=== PATIENT | female | born 1965 | race Hispanic/Latino ===

== ENCOUNTER 2019-06-10 14:32 | Emergency (ER) | payer BC ==
[~2019-06-10] VITALS: Ht 157.5 cm; Wt 72.6 kg
[2019-06-10] MEDS ORDERED: ONDANSETRON HCL INJ 2MG/ML 2ML 2 MG/ML VIAL IV STA (14:33)
[2019-06-10] MEDS ORDERED: MORPHINE SULFATE INJ 4 MG/ML INJ 1ML IV STA (14:33)
[2019-06-10] MEDS ORDERED: SODIUM CHLORIDE 0.9% 1000ML 1,000 ML IV STA (14:33)
--- OUTSIDE RECORDS SUMMARY | 2019-06-10 14:35 | XMS REPORT ---
[facility] Address Unknown Phone Unavailable Care Team Providers Care Human Resources Training Manager Name Role Phone Unavailable Unavailable Problems This patient has no known problems. Allergies, Adverse Reactions, Alerts This patient has no known allergies or adverse reactions. Medications This patient has no known medications. Encounters Start Date/Time End Date/Time Encounter Type Admission Type Attending [facility] Care Department Encounter ID 2018-03-20 00:00:00 2018-03-20 00:00:00 Outpatient [facility] [id number] 2018-01-20 00:00:00 2018-01-20 00:00:00 Outpatient [facility] [id number] 2018-01-13 00:00:00 2018-01-13 00:00:00 Outpatient [facility] [id number] 2017-12-30 00:00:00 2017-12-30 00:00:00 Outpatient [facility] [id number] 2017-12-30 00:00:00 2017-12-30 00:00:00 Outpatient [facility] [id number] 2017-12-20 00:00:00 2017-12-20 00:00:00 Outpatient [facility] [id number] 2017-12-19 00:00:00 2017-12-19 00:00:00 Outpatient [facility] [id number] 2017-12-17 12:02:40 2017-12-17 12:02:40 Outpatient [facility] [id number] 2017-12-16 08:26:13 2017-12-16 08:26:13 Outpatient [facility] [id number] 2017-12-16 07:35:59 2017-12-16 07:35:59 Outpatient [facility] [id number] 2017-12-05 13:05:12 2017-12-05 13:05:12 Outpatient [facility] [id number] 2017-12-04 00:00:00 2017-12-04 00:00:00 Outpatient [facility] [id number] 2017-11-11 12:40:13 2017-11-11 12:40:13 Outpatient [facility] [id number] 2017-11-04 08:17:49 2017-11-04 08:17:49 Outpatient [facility] [id number] 2017-10-17 00:00:00 2017-10-17 00:00:00 Outpatient [facility] [id number] 2017-10-07 14:51:20 2017-10-07 14:51:20 Outpatient [facility] [id number] 2017-10-07 00:00:00 2017-10-07 00:00:00 Outpatient [facility] [id number] 2017-10-01 06:57:12 2017-10-01 06:57:12 Outpatient [facility] [id number] 2017-09-20 22:14:42 2017-09-20 22:14:42 Emergency [facility] [id number] 2017-09-20 21:08:01 2017-09-20 21:08:01 Emergency [facility] [id number] 2017-09-20 19:43:20 2017-09-20 19:43:20 Emergency [facility] [id number] 2017-09-05 00:00:00 2017-09-05 00:00:00 Outpatient [facility] [id number] 2017-09-03 14:00:50 2017-09-03 14:00:50 Outpatient [facility] [id number] 2017-09-03 13:35:03 2017-09-03 13:35:03 Outpatient [facility] [id number] 2017-09-02 00:00:00 2017-09-02 00:00:00 Outpatient [facility] [id number] 2017-08-16 00:00:00 2017-08-16 00:00:00 Outpatient [facility] [id number] 2017-08-05 00:00:00 2017-08-05 00:00:00 Outpatient [facility] [id number] 2017-07-31 07:50:08 2017-07-31 07:50:08 Outpatient [facility] [id number] 2017-07-29 08:22:27 2017-07-29 08:22:27 Outpatient [facility] [id number] 2017-07-23 14:07:06 2017-07-23 14:07:06 Outpatient [facility] [id number] 2017-07-15 12:16:00 2017-07-15 12:16:00 Outpatient [facility] [id number] 2017-07-15 10:38:41 2017-07-15 10:38:41 Outpatient [facility] [id number] 2017-07-10 07:38:57 2017-07-10 07:38:57 Outpatient [facility] [id number] 2017-07-10 00:00:00 2017-07-10 00:00:00 Outpatient [facility] [id number] 2017-07-08 08:10:03 2017-07-08 08:10:03 Outpatient [facility] [id number] 2017-07-08 00:00:00 2017-07-08 00:00:00 Outpatient [facility] [id number] 2017-07-05 09:27:19 2017-07-05 09:27:19 Outpatient [facility] [id number] 2017-07-05 00:00:00 2017-07-05 00:00:00 Outpatient [facility] [id number] 2017-06-24 11:03:03 2017-06-24 11:03:03 Outpatient [facility] [id number] 2017-06-24 08:28:00 2017-06-24 08:28:00 Outpatient [facility] [id number] 2017-06-10 09:30:25 2017-06-10 09:30:25 Outpatient [facility] [id number] 2017-06-10 08:04:06 2017-06-10 08:04:06 Outpatient [facility] [id number] 2017-06-10 00:00:00 2017-06-10 00:00:00 Outpatient [facility] [id number] 2017-06-04 10:34:42 2017-06-04 10:34:42 Outpatient [facility] [id number] 2017-06-04 00:00:00 2017-06-04 00:00:00 Outpatient [facility] [id number] 2017-06-03 09:23:36 2017-06-03 09:23:36 Outpatient [facility] [id number] 2017-06-03 09:23:02 2017-06-03 09:23:02 Outpatient [facility] [id number] 2017-05-14 00:00:00 2017-05-14 00:00:00 Outpatient [facility] [id number] 2017-05-10 00:00:00 2017-05-10 00:00:00 Outpatient [facility] [id number] 2017-05-10 00:00:00 2017-05-10 00:00:00 Outpatient [facility] [id number] 2017-05-10 00:00:00 2017-05-10 00:00:00 Outpatient [facility] [id number] 2017-05-08 00:00:00 2017-05-08 00:00:00 Outpatient [facility] [id number] 2017-04-22 13:07:54 2017-04-22 13:07:54 Outpatient [facility] [id number] 2017-04-17 16:03:17 2017-04-17 16:03:17 Outpatient [facility] [id number] 2017-04-17 14:27:18 2017-04-17 14:27:18 Outpatient [facility] [id number] 2017-03-28 15:54:41 2017-03-28 15:54:41 Emergency [facility] [id number] 2017-03-26 09:51:26 2017-03-26 09:51:26 Outpatient [facility] [id number] 2017-03-26 08:03:46 2017-03-26 08:03:46 Outpatient [facility] [id number] 2017-03-26 07:12:28 2017-03-26 07:12:28 Outpatient [facility] [id number] 2017-03-26 00:00:00 2017-03-26 00:00:00 Outpatient [facility] [id number] 2017-03-25 00:00:00 2017-03-25 00:00:00 Outpatient [facility] [id number] 2017-03-22 00:00:00 2017-03-22 00:00:00 Outpatient [facility] [id number] 2017-03-18 00:00:00 2017-03-18 00:00:00 Outpatient [facility] [id number] 2017-03-04 00:00:00 2017-03-04 00:00:00 Outpatient [facility] [id number] 2017-02-28 00:00:00 2017-02-28 00:00:00 Outpatient [facility] [id number] 2017-02-22 16:54:14 2017-02-22 16:54:14 Emergency [facility] [id number] 2017-02-22 08:57:48 2017-02-22 08:57:48 Outpatient [facility] [id number] 2017-02-22 08:10:36 2017-02-22 08:10:36 Outpatient [facility] [id number] 2017-02-21 09:40:2017-02-21 09:40:17 Outpatient [facility] [id number] 2017-01-14 00:00:00 2017-01-14 00:00:00 Outpatient [facility] [id number] 2017-01-07 10:13:35 2017-01-07 10:13:35 Outpatient [facility] [id number] 2017-01-07 07:36:54 2017-01-07 07:36:54 Outpatient [facility] [id number] 2017-01-04 00:00:00 2017-01-04 00:00:00 Outpatient [facility] [id number] 2017-01-04 00:00:00 2017-01-04 00:00:00 Outpatient [facility] [id number] 2016-12-28 09:40:19 2016-12-28 09:40:19 Outpatient [facility] [id number] 2016-12-24 11:43:23 2016-12-24 11:43:23 Outpatient [facility] [id number] 2016-12-24 11:37:25 2016-12-24 11:37:25 Outpatient [facility] [id number] 2016-12-24 10:02:15 2016-12-24 10:02:15 Outpatient [facility] [id number] 2016-12-17 00:00:00 2016-12-17 00:00:00 Outpatient [facility] [id number] 2016-12-07 00:00:00 2016-12-07 00:00:00 Outpatient [facility] [id number] 2016-11-28 08:41:27 2016-11-28 08:41:27 Outpatient [facility] [id number] 2016-11-12 00:00:00 2016-11-12 00:00:00 Outpatient [facility] [id number] 2016-11-05 00:00:00 2016-11-05 00:00:00 Outpatient [facility] [id number] 2016-11-01 00:00:00 2016-11-01 00:00:00 Outpatient [facility] [id number] 2016-10-05 00:00:00 2016-10-05 00:00:00 Outpatient [facility] [id number] 2016-09-26 00:00:00 2016-09-26 00:00:00 Outpatient [facility] [id number] 2016-09-24 00:00:00 2016-09-24 00:00:00 Outpatient [facility] [id number] 2016-09-11 13:09:10 2016-09-11 13:09:10 Outpatient [facility] [id number] 2016-08-24 00:00:00 2016-08-24 00:00:00 Outpatient [facility] [id number] 2016-08-22 10:53:10 2016-08-22 10:53:10 Outpatient [facility] [id number] 2016-08-22 08:53:44 2016-08-22 08:53:44 Outpatient [facility] [id number] 2016-08-22 07:25:23 2016-08-22 07:25:23 Outpatient [facility] [id number] 2016-08-11 21:39:28 2016-08-11 21:39:28 Emergency [facility] [id number] 2016-08-08 09:50:10 2016-08-08 09:50:10 Outpatient [facility] [id number] 2016-08-06 10:59:51 2016-08-06 10:59:51 Outpatient [facility] [id number]
--- OUTSIDE RECORDS SUMMARY | 2019-06-10 14:36 | XMS REPORT ---
Author Author Admin, Bly Organization [facility] Address [address] [place] [address] Phone ;[phone] Allergies, Adverse Reactions, Alerts Allergy Name Reaction Description Start Date Severity Status Provider LATEX Swelling, burning, rash high fever Critical Active Marlene Balderas MD PCN rash, swelling, burning, SOB, chest pain Critical Active Marlene Balderas MD Conditions or Problems Problem Name Problem Code Onset Date Status Entry Date Provider Comment Standard Description Annotate Unspecified ovarian cyst, left side 620.2 Active Kobi Long MICROBIOLOGY LAB TECHNICIAN-C Other and unspecified ovarian cyst DEPRESSIVE DISORDER, D/T ANOT MED COND, W/ DEPRESSIVE FEATURES Active Mariajose Carmichael DOCK OPERATOR Mood disorder in conditions classified elsewhere Diverticulitis 562.11 Active Kobi Long MICROBIOLOGY LAB TECHNICIAN-C Diverticulitis of colon without mention of hemorrhage Overweight Active Juan José Polanco MD Overweight Epigastric discomfort 789.06 Active Juan José Polanco MD Abdominal pain, epigastric 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 250.00 Active Arsenio Larsen OD Diabetes mellitus without mention of complication, type II or unspecified type, not stated as uncontrolled Myopia - OU 367.1 Active Arsenio Larsen OD Myopia Presbyopia - OU 367.4 Active Arsenio Larsen OD Presbyopia Abdominal distention 787.3 Active Marlene Balderas MD Flatulence, eructation, and gas pain Anemia due to dietary iron deficiency 280.9 Active Marlene Balderas MD Iron deficiency anemia, unspecified Anxiety 300.00 Active Marlene Balderas MD Anxiety state, unspecified Asthma 493.90 Active Marlene Balderas MD Asthma, unspecified Depression 311 Active Marlene Balderas MD Depressive disorder, not elsewhere classified Diabetic neuropathy 250.60 Active Marlene Balderas MD Diabetes mellitus with neurological manifestations, type II or unspecified type, not stated as uncontrolled Diverticular disease 562.10 Active Marlene Balderas MD Diverticulosis of colon (without mention of hemorrhage) Diverticulitis, colon 562.11 Active Marlene Balderas MD Diverticulitis of colon without mention of hemorrhage Dry eye 375.15 Active Marlene Balderas MD Tear film insufficiency, unspecified Gastroparesis 536.3 Active Marlene Balderas MD Gastroparesis GERD 530.81 Active Marlene Balderas MD Esophageal reflux History of hypertension V12.50 Active Marlene Balderas MD Personal history of unspecified circulatory disease Hx of hypokalemia V12.2 Active Marlene Balderas MD Personal history of endocrine, metabolic, and immunity disorders Hyperlipidemia 272.4 Active Marlene Balderas MD Other and unspecified hyperlipidemia Hypotension 458.9 Active Marlene Balderas MD Hypotension, unspecified Screening for colon cancer V76.51 Active Marlene Balderas MD Screening for malignant neoplasms of colon Vertigo 780.4 Active Marlene Balderas MD Dizziness and giddiness Medication List Medication Instructions Start Date Stop Date Generic Name NDC Status Provider Patient Instruction DICYCLOMINE HCL 20 MG ORAL TABLET Take 1 tablet 30 minutes before meals DICYCLOMINE HCL 42987858525 Active Kobi JAY-C Active SIMETHICONE 180 MG ORAL CAPSULE Take 1 capsule 3 times a day as needed for gas pain SIMETHICONE 07296030668 Active Kobi Long MICROBIOLOGY LAB TECHNICIAN-C Active METFORMIN HCL 1000 MG ORAL TABLET 1 by mouth twice a day METFORMIN HCL 52486271450 Active Joey Ross MD R3 Active ADVANCED LUBRICANT 0.05-1 % OPHTHALMIC SOLUTION Administer 1 drop to both eyes 3 (three) times a day. TETRAHYDROZOLINE-PEG 27130958561 Active Joey Ross MD R3 Active ASPIRIN 81 MG ORAL TABLET DELAYED RELEASE 1 by mouth every day ASPIRIN 12323891282 Active Joey Ross MD R3 Active COLACE 100 MG ORAL CAPSULE 1 by mouth twice a day DOCUSATE SODIUM 25244589442 Active Joey Ross MD R3 Active FERROUS SULFATE 325 (65 FE) MG ORAL TABLET DELAYED RELEASE 1 by mouth 2 times a daily FERROUS SULFATE 84448812811 Active Joey Ross MD R3 Active GABAPENTIN 300 MG ORAL CAPSULE 1 by mouth three times a day GABAPENTIN 16251267201 Active Annette Lopez MedAdherence USER SUPPORT ANALYST Active LIPITOR 20 MG ORAL TABLET 1 by mouth every pm ATORVASTATIN CALCIUM 85389074314 Active Annette Lopez MedAdherence USER SUPPORT ANALYST Active MECLIZINE HCL 25 MG ORAL TABLET 1 by mouth 3 times a day as needed MECLIZINE HCL 83083416046 Active Annette Lopez MedAdherence USER SUPPORT ANALYST Active PEPCID 20 MG ORAL TABLET 1 by mouth twice a day FAMOTIDINE 84673715492 Active Annette Lpoez MedAdherence USER SUPPORT ANALYST Active PROAIR HFA 108 (90 BASE) MCG/ACT INHALATION AEROSOL SOLUTION 2 puffs every 4 - 6 hours as needed ALBUTEROL SULFATE 25984368527 Active Joey Ross MD R3 Active REGLAN 10 MG ORAL TABLET 1 by mouth ac and nightly at bedtime METOCLOPRAMIDE HCL 39051014390 Active Annette Lopez MedAdherence USER SUPPORT ANALYST Active ZOLOFT 50 MG ORAL TABLET 1 by mouth nightly at bedtime SERTRALINE HCL 83343843658 Active Annette Lopez MedAdherence USER SUPPORT ANALYST Active CARAFATE 1 GM ORAL TABLET 1 by mouth 3 times a day 30 minutes before meals CARAFATE 1 GM ORAL TABLET 185149 SUCRALFATE Inactive CIPRO 500 MG ORAL TABLET 1 by mouth twice a day CIPRO 500 MG ORAL TABLET 668805 CIPROFLOXACIN HCL Inactive FLAGYL 500 MG ORAL TABLET 1 tab by mouth three a day FLAGYL 500 MG ORAL TABLET 526555 METRONIDAZOLE Inactive CARAFATE 1 GM ORAL TABLET 1 by mouth 3 times a day 30 minutes before meals SUCRALFATE 99372539058 No Longer Active Joey Ross MD R3 Active CIPRO 500 MG ORAL TABLET 1 by mouth twice a day CIPROFLOXACIN HCL 72652459654 No Longer Active Marlene Balderas MD Active FLAGYL 500 MG ORAL TABLET 1 tab by mouth three a day METRONIDAZOLE 10348408017 No Longer Active Marlene Balderas MD Active Vital Signs Date Name Value Unit Range Description blood pressure, diastolic 77 mm[Hg] BP baxter blood pressure, systolic 112 mm[Hg] BP sys height E&M 60 [in_us] Bdy height pulse rate E&M 87 /min Heart rate respiratory rate E&M 20 /min Resp rate temperature E&M 98.1 [degF] Body temperature weight E&M 155 [lb_av] Weight Measured blood pressure, diastolic 76 mm[Hg] BP baxter blood pressure, systolic 117 mm[Hg] BP sys height E&M 60 [in_us] Bdy height pulse rate E&M 74 /min Heart rate respiratory rate E&M 17 /min Resp rate temperature E&M 98.4 [degF] Body temperature weight E&M 154.40 [lb_av] Weight Measured blood pressure, diastolic 80 mm[Hg] BP baxter blood pressure, systolic 129 mm[Hg] BP sys height E&M 60 [in_us] Bdy height pulse rate E&M 81 /min Heart rate respiratory rate E&M 14 /min Resp rate temperature E&M 98.8 [degF] Body temperature weight E&M 151 [lb_av] Weight Measured blood pressure, diastolic 82 mm[Hg] BP baxter blood pressure, systolic 125 mm[Hg] BP sys pulse rate E&M 70 /min Heart rate blood pressure, diastolic 76 mm[Hg] BP baxter blood pressure, systolic 114 mm[Hg] BP sys height E&M 60 [in_us] Bdy height pulse rate E&M 87 /min Heart rate respiratory rate E&M 16 /min Resp rate temperature E&M 98.1 [degF] Body temperature weight E&M 152.80 [lb_av] Weight Measured Diagnostic Results Date Name Value Unit Range Description Lab Report: CBC With Differential/Platelet, Comp. Metabolic Panel (14), ... - Chemistry thyroid stimulating hormone, serum 1.080 u[iU]/mL 0.450-4.500 very low density lipoproteins 34 mg/dL 5-40 chloride, serum 101 mmol/L 96-106 urea nitrogen, blood 16 mg/dL 6-24 Lab Report: CBC With Differential/Platelet, Comp. Metabolic Panel (14), ... - Hematology mean corpuscular hemoglobin concentration, RBC 33.6 G/DL % 31.5-35.7 erythrocyte (RBC) count 4.65 X10E6/UL 10*6/mm3 3.77-5.28 Lab Report: CBC With Differential/Platelet, Comp. Metabolic Panel (14), ... - Chemistry Absolute Neutrophils 4.9 X10E3/UL 10*3/uL 1.4-7.0 LDL cholesterol, serum 63 mg/dL 0-99 urea nitrogen/creatinine ratio, serum 14 9-23 Lab Report: CBC With Differential/Platelet, Comp. Metabolic Panel (14), ... - Hematology mean corpuscular volume, RBC 79 fL 79-97 Lab Report: CBC With Differential/Platelet, Comp. Metabolic Panel (14), ... - Chemistry HDL cholesterol, serum 49 mg/dL >39 Lab Report: CBC With Differential/Platelet, Comp. Metabolic Panel (14), ... - Hematology monocytes as percent of blood leukocytes 7 % Not Estab. Lab Report: CBC With Differential/Platelet, Comp. Metabolic Panel (14), ... - Chemistry creatinine, serum 1.16 mg/dL 0.57-1.00 albumin/globulin ratio, serum 1.9 1.2-2.2 cholesterol, serum 146 mg/dL 323-119 8562/07/22 creatinine, random, urine 52.8 mg/dL Not Estab. bilirubin, serum, total 0.2 mg/dL 0.0-1.2 Lab Report: CBC With Differential/Platelet, Comp. Metabolic Panel (14), ... - Hematology Eosinophil Absolute Count 0.2 X10E3/UL 10*3/uL 0.0-0.4 Lab Report: H. pylori Stool Ag, EIA - Microbiology Helicobacter pylori antigen, stool Negative Negative Lab Report: CBC With Differential/Platelet, Comp. Metabolic Panel (14), ... - Chemistry aspartate aminotransferase (SGOT), serum 22 U/L 0-40 Lab Report: CBC With Differential/Platelet, Comp. Metabolic Panel (14), ... - Hematology red blood cell distribution width 17.4 % 12.3-15.4 leukocyte count, blood 7.5 X10E3/UL 10*3/mm3 3.4-10.8 Lab Report: CBC With Differential/Platelet, Comp. Metabolic Panel (14), ... - Chemistry potassium, serum 4.2 mmol/L 3.5-5.2 immature granulocytes, percentage of total cells, blood 1 % Not Estab. albumin, serum 4.9 g/dL 3.5-5.5 Lab Report: CBC With Differential/Platelet, Comp. Metabolic Panel (14), ... - Hematology lymphocyte count, blood, automated 1.8 X10E3/UL 10*3/mm3 0.7-3.1 hematocrit, blood 36.6 % 34.0-46.6 Lab Report: CBC With Differential/Platelet, Comp. Metabolic Panel (14), ... - Chemistry sodium, serum 139 mmol/L 134-144 Lab Report: CBC With Differential/Platelet, Comp. Metabolic Panel (14), ... - Hematology neutrophils as percent of blood leukocytes 66 % Not Estab. basophils as percent of blood leukocytes 0 % Not Estab. Lab Report: CBC With Differential/Platelet, Comp. Metabolic Panel (14), ... - Chemistry carbon dioxide, venous blood 20 mmol/L 20-29 triglyceride, serum, fasting 171 mg/dL 0-149 calcium, serum 9.8 mg/dL 8.7-10.2 microalbumin/creatinine ratio, urine 17.6 MG/G CREAT ug/mg 0.0-30.0 alanine aminotransferase (SGPT), serum 31 U/L 0-32 Lab Report: CBC With Differential/Platelet, Comp. Metabolic Panel (14), ... - Hematology mean corpuscular hemoglobin, RBC 26.5 pg 26.6-33.0 Lab Report: CBC With Differential/Platelet, Comp. Metabolic Panel (14), ... - Chemistry protein, total, serum 7.5 g/dL 6.0-8.5 alkaline phosphatase, serum 62 U/L 39-117 Lab Report: CBC With Differential/Platelet, Comp. Metabolic Panel (14), ... - Hematology hemoglobin, blood 12.3 g/dL 11.1-15.9 lymphocytes as percent of blood leukocytes 24 % Not Estab. Lab Report: CBC With Differential/Platelet, Comp. Metabolic Panel (14), ... - Chemistry hemoglobin A1C, blood, as % of total hemoglobin 6.2 % 4.8-5.6 Lab Report: CBC With Differential/Platelet, Comp. Metabolic Panel (14), ... - Genetics/fertility eGFR if 61 mL/min/1.73m2 >59 Lab Report: CBC With Differential/Platelet, Comp. Metabolic Panel (14), ... - Hematology basophil count, absolute 0.0 x10E3/uL 0.0-0.2 Lab Report: CBC With Differential/Platelet, Comp. Metabolic Panel (14), ... - Chemistry globulin, serum 2.6 1.5-4.5 Estimated Glomerular Filtration Rate (calc) 53 mL/min/1.73m2 >59 Lab Report: CBC With Differential/Platelet, Comp. Metabolic Panel (14), ... - Urinalysis microalbumin/total urine volume 9.3 mg/L Not Estab. Lab Report: CBC With Differential/Platelet, Comp. Metabolic Panel (14), ... - Hematology eosinophils as percent of blood leukocytes 2 % Not Estab. Lab Report: CBC With Differential/Platelet, Comp. Metabolic Panel (14), ... - Chemistry blood glucose, random 100 mg/dL 65-99 Lab Report: CBC With Differential/Platelet, Comp. Metabolic Panel (14), ... - Hematology monocyte count, blood, automated 0.5 X10E3/UL 10*3/uL 0.1-0.9 platelet count 394 X10E3/UL 10*3/mm3 150-450 Encounters Date Encounter Provider Code Facility 15:53:43 CDT Ofc Vst, Est Level III Kobi Long MICROBIOLOGY LAB TECHNICIAN-C CPT-39611 [facility] 15:07:48 CDT Ofc Vst, Est Level III Kobi Long MICROBIOLOGY LAB TECHNICIAN-C CPT-95645 [facility] 15:17:12 CDT Est Patient Exp Problem - 33265 Juan José Polanco MD CPT-13658 [facility] 11:35:27 CDT New Patient Detailed - 61765 Marlene Balderas MD CPT-54242 [facility] Procedures Code Procedure Name Date Entry Date Standard Description CPT-24281 Dispensing Visit (Non-Billable) 13:35:11 CDT CPT-79042 Diagnostic evaluation (no medical) - 41123 14:26:55 CDT CPT-75724 New Patient Intermediate Opt - 96259 15:38:07 CDT
--- OUTSIDE RECORDS SUMMARY | 2019-06-10 14:36 | XMS REPORT ---
Author Author Admin, [place] Organization Unknown Address Unknown Phone Unavailable PROBLEMS Condition Status Date Provider Notes Unspecified ovarian cyst, left side active Kobi Long DEPRESSIVE DISORDER, D/T ANOT MED COND, W/ DEPRESSIVE FEATURES active Mariajose Carmichael Diverticulitis active Kobi Long Overweight active Juan José Polanco Epigastric discomfort active Joey Mahfouz 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 active Arseniojunaid Larsen Presbyopia - OU active Arseniojunaid Larsen Myopia - OU active Arseniojunaid Larsen Asthma active Joey Mahfouz Dry eye active Joey Mahfouz Diabetic neuropathy active Joey Mahfouz Gastroparesis active Joey Mahfouz Vertigo active Joey Mahfouz Anxiety active Joey Mahfouz Screening for colon cancer active Joey Mahfouz Abdominal distention active Joey Mahfouz Depression active Joey Mahfouz GERD active Joey Mahfouz Hyperlipidemia active Joey Mahfouz Hx of hypokalemia active Joey Mahfouz Anemia due to dietary iron deficiency active Joey Mahfouz History of hypertension active Joey Mahfouz Hypotension active Joey Mahfouz Diverticular disease active Joey Mahfouz Diverticulitis, colon active Joey Mahfouz ENCOUNTERS Date Type Provider Location Encounter Diagnosis - Ambulatory Encounter Sally [facility] UNK - Ambulatory Encounter Margie Past[facility] UNK - Ambulatory Encounter Margie [facility] UNK - Ambulatory Encounter Margiejodi [facility] UNK - Ambulatory Encounter Kobi Long [facility] UNK - Ambulatory Encounter Kobi Long [facility] UNK - Ambulatory Encounter Kobi Long [facility] UNK - Ambulatory Encounter Kobi Cueva May [facility] Unspecified ovarian cyst, left side - Ambulatory Encounter Margie [facility] UNK - Ambulatory Encounter Benjamin Sergei [facility] UNK - Ambulatory Encounter Janeth Rossi [facility] UNK - Ambulatory Encounter Yuniel Lee [facility] UNK - Ambulatory Encounter Kobi Long [facility] UNK - Ambulatory Encounter Kobi Long [facility] UNK - Ambulatory Encounter Kobi May [facility] Diverticulitis - Ambulatory Encounter Mariajose Carmichael [facility] DEPRESSIVE DISORDER, D/T ANOT MED COND, W/ DEPRESSIVE FEATURES - Ambulatory Encounter Joey Mahfogrey Joey Mahfouz [facility] UNK - Ambulatory Encounter Janeth Rossi [facility] UNK - [facility] UNK - Ambulatory Encounter Jayleen Medel [facility] UNK - Ambulatory Encounter Ashley Sevilla [facility] UNK - [facility] - [facility] UNK - Ambulatory En[facility] UNK [facility] UN[facility] - Ambulatory Encounter Juan José Joe [facility] Yuniel [facility] Epigastric discomfortOverweight - Ambulatory Encounter [facility] UN[facility] Ambulatory Encounter [facility] UNK - Ambulatory Encounter [facility] Ingrid Leung [facility] UNK - Ambulatory Encounter Devaughn Rothman [facility] - Ambulatory Encounter aJneth Rossi [facility] [place] UNK [facility] Ambulatory Encounter [facility] UNK - Ambulatory Encounter Arsenio Larsen [facility] UNK - Ambulatory Encounter Arseniojunaid Larsen [facility] UNK - Ambulatory Encounter Arseniojunaid Larsen [facility] UNK - Ambulatory Encounter Arseniojunaid Larsen Vijaya Cartagena [facility] Vision Myopia - OUPresbyopia - OU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 - Ambulatory Encounter Isidra Fonseca [facility] UNK - Ambulatory Encounter Joey Lesliekikagrey Joey Ross [facility] UNK - Ambulatory Encounter Joey Nelsondayton Cheek [facility] UNK - Ambulatory Encounter Leatha Durant [facility] UNK - Ambulatory Encounter Annette Sanders [facility] UNK - [facility]ulatory Encounter [facility] UNK - Ambulatory Encounter Joey Ross Joey [facility] UNK - Ambulatory Encounter Joeyteddy Nelsonkikagrey [facility] UNK - Ambulatory Encounter Joeyteddy Nelsonkikagrey [facility] UNK - Ambulatory Encounter Marlene Soto [facility] Diverticulitis, colonDiverticular diseaseHypotensionHistory of hypertensionAnemia due to dietary iron deficiencyHx of hypokalemiaHyperlipidemiaGERDDepressionAbdominal distentionScreening for colon cancerAnxietyVertigoGastroparesisDiabetic neuropathyDry eyeAsthma - Ambulatory Encounter Joey [facility]agrey [facility] VITAL SIGNS No Information Available ALLERGIES Allergy Name Onset Date Reaction Criticality Status LATEX Swelling, burning, rash high fever High Criticality active PCN rash, swelling, burning, SOB, chest pain High Criticality active REASON FOR REFERRAL Start Date - End Date Service - [place] - Internal - Gastroenterology - External RESULTS Date Observation Value Provider Reference Range Interpretation Location Helicobacter pylori antigen, stool Negative [facility] Negative thyroid stimulating hormone, serum 1.080 u[iU]/mL [facility] 0.450-4.500 " hemoglobin A1C, blood, as % of total hemoglobin 6.2 % [facility] 4.8-5.6 High " microalbumin/creatinine ratio, urine 17.6 MG/G CREAT [facility] 0.0-30.0 " microalbumin/total urine volume 9.3 mg/L [facility] Not Estab. " creatinine, random, urine 52.8 mg/dL [facility] Not Estab. " LDL cholesterol, serum 63 mg/dL [facility] 0-99 " very low density lipoproteins 34 mg/dL [facility] 5-40 " HDL cholesterol, serum 49 mg/dL [facility] >39 " triglyceride, serum, fasting 171 mg/dL [facility] 0-149 High " cholesterol, serum 146 mg/dL [facility] 100-199 " alanine aminotransferase (SGPT), serum 31 1/L [facility] 0-32 " aspartate aminotransferase (SGOT), serum 22 1/L [facility] 0-40 " alkaline phosphatase, serum 62 1/L [facility] 39-117 " bilirubin, serum, total 0.2 mg/dL [facility] 0.0-1.2 " albumin/globulin ratio, serum 1.9 [facility] 1.2-2.2 " globulin, serum 2.6 [facility] 1.5-4.5 " albumin, serum 4.9 g/dL [facility] 3.5-5.5 " protein, total, serum 7.5 g/dL [facility] 6.0-8.5 " calcium, serum 9.8 mg/dL [facility] 8.7-10.2 " carbon dioxide, venous blood 20 mmol/L [facility] 20-29 " chloride, serum 101 mmol/L [facility] 96-106 " potassium, serum 4.2 mmol/L [facility] 3.5-5.2 " sodium, serum 139 mmol/L [facility] 134-144 " urea nitrogen/creatinine ratio, serum 14 [facility] 9-23 " eGFR if 61 mL/min/((173/100).m2) [facility] >59 " Estimated Glomerular Filtration Rate (calc) 53 mL/min/((173/100).m2) [facility] >59 Low " creatinine, serum 1.16 mg/dL [facility] 0.57-1.00 High " urea nitrogen, blood 16 mg/dL [facility] 6-24 " blood glucose, random 100 mg/dL [facility] 65-99 High " immature granulocytes, percentage of total cells, blood 1 % [facility] Not Estab. " basophil count, absolute 0.0 x10E3/uL [facility] 0.0-0.2 " Eosinophil Absolute Count 0.2 X10E3/UL [facility] 0.0-0.4 " monocyte count, blood, automated 0.5 X10E3/UL [facility] 0.1-0.9 " lymphocyte count, blood, automated 1.8 X10E3/UL [facility] 0.7-3.1 " Absolute Neutrophils 4.9 X10E3/UL [facility] 1.4-7.0 " basophils as percent of blood leukocytes 0 % [facility] Not Estab. " eosinophils as percent of blood leukocytes 2 % [facility] Not Estab. " monocytes as percent of blood leukocytes 7 % [facility] Not Estab. " lymphocytes as percent of blood leukocytes 24 % [facility] Not Estab. " neutrophils as percent of blood leukocytes 66 % [facility] Not Estab. " platelet count 394 X10E3/UL [facility] 150-450 " red blood cell distribution width 17.4 % [facility] 12.3-15.4 High " mean corpuscular hemoglobin concentration, RBC 33.6 G/DL [facility] 31.5-35.7 " mean corpuscular hemoglobin, RBC 26.5 pg [facility] 26.6-33.0 Low " mean corpuscular volume, RBC 79 fL [facility] 79-97 " hematocrit, blood 36.6 % [facility] 34.0-46.6 " hemoglobin, blood 12.3 g/dL [facility] 11.1-15.9 " erythrocyte (RBC) count 4.65 X10E6/UL [facility] 3.77-5.28 " leukocyte count, blood 7.5 X10E3/UL [facility] 3.4-10.8 HISTORY OF IMMUNIZATIONS No Information Available HISTORY OF MEDICATION USE Medication Instructions Dates Provider Comments SIMETHICONE 180 MG ORAL CAPSULE Take 1 capsule 3 times a day as needed for gas pain Kobi Long DICYCLOMINE HCL 20 MG ORAL TABLET Take 1 tablet 30 minutes before meals Kobi Long CARAFATE 1 GM ORAL TABLET 1 by mouth 3 times a day 30 minutes before meals - Joey Ross METFORMIN HCL 1000 MG ORAL TABLET 1 by mouth twice a day Joey Ross ADVANCED LUBRICANT 0.05-1 % OPHTHALMIC SOLUTION Administer 1 drop to both eyes 3 (three) times a day. Joey Ross GABAPENTIN 300 MG ORAL CAPSULE 1 by mouth three times a day Joey Ross ZOLOFT 50 MG ORAL TABLET 1 by mouth nightly at bedtime Joey Ross REGLAN 10 MG ORAL TABLET 1 by mouth ac and nightly at bedtime Joey Ross MECLIZINE HCL 25 MG ORAL TABLET 1 by mouth 3 times a day as needed Joey Ross FERROUS SULFATE 325 (65 FE) MG ORAL TABLET DELAYED RELEASE 1 by mouth 2 times a daily Joey Ross PEPCID 20 MG ORAL TABLET 1 by mouth twice a day Joey Ross COLACE 100 MG ORAL CAPSULE 1 by mouth twice a day Joey Ross LIPITOR 20 MG ORAL TABLET 1 by mouth every pm Joey Ross ASPIRIN 81 MG ORAL TABLET DELAYED RELEASE 1 by mouth every day Joey Ross PROAIR HFA 108 (90 BASE) MCG/ACT INHALATION AEROSOL SOLUTION 2 puffs every 4 - 6 hours as needed Joey Ross FLAGYL 500 MG ORAL TABLET 1 tab by mouth three a day - Joey Ross CIPRO 500 MG ORAL TABLET 1 by mouth twice a day - Joey Ross SOCIAL HISTORY Date Observation Value Provider drug use, illicit Never Anay May " alcohol use Never Naay May " social history E&M . from , 1 son working and 1 daughter who is very supportive Not homeless. Born in [place]. State: [facility] . 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 Sex at : Female. Sexual orientation: Heterosexual. Gender identity: Female. Gender of partner(s): Male. Age of first sexual intercourse: 18. Sexually Active: Yes. Anay May " social history reviewed E&M reviewed today Anay May " sexual orientation Heterosexual Anay May " assessment of health literacy ([facility] 2014 Standards, 3C10) Adequate Anay May " passive cigarette smoke exposure No Anay May " smoking status never smoker Anay May social history reviewed E&M reviewed today Mariajose Carmichael " social history E&M . from , 1 son working and 1 daughter who is very supportive Not homeless. Born in [place]. State: [facility] . 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 Sex at : Female. Sexual orientation: Heterosexual. Gender identity: Female. Gender of partner(s): Male. Age of first sexual intercourse: 18. Sexually Active: Yes. Mariajose Carmichael drug use, illicit Never Anay May " alcohol use Never Anay May " social history reviewed E&M reviewed today Anay May " sexual orientation Heterosexual Anay May " assessment of health literacy ([facility] 2014 Standards, 3C10) Adequate Anay May " passive cigarette smoke exposure No Anay May " smoking status never smoker Anay May home/family situation, assessment Lives with daughter with her family Mariajose Carmichael " patient considered to be homeless No Mariajose Carmichael " family support from , 1 son working and 1 daughter who is very supportive Mariajose Carmichael time of call 10/02/2018 11:05 AM Jayleen Medel social history reviewed E&M reviewed today Yuniel Lee " sexual orientation Heterosexual Yunielesteban Caputoa " assessment of health literacy ([facility] 2014 Standards, 3C10) Adequate Yuniel Lee " is there any chance that you could be ? No Yuniel Lee " passive cigarette smoke exposure No Yuniel Lee " smoking status never smoker Yuniel Lee " Exercise Program Referral T Yuniel Lee " Weight Management Counseling Provided T Yuniel Lee " Nutrition intervention T Yuniel Lee time of call 09/19/2018 4:41 PM Ingrid Leung time of call 09/17/2018 12:43 PM Rylee Cheek time of call 09/17/2018 12:14 PM Leatha Durant Exercise Program Referral T Ashley iD " Weight Management Counseling Provided T Ashley Sevilla " Nutrition intervention T Ashley Sevilla " social history reviewed E&M reviewed today Ashley Sevilla " drug use, illicit Never Ashley Sevilla " alcohol use Never Ashley Sevilla " sexual orientation Heterosexual Ashley Sevilla " sex at Female Ashley Sevilla " 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 Ashley Sevilla " assessment of health literacy ([facility] 2014 Standards, 3C10) Adequate Ashley Sevilla " passive cigarette smoke exposure No Ashley Sevilla " smoking status never smoker Ashley Sevilla FUNCTIONAL STATUS No Information Available MENTAL STATUS Date Observation Value Provider assessment of judgment and insight E&M intact Kobi Long " mental status examination: orientation E&M oriented to time, place, and person Kobi Long " assessment of mood and affect E&M no depression, anxiety, or agitation Kobi Long " Generalized Anxiety Disorder Questionnaire - Question 2 0 Anay May " Generalized Anxiety Disorder Questionnaire - Question 1 0 Anay May delusion No Mariajose Carmichael assessment of judgment and insight E&M intact Kobi Long " mental status examination: orientation E&M oriented to time, place, and person Kobi Long " assessment of mood and affect E&M no depression, anxiety, or agitation Kobi Long " Generalized Anxiety Disorder Questionnaire - Question 2 0 Anay May " Generalized Anxiety Disorder Questionnaire - Question 1 0 Anay May mental status assessment, judgment fair Mariajose Carmichael " insight (mental status exam) fair Mariajose Carmichael " Mental Status Exam: intelligence adequate fund of information, intact memory processes, oriented to person, oriented to place, oriented to time, oriented to situation, oriented to reality Mariajose Carmichael " hallucinations none Mariajose Carmichael " thought content (mental status exam) (E&M) lucid Mariajose Carmichael " mental status assessment, process able to abstract, goal-directed, logical Mariajose Carmichael " mental status assessment, sensorium alert, attentive, clear Mariajose Carmichael " affect (mental status exam) congruent, euthymic, normal intensity, normal range Mariajose Carmichael " mood (mental status exam) pleasant, sad Mariajose Carmichael " mental status assessment, speech activity normal flow, normal pace, normal pressure, normal rate, normal tone, normal volume, spontaneous Mariajose Carmichael " mental status assessment, motor activity normal gait, normal posture Mariajose Carmichael " behavior (mental status exam) appropriate, candid, cooperative, good eye contact, polite, responsive Mariajose Carmichael" mental appearance (mental status exam) adequate hygiene, appropriate dress, looks like stated age, neat, makeup appropriate Mariajose Carmichael assessment of judgment and insight E&M intact Joey Ross " mental status examination: orientation E&M oriented to time, place, and person Joey Ross " assessment of mood and affect E&M no depression, anxiety, or agitation Joey Ross " Generalized Anxiety Disorder Questionnaire - Question 2 0 Yuniel Lee " Generalized Anxiety Disorder Questionnaire - Question 1 0 Yuniel Lee assessment of judgment and insight E&M intact Joeyteddy Lloyduz " mental status examination: orientation E&M oriented to time, place, and person Joey Lesliefouz " assessment of mood and affect E&M no depression, anxiety, or agitation Joey Ross " Generalized Anxiety Disorder Questionnaire - Question 2 0 Ashley Sevilla " Generalized Anxiety Disorder Questionnaire - Question 1 1 Ashley Sevilla MEDICAL EQUIPMENT No Information Available FAMILY HISTORY No Information Available INSURANCE PROVIDERS Payer name Policy type / Coverage type Covered alliance party ID Sliding Fee - Cat 1 [employer] [id number] ADVANCE DIRECTIVES No Information Available TREATMENT PLAN Date Name H. pylori Stool Ag, EIA FIT- Fecal immunoassay test TSH Rfx on Abnormal to Free T4 Microalb/Creat Ratio, Randm Ur Hemoglobin A1c Lipid Panel Comp. 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 Diagnostic evaluation (no medical) - 01637 Ofc Vst, Est Level III Est Patient Exp Problem - 57939 Integrated Behavioral Health Assessment (IBH) Behavioral Health - Psychiatry Frames, purchases Sphere, bif, plano to +/- 4.00d, per lens New Patient Intermediate Opth - 51970 New Patient Detailed - 58328 Prescription Assistance (Non-HIV) [employer] [facility] - Internal Behavioral Health - Psychiatry HISTORY OF PROCEDURES Procedure Date Procedure Name Provider Procedure Notes Status Dispensing Visit (Non-Billable) Janeth Rossi completed [facility] 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
--- OUTSIDE RECORDS SUMMARY | 2019-06-10 14:36 | XMS REPORT ---
Author Author Admin, [place] Organization Unknown Address Unknown Phone Unavailable PROBLEMS Condition Status Date Provider Notes Dementia active Joey Mahfouz Abnormal abdominal imaging active Joey Mahfouz Melasma active Joey Mahfouz Hypotension active Joeyteddy Nelsonfouz Intermittent Muscle spasm, back active Joeyteddy Nelsonfouz Dysuria active Joeyteddy Nelsonfouz Unspecified ovarian cyst, left side active Kobi Long DEPRESSIVE DISORDER, D/T ANOT MED COND, W/ DEPRESSIVE FEATURES active Mariajose Carmichael Diverticulitis active Kobi Long Overweight active Juan José Polanco Epigastric discomfort active Joey Nelsonfouz 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 active Arseniojunaid Larsen Presbyopia - OU active Arsenio Larsen Myopia - OU active Arseniojunaid Larsen Asthma active Joey Mahfouz Dry eye active Joey Mahfouz Diabetic neuropathy active Joey Mahfouz Gastroparesis active Joey Mahfouz Vertigo active Joey Mahfouz Anxiety active Joey Mahfouz Screening for colon cancer active Joey Mahfouz Abdominal distention active Joey Mahfouz Depression active Joey Mahfouz GERD active Joey Mahfouz Hyperlipidemia active Joeyteddy Nelsonfouz Hx of hypokalemia active Joeyteddy Nelsonfouz Anemia due to dietary iron deficiency active Joeyteddy Nelsonfouz History of hypertension active Joey Mahfouz Hypotension active Joey Nelsonfouz Diverticular disease active Joey Nelsonfogrey Diverticulitis, colon active Joey Ross ENCOUNTERS Date Type Provider Location Encounter Diagnosis - Ambulatory Encounter LSJ Lab Support Desktop [facility] UNK - [facility] UN[facility] - Ambulatory Encounter Fax Status [facility] UNK - Ambulatory Encounter Fax Status [facility] UNK - Ambulatory Encounter Fax Status [facility] UNK - Ambulatory Encounter Fax Status [facility] UNK - Ambulatory Encounter Fax Status [facility] UNK - Ambulatory Encounter Fax Status [facility] UNK - Ambulatory Encounter [facility] UNK - [facility] UNK - Ambulatory Encounter Patrica Langston Joey [facility] Elsa Rebolledo [facility] DysuriaMuscle spasm, backHypotensionMelasmaAbnormal abdominal imagingDementia - Ambulatory Encounter Sally Tejeda [facility] UNK - Ambulatory Encounter Margie [facility] UNK - Ambulatory Encounter Margie [facility] UNK - Ambulatory En[facility] - Ambulatory Encounter Kobi Long [facility] UNK - Ambulatory Encounter Kobi Long [facility] UNK - Ambulatory Encounter Kobi Long [facility] UNK - Ambulatory Encounter Kobi Obrien Anay May FaQuazia [facility] Unspecified ovarian cyst, left side - Ambulatory Encounter aMrgie Pastrana [facility] UNK - Ambulatory Encounter Benjamin Sergei [facility] UNK - Ambulatory Encounter Janethreji Rossi [facility] UNK - Ambulatory Encounter Yuniel Jesus [facility] UNK - Ambulatory Encounter Kobi Long [facility] UNK - Ambulatory Encounter Kobi Long [facility] UNK - Ambulatory Encounter Kobi May [facility] Diverticulitis - Ambulatory Encounter Mariajose Carmichael [facility] DEPRESSIVE DISORDER, D/T ANOT MED COND, W/ DEPRESSIVE FEATURES - Ambulatory Encounter Joey Mahfouz Joey Mahfouz [facility] UNK - Ambulatory Encounter Janethreji Rossi [facility] UNK - Ambulatory Encounter Joey Mahfouz Joey Mahfouz [facility] UNK - Ambulatory Encounter Jayleen Medel [facility] UNK - Ambulatory Encounter Ashley Sevilla [facility] UNK - Ambulatory Encounter [facility] UNK - [facility]ulatory Encounter [facility] - Ambulatory Encounter Joeyteddy Cook [facility] UNK - Ambulatory Encounter Juan José Joe Joey [facility] Epigastric discomfortOverweight - Ambulatory Encounter [facility] - [facility] - Amb[facility] Encounter [facility] Ingrid Leung [facility] UNK - Ambulatory Encounter Devaughn Rothman [facility] UNK - Ambulatory Encounter [facility] [place] [place] [facility] UNK - Ambulatory Encounter [facility] UNK - Ambulatory Encounter Arseniojunaid Larsen [facility] UNK - Ambulatory Encounter Arseniojunaid Larsen [facility] UNK - Ambulatory Encounter Arseniojunaid Larsen [facility] UNK - Ambulatory Encounter Arsenio [facility] Myopia - OUPresbyopia - OU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 - Ambulatory Encounter Isidra Fonseca [facility] UNK - Ambulatory Encounter Joey Cook [facility] UNK - Ambulatory Encounter Joey Nelsonkikagrey Bella Cheek [facility] UNK - Ambulatory Encounter Leatha Durant [facility] UNK - Ambulatory [facility] UNK - Ambulatory Encounter Joey Ross Omar [facility] UNK - Ambulatory Encounter Joey Cook [facility] UNK - Ambulatory Encounter [facility] UNK - Ambulatory Encounter Joeyteddy Ross Joey [facility] UNK - Ambulatory Encounter Marlene Cook Lesliekikagrey Joey [facility] Leatha Soto [facility] Diverticulitis, colonDiverticular diseaseHypotensionHistory of hypertensionAnemia due to dietary iron deficiencyHx of hypokalemiaHyperlipidemiaGERDDepressionAbdominal distentionScreening for colon cancerAnxietyVertigoGastroparesisDiabetic neuropathyDry eyeAsthma - Ambulatory Encounter Joeyteddy Ross Omar [facility] UNK VITAL SIGNS No Information Available ALLERGIES Allergy Name Onset Date Reaction Criticality Status LATEX Swelling, burning, rash high fever High Criticality active PCN rash, swelling, burning, SOB, chest pain High Criticality active REASON FOR REFERRAL Start Date - End Date Service - Neurology - External - PERFORMANCE ANALYST - Internal - Gastroenterology - External RESULTS Date Observation Value Provider Reference Range Interpretation Location corticotropin, plasma 13.7 pg/mL [facility] 7.2-63.3 " alanine aminotransferase (SGPT), serum 149 1/L [facility] 0-32 High " aspartate aminotransferase (SGOT), serum 200 1/L [facility] 0-40 High " alkaline phosphatase, serum 74 1/L [facility] 39-117 " bilirubin, serum, total 0.3 mg/dL [facility] 0.0-1.2 " albumin/globulin ratio, serum 1.9 [facility] 1.2-2.2 " globulin, serum 2.5 [facility] 1.5-4.5 " albumin, serum 4.8 g/dL [facility] 3.5-5.5 " protein, total, serum 7.3 g/dL [facility] 6.0-8.5 " calcium, serum 9.8 mg/dL [facility] 8.7-10.2 " carbon dioxide, venous blood 23 mmol/L [facility] 20-29 " chloride, serum 99 mmol/L [facility] 96-106 " potassium, serum 4.6 mmol/L [facility] 3.5-5.2 " sodium, serum 141 mmol/L [facility] 134-144 " urea nitrogen/creatinine ratio, serum 21 [facility] 9-23 " eGFR if 109 mL/min/((173/100).m2) [facility] >59 " Estimated Glomerular Filtration Rate (calc) 95 mL/min/((173/100).m2) [facility] >59 " creatinine, serum 0.72 mg/dL [facility] 0.57-1.00 " urea nitrogen, blood 15 mg/dL [facility] 6-24 " blood glucose, random 100 mg/dL [facility] 65-99 High glucose, urine, semiquantitative negative Steph Amaury " bilirubin, urine negative Steph Rebolledo " blood in urine (hemoglobin) by dipstick negative Steph Rebolledo " specific gravity, urine 1.020 Steph Rebolledo " protein, urine, semiquantitative (dipstick) negative Steph Rebolledo " urobilinogen, urine, semiquantitative (dipstick) negative Steph Rebolledo " appearance, urine clear Steph Rebolledo " ketones, urine, by test strip negative Steph Rebolledo " pH, urine, semiquantitative 5.5 Steph Rebolledo " nitrite, urine, semiquantitative negative Steph Rebolledo " urine color light yellow Steph Rebolledo " leukocyte esterase, urine, by dipstick 2+ Steph Rebolledo Helicobacter pylori antigen, stool Negative [facility] Negative [...] MEDICATION USE Medication Instructions Dates Provider Comments BACLOFEN 10 MG ORAL TABLET one tablet by mouth take at bedtime as needed for muscle spasm Joey Ross MACROBID 100 MG ORAL CAPSULE 1 by mouth twice a day Joey Ross SIMETHICONE 180 MG ORAL CAPSULE Take 1 [...] 4 - 6 hours as needed Joey oRss FLAGYL 500 MG ORAL TABLET 1 tab by mouth three a day - Joey Ross CIPRO 500 MG ORAL TABLET 1 by mouth twice a day - Joey Ross SOCIAL HISTORY Date Observation Value Provider drug use, illicit Never Steph Rebolledo " alcohol use Never Steph Rebolledo " social history E&M . from , 1 son working and 1 daughter who is very supportive Not homeless. Born in [place]. State: [facility] . 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 Sex at : Female. Sexual orientation: Heterosexual. Gender identity: Female. Gender of partner(s): Male. Age of first sexual intercourse: 18. Sexually Active: Yes. Steph Amaury " social history reviewed E&M reviewed today Steph Rebolledo " sexual orientation Heterosexual Steph Rebolledo " assessment of health literacy ([facility] 2014 Standards, 3C10) Adequate Steph Rebolledo " is there any chance that you could be ? No Steph Rebolledo " passive cigarette smoke exposure No Steph Rebolledo " smoking status never smoker Steph Rebolledo " Exercise Program Referral T Steph Rebolledo " Weight Management Counseling Provided T Steph Rebolledo " Nutrition intervention T Steph Rebolledo drug use, illicit Never Anay May " alcohol use Never Anay May " social history E&M . from , 1 son working and 1 daughter who is very supportive Not homeless. Born in [place]. State: [facility] . 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 Sex at : Female. Sexual orientation: Heterosexual. Gender identity: Female. Gender of partner(s): Male. Age of first sexual intercourse: 18. Sexually Active: Yes. Anay May " social history reviewed E&M reviewed today Anay May " sexual orientation Heterosexual Anay May " assessment of health literacy ([facility] 2014 Standards, 3C10) Adequate Anay May " passive cigarette smoke exposure No Anay May " smoking status never smoker Anay May social history reviewed E&M reviewed today Mariajose Carmichael " social history E&M . from , 1 son working and 1 daughter who is very supportive Not homeless. Born in [place]. State: [facility] . 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 Sex at : Female. Sexual orientation: Heterosexual. Gender identity: Female. Gender of partner(s): Male. Age of first sexual intercourse: 18. Sexually Active: Yes. Mariajose Amol drug use, illicit Never Anay May " alcohol use Never Anay May " social history reviewed E&M reviewed today Anay May " sexual orientation Heterosexual Anay May " assessment of health literacy ([facility] 2014 Standards, 3C10) Adequate Anay May " passive cigarette smoke exposure No Anay May " smoking status never smoker Anay May home/family situation, assessment Lives with daughter with her family Mariajose Carmichael " patient considered to be homeless No Mariajose Carmichael " family support from , 1 son working and 1 daughter who is very supportive Mariajose Amol time of call 10/02/2018 11:05 AM Jayleen Medel social history reviewed E&M reviewed today Yuniel Lee " sexual orientation Heterosexual Yuniel Lee " assessment of health literacy ([facility] 2014 Standards, 3C10) Adequate Yuniel Lee " is there any chance that you could be ? No Yuniel Lee " passive cigarette smoke exposure No Yuniel Lee " smoking status never smoker Yuniel Lee " Exercise Program Referral Slava Lee " Weight Management Counseling Provided Slava Lee " Nutrition intervention Slava Lee time of call 09/19/2018 4:41 PM Ingrid Leung time of call 09/17/2018 12:43 PM Rylee Cheek time of call 09/17/2018 12:14 PM Leatha Durant Exercise Program Referral Slava Sevilla " Weight Management Counseling Provided T Ashley Sevilla " Nutrition intervention T Ashley Sevilla " social history reviewed E&M reviewed today Ashley Sevilla " drug use, illicit Never Ashley Sevilla " alcohol use Never Ashley Sevilla " sexual orientation Heterosexual Ashley Sevilla " sex at Female Ashley Sevilla " 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 Ashley Sevilla " assessment of health literacy ([facility] 2014 Standards, 3C10) Adequate Ashley Sevilla " passive cigarette smoke exposure No Ashley Sevilla " smoking status never smoker Ashley Sevilla FUNCTIONAL STATUS No Information Available MENTAL STATUS Date Observation Value Provider assessment of judgment and insight E&M poor Joey Ross " assessment of mood and affect E&M no depression, anxiety, or agitation Joey Ross " mental status examination: orientation E&M oriented to time, place, and person Joey Ross " Generalized Anxiety Disorder Questionnaire - Question 2 0 Steph Rebolledo " Generalized Anxiety Disorder Questionnaire - Question 1 0 Steph Rebolledo assessment of judgment and insight E&M intact Kobi Long " mental status examination: orientation E&M oriented to time, place, and person Kobi oLng " assessment of mood and affect E&M no depression, anxiety, or agitation oKbi Long " Generalized Anxiety Disorder Questionnaire - [...] cooperative, good eye contact, polite, responsive Mariajose Carmichael " mental appearance (mental status exam) adequate hygiene, appropriate dress, looks like stated age, neat, makeup appropriate Mariajose Carmichael assessment of judgment and insight E&M intact Joey Ross " mental status examination: orientation E&M oriented to time, place, and person Joey Ross " assessment of mood and affect E&M no depression, anxiety, or agitation Joey Lesliekikagrey " Generalized Anxiety Disorder Questionnaire - Question 2 0 Yuniel Lee " Generalized Anxiety Disorder Questionnaire - Question 1 0 Yuniel Lee assessment of judgment and insight E&M intact Joey Ross " mental status examination: orientation E&M oriented to time, place, and person Joey Ross " assessment of mood and affect E&M no depression, anxiety, or agitation Joeyteddy Ross " Generalized Anxiety Disorder Questionnaire - Question 2 0 Ashley Sevilla " Generalized Anxiety Disorder Questionnaire - Question 1 1 Ashley Sevilla MEDICAL EQUIPMENT No Information Available FAMILY HISTORY No Information Available INSURANCE PROVIDERS Payer name Policy type / Coverage type Covered constitution party ID Sliding Fee - Cat 1 [employer] insurance [place] [id number] ADVANCE DIRECTIVES No Information Available TREATMENT PLAN Date Name Comp. Metabolic Panel (14) Cortisol Adrenocorticotropic Hormone (ACTH), Plasma H. pylori Stool Ag, EIA FIT- Fecal immunoassay test TSH Rfx on Abnormal to Free T4 Microalb/Creat Ratio, Randm Ur Hemoglobin A1c Lipid Panel Comp. Metabolic Panel (14) CBC With Differential/Platelet - - - Est Patient Exp Problem - 74025 Behavioral Health - Therapy Behavioral Health - Psychiatry Crate Opener Ofc Vst, Est Level III Dispensing Visit (Non-Billable) [facility] Assessment - Director Medical Diagnostic evaluation (no medical) - 88981 Ofc Vst, Est Level III Est Patient Exp Problem - 80575 Integrated Behavioral Health Assessment (IBH) Behavioral Health - Psychiatry Frames, purchases Sphere, bif, plano to +/- 4.00d, per lens New Patient Intermediate Opt - 56190 New Patient Detailed - 96471 Prescription Assistance (Non-HIV) Crate [facility]er [facility] - Internal Behavioral Health - Psychiatry HISTORY OF PROCEDURES Procedure Date Procedure Name Provider Procedure Notes Status Dispensing Visit (Non-Billable) Janeth Rossi completed [facility] Assessment - Director Medical Mariajose Carmichael completed Diagnostic evaluation (no medical) - 26184 Mariajose Carmichael completed Frames, purchases Janeth Rossi completed Sphere, bif, plano to +/- 4.00d, per lens Janeth Rossi 65.00 completed New Patient Intermediate Opt - 97852 Arsenio Larsen completed GOALS No Information Available HEALTH CONCERNS No Information Available
--- OUTSIDE RECORDS SUMMARY | 2019-06-10 14:37 | XMS REPORT ---
Author Author Admin, [place] Organization Unknown Address Unknown Phone Unavailable PROBLEMS Condition Status Date Provider Notes Dementia active Joey Mahfouz Abnormal abdominal imaging active Joey Mahfouz Melasma active Joey Mahfouz Hypotension active Joeyteddy Nelsonfouz Intermittent Muscle spasm, back active Joeyteddy Nelsonfouz Dysuria active Joeyteddy Neslonfouz Unspecified ovarian cyst, left side active Kobi [...] hypertension active Joey Mahfouz Hypotension active Joey Lesliefouz Diverticular disease active Joeyteddy Nelsonfogrey Diverticulitis, colon active Joeyteddy Nelsonfogrey ENCOUNTERS Date Type Provider Location Encounter Diagnosis - Ambulatory Encounter Joeyteddy Ross [facility] UNK - [facility] - [facility] - Amb[facility] - Ambulatory Encounter [facility] UNK - Ambulatory Encounter Isidra Fonseca [facility] UNK - Ambulatory En[facility] - [facility]bolled[facility] UNK - Ambulatory En[facility]K - Ambulatory Encounter [facility] UNK - Ambulatory Encounter Fax Status [facility] UNK - Ambulatory Encounter Fax Status [facility] UNK - Ambulatory Encounter Fax Status [facility] UNK - Ambulatory Encounter Fax Status [facility] UNK - Ambulatory Encounter Fax Status [facility] UNK - Ambulatory Encounter Fax Status [facility] UNK - Ambulatory Encounter [facility] UNK - Ambulatory Encounter [facility] UNK - Ambulatory Encounter Patrica Fonseca [facility] Elsa Rebolledo [facility] DysuriaMuscle spasm, backHypotensionMelasmaAbnormal abdominal imagingDementia - Ambulatory Encounter Sally Tejeda [facility] UNK - Ambulatory Encounter Margie [facility] UNK - Ambulatory Encounter Margie [facility] UNK - Ambulatory Encounter Margie [facility] UNK - Ambulatory Encounter Kobi [facility] UNK - Ambulatory Encounter Kobi [facility] UNK - Ambulatory Encounter Kobi [facility] UNK - Ambulatory Encounter Kobi Obrien Anay May FaQuazia Cam [facility] Unspecified ovarian cyst, left side - Ambulatory Encounter Margie [facility] UNK - Ambulatory Encounter Benjamin Sergei [facility] UNK - Ambulatory Encounter Janeth Rossi [facility] UNK - Ambulatory Encounter Yuniel [facility] UNK - Ambulatory Encounter Kobi [facility] UNK - Ambulatory Encounter Kobi [facility] UNK - Ambulatory Encounter Kobi Cueva May [facility] Diverticulitis - Ambulatory Encounter Mariajose Carmichael [facility] DEPRESSIVE DISORDER, D/T ANOT MED COND, W/ DEPRESSIVE FEATURES - Ambulatory Encounter Joey [facility] UNK - Ambulatory Encounter Janeth Annews [facility] UNK - [facility] UNK - Ambulatory Encounter Jayleen Medel [facility] UNK - Ambulatory Encounter Ashley Sevilla [facility] UNK - Ambulatory Encounter Joey [facility] UNK [facility] Ambulatory Encounter Joey [facility] UNK - Ambulatory Encounter Joey [facility] UNK - Ambulatory Encounter Joey [facility] UNK - Ambulatory Encounter Juan José Joe [facility] Yuniel [facility] Epigastric discomfortOverweight - Ambulatory Encounter Patrica Torres [facility] UNK - Ambulatory Encounter [facility] - Ambulatory Encounter [facility] UNK - Ambulatory Encounter Joey Ross Ingrid Leung [facility] Contact Center UNK - Ambulatory Encounter Devaughn Rothman [facility] - Ambulatory Encounter [facility] UN[facility] - Ambulatory Encounter [facility] UNK - Ambulatory Encounter Arseniojunaid Larsen [facility] UNK - Ambulatory Encounter Arseniojunaid Larsen [facility] UNK - Ambulatory Encounter Arseniojunaid Larsen [facility] UNK - Ambulatory Encounter Arsenio Chava Cartagena [facility] Vision Myopia - OUPresbyopia - OU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 - Ambulatory Encounter Isidra Fonseca [facility] UNK - Ambulatory Encounter Joey [facility] UN[facility] - Ambulatory Encounter Joey Cook Vandana Cheek [facility] Services Contact Center UNK - Ambulatory Encounter Leatha Durant [facility] Public Health Services UNK - [facility] - [facility]ulatory Encounter [facility]eddy [facility] UNK - Ambulatory [facility] UNK - Ambulatory Encounter Joey Cook [facility] UNK - Ambulatory Encounter Joey Cook [facility] UNK - Ambulatory Encounter Marlene Chilel [facility] Leatha Soto [facility] Diverticulitis, colonDiverticular diseaseHypotensionHistory of hypertensionAnemia due to dietary iron deficiencyHx of hypokalemiaHyperlipidemiaGERDDepressionAbdominal distentionScreening for colon cancerAnxietyVertigoGastroparesisDiabetic neuropathyDry eyeAsthma - Ambulatory Encounter [facility] VITAL SIGNS No Information Available ALLERGIES Allergy Name Onset Date Reaction Criticality Status LATEX Swelling, burning, rash high fever High Criticality active PCN rash, swelling, burning, SOB, chest pain High Criticality active REASON FOR REFERRAL Start Date - End Date Service - Neurology - External - CHEMIST STEROIDS - Internal - Gastroenterology - External RESULTS [...] 65-99 High glucose, urine, semiquantitative negative Steph Rebolledo " bilirubin, urine negative Steph Rebolledo " [...] bedtime as needed for muscle spasm Joey Mahfouz MACROBID 100 MG ORAL CAPSULE 1 by mouth twice a day Joey Lesliefogrey SIMETHICONE 180 MG ORAL CAPSULE Take 1 [...] every 4 - 6 hours as needed Joeyteddy Ross FLAGYL 500 MG ORAL TABLET 1 tab by mouth three a day - Joeyteddy Ross CIPRO 500 MG ORAL TABLET 1 by mouth twice a day - Joey Lesliekikagrey SOCIAL HISTORY Date Observation Value Provider drug use, illicit Never Steph Amaury " alcohol use Never Steph Amaury " social history E&M . from , 1 son working and 1 daughter who is very supportive Not homeless. Born in [place]. State: [facility] . 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 Sex at : Female. Sexual orientation: Heterosexual. Gender identity: Female. Gender of partner(s): Male. Age of first sexual intercourse: 18. Sexually Active: Yes. Steph Rebolledo " social history reviewed E&M reviewed today Steph Rebolledo " sexual orientation Heterosexual Steph Rebolledo " assessment of health literacy ([facility] 2014 Standards, 3C10) Adequate Steph Rebolledo " is there any chance that you could be ? No Steph Rebolledo " passive cigarette smoke exposure No Steph Rebolledo " smoking status never smoker Steph Rebolledo " Exercise Program Referral T [facility] Rebolledo " Weight Management Counseling Provided T Steph Rebolledo " Nutrition intervention T Steph Rebolledo drug use, illicit Never Anay May " alcohol use Never Anay May " social history E&M . from , 1 son working and 1 daughter who is very supportive Not homeless. Born in [place]. State: [facility] . 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 Sex at : Female. Sexual orientation: Heterosexual. Gender identity: Female. Gender of partner(s): Male. Age of first sexual intercourse: 18. Sexually Active: Yes. Anay May " social history reviewed E&M reviewed today Anay May " sexual orientation Heterosexual Anay May " assessment of health literacy ([facility] 2014 Standards, 3C10) Adequate Anay May " passive cigarette smoke exposure No Anay May " smoking status never smoker Anay May social history reviewed E&M reviewed today Mariajose Carmichael " social history E&M . from , 1 son working and 1 daughter who is very supportive Not homeless. Born in [place]. State: [facility] . 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 Sex at : Female. Sexual orientation: Heterosexual. Gender identity: Female. Gender of partner(s): Male. Age of first sexual intercourse: 18. Sexually Active: Yes. Mariajose Carmichael drug use, illicit Never Anay Mya " alcohol use Never Anay May " social history reviewed E&M reviewed today Anay May " sexual orientation Heterosexual Anay May " assessment of health literacy ([facility] 2014 Standards, 3C10) Adequate Anay May " [...] " assessment of health literacy ([facility] 2014 Standards, 3C10) Adequate Yuniel Lee " [...] Leatha Durant Exercise Program Referral T Ashley Sevilla " Weight Management Counseling Provided T Ashley Sevilla " Nutrition intervention T Ashley Sevilla " social history reviewed E&M reviewed today Ashley Sevilla " drug use, illicit Never Ashley Swainz " alcohol use Never Ashley Sevilla " sexual orientation Heterosexual Ashley Sevilla " sex at Female Ashley Sevilla " 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 Ashley Sevilla " assessment of health literacy ([facility] 2014 Standards, 3C10) Adequate Ashley Sevilla " passive cigarette smoke exposure No Ashley Wrightvez " smoking status never smoker Ashley Sevilla [...] Disorder Questionnaire - Question 2 0 Anay Lalo " Generalized Anxiety Disorder Questionnaire - Question 1 0 Anay May delusion No Mariajosevíctor Carmichael assessment of judgment and insight E&M [...] Disorder Questionnaire - Question 1 0 Yuniel Caputoa assessment of judgment and insight E&M intact [...] name Policy type / Coverage type Covered libertarian ID Sliding Fee - Cat 1 [employer] insurance [email or web address] [id number] ADVANCE DIRECTIVES No Information Available TREATMENT PLAN Date Name Comp. Metabolic Panel (14) Cortisol Adrenocorticotropic Hormone (ACTH), Plasma H. pylori Stool Ag, EIA FIT- Fecal immunoassay test TSH Rfx on Abnormal to Free T4 Microalb/Creat Ratio, Randm Ur Hemoglobin A1c Lipid Panel Comp. Metabolic Panel (14) CBC With Differential/Platelet - - - Est Patient Exp Problem - 34287 Behavioral Health - Therapy Behavioral Health - Psychiatry Document Control Coordinator Ofc Vst, Est Level III Dispensing Visit (Non-Billable) [facility] Assessment - Vacuum Caster Diagnostic evaluation (no medical) - 80093 Ofc Vst, Est Level III Est Patient Exp Problem - 85220 Integrated Behavioral Health Assessment (IBH) Behavioral Health - Psychiatry Frames, purchases Sphere, bif, plano to +/- 4.00d, per lens New Patient Intermediate Opth - 22693 New Patient Detailed - 48852 Prescription Assistance (Non-HIV) Document Control Coordinator [facility] - Internal Behavioral Health - Psychiatry HISTORY OF PROCEDURES Procedure Date Procedure Name Provider Procedure Notes Status Dispensing Visit (Non-Billable) Janeth Rossi completed [facility] Assessment - Vacuum Caster Mariajose Carmichael completed Diagnostic evaluation (no medical) - 04964 Mariajose Carmichael completed Frames, purchases Janeth Rossi completed Sphere, bif, plano to +/- 4.00d, per lens Janeth Rossi 65.00 completed New Patient Intermediate Opt - 10195 Arseniojunaid Larsen completed GOALS No Information Available HEALTH CONCERNS No Information Available
--- OUTSIDE RECORDS SUMMARY | 2019-06-10 14:37 | XMS REPORT ---
Author Author Admin, [place] Organization Unknown Address Unknown Phone Unavailable PROBLEMS [...] active Joey Mahfouz Diverticulitis, colon active Joey Mahfogrey ENCOUNTERS Date Type Provider Location Encounter Diagnosis - [facility] - Ambulatory Encounter [facility] UNK - Ambulatory Encounter [facility] UNK - Ambulatory Encounter [facility] UNK [facility] Ambulatory Encounter [facility] UNK [facility] Ambulatory Encounter [facility] UNK [facility] Ambulatory Encounter [facility] UNK - Ambulatory Encounter [facility] UNK - Ambulatory Encounter Isidra Fonseca [place] [facility] [employer] UNK - Ambulatory Encounter [facility]agrey [facility] UNK - Ambulatory Encounter [facility] Steph Rebolledo [facility] UNK - Ambulatory Encounter [facility] UNK - Ambulatory Encounter [facility] UNK - [facility]ulatory [facility] - [facility] En[facility] - [facility] - [facility] Encounter [facility] - [facility] - Ambulatory Encounter Joey [facility] UNK - Ambulatory Encounter Joey [facility] UNK - Ambulatory Encounter Patrica Fonseca [facility] Elsa Rebolledo [facility] DysuriaMuscle spasm, backHypotensionMelasmaAbnormal abdominal imagingDementia - Ambulatory Encounter Sally Tejeda Counts Include 234 [facility] At [facility] UNK - Ambulatory Encounter Margie [facility] UNK - [facility] - [facility] - Ambulatory Encounter [facility] UNK - Ambulatory Encounter [facility] UNK - Ambulatory Encounter Kobi [facility] UNK - Ambulatory Encounter Kobi Levy [facility] Unspecified ovarian cyst, left side - Ambulatory Encounter Margie Pastrana Counts Include 234 [facility] UNK - Ambulatory Encounter Benjamin Sergei [facility] UNK - Ambulatory Encounter Janeth Rossi [facility] UNK - Ambulatory Encounter Yuniel Lee [facility] UNK - Ambulatory Encounter Kobi Long [facility] UNK - Ambulatory Encounter Kobi Long [facility] UNK - Ambulatory Encounter Kobi May [facility] Diverticulitis - Ambulatory Encounter Mariajose Carmichael [facility] DEPRESSIVE DISORDER, D/T ANOT MED COND, W/ DEPRESSIVE FEATURES - Ambulatory Encounter Joey [facility] - Ambulatory Encounter Janeth Rossi [facility] UNK - Ambulatory Encounter Joeyteddy Nelsonkikagrey Joey [facility] UNK - Ambulatory Encounter Jayleen Medel [facility] UNK - Ambulatory Encounter Ashley Sevilla [facility] UNK - Ambulatory Encounter [facility] - [facility]ulatory Encounter Joey Lesliekikagrey [facility] - Ambulatory Encounter Joey Lesliekikagrey [facility] - [facility]ulatory En[facility]eddy [facility] - [facility]ulatory Encounter Juan José Joe [facility] Nelsongrey Yuniel [facility] Epigastric discomfortOverweight - Ambulatory Encounter Patrica Torres [facility] UNK - Ambulatory Encounter Joeyteddy Cook [facility] UNK - Ambulatory Encounter Joey Cook [facility] UNK - Ambulatory Encounter Joey Nelsondayton Leung Counts Include 234 [facility] UNK - Ambulatory Encounter Devaughn Carbajal [facility] UNK - Ambulatory En[facility] - Ambulatory Encounter [facility] UNK - Ambulatory Encounter Arseniojunaid Larsen [facility] UNK - Ambulatory Encounter Arseniojunaid Larsen [facility] UNK - Ambulatory Encounter Arseniojunaid Larsen [facility] UNK - Ambulatory Encounter Arseniojunaid Cartagena [facility] Myopia - OUPresbyopia - OU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 - Ambulatory Encounter Isidra Fonseca [place] [employer] UNK - Ambulatory Encounter Joeyteddy [facility] Adult Medicine UNK - Ambulatory Encounter Joeyteddy Ross [facility] Contact Center UNK - Ambulatory Encounter Leatha Durant [facility] Public Health Services UNK - Ambulatory Encounter Annette BirdCheynene [facility] UNK - Ambulatory Encounter Joey Cook [facility] UNK - Ambulatory Encounter Joey Cook [facility] UNK - Ambulatory Encounter Joey Cook [facility] UNK - Ambulatory Encounter Joey Cook [facility] UNK - Ambulatory Encounter Marlene Chilel Omar [facility] Stoo [facility] Diverticulitis, colonDiverticular diseaseHypotensionHistory of hypertensionAnemia due to dietary iron deficiencyHx of hypokalemiaHyperlipidemiaGERDDepressionAbdominal distentionScreening for colon cancerAnxietyVertigoGastroparesisDiabetic neuropathyDry eyeAsthma - Ambulatory Encounter Joey Cook [facility] UNK VITAL SIGNS No Information Available ALLERGIES Allergy Name Onset Date Reaction Criticality Status LATEX Swelling, burning, rash high fever High Criticality active PCN rash, swelling, burning, SOB, chest pain High Criticality active REASON FOR REFERRAL Start Date - End Date Service - Neurology - External - PROFESSOR OF ECONOMICS - Internal - Gastroenterology - External RESULTS [...] Steph Amaury " bilirubin, urine negative Steph Amaury " blood in urine (hemoglobin) by dipstick negative Steph Amaury " specific gravity, urine 1.020 Steph Amaury " protein, urine, semiquantitative (dipstick) negative Steph Amaury " urobilinogen, urine, semiquantitative (dipstick) negative Steph Amaury " appearance, urine clear Steph Amaury " ketones, urine, by test strip negative Steph Amaury " pH, urine, semiquantitative 5.5 Steph Amaury " nitrite, urine, semiquantitative negative Steph Rebolledo [...] bedtime as needed for muscle spasm Joey Lesliekikagrey MACROBID 100 MG ORAL CAPSULE 1 by mouth twice a day Joey Nelsonkikagrey SIMETHICONE 180 MG ORAL CAPSULE Take 1 [...] is very supportive Not homeless. Born in [place]. State: [facility] . 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 Sex at : Female. Sexual orientation: Heterosexual. Gender identity: Female. Gender of partner(s): Male. Age of first sexual intercourse: 18. Sexually Active: Yes. Steph Amaury " social history reviewed E&M reviewed today Stephghulam Rebolledo " sexual orientation Heterosexual Steph Jack " assessment of health literacy ([facility] 2014 Standards, 3C10) Adequate Steph Amaury " is there any chance that you could be ? No Steph Amaury " passive cigarette smoke exposure No Steph Amaury " smoking status never smoker Steph Rebolledo " Exercise Program Referral T Steph Amaury " Weight Management Counseling Provided T Steph Jack " Nutrition intervention T Steph Rebolledo drug use, illicit Never Anay May " alcohol use Never Anay May " social history E&M . from , 1 son working and 1 daughter who is very supportive Not homeless. Born in [place]. State: [facility] . 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 Sex at : Female. Sexual orientation: Heterosexual. Gender identity: Female. Gender of partner(s): Male. Age of first sexual intercourse: 18. Sexually Active: Yes. Anay May " social history reviewed E&M reviewed today Anay May " sexual orientation Heterosexual Anay May " assessment of health literacy ([facility] 2014 Standards, 3C10) Adequate Anay May " passive cigarette smoke exposure No Anay May " smoking status never smoker Anay May social history reviewed E&M reviewed today Mariajose Carmichael " social history E&M . from , 1 son working and 1 daughter who is very supportive Not homeless. Born in [place]. State: [facility] . Lives with daughter with her [...] Anay May " assessment of health literacy ([facility] 2014 Standards, 3C10) Adequate Anay May " [...] Yuniel Lee " assessment of health literacy ([facility] 2014 Standards, 3C10) Adequate Yuniel Lee " is there any chance that you could be ? No Yuniel Lee " passive cigarette smoke exposure No Yuniel Lee " smoking status never smoker Yunielesteban Lee " Exercise Program Referral T Yuniel Cauptoa " Weight Management Counseling Provided T Yuniel [...] Ashley Sevilla " assessment of health literacy ([facility] 2014 Standards, 3C10) Adequate Ashley Sevilla " [...] Disorder Questionnaire - Question 2 0 Steph Amaury " Generalized Anxiety Disorder Questionnaire - Question [...] E&M oriented to time, place, and person Joeyteddy Ross " assessment of mood and affect E&M no depression, anxiety, or agitation Joeyteddy Ross " Generalized Anxiety Disorder Questionnaire - Question 2 0 Yuniel Lee " Generalized Anxiety Disorder Questionnaire - Question 1 0 Yuniel Lee assessment of judgment and insight E&M intact Joey Ross " mental status examination: orientation E&M oriented to time, place, and person Joeyteddy Ross " assessment of mood and affect E&M no depression, anxiety, or agitation Joeyteddy Ross " Generalized Anxiety Disorder Questionnaire - Question 2 0 Ashley Di " Generalized Anxiety Disorder Questionnaire - Question 1 1 Ashley Sevilla MEDICAL EQUIPMENT No Information Available FAMILY HISTORY No Information Available INSURANCE PROVIDERS Payer name Policy type / Coverage type Covered alliance party ID Sliding Fee - Cat 1 [employer] [id number] ADVANCE DIRECTIVES No Information Available TREATMENT PLAN Date Name Comp. Metabolic Panel (14) Cortisol Adrenocorticotropic Hormone (ACTH), Plasma H. pylori Stool Ag, EIA FIT- Fecal immunoassay test TSH Rfx on Abnormal to Free T4 Microalb/Creat Ratio, Randm Ur Hemoglobin A1c Lipid Panel Comp. Metabolic Panel (14) CBC With Differential/Platelet - - - Est Patient Exp Problem - 69279 Behavioral Health - Therapy Behavioral Health - Psychiatry Marketing Budget Analyst Ofc Vst, Est Level III Dispensing Visit (Non-Billable) [facility] Assessment - Vocational Evaluator Diagnostic evaluation (no medical) - 76927 Ofc Vst, Est Level III Est Patient Exp Problem - 53365 Integrated Behavioral Health Assessment (IBH) Behavioral Health - Psychiatry Frames, purchases Sphere, bif, plano to +/- 4.00d, per lens New Patient Intermediate Opt - 25377 New Patient Detailed - 70681 Prescription Assistance (Non-HIV) Marketing Budget Analyst [facility] - Internal Behavioral Health - Psychiatry HISTORY OF PROCEDURES Procedure Date Procedure Name Provider Procedure Notes Status Dispensing Visit (Non-Billable) Janeth Rossi completed [facility] Assessment - Vocational Evaluator Mariajose Carmichael completed Diagnostic evaluation (no medical) - 98624 Mariajose Carmichael completed Frames, purchases Janeth Rossi completed Sphere, bif, plano to +/- 4.00d, per lens Janeth Rossi 65.00 completed New Patient Intermediate Opt - 36827 Arsenio Larsen completed GOALS No Information Available HEALTH CONCERNS No Information Available
--- OUTSIDE RECORDS SUMMARY | 2019-06-10 14:37 | XMS REPORT ---
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 Dementia active Joeyteddy Ross Abnormal abdominal imaging active Joey Mahfouz Melasma active Joey Mahfouz Hypotension active Joeyteddy Ross Intermittent Muscle spasm, back active Joey Nelsonfouz Dysuria active Joeyteddy Nelsonfogrey Unspecified ovarian cyst, left side active Kobi [...] active Joeyteddy Nelsonfouz Hx of hypokalemia active Joey Mahfouz Anemia due to dietary iron deficiency active Joey Mahfouz History of hypertension active Joey Mahfouz Hypotension active Joey Mahfouz Diverticular disease active Joey Mahfouz Diverticulitis, colon active Joey Mahfouz ENCOUNTERS Date Type Provider Location Encounter Diagnosis - Ambulatory Encounter Matthew Richmondinto DIRECTOR DECISION SUPPORT UNK - Ambulatory Encounter Matthew Fields Jay DIRECTOR DECISION SUPPORT Driver/Sales Workers annual examHistory of ovarian cystMammogram not high risk screeningScreening for vaginal cancer - Ambulatory Encounter Joeyteddy Nelsonkikagrey [facility] - Ambulatory Encounter Joey Vandana [facility] - Ambulatory Encounter Joey Vandana Joey [facility] UN[facility] - Ambulatory Encounter Joey [facility]ana [facility] UN[facility] - Ambulatory Encounter Joey Lesliegrey [facility] - Ambulatory Encounter Joey Vandana [facility] UNK - Ambulatory Encounter Joey Lesliegrey Joey [facility] UN[facility] - Ambulatory Encounter Joey Vandana Cook [facility] UNK - Ambulatory Encounter Isidra Fonseca [facility] Services UNK - Ambulatory Encounter [facility] UNK - Ambulatory Encounter Joey [facility] Rebolledo [facility] Practice UNK - Ambulatory Encounter [facility] - Ambulatory Encounter [facility] UNK - Ambulatory Encounter Fax Status [facility] UNK - Ambulatory Encounter Fax Status [facility] UNK - Ambulatory Encounter Fax Status [facility] UNK - Ambulatory Encounter Fax Status Link[facility] UNK - Ambulatory Encounter Fax Status [facility] UNK - Ambulatory Encounter Fax Status [facility] UNK - Ambulatory Encounter Joey Cook [facility] Family [facility] UNK - Ambulatory Encounter Joey [facility] UNK - Ambulatory Encounter Patrica Fonseca [facility] Elsa Soto Steph Rebolledo [facility] DysuriaMuscle spasm, backHypotensionMelasmaAbnormal abdominal imagingDementia - Ambulatory Encounter Sally Tejeda [facility] Contact Center UNK - Ambulatory Encounter Margie Pastrana [facility] UNK - Ambulatory Encounter [facility] Services UNK - Ambulatory Encounter [facility] UNK - Ambulatory Encounter Kobi Long [facility] UNK - Ambulatory Encounter Kobi Long [facility] UNK - Ambulatory Encounter Kobi Long [facility] UNK - Ambulatory Encounter Kobi Obrien Anay May FaQuazia [facility] Unspecified ovarian cyst, left side - Ambulatory Encounter [facility] UNK - Ambulatory Encounter Benjamin Sergei [facility] UNK - Ambulatory Encounter Janeth Rossi [facility] UNK - Ambulatory Encounter Yuniel Lee [facility] UNK - Ambulatory Encounter Kobi [facility] UNK - Ambulatory Encounter Kobi [facility] UNK - Ambulatory Encounter Kobi Cueva May [facility] Diverticulitis - Ambulatory Encounter Mariajose Carmichael [facility] DEPRESSIVE DISORDER, D/T ANOT MED COND, W/ DEPRESSIVE FEATURES - Ambulatory Encounter [facility] UNK - Ambulatory Encounter Janeth Rossi [facility] UNK - Ambulatory Encounter Joey [facility] UNK - Ambulatory Encounter Jayleen Medel [facility] UNK - Ambulatory Encounter Ashley Sevilla [facility] UNK - Ambulatory Encounter [facility] - Ambulatory Encounter [facility] - Ambulatory Encounter [facility] Ambulatory Encounter [facility] - Ambulatory Encounter Juan José Joe [facility] Epigastric discomfortOverweight - Ambulatory Encounter Patrica [facility] - Ambulatory Encounter [facility] - Ambulatory Encounter [facility] - Ambulatory Encounter [facility] Ingrid Leung [facility] Contact Center UNK - Ambulatory Encounter Devaughn Rothman [facility] UNK - Ambulatory Encounter Janeth Rossi [facility] UNK - Ambulatory Encounter Joey Lesliegrey Cook [facility] UNK - Ambulatory Encounter Arseniojunaid Larsen [facility] UNK - Ambulatory Encounter Arsenio Chava Larsen [facility] UNK - Ambulatory Encounter Arsenio Larsen [facility] UNK - Ambulatory Encounter Arseniojunaid Cartagena [facility] Myopia - OUPresbyopia - OU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 - Ambulatory Encounter Isidra Fonseca [facility] Services UNK - Ambulatory Encounter Joey Cook Vandana [facility] Adult Medicine UNK - Ambulatory Encounter Joeyteddy Ross Joey Cheek [facility] UNK - Ambulatory Encounter Leatha Durant [facility] Public Health Services UNK - Ambulatory Encounter Annette Sanders [facility] UNK - Ambulatory Encounter Joey [facility] Cook [facility] UNK - Ambulatory Encounter [facility] Practice UNK - Ambulatory Encounter Joeyteddy [facility] UNK - Ambulatory Encounter [facility] Practice UNK - Ambulatory Encounter Marlene Soto [facility] Diverticulitis, colonDiverticular diseaseHypotensionHistory of hypertensionAnemia due to dietary iron deficiencyHx of hypokalemiaHyperlipidemiaGERDDepressionAbdominal distentionScreening for colon cancerAnxietyVertigoGastroparesisDiabetic neuropathyDry eyeAsthma - Ambulatory Encounter Joey Nels[facility]rey [facility] UNK VITAL SIGNS No Information Available ALLERGIES Allergy Name Onset Date Reaction Criticality Status LATEX Swelling, burning, rash high fever High Criticality active PCN rash, swelling, burning, SOB, chest pain High Criticality active REASON FOR REFERRAL Start Date - End Date Service - Ultrasound - Pelvic/Transvaginal - Mammogram - Screening - Neurology - External - DIRECTOR DECISION SUPPORT - Internal - Gastroenterology - External RESULTS [...] LinkLogic 65-99 High glucose, urine, semiquantitative negative Stephghulam Rebolledo " bilirubin, urine negative Stephghulam Rebolledo " blood in urine (hemoglobin) by dipstick negative Stephghulam Rebolledo " specific gravity, urine 1.020 Steph Amaury " protein, urine, semiquantitative (dipstick) negative Stephghulam Rebolledo " urobilinogen, urine, semiquantitative (dipstick) negative Stephghulam Rebolledo " appearance, urine clear Stephghulam Rebolledo " ketones, urine, by test strip negative Steph Rebolledo " pH, urine, semiquantitative 5.5 Stephghulam Rebolledo " nitrite, urine, semiquantitative negative Steph [...] Observation Value Provider drug use, illicit Never Ashley Fields " alcohol use Never Ashley Fields " social history E&M . from , 1 son working and 1 daughter who is very supportive Not homeless. Born in [place]. State: [facility] . 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 Sex at : Female. Sexual orientation: Heterosexual. Gender identity: Female. Gender of partner(s): Male. Age of first sexual intercourse: 18. Sexually Active: no. Ashley Fields " social history reviewed E&M reviewed today Ashley Fields " assessment of health literacy ([facility] 2014 Standards, 3C10) Adequate Ashley Fields " passive cigarette smoke exposure No Ashley Fields " smoking status never smoker Ashley Fields " Exercise Program Referral T Ashley Fields " Weight Management Counseling Provided T Ashley Fields " Nutrition intervention T Ashley Fields drug use, illicit Never Steph Amaury " alcohol use Never Steph Amaury " social history E&M . from , 1 son working and 1 daughter who is very supportive Not homeless. Born in [place]. State: [facility] . 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 Sex at : Female. Sexual orientation: Heterosexual. Gender identity: Female. Gender of partner(s): Male. Age of first sexual intercourse: 18. Sexually Active: Yes. Steph Rebolledo " social history reviewed E&M reviewed today Steph Rebolledo " sexual orientation Heterosexual Steph Rebolledo " assessment of health literacy ([facility] 2014 Standards, 3C10) Adequate Steph Rebolledo " [...] is very supportive Not homeless. Born in [place]. State: [facility] . 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 Sex at : Female. Sexual orientation: Heterosexual. Gender identity: Female. Gender of partner(s): Male. Age of first sexual intercourse: 18. Sexually Active: Yes. Anay May " social history reviewed E&M reviewed today Anay May " sexual orientation Heterosexual Anay May " assessment of health literacy ([facility] 2014 Standards, 3C10) Adequate Anay May " passive cigarette smoke exposure No Anay May " smoking status never smoker Anay May social history reviewed E&M reviewed today Mariajose Carmichael " social history E&M . from , 1 son working and 1 daughter who is very supportive Not homeless. Born in [place]. State: [facility] . Lives with daughter with her [...] Anay May " assessment of health literacy ([facility] 2014 Standards, 3C10) Adequate Anay May " [...] Yuniel Lee " assessment of health literacy ([facility] 2014 Standards, 3C10) Adequate Yunielesteban Lee " is there any chance that [...] Ashley Sevilla " assessment of health literacy ([facility] 2014 Standards, 3C10) Adequate Ashley Wrightvez " passive cigarette smoke exposure No Ashley Sevilla " smoking status never smoker Ashley Sevilla FUNCTIONAL STATUS No Information Available MENTAL STATUS Date Observation Value Provider Generalized Anxiety Disorder Questionnaire - Question 2 0 Ashley Fields " Generalized Anxiety Disorder Questionnaire - Question 1 0 Ashley Fields assessment of judgment and insight E&M poor [...] Disorder Questionnaire - Question 1 0 Anay Lalo mental status assessment, judgment fair Mariajose Carmichael [...] name Policy type / Coverage type Covered republican ID Sliding Fee - Cat 1 [employer] insurance [employer] [id number] ADVANCE DIRECTIVES No Information Available TREATMENT PLAN Date Name Pap w/HPV w rflx (30+) Comp. Metabolic Panel (14) Cortisol Adrenocorticotropic Hormone (ACTH), Plasma H. pylori Stool Ag, EIA FIT- Fecal immunoassay test TSH Rfx on Abnormal to Free T4 Microalb/Creat Ratio, Randm Ur Hemoglobin A1c Lipid Panel Comp. Metabolic Panel (14) CBC With Differential/Platelet - - - - - New Patient Well Exam (40 - 64 Yrs) - 78378 Est Patient Exp Problem - 56921 Behavioral Health - Therapy Behavioral Health - Psychiatry General Office Assistant Ofc Vst, Est Level III Dispensing Visit (Non-Billable) [facility] Assessment - Flocculator Operator Diagnostic evaluation (no medical) - 94010 Ofc Vst, Est Level III Est Patient Exp Problem - 59524 Integrated Behavioral Health Assessment (IBH) Behavioral Health - Psychiatry Frames, purchases Sphere, bif, plano to +/- 4.00d, per lens New Patient Intermediate Opth - 82989 New Patient Detailed - 88309 Prescription Assistance (Non-HIV) General Office Assistant [facility] - Internal Behavioral Health - Psychiatry HISTORY OF PROCEDURES Procedure Date Procedure Name Provider Procedure Notes Status Dispensing Visit (Non-Billable) Janeth Rossi completed [facility] Assessment - Flocculator Operator Mariajose Carmichael completed Diagnostic evaluation (no medical) - 46275 Mariajose Carmichael completed Frames, purchases Janeth Rossi completed Sphere, bif, plano to +/- 4.00d, per lens Janeth Rossi 65.00 completed New Patient Intermediate Opt - 23989 Arsenio Larsen completed GOALS No Information Available HEALTH CONCERNS No Information Available
--- OUTSIDE RECORDS SUMMARY | 2019-06-10 14:38 | XMS REPORT ---
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 UNK - Ambulatory Encounter Matthew Richmondinto HOT KETTLE TENDER UNK - Ambulatory Encounter Matthew Fields Cole HOT 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 TENDER Accountant Clerk annual examHistory of ovarian cystMammogram not high risk screeningScreening for vaginal cancer - Ambulatory Encounter Joeyteddy Nelson[facility]ikagrey [facility] - Ambulatory Encounter Joeyteddy Nelsonkikagrey [facility] UNK - Ambulatory Encounter Joeyteddy Nelsonkikagrey Wright[facility] UN[facility] - Ambulatory Encounter Joey Lesliekikagrey Cook [facility] UNK - Ambulatory Encounter Joeyteddy Nelsonkikagrey Cook [facility] UNK - Ambulatory Encounter Joeyteddy Nelsonkikagrey Cook [facility] UNK - Ambulatory Encounter Joeyteddy Nelsonkikagrey Wrightar [facility] UNK - Ambulatory Encounter Joeyteddy Nelsongrey Cook [facility] UNK - Ambulatory Encounter Isdira Fonseca Yuniel Lee [facility] Services UNK - Ambulatory Encounter [facility] UNK - Ambulatory Encounter [facility] IslasSteph Amaury [facility] UNK - Ambulatory Encounter [facility] - [facility]ulatory Encounter [facility] UNK - Ambulatory Encounter Fax Status [facility] UNK - Ambulatory Encounter Fax Status [facility] UNK - Ambulatory Encounter Fax Status [facility] UNK - Ambulatory Encounter Fax Status [facility] UNK - Ambulatory Encounter Fax Status [facility] UNK - Ambulatory Encounter Fax Status LinkLogic [facility] UNK - Ambulatory Encounter [facility] UNK - Ambulatory Encounter [facility] UNK - Ambulatory Encounter Patrica Fonseca [facility] Elsalisa [place] Steph Jack [facility] DysuriaMuscle spasm, backHypotensionMelasmaAbnormal abdominal imagingDementia - Ambulatory Encounter Sally Tejeda On License Of [facility] Contact Center UNK - Ambulatory Encounter Margiejodi Dulory On License Of [facility] UNK - Ambulatory Encounter Margiejodi Dulory On License Of [facility] UNK - Ambulatory Encounter Margie [facility] UNK - Ambulatory Encounter Kobi Long [facility] UNK - Ambulatory Encounter Kboi Long [facility] UNK - Ambulatory Encounter Kobi Long [facility] UNK - Ambulatory Encounter Kobi Cueva May FaQuazia Cam Cole [facility] Unspecified ovarian cyst, left side - Ambulatory Encounter Margie Pastrana On License Of [facility] UNK - Ambulatory Encounter Benjamin Sergei [facility] UNK - Ambulatory Encounter Janeth Rossi [facility] UNK - Ambulatory Encounter Yuniel [facility] UNK - Ambulatory Encounter Kobi Long [facility] UNK - Ambulatory Encounter Kobi Long [facility] UNK - Ambulatory Encounter Kobi May [facility] Diverticulitis - Ambulatory Encounter Mariajose Carmichael [facility] DEPRESSIVE DISORDER, D/T ANOT MED COND, W/ DEPRESSIVE FEATURES - Ambulatory Encounter Joey Nelsonfogrey Cook Mah[facility] UNK - Ambulatory Encounter Janethreji Rossi [facility] UNK - Ambulatory Encounter [facility] - Ambulatory Encounter Jayleen Medel [facility] UNK - Ambulatory Encounter Ashley Sevilla [facility] UNK - Ambulatory Encounter [facility] - Ambulatory Encounter [facility] - Ambulatory Encounter [facility] - Ambulatory Encounter [facility] UNK - Ambulatory Encounter Juan José [facility] Epigastric discomfortOverweight - Ambulatory Encounter Patrica [facility] UNK - Ambulatory Encounter [facility] - Ambulatory En[facility] - [facility] Encounter [facility] Ingrid Leung [facility] Services Contact Center UNK - Ambulatory Encounter Devaughn Rothman [facility] UNK - Ambulatory Encounter Janethreji Rossi [facility] UNK - Ambulatory Encounter Joey Vandana Cook [facility] UNK - Ambulatory Encounter Arseniojunaid Larsen [facility] Vision UNK - Ambulatory Encounter Arseniojunaid Larsen [facility] Vision UNK - Ambulatory Encounter Arseniojunaid Larsen [facility] Vision UNK - Ambulatory Encounter Arseniojunaid Cartagena [facility] Vision Myopia - OUPresbyopia - OU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 - Ambulatory Encounter Isidra Fonseca [facility] UNK - Ambulatory Encounter Joey [facility] UNK - Ambulatory Encounter Joey Nelsonkikagrey Joey [facility] Cheek On [facility] UNK - Ambulatory Encounter Leatha Durant [facility] Public Health Services UNK - Ambulatory [facility] - Ambulatory Encounter Joeyteddy Cook [facility] UNK - Ambulatory Encounter Joeyteddy Nelsongrey Cook [facility] UN[facility] - Ambulatory Encounter Joeyteddy Cook [facility] UNK - Ambulatory Encounter Joey Lesliegrey Cook [facility] UNK - Ambulatory Encounter Marlene [facility] Joey [facility] Leatha Hunter [facility] Diverticulitis, colonDiverticular diseaseHypotensionHistory of hypertensionAnemia due to dietary iron deficiencyHx of hypokalemiaHyperlipidemiaGERDDepressionAbdominal distentionScreening for colon cancerAnxietyVertigoGastroparesisDiabetic neuropathyDry eyeAsthma - Ambulatory Encounter Joey Ross [facility] UNK VITAL SIGNS No Information Available ALLERGIES Allergy Name Onset Date Reaction Criticality Status LATEX Swelling, burning, rash high fever High Criticality active PCN rash, swelling, burning, SOB, chest pain High Criticality active REASON FOR REFERRAL Start Date - End Date Service - Ultrasound - Pelvic/Transvaginal - Mammogram - Screening - Neurology - External - HOT KETTLE TENDER - Internal - Gastroenterology - External RESULTS [...] 65-99 High glucose, urine, semiquantitative negative Steph Amauyr " bilirubin, urine negative Steph Amaury " blood in urine (hemoglobin) by dipstick negative Steph Amaury " specific gravity, urine 1.020 Steph Amaury " protein, urine, semiquantitative (dipstick) negative Steph Amaury " urobilinogen, urine, semiquantitative (dipstick) negative Steph Amaury " appearance, urine clear Stephghulam Rebolledo " ketones, urine, by test strip negative Steph Jack " pH, urine, semiquantitative 5.5 Steph Amaury " nitrite, urine, semiquantitative negative Steph Amaury " urine color light yellow Steph Amaury " leukocyte esterase, urine, by dipstick 2+ [...] is very supportive Not homeless. Born in [place]. State: [facility] . 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 Sex at : Female. Sexual orientation: Heterosexual. Gender identity: Female. Gender of partner(s): Male. Age of first sexual intercourse: 18. Sexually Active: no. Ashley Fields " social history reviewed E&M reviewed today Ashley Fields " assessment of health literacy ([facility] 2014 Standards, 3C10) Adequate Ashley Fields " passive cigarette smoke exposure No Ashley Fields " smoking status never smoker Ashley Fields " Exercise Program Referral T Ashley Fields " Weight Management Counseling Provided Slava Fields " Nutrition intervention Slava Fields drug use, illicit Never Steph Amaury " alcohol use Never Steph Amaury " social history E&M . from , 1 son working and 1 daughter who is very supportive Not homeless. Born in [place]. State: [facility] . 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 Sex at : Female. Sexual orientation: Heterosexual. Gender identity: Female. Gender of partner(s): Male. Age of first sexual intercourse: 18. Sexually Active: Yes. Steph Rebolledo " social history reviewed E&M reviewed today Steph Rebolledo " sexual orientation Heterosexual Steph Jack " assessment of health literacy ([facility] 2014 Standards, 3C10) Adequate Steph Rebolledo " is there any chance that you could be ? No Steph Rebolledo " passive cigarette smoke exposure No Steph Rebolledo " smoking status never smoker Steph Amaury " Exercise Program Referral T Steph Rebolledo " Weight Management Counseling Provided T Steph Rebolledo " Nutrition intervention T Steph Rebolledo drug use, illicit Never Anay May " alcohol use Never Anay May " social history E&M . from , 1 son working and 1 daughter who is very supportive Not homeless. Born in [place]. State: [facility] . 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 Sex at : Female. Sexual orientation: Heterosexual. Gender identity: Female. Gender of partner(s): Male. Age of first sexual intercourse: 18. Sexually Active: Yes. Anay May " social history reviewed E&M reviewed today Anay May " sexual orientation Heterosexual Anay May " assessment of health literacy ([facility] 2014 Standards, 3C10) Adequate Anay May " passive cigarette smoke exposure No Anay May " smoking status never smoker Anay May social history reviewed E&M reviewed today Mariajose Carmichael " social history E&M . from , 1 son working and 1 daughter who is very supportive Not homeless. Born in [place]. State: [facility] . Lives with daughter with her family [...] Anay May " assessment of health literacy ([facility] 2014 Standards, 3C10) Adequate Anay May " passive cigarette smoke exposure No Anay May " smoking status never smoker Anay May home/family situation, assessment Lives with daughter with her family Mariajose Carmichael " patient considered to be homeless No Mariajose Amol " family support from , 1 son working and 1 daughter who is very supportive Mariajose Carmichael time of call 10/02/2018 11:05 AM Jayleen Medel social history reviewed E&M reviewed today Yuniel Lee " sexual orientation Heterosexual Yuniel Lee " assessment of health literacy ([facility] 2014 Standards, 3C10) Adequate Yuniel Lee " is there any chance that you could be ? 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 Ashley Sevilla " assessment of health literacy ([facility] 2014 Standards, 3C10) Adequate Ashley Sevilla " [...] E&M no depression, anxiety, or agitation Joey Vandana " mental status examination: orientation E&M oriented [...] congruent, euthymic, normal intensity, normal range Mariajose Carmichael" mood (mental status exam) pleasant, sad Mariajose Carmichael " mental status assessment, speech activity normal flow, normal pace, normal pressure, normal rate, normal tone, normal volume, spontaneous Mariajose Carmichael " mental status assessment, motor activity normal gait, normal posture Mariajose Carmichael" behavior (mental status exam) appropriate, candid, cooperative, [...] party ID Sliding Fee - Cat 1 [employer] insurance 79 Group [id number] ADVANCE DIRECTIVES No Information Available TREATMENT PLAN [...] Well Exam (40 - 64 Yrs) - 27952 Est Patient Exp Problem - 05487 Behavioral Health - Therapy Behavioral Health - Psychiatry 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 Ofc Vst, Est Level III Dispensing Visit (Non-Billable) [facility] Assessment - Bottling Machine Operator Diagnostic evaluation (no medical) - 33589 Ofc Vst, Est Level III Est Patient Exp Problem - 83673 Integrated Behavioral Health Assessment (IBH) Behavioral Health - Psychiatry Frames, purchases Sphere, bif, plano to +/- 4.00d, per lens New Patient Intermediate Opth - 38941 New Patient Detailed - 89981 Prescription Assistance (Non-HIV) 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 [facility] - Internal Behavioral Health - Psychiatry HISTORY OF PROCEDURES Procedure Date Procedure Name Provider Procedure Notes Status Dispensing Visit (Non-Billable) Janeth Rossi completed [facility] Assessment - Bottling Machine Operator Mariajose Carmichael completed Diagnostic evaluation (no medical) - 96423 Mariajose Carmichael completed Frames, purchases Janeth Rossi completed Sphere, bif, plano to +/- 4.00d, per lens Janeth Rossi 65.00 completed New Patient Intermediate Opt - 67336 Arsenio Larsen completed GOALS No Information Available HEALTH CONCERNS No Information Available
--- OUTSIDE RECORDS SUMMARY | 2019-06-10 14:38 | XMS REPORT ---
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 Dementia active Joeyteddy Ross Abnormal abdominal imaging active Joey Mahfouz Melasma active Joey Mahfouz Hypotension active Joeyteddy oRss Intermittent Muscle spasm, back active Joey Nelsonfouz [...] Provider Location Encounter Diagnosis - Ambulatory Encounter Ashley Richmondinto 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 - Ambulatory Encounter Joey Lesliekikagrey Cook [facility] - Ambulatory Encounter Joey Vandana [facility] - Ambulatory Encounter Joey Lesliekikagrey Cook [facility] - Ambulatory Encounter Joey Lesliekikagrey Joey [facility] UNK - Ambulatory Encounter Joey Lesliekikagrey Cook [facility] UNK - Ambulatory Encounter Joey Lesliekikagrey Cook 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K - Ambulatory Encounter Joey [facility] UNK - Ambulatory Encounter Fax Status [facility] UNK - Ambulatory Encounter Fax Status [facility] UNK - Ambulatory Encounter Fax Status Link[facility] UNK - Ambulatory Encounter Fax Status LinkLogic [facility] UNK - Ambulatory Encounter Fax Status [facility] UNK - Ambulatory Encounter Fax Status LinkLogic [facility] UNK - Ambulatory Encounter [facility] UNK - Ambulatory Encounter [facility] Joey [facility] UNK - Ambulatory Encounter Patrica Fonseca [facility] Elsa Soto Steph Rebolledo [facility] DysuriaMuscle spasm, backHypotensionMelasmaAbnormal abdominal imagingDementia - Ambulatory Encounter Sally Tejeda [facility] Contact Center UNK - Ambulatory Encounter Margie Pastrana [facility] UNK - Ambulatory Encounter Margiejodi Pastrana [facility] UNK - Ambulatory Encounter Margiejodi Dulory [facility] UNK - Ambulatory Encounter Kobi Long [facility] UNK - Ambulatory Encounter Kobi Long [facility] UNK - Ambulatory Encounter Kobi Long [facility] UNK - Ambulatory Encounter Kobi May FaQutopheria Cam [facility] Unspecified ovarian cyst, left side - Ambulatory Encounter Margie Pastrana [facility] UNK - Ambulatory Encounter Benjamin Sergei [facility] UNK - Ambulatory Encounter Janeth Rossi [facility] UNK - Ambulatory Encounter Yuniel Lee [facility] UNK - Ambulatory Encounter Kobi Long [facility] UNK - Ambulatory Encounter Kobi Long [facility] UNK - Ambulatory Encounter Kobi May [facility] Diverticulitis - Ambulatory Encounter Mariajose Carmichael [facility] DEPRESSIVE DISORDER, D/T ANOT MED COND, W/ DEPRESSIVE FEATURES - Ambulatory Encounter Joey Mahfouz Joey Mahfouz [facility] UNK - Ambulatory Encounter Janeth Rossi [facility] UNK - Ambulatory Encounter [facility] LinkLogic [place] [facility] UNK - Ambulatory Encounter Jayleen Medel [facility] UNK - Ambulatory Encounter Ashley Sevilla [place] [facility] UNK - Ambulatory Encounter [facility] UNK - Ambulatory Encounter [facility] UNK - Ambulatory Encounter [facility] UNK - Ambulatory Encounter [facility] Joey [facility] UNK - Ambulatory Encounter Juan José Joe [facility] Epigastric discomfortOverweight - Ambulatory Encounter Patrica Torres [facility] UNK - Ambulatory Encounter [facility] - Ambulatory Encounter [facility] UNK - Ambulatory Encounter [facility] Ingrid Leung [facility] Contact Center UNK - Ambulatory Encounter Devaughn Rothman [place] [facility] UNK - Ambulatory Encounter Janeth Rossi [facility] [place] UNK - Ambulatory Encounter [facility] LinkLogic [place] [facility] UNK - Ambulatory Encounter Arsenio Larsen [facility] UNK - Ambulatory Encounter Arseniojunaid Larsen [facility] UNK - Ambulatory Encounter Arseniojunaid Larsen [facility] UNK - Ambulatory Encounter Arseniojunaid Larsen Vijaya Cartagena [facility] Myopia - OUPresbyopia - OU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 - Ambulatory Encounter Isidra Fonseca [facility] UNK - Ambulatory Encounter Joey Ross Omteddy Ross [facility] UNK - Ambulatory Encounter Joey Ross Joey Vandana Cheek [facility] Contact Center UNK - Ambulatory Encounter Leatha Durant [facility] Public Health Services UNK - Ambulatory Encounter Annette Lopez Tommy [place] [facility] UNK - Ambulatory Encounter [facility] UNK - Ambulatory Encounter Joeyteddy Ross [facility] UNK - Ambulatory Encounter [facility] UNK - Ambulatory Encounter Joeyteddy [facility] UNK - Ambulatory Encounter Marlene Soto [facility] Diverticulitis, colonDiverticular diseaseHypotensionHistory of hypertensionAnemia due to dietary iron deficiencyHx of hypokalemiaHyperlipidemiaGERDDepressionAbdominal distentionScreening for colon cancerAnxietyVertigoGastroparesisDiabetic neuropathyDry eyeAsthma - Ambulatory Encounter Joey Ross [facility] UNK VITAL SIGNS No Information Available ALLERGIES Allergy Name Onset Date Reaction Criticality Status LATEX Swelling, burning, rash high fever High Criticality active PCN rash, swelling, burning, SOB, chest pain High Criticality active REASON FOR REFERRAL Start Date - End Date Service - Ultrasound - Pelvic/Transvaginal - Mammogram - Screening - Neurology - External - 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 ROUTE DRIVER - Internal - Gastroenterology - External RESULTS [...] in urine (hemoglobin) by dipstick negative Steph Jack " specific gravity, urine 1.020 Steph Amaury " protein, urine, semiquantitative (dipstick) negative Steph Amaury " urobilinogen, urine, semiquantitative (dipstick) negative Steph Amaury " appearance, urine clear Stephghulam Rebolledo " ketones, urine, by test strip negative Stephghulam Rebolledo " pH, urine, semiquantitative 5.5 Stephghulam Rebolledo " nitrite, urine, semiquantitative negative Stephghulam Rebolledo " urine color light yellow Stephghulam Rebolledo " leukocyte esterase, urine, by dipstick 2+ Stephghulam Rebolledo Helicobacter pylori antigen, stool Negative LinkLogic [...] is very supportive Not homeless. Born in [place]. State: [facility] . 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 Sex at : Female. Sexual orientation: Heterosexual. Gender identity: Female. Gender of partner(s): Male. Age of first sexual intercourse: 18. Sexually Active: no. Ashley Fields " social history reviewed E&M reviewed today Ashley Fields " assessment of health literacy ([facility] 2014 Standards, 3C10) Adequate Ashley Fields " [...] is very supportive Not homeless. Born in [place]. State: [facility] . 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 Sex at : Female. Sexual orientation: Heterosexual. Gender identity: Female. Gender of partner(s): Male. Age of first sexual intercourse: 18. Sexually Active: Yes. Steph Rebolledo " social history reviewed E&M reviewed today Steph Rebolledo " sexual orientation Heterosexual Steph Rebolledo " assessment of health literacy ([facility] 2014 Standards, 3C10) Adequate Steph Rebolledo " [...] is very supportive Not homeless. Born in [place]. State: [facility] . 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 Sex at : Female. Sexual orientation: Heterosexual. Gender identity: Female. Gender of partner(s): Male. Age of first sexual intercourse: 18. Sexually Active: Yes. Anay May " social history reviewed E&M reviewed today Anay May " sexual orientation Heterosexual Anay May " assessment of health literacy ([facility] 2014 Standards, 3C10) Adequate Anay May " passive cigarette smoke exposure No Anay May " smoking status never smoker Anay May social history reviewed E&M reviewed today Mariajose Amol " social history E&M . from , 1 son working and 1 daughter who is very supportive Not homeless. Born in [place]. State: [facility] . Lives with daughter with her [...] " assessment of health literacy ([facility] 2014 Standards, 3C10) Adequate Anay May " [...] Yunielesteban Caputoa " assessment of health literacy ([facility] 2014 Standards, 3C10) Adequate Yuniel Lee " is there any chance that you could be ? 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 Ashley Sevilla " assessment of health literacy ([facility] 2014 Standards, 3C10) Adequate Ashley Sevilla " passive cigarette smoke exposure No Ashley Sevilla " smoking status never smoker Ashley Wrightvez FUNCTIONAL STATUS No Information Available MENTAL STATUS [...] party ID Sliding Fee - Cat 1 [employer] insurance WebNotes [id number] ADVANCE DIRECTIVES No Information Available TREATMENT PLAN [...] Well Exam (40 - 64 Yrs) - 52872 Est Patient Exp Problem - 12429 Behavioral Health - Therapy Behavioral Health - Psychiatry 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 Ofc Vst, Est Level III Dispensing Visit (Non-Billable) [facility] 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 - Song 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 Diagnostic evaluation (no medical) - 42113 Ofc Vst, Est Level III Est Patient Exp Problem - 45503 Integrated Behavioral Health Assessment (IBH) Behavioral Health - Psychiatry Frames, purchases Sphere, bif, plano to +/- 4.00d, per lens New Patient Intermediate Opt - 67891 New Patient Detailed - 83680 Prescription Assistance (Non-HIV) 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
--- OUTSIDE RECORDS SUMMARY | 2019-06-10 14:38 | XMS REPORT ---
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 UNK - Ambulatory Encounter Matthew Richmondinto [facility] UNK - Ambulatory Encounter Matthew Richmondinto [facility]ANCER [employer]ALE Stopboard Assembler annual examHistory of ovarian cystMammogram not high risk screeningScreening for vaginal cancer - Ambulatory Encounter Joyeteddy [facility] - Ambulatory Encounter Joey Lesliekikagrey [facility] UNK - Ambulatory Encounter Joey Lesliekikagrey [facility] - Ambulatory Encounter Joey Vandana [facility] UNK - Ambulatory Encounter Joey Lesliekikagrey [facility] UNK - Ambulatory Encounter Joey Lesliekikagrey [facility] UNK - Ambulatory Encounter Joey Lesliekikagrey [facility] UNK - Ambulatory Encounter Joey Lesliekikagrey [facility] UNK - Ambulatory Encounter Isidra Fonseca Yuniel Lee 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 UNK - Ambulatory Encounter [facility] UNK - Ambulatory Encounter Joeyteddy Cook [facility] IslasSteph Jack [facility] UNK - Ambulatory Encounter Joeyteddy [facility] UNK - Ambulatory Encounter Joey [facility] UNK - Ambulatory Encounter Fax Status [facility] UNK - Ambulatory Encounter Fax Status [facility] UNK - Ambulatory Encounter Fax Status [facility] UNK - Ambulatory Encounter Fax Status LinkLogic [facility] UNK - Ambulatory Encounter Fax Status [facility] UNK - Ambulatory Encounter Fax Status LinkLogic [facility] UNK - Ambulatory Encounter Joey [facility] UNK - Ambulatory Encounter Joey [facility] UNK - Ambulatory Encounter Patrica Fonseca [facility] Elsa Soto Steph Rebolledo [facility] DysuriaMuscle spasm, backHypotensionMelasmaAbnormal abdominal imagingDementia - Ambulatory Encounter Sally Tejeda [facility] Contact Center UNK - Ambulatory Encounter Margie Pastrana [facility] UNK - Ambulatory Encounter Margiejodi Pastrana [facility] UNK - Ambulatory Encounter Margiejodi [facility] UNK - Ambulatory Encounter Kobi Long [facility] UNK - Ambulatory Encounter Kobi Long [facility] Practice UNK - Ambulatory Encounter Kobi Long [facility] UNK - Ambulatory Encounter Kobi May FaQutopheria Cam [facility] Unspecified ovarian cyst, left side - Ambulatory Encounter Margie Pastrana [facility] UNK - Ambulatory Encounter Benjamin Sergei [facility] UNK - Ambulatory Encounter Janeth Rossi [facility] UNK - Ambulatory Encounter uYniel Lee [facility] UNK - Ambulatory Encounter Kobi Long [facility] UNK - Ambulatory Encounter Kobi Long [facility] Practice UNK - Ambulatory Encounter Kobi May [facility] Diverticulitis - Ambulatory Encounter Mariajose Carmichael [facility] DEPRESSIVE DISORDER, D/T ANOT MED COND, W/ DEPRESSIVE FEATURES - Ambulatory Encounter Joey Mahfouz Joey Mahfouz [facility] UNK - Ambulatory Encounter Janeth Rossi [facility] UNK - Ambulatory Encounter Joey [facility] UNK - Ambulatory Encounter Jayleen Medel [facility] UNK - Ambulatory Encounter Ashley Sevilla [facility] UNK - Ambulatory Encounter [facility] UNK - Ambulatory Encounter [facility] UNK - Ambulatory Encounter [facility] UNK - Ambulatory Encounter [facility] UNK - Ambulatory Encounter Juan José Joe [facility] Epigastric discomfortOverweight - Ambulatory Encounter Patrica [facility] UNK - Ambulatory Encounter [facility] - Ambulatory Encounter [facility] UNK - Ambulatory Encounter [facility] Ingrid Leung [facility] Contact Center UNK - Ambulatory Encounter Devaughn Rothman [facility] UNK - Ambulatory Encounter Janeth Rossi [facility] [place] [facility] UNK - Ambulatory Encounter [facility] UNK - Ambulatory Encounter Arsenio Larsen [facility] UNK - Ambulatory Encounter Arseniojunaid Larsen [facility] UNK - Ambulatory Encounter Arseniojunaid Larsen [facility] UNK - Ambulatory Encounter Arseniojunaid Larsen Vijaya Cartagena [facility] Myopia - OUPresbyopia - OU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 - Ambulatory Encounter Isidra Fonseca [facility] Services UNK - Ambulatory Encounter Joey Ross Omteddy Ross [facility] UNK - Ambulatory Encounter Joey Ross Joey Vandana Cheek [facility] Services Contact Center UNK - Ambulatory Encounter Leatha Durant [facility] Public [facility] Services UNK - Ambulatory Encounter Annette Lopez Tommy [facility] UNK - Ambulatory Encounter [facility] UNK - Ambulatory Encounter Joeyteddy Ross Joey [facility] UNK - Ambulatory Encounter Joey [facility] UNK - Ambulatory Encounter Joeyteddy Cook [facility] UNK - Ambulatory Encounter Marlene Soto [facility] Diverticulitis, colonDiverticular diseaseHypotensionHistory of hypertensionAnemia due to dietary iron deficiencyHx of hypokalemiaHyperlipidemiaGERDDepressionAbdominal distentionScreening for colon cancerAnxietyVertigoGastroparesisDiabetic neuropathyDry eyeAsthma - Ambulatory Encounter Joey [facility] UNK VITAL SIGNS No Information Available ALLERGIES Allergy Name Onset Date Reaction Criticality Status LATEX Swelling, burning, rash high fever High Criticality active PCN rash, swelling, burning, SOB, chest pain High Criticality active REASON FOR REFERRAL Start Date - End Date Service - Ultrasound - Pelvic/Transvaginal - Mammogram - Screening - Neurology - External - 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 Born in [place]. State: [facility] . 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 Sex at : Female. Sexual orientation: Heterosexual. Gender identity: Female. Gender of partner(s): Male. Age of first sexual intercourse: 18. Sexually Active: no. Ashley Fields " social history reviewed E&M reviewed today Ashley Fields " assessment of health literacy ([facility] 2014 Standards, 3C10) Adequate Ashley Fields " passive cigarette smoke exposure No Ashley Feilds " smoking status never smoker Ashley Fields " Exercise Program Referral T Ashley Fields " Weight Management Counseling Provided T Ashley Fields " Nutrition intervention T Ashley Fields drug use, illicit Never Steph Amaury " alcohol use Never Steph Amaury " social history E&M . from , 1 son working and 1 daughter who is very supportive Not homeless. Born in [place]. State: [facility] . 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 Sex at : Female. Sexual orientation: Heterosexual. Gender identity: Female. Gender of partner(s): Male. Age of first sexual intercourse: 18. Sexually Active: Yes. Steph Rebolledo " social history reviewed E&M reviewed today Steph Rebolledo " sexual orientation Heterosexual Steph Rebolledo " assessment of health literacy ([facility] 2014 Standards, 3C10) Adequate Steph Rebolledo " is there any chance that you could be ? No Steph Rebolledo " passive cigarette smoke exposure No Steph Rebolledo " smoking status never smoker Steph Rebolledo " Exercise Program Referral T Steph Rebolledo " Weight Management Counseling Provided T Steph Rebolledo " Nutrition intervention T Stehp Rebolledo drug use, illicit Never Anay May " alcohol use Never Anay May " social history E&M . from , 1 son working and 1 daughter who is very supportive Not homeless. Born in [place]. State: [facility] . 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 Sex at : Female. Sexual orientation: Heterosexual. Gender identity: Female. Gender of partner(s): Male. Age of first sexual intercourse: 18. Sexually Active: Yes. Anay May " social history reviewed E&M reviewed today Anay May " sexual orientation Heterosexual Anay May " assessment of health literacy ([facility] 2014 Standards, 3C10) Adequate Anay May " passive cigarette smoke exposure No Anay May " smoking status never smoker Anay May social history reviewed E&M reviewed today Mariajose Amol " social history E&M . from , 1 son working and 1 daughter who is very supportive Not homeless. Born in [place]. State: [facility] . Lives with daughter with her family [...] Anay May " assessment of health literacy ([facility] 2014 Standards, 3C10) Adequate Anay May [...] Yunielesteban Caputoa " assessment of health literacy ([facility] 2014 Standards, 3C10) Adequate Yuniel Lee [...] Ashley Sevilla " assessment of health literacy ([facility] 2014 Standards, 3C10) Adequate Ashley Sevilla [...] party ID Sliding Fee - Cat 1 [employer] insurance [employer] [id number] ADVANCE DIRECTIVES No Information Available TREATMENT PLAN [...] Well Exam (40 - 64 Yrs) - 26054 Est Patient Exp Problem - 38811 Behavioral Health - Therapy Behavioral Health - Psychiatry 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 Ofc Vst, Est Level III Dispensing Visit (Non-Billable) [facility] Assessment - [employer] Diagnostic evaluation (no medical) - 93485 Ofc Vst, Est Level III Est Patient Exp Problem - 71054 Integrated Behavioral Health Assessment (IBH) Behavioral Health - Psychiatry Frames, purchases Sphere, bif, plano to +/- 4.00d, per lens New Patient Intermediate Opt - 01638 New Patient Detailed - 95373 Prescription Assistance (Non-HIV) 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 [facility] - Internal Behavioral Health - Psychiatry HISTORY OF PROCEDURES Procedure Date Procedure Name Provider Procedure Notes Status Dispensing Visit (Non-Billable) Janeth Rossi completed IB Assessment - [employer] Mariajose Carmichael completed Diagnostic evaluation (no medical) - 91564 Mariajose Carmichael completed Frames, purchases Janeth Rossi completed Sphere, bif, plano to +/- 4.00d, per lens Janeth Rossi 65.00 completed New Patient Intermediate Opt - 03709 Arsenio Larsen completed GOALS No Information Available HEALTH CONCERNS No Information Available
--- OUTSIDE RECORDS SUMMARY | 2019-06-10 14:39 | XMS REPORT ---
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 Dementia active Joey Ross Abnormal abdominal imaging active Joeyteddy Ross Melasma active Joeyteddy Lloyduz Hypotension active Joeyteddy Ross Intermittent Muscle spasm, back active Joeyteddy Ross Dysuria active Joey Ross Unspecified ovarian cyst, left side active Kobi Long DEPRESSIVE DISORDER, D/T ANOT MED COND, W/ DEPRESSIVE FEATURES completed - Juan Clifton Diverticulitis active Kobi Long Overweight active Juan José Polanco Epigastric discomfort active Joey Ross 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 active Arsenio Larsen Presbyopia - OU active Arsenio Larsen Myopia - OU active Arsenio Larsen Asthma active Joeyteddy Ross Dry eye active Joeyteddy Ross Diabetic neuropathy active Joeyteddy Ross Gastroparesis active Joeyteddy Ross Vertigo active Joey Ross Anxiety active Joeyteddy Ross Screening for colon cancer active Joey Mahfouz [...] Provider Location Encounter Diagnosis - Ambulatory Encounter Juan Loja [facility] DEPRESSIVE DISORDER, D/T ANOT MED COND, W/ DEPRESSIVE FEATURESDEPRESSIVE DISORDER, MAJOR, RECURRENT EPISODE, MILDANXIETY DISORDER, UNSPECIFIED - Ambulatory Encounter Matthew Diaz Maru [facility] UNK - Ambulatory Encounter Isidra [facility] UNK - Ambulatory Encounter Matthew Diaz Maru [facility] MANAGER E LEARNING UNK - Ambulatory Encounter Matthew Diaz [facility] MANAGER E LEARNING UNK - Ambulatory Encounter Isidra [facility] UNK - Ambulatory Encounter Ashley Fields [place] [facility]NAGER E LEARNING UNK - Ambulatory Encounter 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 [place] MANAGER E LEARNING UNK - Ambulatory Encounter Matthew Fields [place] MANAGER E LEARNING Scoring Machine Operator annual examHistory of ovarian cystMammogram not high risk screeningScreening for vaginal cancer - Ambulatory Encounter Joey Vandana Cook Mahfouz [facility] UNK - Ambulatory En[facility]K - Ambulatory Encounter Joey Vandana Cook Mahfouz [facility] UNK - Ambulatory Encounter Joey Vandana Cook Mahfouz [facility] UNK - Ambulatory Encounter Joey Vandana Cook Mahfouz [facility] UNK - Ambulatory Encounter [facility] UNK - Ambulatory Encounter Joey [facility]ana [facility] UNK - Ambulatory Encounter Joey [facility]ana [facility] UNK - Ambulatory Encounter Isidra Lee [place] 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 UNK - Ambulatory Encounter Joey Vandana Cook [facility] UNK - Ambulatory Encounter Joey [facility] Steph Rebolledo [facility] UNK - Ambulatory Encounter Joey [facility] UNK - Ambulatory Encounter Joey Vandana [facility] UNK - Ambulatory Encounter [facility] - Ambulatory Encounter F[facility] - Ambulatory Encounter F[facility] Status [facility] - Ambulatory Encounter Fax Status [facility] UN[facility] - Ambulatory Encounter Fax Status [facility] UNK - Ambulatory Encounter [facility] UN[facility] - Ambulatory Encounter Joey [facility] UNK - Ambulatory Encounter Joey [facility] UNK - Ambulatory Encounter Patrica [facility] Elsa [facility] DysuriaMuscle spasm, backHypotensionMelasmaAbnormal abdominal imagingDementia - Ambulatory Encounter Sally Tejeda [facility] UNK - Ambulatory Encounter Margie Pastrana [facility] UN[facility] - Ambulatory Encounter Margie Pastrana [facility] Ambulatory Encounter Margiejodi Greeny [facility] UN[facility] - Ambulatory Encounter Kobi Long [facility] UNK - Ambulatory Encounter Kobi Long [facility] UNK - Ambulatory Encounter Kobi Long [facility] UNK - Ambulatory Encounter Kobi Obrien Anay May FaQuazia Cam [facility] Unspecified ovarian cyst, left side - Ambulatory Encounter Margiejodi Greeny [facility] - Ambulatory Encounter Benjamin Sergei [facility] UNK - Ambulatory Encounter Janeth Rossi [facility] UNK - Ambulatory Encounter Yuniel Lee [facility] UNK - Ambulatory Encounter Kobi Long [facility] UNK - Ambulatory Encounter Kobi Long [facility] UNK - Ambulatory Encounter Kobi May [facility] Diverticulitis - Ambulatory Encounter Mariajose Carmichael [facility] DEPRESSIVE DISORDER, D/T ANOT MED COND, W/ DEPRESSIVE FEATURES - Ambulatory Encounter [facility] - Ambulatory Encounter Janeth Rossi [facility] UNK - Ambulatory Encounter [facility] - [facility]ulatory Encounter Jayleen Medel [facility] UNK - Ambulatory Encounter Ashley Sevilla [facility] UNK - Ambulatory Encounter Joey [facility] UNK - Ambulatory Encounter Joey [facility] UNK - Ambulatory Encounter [facility] - Ambulatory Encounter [facility]K - Ambulatory Encounter Juan José Chacon [facility] Yuniel Lee [facility] Practice Epigastric discomfortOverweight - Ambulatory Encounter Patrica Steven Luisilya [facility] UNK - Ambulatory Encounter Joey Cook [facility] UNK - Ambulatory Encounter Joeyteddy Cook [facility] UNK - Ambulatory Encounter Joey [facility] In[facility] Leung [facility] Contact Center UNK - Ambulatory Encounter Devaughn Carbajal [facility] UNK - Ambulatory Encounter Janeth Rossi [facility] UNK - Ambulatory Encounter Joeyteddy [facility] UNK - Ambulatory Encounter Arseniojunaid Larsen [facility] Vision UNK - Ambulatory Encounter Arseniojunaid Larsen [facility] UNK - Ambulatory Encounter Arseniojunaid Larsen [facility] UNK - Ambulatory Encounter Arseniojnuaid Cartagena [facility] Vision Myopia - OUPresbyopia - OU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 - Ambulatory Encounter Isidra Fonseca [place] 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 Maker UNK - Ambulatory Encounter Joeyteddy Nelsonfogrey [facility] UNK - Ambulatory Encounter Joeyteddy Nelsondayton Cheek [facility] Contact Center UNK - Ambulatory Encounter Leatha Durant [facility] Public Health Services UNK - Ambulatory Encounter Annette [facility] UNK - Ambulatory Encounter Joey Cook [facility] UNK - Ambulatory Encounter Joey Cook [facility] UNK - Ambulatory Encounter Joey Cook [facility] UNK - Ambulatory Encounter Joey Ross Joey [facility] UNK - Ambulatory Encounter Marlene Chilel [facility] Diverticulitis, colonDiverticular diseaseHypotensionHistory of hypertensionAnemia due to dietary iron deficiencyHx of hypokalemiaHyperlipidemiaGERDDepressionAbdominal distentionScreening for colon cancerAnxietyVertigoGastroparesisDiabetic neuropathyDry eyeAsthma - Ambulatory Encounter Joey Cook [facility] UNK VITAL SIGNS No Information Available ALLERGIES Allergy Name Onset Date Reaction Criticality Status LATEX Swelling, burning, rash high fever High Criticality active PCN rash, swelling, burning, SOB, chest pain High Criticality active REASON FOR REFERRAL Start Date - End Date Service - Ultrasound - Pelvic/Transvaginal - Mammogram - Screening - Neurology - External - MANAGER E LEARNING - Internal - Gastroenterology - External RESULTS [...] Steph Rebolledo " urine color light yellow Stephghulam [...] MEDICATION USE Medication Instructions Dates Provider Comments ZOLOFT 100 MG ORAL TABLET Take 1 tablet by mouth daily. Juan Clifton BACLOFEN 10 MG ORAL TABLET one tablet by mouth take at bedtime as needed for muscle spasm Joey Lesliedayton MACROBID 100 MG ORAL CAPSULE 1 by [...] TABLET 1 by mouth nightly at bedtime - Juan Clifton REGLAN 10 MG ORAL TABLET 1 by mouth ac and nightly at bedtime Joey Ross MECLIZINE HCL 25 MG ORAL TABLET 1 by mouth 3 times a day as needed Joey Ross FERROUS SULFATE 325 (65 FE) MG ORAL TABLET DELAYED RELEASE 1 by mouth 2 times a daily Joey Lloyduz PEPCID 20 MG ORAL TABLET 1 by mouth twice a day Joey Ross COLACE 100 MG ORAL CAPSULE 1 by mouth twice a day Joey Lloyduz LIPITOR 20 MG ORAL TABLET 1 by [...] Observation Value Provider drug use, illicit Never Enrike Etienne " alcohol use Never Juan Clifton " smoking status never smoker Enrike Etienne " home/family situation, assessment Lives with daughter with her family (, 3 kids). Juan Faustijos " family support She is 1 of 12 siblings. from , 1 son working and 1 daughter who is very supportive. Juan Clifton " social history E&M . She is 1 of 12 siblings. from , 1 son working and 1 daughter who is very supportive. Not homeless. Born in [place]. State: [facility] . Lives with daughter with her family (, 3 kids). 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 Homemaker. 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 Sex at : Female. Sexual orientation: Heterosexual. Gender identity: Female. Gender of partner(s): Male. Age of first sexual intercourse: 18. Sexually Active: no. Jehova's witness. Arrested for "food stamp fraud", dismissed. Enrike Etienne " social history reviewed E&M reviewed today Juan Mcmahanos drug use, illicit Never Ashley Fields " alcohol use Never Ashley Fields " social history E&M . from , 1 son working and 1 daughter who is very supportive Not homeless. Born in [place]. State: [facility] . 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 Sex at : Female. Sexual orientation: Heterosexual. Gender identity: Female. Gender of partner(s): Male. Age of first sexual intercourse: 18. Sexually Active: no. Ashley Fields " social history reviewed E&M reviewed today Ashley Fields " assessment of health literacy ([facility] 2014 Standards, 3C10) Adequate Ashley Fields " passive cigarette smoke exposure No Ashley Fields " smoking status never smoker Ashley Fields " Exercise Program Referral Slava Fields " Weight Management Counseling Provided T Ashley Fields " Nutrition intervention T Ashley Fields drug use, illicit Never Steph Amaury " alcohol use Never Steph Amaury " social history E&M . from , 1 son working and 1 daughter who is very supportive Not homeless. Born in [place]. State: [facility] . 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 Sex at : Female. Sexual orientation: Heterosexual. Gender identity: Female. Gender of partner(s): Male. Age of first sexual intercourse: 18. Sexually Active: Yes. Steph Amaury " social history reviewed E&M reviewed today Steph Amaury " sexual orientation Heterosexual Steph Amaury " assessment of health literacy ([facility] 2014 Standards, 3C10) Adequate Steph Amaury " is there any chance that you could be ? No Steph Amaury " passive cigarette smoke exposure No Steph Amaury " smoking status never smoker Steph Amaury " Exercise Program Referral T Steph Jack " Weight Management Counseling Provided T Steph Jack " Nutrition intervention T Steph Amaury drug use, illicit Never Anay May " alcohol use Never Anay May " social history E&M . from , 1 son working and 1 daughter who is very supportive Not homeless. Born in [place]. State: [facility] . 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 Sex at : Female. Sexual orientation: Heterosexual. Gender identity: Female. Gender of partner(s): Male. Age of first sexual intercourse: 18. Sexually Active: Yes. Anay May " social history reviewed E&M reviewed today Anay May " sexual orientation Heterosexual Anay May " assessment of health literacy ([facility] 2014 Standards, 3C10) Adequate Anay May " passive cigarette smoke exposure No Anay May " smoking status never smoker Anay May social history reviewed E&M reviewed today Mariajose Carmichael " social history E&M . from , 1 son working and 1 daughter who is very supportive Not homeless. Born in [place]. State: [facility] . Lives with daughter with her family [...] Anay May " assessment of health literacy ([facility] 2014 Standards, 3C10) Adequate Anay May [...] Yuniel Lee " assessment of health literacy ([facility] 2014 Standards, 3C10) Adequate Yunielesteban Lee [...] Ashley Sevilla " assessment of health literacy ([facility] 2014 Standards, 3C10) Adequate Ashley Sevilla " passive cigarette smoke exposure No Ashley Sevilla " smoking status never smoker Ashley Sevilla FUNCTIONAL STATUS No Information Available MENTAL STATUS Date Observation Value Provider anxiety worry a lot, panic attacks, muscle tension Juan Clifton " mental status assessment, judgment fair Juan Clifton " insight (mental status exam) fair Juan Clifton " Mental Status Exam: intelligence adequate fund of information, intact memory processes, oriented to person, oriented to place, oriented to time, oriented to situation, oriented to reality Juan Clifton" hallucinations none Juan Clifton " thought content (mental status exam) (E&M) lucid Juan Clifton " mental status assessment, process able to abstract, circumstantial, logical Juan Clifton " mental status assessment, sensorium alert, attentive, clear Juan Clifton" affect (mental status exam) congruent, euthymic, normal intensity, normal range Juan Clifton" mood (mental status exam) pleasant, sad, worried, frustrated Juan Clifton " mental status assessment, speech activity normal flow, normal pace, normal pressure, normal rate, normal tone, normal volume, spontaneous, limitted Serbian Juan Clifton " mental status assessment, motor activity normal gait, normal posture Juan Clifton" behavior (mental status exam) appropriate, candid, cooperative, good eye contact, polite, responsive Juan Clifton" mental appearance (mental status exam) adequate hygiene, appropriate dress, looks like stated age, neat, makeup appropriate Juan Clifton Generalized Anxiety Disorder Questionnaire - Question 2 [...] May mental status assessment, judgment fair Mariajose Carmichael" insight (mental status exam) fair Mariajose Carmichael [...] status assessment, sensorium alert, attentive, clear Mariajose Carmichael" affect (mental status exam) congruent, euthymic, normal [...] of judgment and insight E&M intact Joey Vandana " mental status examination: orientation E&M oriented to time, place, and person Joey Lesliekikauz " assessment of mood and affect E&M no depression, anxiety, or agitation Joey Ross " Generalized Anxiety Disorder Questionnaire - Question 2 0 Yuniel Lee " Generalized Anxiety Disorder Questionnaire - Question 1 0 Yunile Lee assessment of judgment and insight E&M intact Joey Premauz " mental status examination: orientation E&M oriented to time, place, and person Joey Lloyduz " assessment of mood and affect E&M no depression, anxiety, or agitation Joey Ross " Generalized Anxiety Disorder Questionnaire - Question 2 0 sAhley Sevilla " Generalized Anxiety Disorder Questionnaire - Question 1 1 Ashley Sevilla MEDICAL EQUIPMENT No Information Available FAMILY HISTORY No Information Available INSURANCE PROVIDERS Payer name Policy type / Coverage type Covered democrat ID Sliding Fee - Cat 1 Proficiency insurance company [id number] ADVANCE DIRECTIVES No Information Available TREATMENT PLAN Date Name Pap w/HPV w rflx 1845 (30+) Comp. Metabolic Panel (14) Cortisol Adrenocorticotropic Hormone (ACTH), Plasma H. pylori Stool Ag, EIA FIT- Fecal immunoassay test TSH Rfx on Abnormal to Free T4 Microalb/Creat Ratio, Randm Ur Hemoglobin A1c Lipid Panel Comp. 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 Diagnostic evaluation (no medical) - 09682 Ofc Vst, Est Level III Est Patient Exp Problem - 64472 Integrated Behavioral Health Assessment (IBH) Behavioral Health - Psychiatry Frames, purchases Sphere, bif, plano to +/- 4.00d, per lens New Patient Intermediate Opth - 17086 New Patient Detailed - 24600 Prescription Assistance (Non-HIV) 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 Maker [facility] - Internal Behavioral Health - Psychiatry HISTORY OF PROCEDURES Procedure Date Procedure Name Provider Procedure Notes Status Diagnostic evaluation with medical - 51081 Juan Clifton completed Dispensing Visit (Non-Billable) Janeth Rossi completed [facility] 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
--- OUTSIDE RECORDS SUMMARY | 2019-06-10 14:39 | XMS REPORT ---
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 Dementia active [...] Location Encounter Diagnosis - Ambulatory Encounter Isidra [place] [facility] UNK - Ambulatory Encounter Matthew Castro A Maru [facility] [place] SEWING ROOM SUPERVISOR UNK - Ambulatory Encounter Matthew Castro [facility] Maru [facility] [place] [facility] SUPERVISOR UNK - Ambulatory Encounter Isidra Fonseca [place] [facility] UNK - Ambulatory Encounter Ashley Fields [place] [facility]WING [facility] SUPERVIS[facility] UNK - Ambulatory Encounter Matthew Castro A Maru [place] [facility] SUPERVISOR UNK - Ambulatory Encounter Matthew Castro A Maru Fields [place] SEWING ROOM SUPERVISOR Dry Charge Process Attendant annual examHistory of ovarian cystMammogram not high risk screeningScreening for vaginal cancer - Ambulatory [facility]K - [facility] UNK - Ambulatory Encounter [facility] UNK - Ambulatory Encounter Joey Cook [facility] UNK - Ambulatory Encounter Joey Vandana Cook Mah[facility]ouz [facility] UNK - Ambulatory Encounter Joey Vandana Cook Mahfouz [facility] UNK - Ambulatory Encounter Joey Vandana Cook Mahfouz [facility] UNK - Ambulatory Encounter Joey Vandana Cook Mahfouz [facility] UNK - Ambulatory Encounter Isidra Lee [place] [facility] UNK - Ambulatory Encounter [facility] UNK - Ambulatory Encounter Joey [facility] Steph Rebolledo [facility] UNK - Ambulatory Encounter Joey [facility] UNK - Ambulatory Encounter Joey [facility] UNK - Ambulatory Encounter Fax Status [facility] UNK - Ambulatory Encounter Fax Status [facility] UNK - Ambulatory Encounter Fax Status [facility] UNK - Ambulatory Encounter Fax Status [facility] UNK - Ambulatory Encounter Fax Status [facility] UNK - Ambulatory Encounter Fax Status [facility] UNK - Ambulatory Encounter Joey [facility] - Ambulatory Encounter Joey Vadnana Cook [facility] UNK - Ambulatory Encounter Patrica Fonseca Joey [facility] Elsa Islasesha Amaury [facility] DysuriaMuscle spasm, backHypotensionMelasmaAbnormal abdominal imagingDementia - Ambulatory Encounter Sally [facility] UNK - Ambulatory Encounter [facility] UNK - Ambulatory Encounter Margie [facility] UNK - Ambulatory Encounter [facility] UNK - Ambulatory Encounter Kobi Long [facility] UNK - Ambulatory Encounter Kobi Long [facility] UNK - Ambulatory Encounter Kobi Long [facility] UNK - Ambulatory Encounter Kobi [place] Ashley Cueva May [facility] Unspecified ovarian cyst, left side - Ambulatory Encounter Margie Sierra [facility] UNK - Ambulatory Encounter Benjamin Sergei [facility] UNK - Ambulatory Encounter Janeth Rossi [facility] UNK - Ambulatory Encounter Yuniel Lee [facility] UNK - Ambulatory Encounter Kobi Long [facility] UNK - Ambulatory Encounter Kobi Long [facility] UNK - Ambulatory Encounter Kobi Cueva May [facility] Diverticulitis - Ambulatory Encounter Mariajose Carmichael [facility] DEPRESSIVE DISORDER, D/T ANOT MED COND, W/ DEPRESSIVE FEATURES - Ambulatory Encounter [facility] - Ambulatory Encounter Janeth Rossi [facility] UNK - Ambulatory Encounter [facility] UNK - Ambulatory Encounter Jayleenarmando Medel [facility] UNK - Ambulatory Encounter Ashley Sevilla [facility] UNK - Ambulatory Encounter [facility] - [facility]ulatory Encounter [facility] - [facility] - Ambulatory Encounter [facility]K - Ambulatory Encounter Juan José Joe [facility] Yuniel Lee [place] [facility] Epigastric discomfortOverweight - Ambulatory Encounter [facility] - [facility] - Ambulatory Encounter [facility]K - Ambulatory En[facility] Ingrid Leung [facility] UNK - Ambulatory Encounter Devaughn Blackman Ivjules Carbajal Rothman [facility] [place] [facility] UNK - Ambulatory Encounter Janeth Rossi [facility] UNK - Ambulatory Encounter [facility] UNK - Ambulatory Encounter Arseniojunaid Larsen [facility] UNK - Ambulatory Encounter Arseniojunaid Larsen [facility] UNK - Ambulatory Encounter Arseniojunaid Larsen [facility] UNK - Ambulatory Encounter Arseniojunaid Cartagena [facility] Myopia - OUPresbyopia - OU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 - Ambulatory Encounter Isidra Fonseca [place] [facility] UNK - Ambulatory Encounter Joeyteddy Nelsondayton Ross [facility] UNK - Ambulatory Encounter Joey Nelsondayton [facility] UNK - Ambulatory Encounter Leatha Durant [facility] Public Health Services UNK - Ambulatory Encounter Annette Sanders [facility] UNK - Ambulatory Encounter Joeyteddy Nelsonkikagrey [facility] UNK - Ambulatory Encounter Joeyteddy Ross Omar [facility] UNK - Ambulatory Encounter Joeyteddy Cook [facility] UNK - Ambulatory Encounter Joeyteddy Nelsonkikagrey Joey [facility] UNK - Ambulatory Encounter Marlene Chilel [facility] Leatha Soto [facility] Diverticulitis, colonDiverticular diseaseHypotensionHistory of hypertensionAnemia due to dietary iron deficiencyHx of hypokalemiaHyperlipidemiaGERDDepressionAbdominal distentionScreening for colon cancerAnxietyVertigoGastroparesisDiabetic neuropathyDry eyeAsthma - Ambulatory Encounter [facility] UNK VITAL SIGNS No Information Available ALLERGIES Allergy Name Onset Date Reaction Criticality Status LATEX Swelling, burning, rash high fever High Criticality active PCN rash, swelling, burning, SOB, chest pain High Criticality active REASON FOR REFERRAL Start Date - End Date Service - Ultrasound - Pelvic/Transvaginal - Mammogram - Screening - Neurology - External - SEWING ROOM SUPERVISOR - Internal - Gastroenterology - External RESULTS [...] negative Stephghulam Rebolledo " appearance, urine clear Steph Rebolledo [...] CAPSULE 1 by mouth twice a day Joeyteddy Ross LIPITOR 20 MG ORAL TABLET 1 by mouth every pm Joeyteddy Ross ASPIRIN 81 MG ORAL TABLET DELAYED RELEASE 1 by mouth every day Joey Ross PROAIR HFA 108 (90 BASE) MCG/ACT INHALATION AEROSOL SOLUTION 2 puffs every 4 - 6 hours as needed Joeyteddy Ross FLAGYL 500 MG ORAL TABLET 1 tab by mouth three a day - Joeyteddy Ross CIPRO 500 MG ORAL TABLET 1 by mouth twice a day - Joeyteddy Ross SOCIAL HISTORY Date Observation Value Provider drug use, illicit Never Ashley Fields " alcohol use Never Ashley Fields " social history E&M . from , 1 son working and 1 daughter who is very supportive Not homeless. Born in [place]. State: [facility] . 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 Sex at : Female. Sexual orientation: Heterosexual. Gender identity: Female. Gender of partner(s): Male. Age of first sexual intercourse: 18. Sexually Active: no. Ashley Fields " social history reviewed E&M reviewed today Ashley Fields " assessment of health literacy ([facility] 2014 Standards, 3C10) Adequate Ashley Fields " [...] is very supportive Not homeless. Born in [place]. State: [facility] . 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 Sex at : Female. Sexual orientation: Heterosexual. Gender identity: Female. Gender of partner(s): Male. Age of first sexual intercourse: 18. Sexually Active: Yes. Steph Amaury " social history reviewed E&M reviewed today Steph Amaury " sexual orientation Heterosexual Steph Amaury " assessment of health literacy ([facility] 2014 Standards, 3C10) Adequate Steph Amaury " is there any chance that you could be ? No Steph Amaury " passive cigarette smoke exposure No Steph Amaury " smoking status never smoker Steph Amaury " Exercise Program Referral T Stephghulam Rebolledo " Weight Management Counseling Provided T Steph Rebloledo " Nutrition intervention T Steph Rebolledo drug use, illicit Never Anay May " alcohol use Never Anay May " social history E&M . from , 1 son working and 1 daughter who is very supportive Not homeless. Born in [place]. State: [facility] . 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 Sex at : Female. Sexual orientation: Heterosexual. Gender identity: Female. Gender of partner(s): Male. Age of first sexual intercourse: 18. Sexually Active: Yes. Anay May " social history reviewed E&M reviewed today Anay May " sexual orientation Heterosexual Anay May " assessment of health literacy ([facility] 2014 Standards, 3C10) Adequate Anay May " passive cigarette smoke exposure No Anay May " smoking status never smoker Anay May social history reviewed E&M reviewed today Mariajose Carmichael " social history E&M . from , 1 son working and 1 daughter who is very supportive Not homeless. Born in [place]. State: [facility] . Lives with daughter with her family [...] Anay May " assessment of health literacy ([facility] 2014 Standards, 3C10) Adequate Anay May [...] Yuniel Lee " assessment of health literacy ([facility] 2014 Standards, 3C10) Adequate Yuniel Lee [...] Ashley Sevilla " assessment of health literacy ([facility] 2014 Standards, 3C10) Adequate Ashley Sevilla [...] depression, anxiety, or agitation Joeyteddy Ross " mental status examination: orientation E&M oriented to time, place, and person Joeyteddy Ross " Generalized Anxiety Disorder Questionnaire [...] rate, normal tone, normal volume, spontaneous Mariajose Amol " mental status assessment, motor activity normal [...] name Policy type / Coverage type Covered green party ID Sliding Fee - Cat 1 [employer] [id number] ADVANCE DIRECTIVES No Information Available TREATMENT PLAN Date Name Pap w/HPV w rflx 16/18/45 (30+) Comp. Metabolic Panel (14) Cortisol Adrenocorticotropic Hormone (ACTH), Plasma H. pylori Stool Ag, EIA FIT- Fecal immunoassay test TSH Rfx on Abnormal to Free T4 Microalb/Creat Ratio, Randm Ur Hemoglobin A1c Lipid Panel Comp. 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 Vst, Est Level III Dispensing Visit (Non-Billable) [facility] Assessment - Radiologist Diagnostic Diagnostic evaluation (no medical) - 74007 Ofc Vst, Est Level III Est Patient Exp Problem - 08728 Integrated Behavioral Health Assessment (IBH) Behavioral Health - Psychiatry Frames, purchases Sphere, bif, plano to +/- 4.00d, per lens New Patient Intermediate Opt - 50879 New Patient Detailed - 28276 Prescription Assistance (Non-HIV) Mining Engineer [facility] - Internal Behavioral Health - Psychiatry HISTORY OF PROCEDURES Procedure Date Procedure Name Provider Procedure Notes Status Dispensing Visit (Non-Billable) Janeth Rossi completed [facility] Assessment - Radiologist Diagnostic Mariajose Carmichael completed Diagnostic evaluation (no medical) - 61852 Mariajose Carmichael completed Frames, purchases Janeth Rossi completed Sphere, bif, plano to +/- 4.00d, per lens Janeth Rossi 65.00 completed New Patient Intermediate Opt - 70194 Arsenio Larsen completed GOALS No Information Available HEALTH CONCERNS No Information Available
--- OUTSIDE RECORDS SUMMARY | 2019-06-10 14:39 | XMS REPORT ---
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 Matthew Mahnoey Dementia active Joeyteddy Ross Abnormal abdominal imaging active Joey Mahfouz Melasma active Joey Mahfouz Hypotension active Joeyteddy Ross Intermittent Muscle spasm, back active Joey Nelsonfouz Dysuria active Joeyteddy Nelsonfogery Unspecified ovarian cyst, left side active Kobi [...] Location Encounter Diagnosis - Ambulatory Encounter 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 [facility] [place] CONFIGURATION MANAGEMENT ARCHITECT UNK - Ambulatory Encounter 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 [facility] [place] [facility]CHITECT UNK - Ambulatory Encounter Isidra Fonseca [place] [facility] UNK - Ambulatory Encounter Ashley Fields [place] [employer]NAG[facility] ARCHITECT UNK - Ambulatory Encounter 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 [place] [facility]URATION MANAGEMENT ARCHITECT UNK - Ambulatory Encounter Matthew Fields [place] [facility]URATION MANAGEMENT ARCHITECT Manufacturing Operator annual examHistory of ovarian cystMammogram not high risk screeningScreening for vaginal cancer - Ambulatory Encounter Joey [facility] - Ambulatory Encounter Joeyteddy Nelsonkikagrey Cook [facility] UNK - Ambulatory Encounter Joeyteddy Nelsondayton Cook [facility] UNK - Ambulatory Encounter Joeyteddy Nelsonkikagrey Cook [facility] - Ambulatory Encounter Joeyteddy Nelsonkikagrey Joey [facility] UNK - Ambulatory Encounter Joeyteddy [facility] UNK - Ambulatory Encounter Joey Vandana [facility] UNK - Ambulatory Encounter Joeyteddy Cook [facility] UNK - Ambulatory Encounter Isidra Lee [place] [facility] UNK - Ambulatory Encounter Joey Vandana [facility] - Ambulatory Encounter Joey Vandana [facility] IslasSteph Jack [facility] UNK - Ambulatory Encounter Joey Vandana [facility] UNK - Ambulatory Encounter Joey Vandana Cook [facility] UNK - Ambulatory Encounter Fax Status [facility] UNK - Ambulatory Encounter Fax Status [facility] UNK - Ambulatory Encounter Fax Status [facility] UNK - Ambulatory Encounter Fax Status [facility] UNK - Ambulatory Encounter Fax Status [facility] UNK - Ambulatory Encounter Fax Status [facility] UNK - Ambulatory Encounter Joeyteddy Cook [facility]K - Ambulatory Encounter [facility]eddy [facility] - Ambulatory Encounter Patrica M Ehdalm Cook [facility] Rebolledo [facility] DysuriaMuscle spasm, backHypotensionMelasmaAbnormal abdominal imagingDementia - Ambulatory Encounter Sally Tejeda [facility] UNK - Ambulatory Encounter [facility] UNK - Ambulatory Encounter Margie [facility] UNK - Ambulatory Encounter [facility] UNK - Ambulatory Encounter Kobi Long [facility] UNK - Ambulatory Encounter Kobi Long [facility] UNK - Ambulatory Encounter Kobi Long [facility] UNK - Ambulatory Encounter Kobi Cueva May FaQuazia Cam [facility] Unspecified ovarian cyst, left side - Ambulatory Encounter Margie [facility] UNK - Ambulatory Encounter Benjamin Sergei [facility] UNK - Ambulatory Encounter Janeth Rossi [facility] UNK - Ambulatory Encounter Yuniel Lee [facility] UNK - Ambulatory Encounter Kobi Long [facility] UNK - Ambulatory Encounter Kobi Long [facility] UNK - Ambulatory Encounter Kobi May [facility] Diverticulitis - Ambulatory Encounter Mariajose Carmichael [facility] DEPRESSIVE DISORDER, D/T ANOT MED COND, W/ DEPRESSIVE FEATURES - Ambulatory Encounter [facility] - Ambulatory Encounter Janeth Rossi [facility] UNK - Ambulatory Encounter [facility] UNK - Ambulatory Encounter Jayleen Medel [facility] UNK - Ambulatory Encounter Ashley Sevilla [facility] UNK - Ambulatory Encounter [facility] - Ambulatory Encounter [facility]K - Ambulatory Encounter [facility]K - Ambulatory Encounter [facility]K - Ambulatory Encounter Juan José [facility] Yuniel [facility] Epigastric discomfortOverweight - Ambulatory Encounter Patrica Torres [facility] UNK - Ambulatory Encounter [facility] UNK - Ambulatory Encounter [facility] UNK - Ambulatory Encounter Joey [facility] Le[facility] UNK - Ambulatory Encounter Devaughn Soto Carbajal Rothman [facility] UNK - Ambulatory Encounter Janeth [facility] - Ambulatory Encounter Joey Ross Joey [facility] UNK - Ambulatory Encounter Arsenio Larsen [facility] UNK - Ambulatory Encounter Arseniojunaid Larsen [facility] UNK - Ambulatory Encounter Arseniojunaid Larsen [facility] UNK - Ambulatory Encounter Arseniojunaid Cartagena [facility] Vision Myopia - OUPresbyopia - OU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 - Ambulatory Encounter Isidra Fonseca [place] [facility] UNK - Ambulatory Encounter Joeyteddy Nelsonkikagrey Joey [facility] UNK - Ambulatory Encounter Joey Cheek [facility] UNK - Ambulatory Encounter Leatha Durant [facility] UNK - Ambulatory Encounter Annette Sanders [facility] UNK - Ambulatory Encounter Joey Vandana Wrightar [facility] UNK - Ambulatory Encounter Joey [facility] UNK - Ambulatory Encounter Joeyteddy Nelsonfogrey Joey [facility] UNK - Ambulatory Encounter Joey Lesliefogrey Cook [facility] UNK - Ambulatory Encounter Marlene Lloydgrey Joey Soto [facility] Diverticulitis, colonDiverticular diseaseHypotensionHistory of hypertensionAnemia due to dietary iron deficiencyHx of hypokalemiaHyperlipidemiaGERDDepressionAbdominal distentionScreening for colon cancerAnxietyVertigoGastroparesisDiabetic neuropathyDry eyeAsthma - Ambulatory Encounter Joey Ross Joey [facility] UNK VITAL SIGNS No Information Available ALLERGIES Allergy Name Onset Date Reaction Criticality Status LATEX Swelling, burning, rash high fever High Criticality active PCN rash, swelling, burning, SOB, chest pain High Criticality active REASON FOR REFERRAL Start Date - End Date Service - Ultrasound - Pelvic/Transvaginal - Mammogram - Screening - Neurology - External - CONFIGURATION MANAGEMENT ARCHITECT - Internal - Gastroenterology - External RESULTS [...] 65-99 High glucose, urine, semiquantitative negative Steph Jack " bilirubin, urine negative Stephghulam Rebolledo " [...] Rebolledo " nitrite, urine, semiquantitative negative Steph Amaury " urine color light yellow Stephghulam Rebolledo [...] eyes 3 (three) times a day. Joey oRss GABAPENTIN 300 MG ORAL CAPSULE 1 by [...] Value Provider drug use, illicit Never Ashley Keyess " alcohol use Never Ashley Keyess " social history E&M . from , 1 son working and 1 daughter who is very supportive Not homeless. Born in [place]. State: [facility] . 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 Sex at : Female. Sexual orientation: Heterosexual. Gender identity: Female. Gender of partner(s): Male. Age of first sexual intercourse: 18. Sexually Active: no. Ashley Fields " social history reviewed E&M reviewed today Ashley Fields " assessment of health literacy (FORMERLY [facility] 2014 Standards, 3C10) Adequate Ashley Fields [...] is very supportive Not homeless. Born in [place]. State: [facility] . 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 Sex at : Female. Sexual orientation: Heterosexual. Gender identity: Female. Gender of partner(s): Male. Age of first sexual intercourse: 18. Sexually Active: Yes. Steph Amaury " social history reviewed E&M reviewed today Steph Amaury " sexual orientation Heterosexual Steph Amaury " assessment of health literacy (FORMERLY [facility] 2014 Standards, 3C10) Adequate Steph Amaury " is there any chance that you could be ? No Steph Amaury " passive cigarette smoke exposure No Steph Amaury " smoking status never smoker Steph Amaury " Exercise Program Referral T Steph Amauyr " Weight Management Counseling Provided T Steph Amaury " Nutrition intervention T Steph Amaury drug use, illicit Never Anay May " alcohol use Never Anay May " social history E&M . from , 1 son working and 1 daughter who is very supportive Not homeless. Born in [place]. State: [facility] . 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 Sex at : Female. Sexual orientation: Heterosexual. Gender identity: Female. Gender of partner(s): Male. Age of first sexual intercourse: 18. Sexually Active: Yes. Anay May " social history reviewed E&M reviewed today Anay May " sexual orientation Heterosexual Anay May " assessment of health literacy ([facility] 2014 Standards, 3C10) Adequate Anay May " passive cigarette smoke exposure No Anay May " smoking status never smoker Anay May social history reviewed E&M reviewed today Mariajose Carmichael " social history E&M . from , 1 son working and 1 daughter who is very supportive Not homeless. Born in [place]. State: [facility] . Lives with daughter with her family [...] May " assessment of health literacy ([facility] 2014 Standards, 3C10) Adequate Anay May " passive cigarette smoke exposure No Anay May " smoking status never smoker Anay May home/family situation, assessment Lives with daughter with her family Mariajose Amol " patient considered to be homeless No Mariajose Carmichael " family support from , 1 son working and 1 daughter who is very supportive Mariajose Carmichael time of call 10/02/2018 11:05 AM Jayleen Medel social history reviewed E&M reviewed today Yuniel Lee " sexual orientation Heterosexual Yuniel Lee " assessment of health literacy ([facility] 2014 Standards, 3C10) Adequate Yuniel Lee " [...] Sevilla " assessment of health literacy (FORMER[facility] 2014 Standards, 3C10) Adequate Ashley Sevilla " passive cigarette smoke exposure No Ashley Sevilla " smoking status never smoker Ashley Sevilla FUNCTIONAL STATUS No Information Available MENTAL STATUS Date Observation Value Provider Generalized Anxiety Disorder Questionnaire - Question 2 0 Ashley Fields " Generalized Anxiety Disorder Questionnaire - Question 1 0 Ashley Keyess assessment of judgment and insight E&M poor Joeyteddy Ross " assessment of mood and affect E&M no depression, anxiety, or agitation Joeyteddy Ross " mental status examination: orientation E&M oriented to time, place, and person Joeyteddy Ross " Generalized Anxiety Disorder Questionnaire - Question 2 0 Steph Rebolledo " Generalized Anxiety Disorder Questionnaire - Question 1 0 Setph Rebolledo assessment of judgment and insight E&M [...] E&M no depression, anxiety, or agitation Joey Nelsonkikagrey " Generalized Anxiety Disorder Questionnaire - Question [...] party ID Sliding Fee - Cat 1 [employer] insurance [employer] [id number] ADVANCE DIRECTIVES No Information Available TREATMENT PLAN [...] Well Exam (40 - 64 Yrs) - 41523 Est Patient Exp Problem - 40933 Behavioral Health - Therapy Behavioral Health - Psychiatry [place] Nurse Ofc Vst, Est Level III Dispensing Visit (Non-Billable) [facility] Assessment - Professor Of Pathology Diagnostic evaluation (no medical) - 49911 Ofc Vst, Est Level III Est Patient Exp Problem - 81807 Integrated Behavioral Health Assessment (IBH) Behavioral Health - Psychiatry Frames, purchases Sphere, bif, plano to +/- 4.00d, per lens New Patient Intermediate Opth - 04403 New Patient Detailed - 54287 Prescription Assistance (Non-HIV) [facility] Nurse [facility] - Internal Behavioral Health - Psychiatry HISTORY OF PROCEDURES Procedure Date Procedure Name Provider Procedure Notes Status Dispensing Visit (Non-Billable) Janeth Rossi completed [facility] Assessment - Professor Of Pathology Mariajose Carmichael completed Diagnostic evaluation (no medical) - 15763 Mariajose Carmichael completed Frames, purchases Janeth Rossi completed Sphere, bif, plano to +/- 4.00d, per lens Janeth Rossi 65.00 completed New Patient Intermediate Opt - 41595 Arsenio Larsen completed GOALS No Information Available HEALTH CONCERNS No Information Available
--- OUTSIDE RECORDS SUMMARY | 2019-06-10 14:40 | XMS REPORT ---
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 Dementia active [...] Location Encounter Diagnosis - [facility] UNK - [facility] UN[facility] - [facility] UNK - Ambulatory Encounter Juan Loja [facility] DEPRESSIVE DISORDER, D/T ANOT MED COND, W/ DEPRESSIVE FEATURESDEPRESSIVE DISORDER, MAJOR, RECURRENT EPISODE, MILDANXIETY DISORDER, UNSPECIFIED - Ambulatory Encounter 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 [facility] UNK - Ambulatory Encounter Isidra Angeles 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 UNK - Ambulatory Encounter Matthew Hurdria [facility] PIPE [facility] UNK - Ambulatory Encounter Matthew Bullocka [facility] UNK - Ambulatory Encounter Isidra Fonseca 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 UNK - Ambulatory Encounter Ashley Fields [facility] UNK - Ambulatory Encounter Matthew Joe Maru Castro A Maru [facility] UNK - Ambulatory Encounter Matthew Joe Maru Castro A Maru Fields [facility] Client Service Administrator annual examHistory of ovarian cystMammogram not high risk screeningScreening for vaginal cancer - Ambulatory Encounter Joey Vandana Cook [facility] UNK - Ambulatory Encounter Joey Lesliegrey Cook [facility] UNK - Ambulatory Encounter Joey Lesliekikagrey Cook [facility] - Ambulatory Encounter [facility]kikagrey [facility] UNK - Ambulatory Encounter Joey Lesliekiakgrey Wrightar [facility] UN[facility] - Ambulatory Encounter Joey Lesliekikagrey Wright[facility] UNK - Ambulatory Encounter Joey Lesliekikagrey Wright[facility] - Ambulatory Encounter Joey Lesliekikagrey Wright[facility] UNK - Ambulatory Encounter Isidra Lee 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 UNK - Ambulatory En[facility] UNK - Ambulatory Encounter Joey Lesliekikagrey Wrightar [facility] Rebolledo [facility] UNK - Ambulatory Encounter Joey Lesliekikagrey Wrightar [facility] UNK - Ambulatory Encounter [facility] - Ambulatory Encounter Fax Status [facility] UNK - Ambulatory Encounter Fax Status [facility] UNK - Ambulatory Encounter Fax Status [facility] UNK - Ambulatory Encounter Fax Status [facility] UNK - Ambulatory Encounter Fax Status [facility] UNK - Ambulatory Encounter Fax Status [facility] UNK - Ambulatory En[facility] UNK - Ambulatory Encounter [facility] UN[facility] - Ambulatory Encounter Patrica Fonseca [facility] Elsa Rebolledo [facility] DysuriaMuscle spasm, backHypotensionMelasmaAbnormal abdominal imagingDementia - Ambulatory Encounter Sally Tejeda [facility] UNK - Ambulatory Encounter Margie Victoriano [facility] UNK - Ambulatory Encounter Margie Victoriano [facility] UNK - Ambulatory Encounter Margie Victoriano [facility] UNK - Ambulatory Encounter Kobi Long [facility] UNK - Ambulatory Encounter Kobi Long [facility] UNK - Ambulatory Encounter Kobi Long [facility] UNK - Ambulatory Encounter Kobi Obrien Anaymeme Greenras FaQuazia Cam [facility] Unspecified ovarian cyst, left side - Ambulatory Encounter Margie Pastrana [facility] UNK - Ambulatory Encounter Benjamin Sergei [facility] UNK - Ambulatory Encounter Janeth Rossi [facility] UNK - Ambulatory Encounter Yuniel Jesus [facility] UNK - Ambulatory Encounter Kobi Long [facility] UNK - Ambulatory Encounter Kobi Long [facility] UNK - Ambulatory Encounter Kobi May [facility] Diverticulitis - Ambulatory Encounter Mariajose Carmichael [facility] DEPRESSIVE DISORDER, D/T ANOT MED COND, W/ DEPRESSIVE FEATURES - Ambulatory Encounter [facility] UNK - Ambulatory Encounter Janeth Rossi [facility] UNK - Ambulatory Encounter Joey Nelsonkikagrey Joey Mahfouz [facility] UNK - Ambulatory Encounter Jayleen Medel [facility] UNK - Ambulatory Encounter Ashley Sevilla [facility] UNK - Ambulatory Encounter Joeyteddy Nelsonfogrey Wrightar [facility] UNK - Ambulatory Encounter Joeyteddy Nelsonfogrey [facility] - [facility] - Ambulatory Encounter Joey Vandana [facility] - Ambulatory Encounter Juan José Chacon [facility] Yuniel [facility] Epigastric discomfortOverweight - Ambulatory Encounter Patrica [facility] UN[facility] - Ambulatory En[facility] UNK - Ambulatory Encounter [facility] UNK - Ambulatory Encounter [facility] Ingrid Leung [facility] Contact Center UNK - Ambulatory Encounter Devaughn Sanzalvo [facility] UNK - Ambulatory Encounter Janeth Rossi [facility] UNK - Ambulatory Encounter [facility] UNK - Ambulatory Encounter Arseniojunaid Larsen [facility] UNK - Ambulatory Encounter Arseniojunaid Larsen [facility] UNK - Ambulatory Encounter Arseniojunaid Larsen [facility] UNK - Ambulatory Encounter Arseniojunaid Cartagena [facility] Vision Myopia - OUPresbyopia - OU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 - Ambulatory Encounter Isidra Fonseca [facility] UNK - Ambulatory Encounter Joey [facility]rey [facility] Adult [facility] UNK - Ambulatory Encounter Joey Ross Bella Cheek [facility] Contact Center UNK - Ambulatory Encounter Leatha Durant [facility] Public [facility] Services UNK - Ambulatory Encounter [facility]nette Lopez [facility] - Ambulatory Encounter Joey Cook [facility] UNK - Ambulatory Encounter Joey Cook [facility] UNK - Ambulatory Encounter Joey Cook [facility] UNK - Ambulatory Encounter Joey Cook [facility] UNK - Ambulatory Encounter Marlene Chilel Joey Ross Joey [facility] Leatha Soto [facility] Diverticulitis, colonDiverticular diseaseHypotensionHistory of hypertensionAnemia due to dietary iron deficiencyHx of hypokalemiaHyperlipidemiaGERDDepressionAbdominal distentionScreening for colon cancerAnxietyVertigoGastroparesisDiabetic neuropathyDry eyeAsthma - Ambulatory Encounter Joey Cook [facility] UNK VITAL SIGNS No Information Available ALLERGIES Allergy Name Onset Date Reaction Criticality Status LATEX Swelling, burning, rash high fever High Criticality active PCN rash, swelling, burning, SOB, chest pain High Criticality active REASON FOR REFERRAL Start Date - End Date Service - Ultrasound - Pelvic/Transvaginal - Mammogram - Screening - Neurology - External - 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 Juan Clifton BACLOFEN 10 MG ORAL TABLET one tablet by mouth take at bedtime as needed for muscle spasm - Joey Ross MACROBID 100 MG ORAL CAPSULE 1 by mouth twice a day - Joey Ross SIMETHICONE 180 MG ORAL CAPSULE Take 1 capsule 3 times a day as needed for gas pain - Joey Ross DICYCLOMINE HCL 20 MG ORAL TABLET Take 1 tablet 30 minutes before meals Kobi Ethan CARAFATE 1 GM ORAL TABLET 1 by [...] 1 by mouth three times a day - Joey Ross ZOLOFT 50 MG ORAL TABLET 1 by mouth nightly at bedtime - Juan Clifton REGLAN 10 MG ORAL TABLET 1 by mouth ac and nightly at bedtime - Joey Ross MECLIZINE HCL 25 MG ORAL [...] Observation Value Provider drug use, illicit Never Juan Clifton " alcohol use Never Juan Clifton " smoking status never smoker Enrike Etienne " home/family situation, assessment Lives with daughter with her family (, 3 kids). Enrike Etienne " family support She is 1 of 12 siblings. from , 1 son working and 1 daughter who is very supportive. Juan Faustijos " social history E&M . She is 1 of 12 siblings. from , 1 son working and 1 daughter who is very supportive. Not homeless. Born in [place]. State: [facility] . Lives with daughter with her family (, 3 kids). 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 Sex at : Female. Sexual orientation: Heterosexual. Gender identity: Female. Gender of partner(s): Male. Age of first sexual intercourse: 18. Sexually Active: no. Jehova's witness. Arrested for "food stamp fraud", dismissed. Juan Clifton " social history reviewed E&M reviewed today Juan Clifton drug use, illicit Never Ashley Fields " alcohol use Never Ashley Fields " social history E&M . from , 1 son working and 1 daughter who is very supportive Not homeless. Born in [place]. State: [facility] . 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 Sex at : Female. Sexual orientation: Heterosexual. Gender identity: Female. Gender of partner(s): Male. Age of first sexual intercourse: 18. Sexually Active: no. Ashley Fields " social history reviewed E&M reviewed today Ashley Fields " assessment of health literacy ([facility] 2014 Standards, 3C10) Adequate Ashley Fields " passive cigarette smoke exposure No Ashley Fields " smoking status never smoker Ashley Fields " Exercise Program Referral T Ashley Keyess " Weight Management Counseling Provided T Ashley Keyess " Nutrition intervention T Ashley Fields drug use, illicit Never Steph Amaury " alcohol use Never Steph Amaury " social history E&M . from , 1 son working and 1 daughter who is very supportive Not homeless. Born in [place]. State: [facility] . 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 Sex at : Female. Sexual orientation: Heterosexual. Gender identity: Female. Gender of partner(s): Male. Age of first sexual intercourse: 18. Sexually Active: Yes. Steph Amaury " social history reviewed E&M reviewed today Steph Amaury " sexual orientation Heterosexual Steph Amaury " assessment of health literacy ([facility] 2014 Standards, 3C10) Adequate Steph Amaury " is there any chance that you could be ? No Steph Amaury " passive cigarette smoke exposure No Steph Amaury " smoking status never smoker Steph Amaury " Exercise Program Referral T Steph Amaury " Weight Management Counseling Provided T Steph Amaury " Nutrition intervention T Steph Amaury drug use, illicit Never Anay May " alcohol use Never Anay May " social history E&M . from , 1 son working and 1 daughter who is very supportive Not homeless. Born in [place]. State: [facility] . 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 Sex at : Female. Sexual orientation: Heterosexual. Gender identity: Female. Gender of partner(s): Male. Age of first sexual intercourse: 18. Sexually Active: Yes. Anay May " social history reviewed E&M reviewed today Anay May " sexual orientation Heterosexual Anay May " assessment of health literacy ([facility] 2014 Standards, 3C10) Adequate Anay May " passive cigarette smoke exposure No Anay May " smoking status never smoker Anay May social history reviewed E&M reviewed today Mariajose Amol " social history E&M . from , 1 son working and 1 daughter who is very supportive Not homeless. Born in [place]. State: [facility] . 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 Ashley Sevilla " assessment of health literacy ([facility] 2014 Standards, 3C10) Adequate Ashley Sevilla " passive cigarette smoke exposure No Ashley Sevilla " smoking status never smoker Ashley Sevilla FUNCTIONAL STATUS No Information Available MENTAL STATUS Date Observation Value Provider anxiety worry a lot, panic attacks, muscle tension Juan Clifton " mental status assessment, judgment fair Juan Clifton" insight (mental status exam) fair Juan Clifton" Mental Status Exam: intelligence adequate fund of information, intact memory processes, oriented to person, oriented to place, oriented to time, oriented to situation, oriented to reality Juan Clifton" hallucinations none Juan Clifton" thought content (mental status exam) (E&M) lucid Juan Clifton " mental status assessment, process able to abstract, circumstantial, logical Juan Clifton" mental status assessment, sensorium alert, attentive, clear Juan Clifton" affect (mental status exam) congruent, euthymic, normal intensity, normal range Juan Clifton" mood (mental status exam) pleasant, sad, worried, frustrated Juan Clifton" mental status assessment, speech activity normal flow, normal pace, normal pressure, normal rate, normal tone, normal volume, spontaneous, limitted Frisian Juan Clifton" mental status assessment, motor activity normal gait, [...] depression, anxiety, or agitation Joey Lesliekikagrey " mental status examination: orientation E&M oriented [...] process able to abstract, goal-directed, logical Mariajose Carmichael" mental status assessment, sensorium alert, attentive, clear Mariajose Carmichael " affect (mental status exam) congruent, euthymic, normal intensity, normal range Mariajose Carmichael" mood (mental status exam) pleasant, sad Mariajose Carmichael " mental status assessment, speech activity normal flow, normal pace, normal pressure, normal rate, normal tone, normal volume, spontaneous Mariajose Carmichael" mental status assessment, motor activity normal gait, [...] Disorder Questionnaire - Question 2 0 Ashley eSvilla " Generalized Anxiety Disorder Questionnaire - Question 1 1 Ashley Sevilla MEDICAL EQUIPMENT No Information Available FAMILY HISTORY No Information Available INSURANCE PROVIDERS Payer name Policy type / Coverage type Covered alliance party ID Sliding Fee - Cat 1 [employer] mobile insurance [employer] [id number] ADVANCE DIRECTIVES No Information Available TREATMENT PLAN [...] - - Diagnostic evaluation with medical - 70486 New Patient Well Exam (40 - 64 Yrs) - 51249 Est Patient Exp Problem - 83768 Behavioral Health - Therapy Behavioral Health - Psychiatry 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 Ofc Vst, Est Level III Dispensing Visit (Non-Billable) [facility] Assessment - Barrel Driller Diagnostic evaluation (no medical) - 12385 Ofc Vst, Est Level III Est Patient Exp Problem - 66230 Integrated Behavioral Health Assessment (IBH) Behavioral Health - Psychiatry Frames, purchases Sphere, bif, plano to +/- 4.00d, per lens New Patient Intermediate Opth - 76954 New Patient Detailed - 25532 Prescription Assistance (Non-HIV) 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 [facility] - Internal Behavioral Health - Psychiatry HISTORY OF PROCEDURES Procedure Date Procedure Name Provider Procedure Notes Status Diagnostic evaluation with medical - 38141 Juan Clifton completed Dispensing Visit (Non-Billable) Janeth Rossi completed [facility] Assessment - Barrel Driller Mariajose Carmichael completed Diagnostic evaluation (no medical) - 34723 Mariajose Carmichael completed Frames, purchases Janeth Rossi completed Sphere, bif, plano to +/- 4.00d, per lens Janeth Rossi 65.00 completed New Patient Intermediate Opt - 08929 Arsenio Larsen completed GOALS No Information Available HEALTH CONCERNS No Information Available
--- OUTSIDE RECORDS SUMMARY | 2019-06-10 14:40 | XMS REPORT ---
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 active 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 Dementia active Joey Ross Abnormal abdominal imaging active Joeyteddy Ross Melasma active Joeyteddy Lloyduz Hypotension active Joeyteddy Ross Intermittent Muscle spasm, back active Joeyteddy Ross Dysuria active Joey Ross Unspecified ovarian cyst, left side active Kobi Long DEPRESSIVE DISORDER, D/T ANOT MED COND, W/ DEPRESSIVE FEATURES completed - Juan Clifton Diverticulitis active Kobi oLng Overweight active Juan José Polanco Epigastric discomfort [...] Encounter Diagnosis - Ambulatory Encounter Juan Loja [facility] DEPRESSIVE DISORDER, D/T ANOT MED COND, W/ DEPRESSIVE FEATURESDEPRESSIVE DISORDER, MAJOR, RECURRENT EPISODE, MILDANXIETY DISORDER, UNSPECIFIED - Ambulatory Encounter Matthew Diaz [facility] UNK - Ambulatory Encounter Isidra Angeles [facility] UNK - Ambulatory Encounter Matthew Diaz [facility] BLADE ALIGNER UNK - Ambulatory Encounter Matthew Diaz [facility] BLADE ALIGNER UNK - Ambulatory Encounter Isidra Fonseca [facility] UNK - Ambulatory Encounter Ashley Fields [place] BLADE ALIGNER UNK - Ambulatory Encounter 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 [place] BLADE ALIGNER UNK - Ambulatory Encounter Matthew Fields [place] BLADE ALIGNER Washer Machine annual examHistory of ovarian cystMammogram not high risk screeningScreening for vaginal cancer - Ambulatory Encounter Joey Vandana Cook Mahfouz [facility] UNK - Ambulatory En[facility] UNK - Ambulatory Encounter Joey Vandana Cook Mahfouz [facility] UNK - Ambulatory Encounter Joey Vandana Cook Mahfouz [facility] UNK - Ambulatory Encounter Joey Vandana Cook Mahfouz [facility] UNK - Ambulatory Encounter [facility] UNK - Ambulatory Encounter [facility] UNK - Ambulatory Encounter Joey [facility] UNK - Ambulatory Encounter Isidra Lee [place] Manager Nuclear UNK - Ambulatory Encounter Joey Vandana Cook [facility] UNK - Ambulatory Encounter [facility] Steph Rebolledo [facility] UNK - Ambulatory Encounter [facility] UNK - Ambulatory Encounter Joey [facility] UNK - Ambulatory Encounter [facility] - Ambulatory Encounter Fax [facility] UNK - Ambulatory Encounter F[facility] - [facility]ulatory Encounter Fax Status [facility] - Ambulatory Encounter Fax Status [facility]K - Ambulatory Encounter F[facility] UNK - Ambulatory Encounter Joey [facility] UNK - Ambulatory Encounter Joey [facility] UNK - Ambulatory Encounter Patrica Fonseca [facility] Elsa Rebolledo [facility] DysuriaMuscle spasm, backHypotensionMelasmaAbnormal abdominal imagingDementia - Ambulatory Encounter Sally Tejeda [facility] UNK - Ambulatory Encounter Margie [facility] - Ambulatory Encounter [facility]ie [facility] - Ambulatory Encounter Margiejodi Green[facility] - Ambulatory Encounter Kobi Long [facility] UNK - Ambulatory Encounter Kobi Long [facility] UNK - Ambulatory Encounter Kobi Long [facility] UNK - Ambulatory Encounter Kobi Obrien Anay May FaQuazia Cam [facility] Unspecified ovarian cyst, left side - Ambulatory Encounter Margiejodi [facility] - Ambulatory Encounter Benjamin Sergei [facility] UNK - Ambulatory Encounter Janeth Rossi [facility] UNK - Ambulatory Encounter Yuniel Lee [facility] UNK - Ambulatory Encounter Kobi Long [facility] UNK - Ambulatory Encounter Kobi Long [facility] UNK - Ambulatory Encounter Kobi May [place] Diverticulitis - Ambulatory Encounter Mariajose Carmichael [facility] DEPRESSIVE DISORDER, D/T ANOT MED COND, W/ DEPRESSIVE FEATURES - Ambulatory En[facility] - Ambulatory Encounter Janeth Rossi [facility] UNK - Ambulatory Encounter [facility] - Ambulatory Encounter Jayleen Medel [facility] UNK - Ambulatory Encounter Ashley Sevilla [facility] UNK - Ambulatory Encounter Joey [facility] UNK - Ambulatory Encounter Joey [facility] UNK - Ambulatory Encounter [facility] - Ambulatory Encounter Jeoy [facility] UNK - Ambulatory Encounter Juan José Chacon [facility] Yuniel Lee [facility] Epigastric discomfortOverweight - Ambulatory Encounter Patrica Steven Luisilya [facility] UNK - Ambulatory Encounter Joey Cook [facility] UNK - Ambulatory Encounter Joeyteddy Cook [facility] UNK - Ambulatory Encounter Joey [facility] Ingrid Leung [facility] Contact Center UNK - Ambulatory Encounter Devaughn [facility] UNK - Ambulatory Encounter [facility]eth [facility] UNK - Ambulatory Encounter Joeyteddy [facility] [place] [facility] UNK - Ambulatory Encounter Arseniojunaid Larsen [facility] Vision UNK - Ambulatory Encounter Arseniojunaid Larsen [facility] Vision UNK - Ambulatory Encounter Arseniojunaid Larsen [facility] Vision UNK - Ambulatory Encounter Arseniojunaid Cartagena [facility] Vision Myopia - OUPresbyopia - OU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 - Ambulatory Encounter Isidra Fonseca [place] Manager Nuclear UNK - Ambulatory Encounter Joeyteddy Nelsonfogrey [facility] UNK - Ambulatory Encounter Joeyteddy Nelsondayton Cheek [facility] Contact Center UNK - Ambulatory Encounter Leatha Durant [facility] Public Health Services UNK - Ambulatory Encounter Annette BirdCitlallinapoleon [facility] UNK - Ambulatory Encounter Joey Cook [facility] UNK - Ambulatory Encounter Joey Cook [facility] UNK - Ambulatory Encounter Joey Cook [facility] UNK - Ambulatory Encounter Joey Ross [facility] UNK - Ambulatory Encounter Marlene Chilel [facility] Leatha Soto [facility] Diverticulitis, colonDiverticular diseaseHypotensionHistory of hypertensionAnemia due to dietary iron deficiencyHx of hypokalemiaHyperlipidemiaGERDDepressionAbdominal distentionScreening for colon cancerAnxietyVertigoGastroparesisDiabetic neuropathyDry eyeAsthma - Ambulatory Encounter Joey Cook [facility] UNK VITAL SIGNS No Information Available ALLERGIES Allergy Name Onset Date Reaction Criticality Status LATEX Swelling, burning, rash high fever High Criticality active PCN rash, swelling, burning, SOB, chest pain High Criticality active REASON FOR REFERRAL Start Date - End Date Service - Ultrasound - Pelvic/Transvaginal - Mammogram - Screening - Neurology - External - BLADE ALIGNER - Internal - Gastroenterology - External RESULTS [...] 1 by mouth twice a day - Joye Ross SOCIAL HISTORY Date Observation Value Provider [...] is very supportive. Not homeless. Born in [place]. State: [facility] . Lives with daughter with her family (, 3 kids). 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 Born in [place]. State: [facility] . 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 Sex at : Female. Sexual orientation: Heterosexual. Gender identity: Female. Gender of partner(s): Male. Age of first sexual intercourse: 18. Sexually Active: no. Ashley Fields " social history reviewed E&M reviewed today Ashley Fields " assessment of health literacy ([employer] [facility] 2014 Standards, 3C10) Adequate Ashley Fields " passive cigarette smoke exposure No Ashley Fields " smoking status never smoker Ashley Fields " Exercise Program Referral Slava Fields " Weight Management Counseling Provided T Ashley Fields " Nutrition intervention T Ahsley Fields drug use, illicit Never Steph Amaury " alcohol use Never Steph Amaury " social history E&M . from , 1 son working and 1 daughter who is very supportive Not homeless. Born in [place]. State: [facility] . 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 Sex at : Female. Sexual orientation: Heterosexual. Gender identity: Female. Gender of partner(s): Male. Age of first sexual intercourse: 18. Sexually Active: Yes. Steph Amaury " social history reviewed E&M reviewed today Steph Amaury " sexual orientation Heterosexual Steph Amaury " assessment of health literacy ([employer] 2014 Standards, 3C10) Adequate Steph Amaury " [...] is very supportive Not homeless. Born in [place]. State: [facility] . 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 Sex at : Female. Sexual orientation: Heterosexual. Gender identity: Female. Gender of partner(s): Male. Age of first sexual intercourse: 18. Sexually Active: Yes. Anay May " social history reviewed E&M reviewed today Anay May " sexual orientation Heterosexual Anay May " assessment of health literacy ([employer] 2014 Standards, 3C10) Adequate Anay May " passive cigarette smoke exposure No Anay May " smoking status never smoker Anay May social history reviewed E&M reviewed today Mariajose Carmichael " social history E&M . from , 1 son working and 1 daughter who is very supportive Not homeless. Born in [place]. State: [facility] . Lives with daughter with her [...] Anay May " assessment of health literacy ([employer] 2014 Standards, 3C10) Adequate Anay May " passive cigarette smoke exposure No Anay May " smoking status never smoker Anay May home/family situation, assessment Lives with daughter with her family aMriajose Carmichael " patient considered to be homeless No Mariajose Carmichael " family support from , 1 son working and 1 daughter who is very supportive Mariajose Amol time of call 10/02/2018 11:05 AM Jayleen Medel social history reviewed E&M reviewed today Yuniel Lee " sexual orientation Heterosexual Yuniel Lee " assessment of health literacy ([employer] 2014 Standards, 3C10) Adequate Yunielesteban Lee " [...] Ashley Sevilla " assessment of health literacy ([employer] 2014 Standards, 3C10) Adequate Ashley Sevilla " [...] exam) congruent, euthymic, normal intensity, normal range uJan Clifton" mood (mental status exam) pleasant, sad, worried, frustrated Juan Clifton " mental status assessment, speech activity normal flow, normal pace, normal pressure, normal rate, normal tone, normal volume, spontaneous, limitted Chinese Juan Clifton " mental status assessment, motor [...] of judgment and insight E&M intact Joey Preamuz " mental status examination: orientation E&M oriented [...] republican ID Sliding Fee - Cat 1 [employer] insurance company [id number] ADVANCE DIRECTIVES No Information Available TREATMENT PLAN [...] - - Diagnostic evaluation with medical - 40189 New Patient Well Exam (40 - 64 Yrs) - 48420 Est Patient Exp Problem - 62656 Behavioral Health - Therapy Behavioral Health - Psychiatry Manager Nuclear Ofc Vst, Est Level III Dispensing Visit (Non-Billable) [facility] Assessment - Capital Project Engineer Diagnostic evaluation (no medical) - 78709 Ofc Vst, Est Level III Est Patient Exp Problem - 26606 Integrated Behavioral Health Assessment (IBH) Behavioral Health - Psychiatry Frames, purchases Sphere, bif, plano to +/- 4.00d, per lens New Patient Intermediate Opth - 31897 New Patient Detailed - 33028 Prescription Assistance (Non-HIV) Manager Nuclear [facility] - Internal Behavioral Health - Psychiatry HISTORY OF PROCEDURES Procedure Date Procedure Name Provider Procedure Notes Status Diagnostic evaluation with medical - 71982 Juan Clifton completed Dispensing Visit (Non-Billable) Janeth Rossi completed [facility] Assessment - Capital Project Engineer Mariajose Carmichael completed Diagnostic evaluation (no medical) - 30224 Mariajose Carmichael completed Frames, purchases Janeth Rossi completed Sphere, bif, plano to +/- 4.00d, per lens Janeth Rossi 65.00 completed New Patient Intermediate [facility] - 61636 Arseniojunaid Larsen completed GOALS No Information Available HEALTH CONCERNS No Information Available
--- OUTSIDE RECORDS SUMMARY | 2019-06-10 14:41 | XMS REPORT ---
Author Author Admin, [place] Organization Unknown Address Unknown Phone Unavailable PROBLEMS Condition Status Date Provider Notes Numbness active Joey Mahfouz Headache, severe active Joey Mahfouz Hypertensive urgency active Joey Lesliefouz Hx of syncope and collapse active Joey Mahfouz Dysautonomia active Joey Mahfouz Orthostatic hypotension active Joeyteddy Lloyduz ANXIETY DISORDER, UNSPECIFIED active Juan Clifton DEPRESSIVE DISORDER, MAJOR, RECURRENT EPISODE, MILD active Juan Clifton Screening for vaginal cancer active 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 Mammogram not high risk screening active 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 History of ovarian cyst active 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 Matthew Maohney Dementia completed - Joey Ross Abnormal abdominal imaging active Jeoyteddy Lloyduz Melasma active Joeyteddy Nelsonfouz Hypotension active Joey Ross Intermittent Muscle spasm, back active Joeyteddy Nelsonfouz Dysuria active Joeyteddy Lloyduz Unspecified ovarian cyst, left side active Kobi Long DEPRESSIVE DISORDER, D/T ANOT MED COND, W/ DEPRESSIVE FEATURES completed - Juan Clifton Diverticulitis active Kobi Long Overweight active Juan José Polanco Epigastric discomfort active Joey Ross 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 active Arsenio Larsen Presbyopia - OU active Arsenio Larsen Myopia - OU active Arsenio Larsen Asthma active Joey Mahfouz Dry eye [...] Location Encounter Diagnosis - Ambulatory Encounter Joey Ross [facility] UNK - Ambulatory Encounter Joey Nelsonfogrey [facility] UNK - Ambulatory Encounter Joey Vandana Nelsonfogrey [facility] UNK - Ambulatory Encounter Zuleyka Rebolledo [facility] Hypertensive urgencyHeadache, severeNumbness - Ambulatory Encounter Fax Status [facility] UNK - Ambulatory Encounter Fax Status [facility] UNK - Ambulatory Encounter Fax Status [facility] UNK - Ambulatory Encounter Joeyteddy Nelsonfogrey [facility] UNK - [facility] - Ambulatory En[facility] UNK - Ambulatory Encounter [facility] UNK - Ambulatory Encounter Zuleyka Sevilla [facility] Sky Cotton [facility] DementiaOrthostatic hypotensionDysautonomiaHx of syncope and collapse - Ambulatory Encounter [facility] UNK - Ambulatory Encounter [facility] UNK - Ambulatory Encounter Joey Nelsongrey Cook [facility] UNK - Ambulatory Encounter Juan Loja [facility] DEPRESSIVE DISORDER, D/T ANOT MED COND, W/ DEPRESSIVE FEATURESDEPRESSIVE DISORDER, MAJOR, RECURRENT EPISODE, MILDANXIETY DISORDER, UNSPECIFIED - Ambulatory Encounter Matthew Bullocka [facility] UNK - Ambulatory Encounter Isidra Angeles [facility] UNK - Ambulatory Encounter Matthew Diaz Maru [facility] UNK - Ambulatory Encounter Matthew Diaz Maru [facility] UNK - Ambulatory Encounter Isidra Fonseca [facility] UNK - Ambulatory Encounter Ashley Fields [facility] UNK - Ambulatory Encounter Matthew Castro A Maru [facility] UNK - Ambulatory Encounter Matthew Fields [facility] Aeronautical Engineer annual examHistory of ovarian cystMammogram not high risk screeningScreening for vaginal cancer - Ambulatory Encounter Joey Vandana Cook [facility] UNK - Ambulatory Encounter Joey Vandana Cook [facility] - Ambulatory Encounter Joye Vandana Cook [facility]K - Ambulatory Encounter Joey Lesliekikagrey Cook [facility] UNK - Ambulatory Encounter Joey Lesliekikagrey Cook [facility] UNK - Ambulatory Encounter Joey Lesliekikagrey Cook [facility] UNK - Ambulatory Encounter Joey [facility]andana [facility] - Ambulatory Encounter Joey Lesliekikagrey Cook [facility] UNK - Ambulatory Encounter Isidra Lee [facility] UNK - Ambulatory Encounter [facility] - Ambulatory Encounter Joey Vandana Nelsongrey Steph Rebolledo [facility] UNK - Ambulatory Encounter Joey Lesliekikagrey Wrightar [facility] UNK - Ambulatory Encounter Joey Nelsongrey [facility] UNK - Ambulatory Encounter Fax Status [facility] UNK - Ambulatory Encounter Fax Status [facility] UNK - Ambulatory Encounter Fax Status [facility] UNK - Ambulatory Encounter Fax Status [facility] UNK - Ambulatory Encounter Fax Status [facility] UNK - Ambulatory Encounter Fax Status LinkLog [facility] UNK - Ambulatory Encounter Joey Ross Joey [facility] Practice UNK - Ambulatory Encounter Joey Cook [facility] Practice UNK - Ambulatory Encounter Patrica Fonseca [facility] Sky Rebolledo [facility] DysuriaMuscle spasm, backHypotensionMelasmaAbnormal abdominal imagingDementia - Ambulatory Encounter Sally Tejeda [facility] Contact Center UNK - Ambulatory Encounter Margie Victoriano [facility] UNK - Ambulatory Encounter Margie Victoriano [facility] UNK - Ambulatory Encounter Margie Victoriano [facility] UNK - Ambulatory Encounter Kobi Long [facility] UNK - Ambulatory Encounter Kobi Long [facility] UNK - Ambulatory Encounter Kobi Long [facility] UNK - Ambulatory Encounter Kobi May FaQuazia [facility] Unspecified ovarian cyst, left side - Ambulatory En[facility] - [facility] Encounter Benjamin Sergei [facility] UNK - Ambulatory Encounter Janethreji Rossi [facility] UNK - Ambulatory Encounter Yuniel Lee [facility] UNK - Ambulatory Encounter Kobi Long [facility] UNK - Ambulatory Encounter Kobi Long [facility] UNK - Ambulatory Encounter Kobi May [facility] Diverticulitis - Ambulatory Encounter Mariajose Carmichael [facility] DEPRESSIVE DISORDER, D/T ANOT MED COND, W/ DEPRESSIVE FEATURES - Ambulatory Encounter Joey Cook [facility] UNK - Ambulatory Encounter Janeth Rossi [facility] UNK - Ambulatory Encounter Joey Nelsonkikagrey Wrightar Mahfogrey [facility] UNK - Ambulatory Encounter Jayleen Medel [facility] UNK - Ambulatory Encounter Ashley Sevilla [facility] UNK - Ambulatory Encounter Joey Lesliedayton Cook [facility] - Ambulatory Encounter Joey Mahdayton Cook [facility] UN[facility] - Ambulatory Encounter [facility] UNK - Ambulatory Encounter Joey [facility] UNK - Ambulatory Encounter Juan José Chacon [facility] Yuniel [facility] Epigastric discomfortOverweight - Ambulatory Encounter Patrica [facility] - Ambulatory Encounter [facility] UNK - Ambulatory Encounter [facility] UNK - Ambulatory Encounter [facility] Ingrid Leung [facility] Contact Center UNK - Ambulatory Encounter Devaughn Carbajal [facility] Dental UNK - Ambulatory Encounter Janeth Rossi [facility] UNK - Ambulatory Encounter [facility] UNK - Ambulatory Encounter Arseniojunaid Larsen [facility] UNK - Ambulatory Encounter Arseniojunaid Larsen [facility] UNK - Ambulatory Encounter Arseniojunaid Larsen [facility] UNK - Ambulatory Encounter Arseniojunaid Cartagena [facility] Myopia - OUPresbyopia - OU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 - Ambulatory Encounter Isidra Fonseca [facility] Services UNK - Ambulatory Encounter Joey Nelson[facility]ikagrey [facility] Adult Medicine UNK - Ambulatory Encounter Joey Ross Bella Finna Adia [facility] Contact Center UNK - Ambulatory Encounter Leatha Durant [facility] Public Health Services UNK - Ambulatory En[facility] - [facility]ulatory Encounter Joey Cook [facility] UNK - Ambulatory Encounter [facility] - Ambulatory Encounter Joey Cook [facility] Practice UNK - Ambulatory Encounter Joey Cook [facility] Practice UNK - Ambulatory Encounter Marlene Chilel Joey Cook Lesliegrey [place] [facility] Diverticulitis, colonDiverticular diseaseHypotensionHistory of hypertensionAnemia due to dietary iron deficiencyHx of hypokalemiaHyperlipidemiaGERDDepressionAbdominal distentionScreening for colon cancerAnxietyVertigoGastroparesisDiabetic neuropathyDry eyeAsthma - Ambulatory Encounter Joey Cook [facility] UNK VITAL SIGNS Date Observation Value Provider blood pressure, diastolic, third observation 100 mm[Hg] Joey Lloydgrey " blood pressure, systolic, third observation 170 mm[Hg] Joeyteddy Nelsondayton " blood pressure, diastolic, second observation 105 mm[Hg] Steph Rebolledo " blood pressure, systolic, second observation 161 mm[Hg] Steph Rebolledo " oxygen saturation, oximetry 98 % Steph Rebolledo " blood pressure, diastolic 98 mm[Hg] Stephghulam Rebolledo " blood pressure, systolic 150 mm[Hg] Steph Rebolledo " respiratory rate E&M 18 /min Steph Rebolledo " pulse rate E&M 78 /min Steph Rebolledo " temperature E&M 97.9 [degF] Steph Rebolledo " weight E&M 162.25 lbs. Steph Rebolledo " weight in kilograms E&M 73.75 kg Steph Rebolledo " method used to obtain blood pressure automatic Steph Rebolledo " Blood Pressure Position 01 sitting Steph Rebolledo " blood pressure, site #1 left arm Steph Rebolledo " temperature site oral Steph Rebolledo " height E&M 60 [in_i] Steph Rebolledo " height in centimeters E&M 152.40 cm Steph Rebolledo pulse rate #4 97 /min Joey Mahfouz " blood pressure, diastolic, fourth observation 85 mm[Hg] Joey Mahfouz " blood pressure, systolic, fourth observation 127 mm[Hg] Joey Mahfouz " pulse rate #3 97 Joey Mahfouz " blood pressure, diastolic, third observation 86 mm[Hg] Joey Mahfouz " blood pressure, systolic, third observation 120 mm[Hg] Joey Mahfouz " pulse rate #2 95 Joey Mahfouz " blood pressure, diastolic, second observation 84 mm[Hg] Joey Mahfouz " blood pressure, systolic, second observation 134 mm[Hg] Joey Mahfouz " oxygen saturation, oximetry 98 % Ashley Sevilla " method used to obtain blood pressure automatic Ashley Wrightvez " Blood Pressure Position 01 sitting Ashley Sevilla " blood pressure, site #1 left arm Ashley Wrightvez " blood pressure, diastolic 85 mm[Hg] Ashley Wrightvez " blood pressure, systolic 128 mm[Hg] Ashley Wrightvez " respiratory rate E&M 18 /min Ashley Wrightvez " pulse rate E&M 93 /min Ashley Sevilla " temperature site oral Ashley Sevilla " temperature E&M 98.3 [degF] Ashley Wrightvez " weight E&M 161.80 lbs. Ashley Wrightvez " weight in kilograms E&M 73.55 kg Ashley Sevilla " height E&M 60 [in_i] Ashley Sevilla " height in centimeters E&M 152.40 cm Ashley Sevilla method used to obtain blood pressure automatic Lisa Loja " Blood Pressure Position 01 sitting Lisa Loja " blood pressure, site #1 left arm Lisa Loja " blood pressure, diastolic 92 mm[Hg] Lisa Loja " blood pressure, systolic 147 mm[Hg] Lisa Loja " pulse rate E&M 74 /min Lisa Loja " weight E&M 161 lbs. Lisa Loja " weight in kilograms E&M 73.18 kg Lisa Loja " height E&M 60 [in_i] Lisa Loja " height in centimeters E&M 152.40 cm Lisa Loja oxygen saturation, oximetry 98 % Ashley Fields " method used to obtain blood pressure automatic Ashley Fields " Blood Pressure Position 01 sitting Ashley Fields " blood pressure, site #1 left arm Ashley Keyess " blood pressure, diastolic 76 mm[Hg] Ashley Keyess " blood pressure, systolic 112 mm[Hg] Ashley Keyess " respiratory rate E&M 90 /min Ashley Fields " pulse rate E&M 17 /min Ashley Fields " temperature site oral Ashley Keyess " temperature E&M 98.6 [degF] Ashley Keyess " weight E&M 156.80 lbs. Ashley Keyess " weight in kilograms E&M 71.27 kg Ashley Keyess " height E&M 60 [in_i] Ashley Keyess " height in centimeters E&M 152.40 cm Ashley Fields oxygen saturation, oximetry 95 % Steph Amaury " method used to obtain blood pressure automatic Steph Amaury " Blood Pressure Position 01 sitting Steph Amaury " blood pressure, site #1 left arm Steph Amaury " blood pressure, diastolic 83 mm[Hg] Steph Amaury " blood pressure, systolic 130 mm[Hg] Steph Amaury " respiratory rate E&M 18 /min Steph Amaury " pulse rate E&M 90 /min Steph Amaury " temperature site oral Steph Amaury " temperature E&M 98.1 [degF] Steph Amaury " weight E&M 157 lbs. Steph Rebolledo " weight in kilograms E&M 71.36 kg Steph Rebolledo " height E&M 60 [in_i] Steph Rebolledo " height in centimeters E&M 152.40 cm Steph Rebolledo oxygen saturation, oximetry 96 % Anay May " method used to obtain blood pressure automatic Anay May " Blood Pressure Position 01 sitting Anay May " blood pressure, site #1 left arm Anay May " blood pressure, diastolic 77 mm[Hg] Anay May " blood pressure, systolic 112 mm[Hg] Anay May " respiratory rate E&M 20 /min Anay May " pulse rate E&M 87 /min Anay May " temperature E&M 98.1 [degF] Anay May " weight E&M 155 lbs. Anay May " weight in kilograms E&M 70.45 kg Anay May " height E&M 60 [in_i] Anay May " height in centimeters E&M 152.40 cm Anay May oxygen saturation, oximetry 98 % Anay May " method used to obtain blood pressure automatic Anay May " Blood Pressure Position 01 sitting Anay May " blood pressure, site #1 left arm Anay May " blood pressure, diastolic 76 mm[Hg] Anay May " blood pressure, systolic 117 mm[Hg] Anay May " respiratory rate E&M 17 /min Anay May " pulse rate E&M 74 /min Anay May " temperature E&M 98.4 [degF] Anay May " weight E&M 154.40 lbs. Anay May " weight in kilograms E&M 70.18 kg Anay May " height E&M 60 [in_i] Anay May " height in centimeters E&M 152.40 cm Anay May oxygen saturation, oximetry 98 % Yuniel Lee " method used to obtain blood pressure automatic Yuniel Lee " Blood Pressure Position 01 sitting Yuniel Lee " blood pressure, site #1 left arm Yuniel Lee " blood pressure, diastolic 80 mm[Hg] Yuniel Lee " blood pressure, systolic 129 mm[Hg] Yuniel Lee " respiratory rate E&M 14 /min Yuniel Lee " temperature site oral Yuniel Lee " pulse rate E&M 81 /min Yuniel Lee " temperature E&M 98.8 [degF] Yuniel Lee " weight E&M 151 lbs. Yuniel Lee " weight in kilograms E&M 68.64 kg Yuniel Lee " height E&M 60 [in_i] Yuniel Lee " height in centimeters E&M 152.40 cm Yunielesteban Lee pulse rate E&M 70 /min Charles Carbajal Rothman " blood pressure, diastolic 82 mm[Hg] Charles Carbajal Rothman " blood pressure, systolic 125 mm[Hg] Charles Carbajal Rothman oxygen saturation, oximetry 98 % Ashley Sevilla " method used to obtain blood pressure automatic Ashley Sevilla " Blood Pressure Position 01 sitting Ashley Sevilla " blood pressure, site #1 left arm Ashley Sevilla " blood pressure, diastolic 76 mm[Hg] Ashley Sevilla " blood pressure, systolic 114 mm[Hg] Ashley Sevilla " respiratory rate E&M 16 /min Ashley Sevilla " pulse rate E&M 87 /min Ashley Sevilla " temperature site oral Ashley Sevilla " temperature E&M 98.1 [degF] Ashley Sevilla " height E&M 60 [in_i] Ashley Sevilla " height in centimeters E&M 152.40 cm Ashley Sevilla " weight E&M 152.80 lbs. 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 She is 1 of 12 siblings. from , 1 son working and 1 daughter who is very supportive. Not homeless. Born in [place]. State: [facility] . Lives with daughter with her family (, 3 kids). 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 Sex at : Female. Sexual orientation: Heterosexual. Gender identity: Female. Gender of partner(s): Male. Age of first sexual intercourse: 18. Sexually Active: no. Jehova's witness. Arrested for "food stamp fraud", dismissed. Steph Rebolledo " social history reviewed E&M reviewed today Stpeh Rebolledo " sexual orientation Heterosexual Steph Rebolledo " assessment of health literacy ([employer] 2014 Standards, 3C10) Adequate Steph Rebolledo " passive cigarette smoke exposure No Steph Rebolledo " smoking status never smoker Steph Rebolledo " Exercise Program Referral T Steph Rebolledo " Weight Management Counseling Provided T Steph Rebolledo " Nutrition intervention T Steph Rebolledo Exercise Program Referral T Ashley Sevilla " Weight Management Counseling Provided T Ashley Sevilla " Nutrition intervention T Ashley Sevilla " social history E&M . She is 1 of 12 siblings. from , 1 son working and 1 daughter who is very supportive. Not homeless. Born in [place]. State: [facility] . Lives with daughter with her family (, 3 kids). 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 Sex at : Female. Sexual orientation: Heterosexual. Gender identity: Female. Gender of partner(s): Male. Age of first sexual intercourse: 18. Sexually Active: no. Jehova's witness. Arrested for "food stamp fraud", dismissed. Ashley Sevilla " social history reviewed E&M reviewed today Ashley Sevilla " passive cigarette smoke exposure No Ashley Sevilla " smoking status never smoker Ashley Sevilla " assessment of health literacy ([facility] 2014 Standards, 3C10) Adequate Ashley Sevilla " sexual orientation Heterosexual Ashley Sevilla drug use, illicit Never Juan Clifton " alcohol use Never Juan Clifton " smoking status never smoker Juan Clifton " home/family situation, assessment Lives with daughter with her family (, 3 kids). EnrikeAshley Clifton " family support She is 1 of 12 siblings. from , 1 son working and 1 daughter who is very supportive. Juan Clifton " social history E&M . She is 1 of 12 siblings. from , 1 son working and 1 daughter who is very supportive. Not homeless. Born in [place]. State: [facility] . Lives with daughter with her family (, 3 kids). 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 Sex at : Female. Sexual orientation: Heterosexual. Gender identity: Female. Gender of partner(s): Male. Age of first sexual intercourse: 18. Sexually Active: no. Jehova's witness. Arrested for "food stamp fraud", dismissed. Juan Clifton " social history reviewed E&M reviewed today Juan Clifton drug use, illicit Never Ashley Keyess " alcohol use Never Ashley Keyess " social history E&M . from , 1 son working and 1 daughter who is very supportive Not homeless. Born in [place]. State: [facility] . 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 Sex at : Female. Sexual orientation: Heterosexual. Gender identity: Female. Gender of partner(s): Male. Age of first sexual intercourse: 18. Sexually Active: no. Ashley Fields " social history reviewed E&M reviewed today Ashley Fields " assessment of health literacy ([facility] 2014 Standards, 3C10) Adequate Ashley Keyess " passive cigarette smoke exposure No Ashley [...] is very supportive Not homeless. Born in [place]. State: [facility] . 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 Sex at : Female. Sexual orientation: Heterosexual. Gender identity: Female. Gender of partner(s): Male. Age of first sexual intercourse: 18. Sexually Active: Yes. Steph Amaury " social history reviewed E&M reviewed today Steph Amaury " sexual orientation Heterosexual Steph Amaury " assessment of health literacy ([facility] 2014 Standards, 3C10) Adequate Steph Amaury " is there any chance that you could be ? No Steph Amaury " passive cigarette smoke exposure No Steph Amaury " smoking status never smoker Steph Amaury " Exercise Program Referral T Steph Amaury " Weight Management Counseling Provided T Steph Amaury " Nutrition intervention T Stephghulam Rebolledo drug use, illicit Never Anay May " alcohol use Never Anay May " social history E&M . from , 1 son working and 1 daughter who is very supportive Not homeless. Born in [place]. State: [facility] . 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 Sex at : Female. Sexual orientation: Heterosexual. Gender identity: Female. Gender of partner(s): Male. Age of first sexual intercourse: 18. Sexually Active: Yes. Anay May " social history reviewed E&M reviewed today Anay May " sexual orientation Heterosexual Anay May " assessment of health literacy ([facility] 2014 Standards, 3C10) Adequate Anay May " passive cigarette smoke exposure No Anay May " smoking status never smoker Anay May social history reviewed E&M reviewed today Mariajose Carmichael " social history E&M . from , 1 son working and 1 daughter who is very supportive Not homeless. Born in [place]. State: [facility] . Lives with daughter with [...] May " assessment of health literacy ([facility] 2014 Standards, 3C10) Adequate Anay May " [...] Lee " assessment of health literacy ([facility] 2014 Standards, 3C10) Adequate Yuniel Lee " is there any chance that you could be ? No Yuniel Caputoa " passive cigarette smoke exposure No Yuniel Lee " smoking status never smoker Yuniel Lee " Exercise Program Referral T Yuniel Lee " Weight Management Counseling Provided T Yuniel Caputoa " Nutrition intervention T Yuniel Lee time [...] Sevilla " assessment of health literacy ([facility] 2014 Standards, 3C10) Adequate Ashley Sevilla " passive cigarette smoke exposure No Ashley Sevilla " smoking status never smoker Ashley Sevilla FUNCTIONAL STATUS No Information Available MENTAL STATUS Date Observation Value Provider assessment of judgment and insight E&M intact Joeyteddy Ross " mental status examination: orientation E&M oriented to time, place, and person [facility] " assessment of mood and affect E&M no depression, anxiety, or agitation Joeyteddy Ross " Generalized Anxiety Disorder Questionnaire - Question 2 0 Steph Rebolledo " Generalized Anxiety Disorder Questionnaire - Question 1 0 Steph Rebolledo assessment of judgment and insight E&M intact Joeyteddy Ross " mental status examination: orientation E&M oriented to time, place, and person [facility] " assessment of mood and affect E&M no depression, anxiety, or agitation Joeyteddy Ross " Generalized Anxiety Disorder Questionnaire - Question 2 0 Ashley Sevilla " Generalized Anxiety Disorder Questionnaire - Question 1 0 Ashley Wrightvez anxiety worry a lot, panic attacks, muscle [...] rate, normal tone, normal volume, spontaneous, limitted French Juan Clifton " mental status assessment, motor activity normal gait, normal posture Enrike Etienne " behavior (mental status exam) appropriate, candid, cooperative, good eye contact, polite, responsive Juan Clifton " mental appearance (mental status exam) adequate hygiene, appropriate dress, looks like stated age, neat, makeup appropriate Juan Faustijos Generalized Anxiety Disorder Questionnaire - Question 2 0 Ashley Fields " Generalized Anxiety Disorder Questionnaire - Question 1 0 Ashley Fields assessment of judgment and insight E&M poor Joey Lesliekikagrey " assessment of mood and affect E&M [...] " insight (mental status exam) fair Mariajose Carmihcael " Mental Status Exam: intelligence adequate fund [...] party ID Sliding Fee - Cat 1 [employer] [id number] ADVANCE DIRECTIVES No Information Available TREATMENT PLAN Date Name Magnesium, Serum Phosphorus, Serum TSH Rfx on Abnormal to Free T4 Microalb/Creat Ratio, Randm Ur Hemoglobin A1c Lipid Panel Comp. Metabolic Panel (14) Pap w/HPV w rflx 16/18/45 (30+) Comp. Metabolic Panel (14) Cortisol Adrenocorticotropic Hormone (ACTH), Plasma H. pylori Stool Ag, EIA FIT- Fecal immunoassay test TSH Rfx on Abnormal to Free T4 Microalb/Creat Ratio, Randm Ur Hemoglobin A1c Lipid Panel Comp. Metabolic Panel (14) CBC With Differential/Platelet - - - - - - Est Patient Exp Problem - 57003 Est Patient Exp Problem - 08082 Diagnostic evaluation with medical - 56581 New Patient Well Exam (40 - 64 Yrs) - 67131 Est Patient Exp Problem - 48252 Behavioral Health - Therapy Behavioral Health - Psychiatry Pulp Cooker Ofc Vst, Est Level III Dispensing Visit (Non-Billable) [facility] Assessment - Medicaid Billing Clerk Diagnostic evaluation (no medical) - 21035 Ofc Vst, Est Level III Est Patient Exp Problem - 83746 Integrated Behavioral Health Assessment (IBH) Behavioral Health - Psychiatry Frames, purchases Sphere, bif, plano to +/- 4.00d, per lens New Patient Intermediate Opth - 03711 New Patient Detailed - 14244 Prescription Assistance (Non-HIV) Pulp Cooker [facility] - Internal Behavioral Health - Psychiatry HISTORY OF PROCEDURES Procedure Date Procedure Name Provider Procedure Notes Status Diagnostic evaluation with medical - 54007 Juan Clifton completed Dispensing Visit (Non-Billable) Janeth Rossi completed [facility] Assessment - Medicaid Billing Clerk Mariajose Carmichael completed Diagnostic evaluation (no medical) - 40529 Mariajose Carmichael completed Frames, purchases Janeth Rossi completed Sphere, bif, plano to +/- 4.00d, per lens Janeth Rossi 65.00 completed New Patient Intermediate [facility] - 35685 Arsenio Chava completed GOALS No Information Available HEALTH CONCERNS No Information Available
--- OUTSIDE RECORDS SUMMARY | 2019-06-10 14:41 | XMS REPORT ---
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 annual exam active 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 Dementia completed - Joeyteddy Ross Abnormal abdominal imaging active Joey Mahfouz Melasma active Joey Mahfouz Hypotension active Joey Ross Intermittent Muscle spasm, back active Joeyteddy Ross Dysuria active Joey Ross Unspecified ovarian cyst, left side active Kobi Long DEPRESSIVE DISORDER, D/T ANOT MED COND, W/ DEPRESSIVE FEATURES completed - Juan Clifton Diverticulitis active oKbi Long Overweight active Juan José Polanco Epigastric discomfort active Joeyteddy Ross 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 active Arsenio Larsen Presbyopia - OU active Arsenio Larsen Myopia - OU active Arseniojunaid Larsen Asthma active Joey Mahfouz Dry eye active Joeyteddy Ross Diabetic neuropathy active Joey Mahfouz Gastroparesis active [...] Provider Location Encounter Diagnosis - [facility]ulatory [facility] - [facility] - [facility] - Ambulatory Encounter Joeyteddy Nelsonfogrey [facility] UNK - Ambulatory Encounter Joeyteddy Nelsonfouz [facility] UNK - Ambulatory Encounter Joeyteddy Cook Mahfouz [facility] UNK - Ambulatory Encounter Joeyteddy Cook Mahfouz [facility] UNK - Ambulatory Encounter Zuleyka Cook [facility] Cotton [facility] DementiaOrthostatic hypotensionDysautonomiaHx of syncope and collapse - Ambulatory Encounter Joeyteddy Cook Mahfouz [facility] UNK - Ambulatory Encounter Joeyteddy Cook [facility] UNK - Ambulatory Encounter Joey Premagrey Joey [facility] UNK - Ambulatory Encounter Juan Mcmahanos EnrikeAshley Loja [facility] DEPRESSIVE DISORDER, D/T ANOT MED COND, W/ DEPRESSIVE FEATURESDEPRESSIVE DISORDER, MAJOR, RECURRENT EPISODE, MILDANXIETY DISORDER, UNSPECIFIED - Ambulatory Encounter Matthew Castro A [facility] UNK - Ambulatory Encounter Isidra [place] [facility] UNK - Ambulatory Encounter Matthew Castro [facility] - Ambulatory Encounter Matthew Castro A [facility] - Ambulatory Encounter Isidra Fonseca [facility] UNK - Ambulatory Encounter Ashley Fields [facility] UNK - Ambulatory Encounter Matthew Castro A Maru [facility] UNK - Ambulatory Encounter Matthew Ramirez [facility] BOOK EDIT[facility] Talent Acquisition Relationship Manager annual examHistory of ovarian cystMammogram not high risk screeningScreening for vaginal cancer - Ambulatory Encounter Joey Cook [facility] UNK - Ambulatory Encounter Joey Cook [facility] UNK - Ambulatory Encounter Joey Cook Mahfouz [facility] UNK - Ambulatory Encounter Joey Vandana Cook Mahfouz [facility] UNK - Ambulatory Encounter Joey Vandana Cook Mahfouz [facility] UNK - Ambulatory Encounter Joey Vandana Cook Mahfouz [facility] UNK - Ambulatory Encounter Joey Vandana Cook Mahfouz [facility] UNK - Ambulatory Encounter Joey Vandana oCok Mahfouz [facility] UNK - Ambulatory Encounter Isidra Lee [facility] [employer] [facility] UNK - Ambulatory Encounter Joey Vandana Cook Mahfo [facility] UNK - Ambulatory Encounter Joey Vandana Cook [facility] Steph Rebolledo [facility] UNK - Ambulatory Encounter Joey Vandana Cook Mahfouz [facility] UNK - Ambulatory Encounter Joey Vandana Cook [facility] UNK - Ambulatory Encounter Fax [...] Health Services UNK - Ambulatory Encounter [facility] UNK - Ambulatory Encounter Joey [facility] UNK - Ambulatory Encounter Patricatrung Fonseca Joey [facility] Vickeybárbaraesteban Yury Rebolledo [facility] DysuriaMuscle spasm, backHypotensionMelasmaAbnormal abdominal imagingDementia - Ambulatory Encounter Sally Tejeda [facility] UNK - Ambulatory Encounter Margie [facility] UNK - Ambulatory Encounter Margie [facility] Services UNK - Ambulatory Encounter Margie [facility] UNK - Ambulatory Encounter Kobi Long [facility] UNK - Ambulatory Encounter Kobi Long [facility] UNK - Ambulatory Encounter Kobi Long [facility] UNK - Ambulatory Encounter Kobi Obrien Anay May FaQuazia Cam [facility] Unspecified ovarian cyst, left side - Ambulatory Encounter Margie [facility] Services UNK - Ambulatory Encounter Benjamin Mai [facility] UNK - Ambulatory Encounter Janeth Flo [facility] UNK - Ambulatory Encounter Yuniel Lee [facility] UNK - Ambulatory Encounter Kobi Long [facility] UNK - Ambulatory Encounter Kobi Long [facility] UNK - Ambulatory Encounter Kobi Cueva May [facility] Diverticulitis - Ambulatory Encounter Mariajose Amol [facility] DEPRESSIVE DISORDER, D/T ANOT MED COND, W/ DEPRESSIVE FEATURES - Ambulatory Encounter [facility] - Ambulatory Encounter Janeth Annews [facility] UNK - Ambulatory Encounter [facility] - Ambulatory Encounter Jayleen Medel [facility] UNK - Ambulatory Encounter Ashley Sevilla [facility] UNK - Ambulatory Encounter Joey [facility] UNK - Ambulatory Encounter [facility] - Ambulatory Encounter Joey [facility] UNK - Ambulatory Encounter [facility] UNK - Ambulatory Encounter Juan José Chacon [facility] Yuniel Lee [facility] Epigastric discomfortOverweight - Ambulatory Encounter Patrica Torres [facility] UNK - Ambulatory Encounter Joey Cook [facility] UNK - Ambulatory Encounter Joey Cook [facility] UNK - Ambulatory Encounter Joey Ross Ingrid Leung [facility] Contact Center UNK - Ambulatory Encounter Devaughn Rothman [facility] UNK - Ambulatory Encounter Janeth Rossi [facility] UNK - Ambulatory Encounter Joey Cook [facility] UNK - Ambulatory Encounter Arseniojunaid Larsen [facility] UNK - Ambulatory Encounter Arseniojunaid Larsen [facility] UNK - Ambulatory Encounter Arsenio Larsen [facility] UNK - Ambulatory Encounter Arseniojunaid Cartagena [facility] Myopia - OUPresbyopia - OU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 - Ambulatory Encounter Isidra Fonseca [facility] UNK - Ambulatory Encounter Joey Nelsonkikagrey [facility] UNK - Ambulatory Encounter Joey Nelsondayton Cheek [facility] Contact Center UNK - Ambulatory Encounter Leatha Durant [facility] Public Health Services UNK - Ambulatory Encounter Annette Sanders [facility] UNK - Ambulatory Encounter Joeyteddy Cook [facility] UNK - Ambulatory Encounter Joey Cook [facility] UNK - Ambulatory Encounter Joey Cook [facility] UNK - Ambulatory Encounter Joey Cook [facility] UNK - Ambulatory Encounter Marlene Chilel Joey Cook [facility] Leatha Soto [facility] Diverticulitis, colonDiverticular diseaseHypotensionHistory of hypertensionAnemia due to dietary iron deficiencyHx of hypokalemiaHyperlipidemiaGERDDepressionAbdominal distentionScreening for colon cancerAnxietyVertigoGastroparesisDiabetic neuropathyDry eyeAsthma - Ambulatory Encounter Joey Cook [facility] UN[facility] VITAL SIGNS Date Observation Value Provider pulse rate #4 97 /min Joey Lesliedayton " blood pressure, diastolic, fourth observation 85 mm[Hg] Joey Vandana " blood pressure, systolic, fourth observation 127 mm[Hg] Joeyteddy Nelsondayton " pulse rate #3 97 Joey Vandana " blood pressure, diastolic, third observation 86 mm[Hg] Joey Ross " blood pressure, systolic, third observation 120 mm[Hg] Joey Nelsonfogrey " pulse rate #2 95 Joey Vandana " blood pressure, diastolic, second observation 84 mm[Hg] Joey Premauz " blood pressure, systolic, second observation 134 mm[Hg] Joey Ross " oxygen saturation, oximetry 98 % Ashley Sevilla " method used to obtain blood pressure automatic Ashley Sevilla " Blood Pressure Position 01 sitting Ashley Sevilla " blood pressure, site #1 left arm Ashley Sevilla " blood pressure, diastolic 85 mm[Hg] Ashley Sevilla " blood pressure, systolic 128 mm[Hg] Ashley Sevilla " respiratory rate E&M 18 /min Ashley Sevilla " pulse rate E&M 93 /min Ashley Sevilla " temperature site oral Ashley Sevilla " temperature E&M 98.3 [degF] Ashley Sevilla " weight E&M 161.80 lbs. Ashley Sevilla " weight in kilograms E&M 73.55 kg [...] used to obtain blood pressure automatic Ashley Feilds " Blood Pressure Position 01 sitting Ashley Keyess " blood pressure, site #1 left arm Ashley Keyess " blood pressure, diastolic 76 mm[Hg] Ashley Keyess " blood pressure, systolic 112 mm[Hg] Ashley Keyess " respiratory rate E&M 90 /min Ashley Keyess " pulse rate E&M 17 /min Ashley Fields " temperature site oral Ashley Keyess " temperature E&M 98.6 [degF] Ashley Keyess " weight E&M 156.80 lbs. Ashley Keyess " weight in kilograms E&M 71.27 kg Ashley Fields " height E&M 60 [in_i] Ashley Fields " height in centimeters E&M 152.40 cm [...] /min Steph Rebolledo " pulse rate E&M 90 /min Steph Rebolledo " temperature site oral Steph Rebolledo " temperature E&M 98.1 [degF] Steph Rebolledo " weight E&M 157 lbs. Steph Rebolledo [...] " respiratory rate E&M 14 /min Yuniel Caputoa " temperature site oral Yuniel Lee " [...] Rothman " blood pressure, systolic 125 mm[Hg] Chalres Carbajal Rothman oxygen saturation, oximetry 98 % [...] - Screening - Neurology - External - BOOK EDITOR - Internal - Gastroenterology - External RESULTS [...] by mouth twice a day - Joey Lloydgrey SIMETHICONE 180 MG ORAL CAPSULE Take 1 [...] Ross SOCIAL HISTORY Date Observation Value Provider Exercise Program Referral Slava Sevilla " Weight Management Counseling Provided Slava Sevilla " Nutrition intervention T Ashley Sevilla " social history E&M . She is 1 of 12 siblings. from , 1 son working and 1 daughter who is very supportive. Not homeless. Born in [place]. State: [facility] . Lives with daughter with her family (, 3 kids). 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 Unemployed since 2016, [...] Ashley Sevilla " assessment of health literacy ([facility] 2014 Standards, 3C10) Adequate Ashley Sevilla " sexual orientation Heterosexual Ashley Sevilla drug use, illicit Never Juan Clifton " alcohol use Never uJan Clifton " smoking status never smoker Juan Clifton " home/family situation, assessment Lives with daughter with her family (, 3 kids). Juan Clifton" family support She is 1 of 12 siblings. from , 1 son working and 1 daughter who is very supportive. Juan Clifton " social history E&M . She is 1 of 12 siblings. from , 1 son working and 1 daughter who is very supportive. Not homeless. Born in [place]. State: [facility] . Lives with daughter with her family (, 3 kids). 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 from , 1 son working and 1 daughter who is very supportive Not homeless. Born in [place]. State: [facility] . 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 Sex at : Female. Sexual orientation: Heterosexual. Gender identity: Female. Gender of partner(s): Male. Age of first sexual intercourse: 18. Sexually Active: no. Ashley Fields " social history reviewed E&M reviewed today Ashley Fields " assessment of health literacy ([facility] Standards, 3C10) Adequate Ashley Fields " passive cigarette smoke exposure No Ashley Fields " smoking status never smoker Ashley Fields " Exercise Program Referral T Ashley Fields " Weight Management Counseling Provided T Ashley Fields " Nutrition intervention Slava Fields drug use, illicit Never Steph Amaury " alcohol use Never Steph Amaury " social history E&M . from , 1 son working and 1 daughter who is very supportive Not homeless. Born in [place]. State: [facility] . 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 Sex at : Female. Sexual orientation: Heterosexual. Gender identity: Female. Gender of partner(s): Male. Age of first sexual intercourse: 18. Sexually Active: Yes. Steph Rebolledo " social history reviewed E&M reviewed today Steph Rebolledo " sexual orientation Heterosexual Steph Rebolledo " assessment of health literacy ([facility] Standards, 3C10) Adequate Steph Rebolledo [...] is very supportive Not homeless. Born in [place]. State: [facility] . 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 Sex at : Female. Sexual orientation: Heterosexual. Gender identity: Female. Gender of partner(s): Male. Age of first sexual intercourse: 18. Sexually Active: Yes. Anay May " social history reviewed E&M reviewed today Anay May " sexual orientation Heterosexual Anay May " assessment of health literacy ([facility] Standards, 3C10) Adequate Anay May " passive cigarette smoke exposure No Anay May " smoking status never smoker Anay May social history reviewed E&M reviewed today Mariajose Carmichael " social history E&M . from , 1 son working and 1 daughter who is very supportive Not homeless. Born in [place]. State: [facility] . 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 Ashley Sevilla " assessment of health literacy ([facility] Standards, 3C10) Adequate Ashley Sevilla [...] Disorder Questionnaire - Question 1 0 Ashley Sevilla anxiety worry a lot, panic attacks, muscle [...] rate, normal tone, normal volume, spontaneous, limitted Lebanese Juan Clifton " mental status assessment, motor [...] of judgment and insight E&M poor Joey Lesliedayton " assessment of mood and affect E&M [...] party ID Sliding Fee - Cat 1 [employer] insurance [employer] [id number] ADVANCE DIRECTIVES No Information Available TREATMENT PLAN Date Name Magnesium, Serum Phosphorus, Serum TSH Rfx on Abnormal to Free T4 Microalb/Creat Ratio, Randm Ur Hemoglobin A1c Lipid Panel Comp. Metabolic Panel (14) Pap w/HPV w rflx (30+) Comp. Metabolic Panel (14) Cortisol Adrenocorticotropic Hormone (ACTH), Plasma H. pylori Stool Ag, EIA FIT- Fecal immunoassay test TSH Rfx on Abnormal to Free T4 Microalb/Creat Ratio, Randm Ur Hemoglobin A1c Lipid Panel Comp. Metabolic Panel (14) CBC With Differential/Platelet - - - - - - Est Patient Exp Problem - 61388 Diagnostic evaluation with medical - 21073 New Patient Well Exam (40 - 64 Yrs) - 44047 Est Patient Exp Problem - 96204 Behavioral Health - Therapy Behavioral Health - Psychiatry Aircraft Log Clerk Ofc Vst, Est Level III Dispensing Visit (Non-Billable) [facility] Assessment - Lock Tender Diagnostic evaluation (no medical) - 45687 Ofc Vst, Est Level III Est Patient Exp Problem - 61264 Integrated Behavioral Health Assessment (IBH) Behavioral Health - Psychiatry Frames, purchases Sphere, bif, plano to +/- 4.00d, per lens New Patient Intermediate Opth - 93227 New Patient Detailed - 38284 Prescription Assistance (Non-HIV) Aircraft Log Clerk [facility] - Internal Behavioral Health - Psychiatry HISTORY OF PROCEDURES Procedure Date Procedure Name Provider Procedure Notes Status Diagnostic evaluation with medical - 25229 Juan Clifton completed Dispensing Visit (Non-Billable) Janeth Rossi completed [facility] Assessment - Lock Tender Mariajose Carmichael completed Diagnostic evaluation (no medical) - 81459 Mariajose Carmichael completed Frames, purchases Janeth Rossi completed Sphere, bif, plano to +/- 4.00d, per lens Janeth Rossi 65.00 completed New Patient Intermediate Opt - 48488 Arsenio Larsen completed GOALS No Information Available HEALTH CONCERNS No Information Available
--- OUTSIDE RECORDS SUMMARY | 2019-06-10 14:42 | XMS REPORT ---
Author Author Admin, [employer] Organization Unknown Address Unknown Phone Unavailable PROBLEMS Condition Status Date Provider Notes BMI 31.0-31.9 active Juan José Polanco Prediabetes active Joey Mahfouz Numbness completed - Joey Mahfouz Headache, severe completed - Joey Mahfouz Hypertension active Joey Lesliefouz Hx of syncope and collapse active Joey Mahfouz Dysautonomia active Joey Mahfouz Orthostatic hypotension active Joey Premauz ANXIETY DISORDER, UNSPECIFIED active Juan Clifton DEPRESSIVE DISORDER, MAJOR, RECURRENT EPISODE, MILD active Juan Clifton Screening for vaginal cancer active 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 Mammogram not high risk screening active 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 History of ovarian cyst active 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 Name Plate Stamper annual exam active 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 Dementia completed - Joeyteddy Ross Abnormal abdominal imaging active Joey Mahfouz Melasma active Joey Mahfouz Hypotension active Joey Mahfouz Intermittent Muscle spasm, back active Joey Mahfouz Dysuria active Joeyteddy Lloyduz Unspecified ovarian cyst, left side active Kobi Long DEPRESSIVE DISORDER, D/T ANOT MED COND, W/ DEPRESSIVE FEATURES completed - Juan Clifton Diverticulitis active Kobi Long Overweight active Juan José Polanco Epigastric discomfort active Joey Mahfouz 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 active Arsenio Chava Presbyopia - OU active Arsenio Sergeys Myopia - OU active Arsenio Chava Asthma active Joey Mahfouz Dry eye active [...] Location Encounter Diagnosis - Ambulatory Encounter Joey Nelsonfogrey [facility] UNK - Ambulatory Encounter Joey Nelsonfogrey [facility] UNK - [facility] UNK - Ambulatory En[facility]eddy [facility] UNK - Ambulatory Encounter Juan José Echeverria [facility] PrediabetesBMI 31.0-31.9 - Ambulatory Encounter [facility] UNK - Ambulatory Encounter [facility] UNK - Ambulatory Encounter Joey Vandana Cook Mahfouz [facility] UNK - Ambulatory Encounter Joey Vandana Cook Mahfouz [facility] UNK - Ambulatory Encounter Joey Vandana Cook Mahfouz [facility] UNK - Ambulatory Encounter Joye Vandana Cook Mahfouz [facility] UNK - Ambulatory Encounter [facility] UNK - Ambulatory Encounter Zuleyka Sevilla [facility] HypertensionHeadache, severeNumbness - Ambulatory Encounter Joey [facility] UNK - Ambulatory Encounter Joey [facility] UNK - Ambulatory Encounter Joey Lesliegrey [facility] UNK - Ambulatory Encounter Joey [facility] UNK - Ambulatory Encounter Zuleyka Cook Vandana Nelsongrey Steph Rebolledo [facility] HypertensionHeadache, severeNumbness - Ambulatory Encounter Fax Status LinkLogic [facility] UNK - Ambulatory Encounter Fax Status Link[facility] UNK - Ambulatory Encounter Fax Status [facility] UNK - Ambulatory [facility]counter [facility] UNK - Ambulatory Encounter [facility] UNK - [facility] UNK - Ambulatory Encounter [facility] Joey [facility] UNK - Ambulatory Encounter Zuleyka Joe [facility] DementiaOrthostatic hypotensionDysautonomiaHx of syncope and collapse - Ambulatory Encounter [facility] UNK - Ambulatory Encounter [facility] UNK - Ambulatory Encounter [facility] UNK - Ambulatory Encounter Juan Loja [facility] DEPRESSIVE DISORDER, D/T ANOT MED COND, W/ DEPRESSIVE FEATURESDEPRESSIVE DISORDER, MAJOR, RECURRENT EPISODE, MILDANXIETY DISORDER, UNSPECIFIED - Ambulatory Encounter 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 - Ambulatory Encounter Isidra Angeles [facility] UNK - Ambulatory Encounter 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 - Ambulatory Encounter 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 [facility] - Ambulatory Encounter Isidra Fonseca [facility] UNK - Ambulatory Encounter Ashley Fields [facility] UNK - Ambulatory Encounter Matthewmirza Mahoney Matthew A Maru [facility] UNK - Ambulatory Encounter Matthew Trung Maru Castro A Maru Joe Ashley Fields [facility] Name Plate Stamper annual examHistory of ovarian cystMammogram not high risk screeningScreening for vaginal cancer - Ambulatory Encounter [facility] Cook [facility] LinkLog [facility] UNK - Ambulatory Encounter [facility] UNK - Ambulatory Encounter [facility] Joey [facility] LinkLog [facility] UNK - Ambulatory Encounter [facility] Joey [facility] LinkLog [facility] UNK - Ambulatory Encounter [facility] Joey [facility] LinkLog [facility] UNK [facility] Ambulatory Encounter [facility] Joey [facility] LinkLog [facility] UNK - Ambulatory Encounter Joey Lesliegrey Joey [facility] LinkLog [facility] UNK - Ambulatory Encounter [facility] Joey [facility]Log [facility] UNK - Ambulatory Encounter Isidra Lee [facility] UNK - Ambulatory Encounter [facility] UNK - Ambulatory Encounter [facility] Islaseshtrung Rebolledo [facility] UNK - Ambulatory Encounter Joey Cook [facility]Log[facility]ay [facility] UNK - Ambulatory Encounter Joey Ross [facility] UNK - Ambulatory Encounter Fax Status [facility] - Ambulatory Encounter Fax Status [facility] - Ambulatory Encounter Fax Status [facility] - Ambulatory Encounter Fax Status [facility] - Ambulatory Encounter Fax Status [facility]Log [facility] - Ambulatory Encounter Fax Status [facility] UNK - Ambulatory Encounter Joey Ross [facility] - Ambulatory Encounter [facility] - Ambulatory Encounter Patrica Fonseca [facility] Sky [place] Stephghulam Rebolledo [facility] DysuriaMuscle spasm, backHypotensionMelasmaAbnormal abdominal imagingDementia - Ambulatory Encounter Sally Tejeda [facility] Contact Center UNK - Ambulatory Encounter Margie [facility] UNK - Ambulatory Encounter Margie [facility] UNK - Ambulatory En[facility] - Ambulatory Encounter Kobi Long [facility] UNK - Ambulatory Encounter Kobi Long [facility] UNK - Ambulatory Encounter Kobi Long [facility] UNK - Ambulatory Encounter Kobi Obrien Anay May FaQuazia Cam [facility] Unspecified ovarian cyst, left side - Ambulatory Encounter Margie Pastrana [facility] UNK - Ambulatory Encounter Benjamin Sergei [facility] UNK - Ambulatory Encounter Janethreji Rossi [facility] UNK - Ambulatory Encounter Yuniel Lee [facility] UNK - Ambulatory Encounter Kobi Long [facility] UNK - Ambulatory Encounter Kobi Long [facility] UNK - Ambulatory Encounter Kobi May [facility] Diverticulitis - Ambulatory Encounter Mariajose Carmichael [facility] DEPRESSIVE DISORDER, D/T ANOT MED COND, W/ DEPRESSIVE FEATURES - Ambulatory Encounter Joey Mahfouz Joey Mahfouz [facility] UNK - Ambulatory Encounter Janeth Rossi [facility] UNK - Ambulatory Encounter Joey Mahfogrey Joey Mahfouz [facility] UNK - Ambulatory Encounter Jayleenarmando Clemonsas [facility] UNK - Ambulatory Encounter Ashley Sevilla [facility] UNK - Ambulatory Encounter [facility] UNK - Ambulatory Encounter Joey [facility] Cook [facility] UNK - Ambulatory Encounter [facility] - [facility] En[facility] UNK - Ambulatory Encounter Juan José Chacon [facility] Cook [facility] Epigastric discomfortOverweight - Ambulatory Encounter Patrica Torres [facility] - Ambulatory Encounter [facility] - Ambulatory Encounter [facility] - Ambulatory Encounter Joey [facility] Ingrid Leung [facility] Contact Center UNK - Ambulatory Encounter Devaughn Sanzalvo [facility]K - Ambulatory Encounter Janeth Rossi [facility] [place] [facility] UNK - Ambulatory Encounter Joey [facility] Joey [facility] - Ambulatory Encounter Arseniojunaid Larsen [facility] UNK - Ambulatory Encounter Arseniojunaid Larsen [facility] UNK - Ambulatory Encounter Arseniojunaid Larsen [facility] UNK - Ambulatory Encounter Arsenio Cartagena [facility] Myopia - OUPresbyopia - OU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 - Ambulatory Encounter Isidra Fonseca [facility] UNK - Ambulatory Encounter Joey Nelsondayton [facility] UNK - Ambulatory Encounter Joey Cook [facility] Bella Cheek [facility] Contact Center UNK - Ambulatory Encounter Leatha Durant [facility] Public [facility] UNK - Ambulatory Encounter Annette Sanders [facility] UNK - Ambulatory Encounter Joey [facility] UNK - Ambulatory Encounter Ojey [facility] UNK - Ambulatory Encounter [facility] UNK - Ambulatory Encounter Joeyteddy Ross Joey [facility] UNK - Ambulatory Encounter Marlene Cook [facility] Joey [facility] Soto [facility] [place] Diverticulitis, colonDiverticular diseaseHypotensionHistory of hypertensionAnemia due to dietary iron deficiencyHx of hypokalemiaHyperlipidemiaGERDDepressionAbdominal distentionScreening for colon cancerAnxietyVertigoGastroparesisDiabetic neuropathyDry eyeAsthma - Ambulatory Encounter Joeyteddy Ross Omar [facility] UNK VITAL SIGNS Date Observation Value Provider oxygen saturation, oximetry 96 % Sierra Echeverria " method used to obtain blood pressure automatic Sierra Echeverria " Blood Pressure Position 01 sitting Sierra Echeverria " blood pressure, site #1 left arm Sierra Echeverria " blood pressure, diastolic 78 mm[Hg] Sierra Echeverria " blood pressure, systolic 121 mm[Hg] Sierra Echeverria " respiratory rate E&M 17 /min Sierra Echeverria " pulse rate E&M 87 /min Sierra Echeverria " temperature site oral Sierra Echeverria " temperature E&M 98.9 [degF] Sierra Echeverria " weight E&M 163 lbs. Sierra Echeverria " weight in kilograms E&M 74.09 kg Sierra Echeverria " height E&M 60 [in_i] Sierra Echeverria " height in centimeters E&M 152.40 cm Sierra Echeverria BP diastolic #1 98 mm[Hg] Ashley Sevilla " BP systolic #1 156 mm[Hg] Ashley Sevilla " pulse rate #2 103 Ashley Sevilla " blood pressure, diastolic, second observation 91 mm[Hg] Ashley Sevilla " blood pressure, systolic, second observation 148 mm[Hg] Ashley Sevilla " oxygen saturation, oximetry 98 % Ashley Sevilla " method used to obtain blood pressure automatic Ashley Sevilla " Blood Pressure Position 01 sitting Ashley Sevilla " blood pressure, site #1 left arm Ashley Sevilla " blood pressure, diastolic 91 mm[Hg] Ashley Sevilla " blood pressure, systolic 148 mm[Hg] Ashley Sevilla " respiratory rate E&M 18 /min Ashley Sevilla " pulse rate E&M 103 /min Ashley Sevilla " temperature site oral Ashley Sevilla " temperature E&M 98.4 [degF] Ashley Sevilla " weight E&M 161.60 lbs. Ashley Sevilla " weight in kilograms E&M 73.45 kg Ashley Sevilla " height E&M 60 [in_i] Ashley Sevilla " height in centimeters E&M 152.40 cm Ashley Sevilla blood pressure, diastolic, third observation 100 mm[Hg] Joey Ross " blood pressure, systolic, third observation 170 mm[Hg] Joey Ross " blood pressure, diastolic, second observation 105 mm[Hg] Steph Rebolledo " blood pressure, systolic, second observation 161 mm[Hg] Steph Rebolledo " oxygen saturation, oximetry 98 % Steph Rebolledo " blood pressure, diastolic 98 mm[Hg] Steph Jack " blood pressure, systolic 150 mm[Hg] Stephghulam Rebolledo " respiratory rate E&M 18 /min Steph Jack " pulse rate E&M 78 /min Steph [...] Keyess " temperature E&M 98.6 [degF] Ashley Fields " weight E&M 156.80 lbs. Ashley Keyess " weight in kilograms E&M 71.27 kg Ashley Keyess " height E&M 60 [in_i] Ashley Keyess " height in centimeters E&M 152.40 cm Ashley Keyess oxygen saturation, oximetry 95 % Steph Amaury [...] Amaury " weight E&M 157 lbs. Steph Amaury " weight in kilograms E&M 71.36 kg [...] " height in centimeters E&M 152.40 cm Yuniel Lee pulse rate E&M 70 /min Charles [...] " pulse rate E&M 87 /min Ashley Wrightvez " temperature site oral Ashley Wrightvez " temperature E&M 98.1 [degF] Ashley Sevilla " height E&M 60 [in_i] Ashley Sevilla " height in centimeters E&M 152.40 cm Ashley Sevilla " weight E&M 152.80 lbs. Ashley Wrightvez " weight in kilograms E&M 69.45 kg Ashley Sevilla ALLERGIES Allergy Name Onset Date Reaction Criticality Status LATEX Swelling, burning, rash high fever High Criticality active PCN rash, swelling, burning, SOB, chest pain High Criticality active REASON FOR REFERRAL Start Date - End Date Service - Neurology - External - Ultrasound - Pelvic/Transvaginal - Mammogram - Screening - Neurology - External - [facility] NURSE - Internal - Gastroenterology - External RESULTS Date Observation Value Provider Reference Range Interpretation Location magnesium, serum 1.8 mg/dL [facility] 1.6-2.3 " phosphate, serum 3.5 mg/dL [facility] 3.0-4.3 " thyroid stimulating hormone, serum 0.964 u[iU]/mL [facility] 0.450-4.500 " hemoglobin A1C, blood, as % of total hemoglobin 6.1 % [facility] 4.8-5.6 High " microalbumin/creatinine ratio, urine 8 MG/G CREAT [facility] 0-29 " microalbumin/total urine volume 5.6 mg/L [facility] Not Estab. " creatinine, random, urine 69.3 mg/dL [facility] Not Estab. " LDL cholesterol, serum 82 mg/dL [facility] 0-99 " very low density lipoproteins 31 mg/dL [facility] 5-40 " HDL cholesterol, serum 51 mg/dL [facility] >39 " triglyceride, serum, fasting 154 mg/dL [facility] 0-149 High " cholesterol, serum 164 mg/dL [facility] 100-199 " alanine aminotransferase (SGPT), serum 16 1/L [facility] 0-32 " aspartate aminotransferase (SGOT), serum 21 1/L [facility] 0-40 " alkaline phosphatase, serum 82 1/L [facility] 39-117 " bilirubin, serum, total 0.3 mg/dL [facility] 0.0-1.2 " albumin/globulin ratio, serum 1.9 [facility] 1.2-2.2 " globulin, serum 2.6 [facility] 1.5-4.5 " albumin, serum 4.9 g/dL [facility] 3.8-4.9 " protein, total, serum 7.5 g/dL [facility] 6.0-8.5 " calcium, serum 10.2 mg/dL [facility] 8.7-10.2 " carbon dioxide, venous blood 20 mmol/L [facility] 20-29 " chloride, serum 101 mmol/L [facility] 96-106 " potassium, serum 4.6 mmol/L [facility] 3.5-5.2 " sodium, serum 139 mmol/L [facility] 134-144 " urea nitrogen/creatinine ratio, serum 19 [facility] 9-23 " eGFR if 104 mL/min/((173/100).m2) [facility] >59 " Estimated Glomerular Filtration Rate (calc) 90 mL/min/((173/100).m2) [facility] >59 " creatinine, serum 0.75 mg/dL [facility] 0.57-1.00 " urea nitrogen, blood 14 mg/dL [facility] 6-24 " blood glucose, random 141 mg/dL [facility] 65-99 High blood glucose, random 145 mg/dL Ashley Sevilla [...] MEDICATION USE Medication Instructions Dates Provider Comments GABAPENTIN 300 MG ORAL CAPSULE 1 by mouth three times a day Joey Ross FLUDROCORTISONE ACETATE 0.1 MG ORAL TABLET One tablet By Mouth Every Day - Joey Ross ZOLOFT 100 MG ORAL TABLET [...] Date Observation Value Provider Exercise Program Referral T Juan José Polanco " Weight Management Counseling Provided Slava Polanco " Nutrition intervention Slava Polanco " sexual orientation Heterosexual Sierra Echeverria " assessment of health literacy ([employer] 2014 Standards, 3C10) Adequate Sierra Echeverria " drug use, illicit Never Sierra Echeverria " alcohol use Never Sierra Echeverria " smoking status never smoker Sierra Echeverria Exercise Program Referral T Ashley Sevilla " Weight Management Counseling Provided T Ashley Sevilla " Nutrition intervention T Ashley Sevilla " sexual orientation Heterosexual Ashley Sevilla " assessment of health literacy ([employer] 2014 Standards, 3C10) Adequate Ashley Sevilla " passive cigarette smoke exposure No Ashley Sevilla " smoking status never smoker Ashley Sevilla " social history E&M . She is 1 of 12 siblings. from , 1 son working and 1 daughter who is very supportive. Not homeless. Born in [place]. State: [facility] . Lives with daughter with her family (, 3 kids). 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 Sex at : Female. Sexual orientation: Heterosexual. Gender identity: Female. Gender of partner(s): Male. Age of first sexual intercourse: 18. Sexually Active: no. Jehova's witness. Arrested for "food stamp fraud", dismissed. Ashley Di " social history reviewed E&M reviewed today Ashley Swainz drug use, illicit Never Steph Rebolledo " alcohol use Never Stephghulam Rebolledo " social history E&M . She is 1 of 12 siblings. from , 1 son working and 1 daughter who is very supportive. Not homeless. Born in [place]. State: [facility] . Lives with daughter with her family (, 3 kids). 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 Sex at : Female. Sexual orientation: Heterosexual. Gender identity: Female. Gender of partner(s): Male. Age of first sexual intercourse: 18. Sexually Active: no. Jehova's witness. Arrested for "food stamp fraud", dismissed. Steph Rebolledo " social history reviewed E&M reviewed today Steph Reoblledo " sexual orientation Heterosexual Stephghulam Rebolledo " assessment of health literacy ([employer] 2014 Standards, 3C10) Adequate Steph Jack " passive cigarette smoke exposure No Steph [...] is very supportive. Not homeless. Born in [place]. State: [facility] . Lives with daughter with her family (, 3 kids). 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 Unemployed since 2016, [...] Ashley Sevilla " assessment of health literacy ([employer] 2014 Standards, 3C10) Adequate Ashley Sevilla " sexual orientation Heterosexual Ashley Sevilla drug use, illicit Never Juan Clifton " alcohol use Never Juan Clifton " smoking status never smoker Juan Clifton " home/family situation, assessment Lives with daughter with her family (, 3 kids). Juan Clifton " family support She is 1 of 12 siblings. from , 1 son working and 1 daughter who is very supportive. Juan Clifton " social history E&M . She is 1 of 12 siblings. from , 1 son working and 1 daughter who is very supportive. Not homeless. Born in [place]. State: [facility] . Lives with daughter with her family (, 3 kids). 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 Born in [place]. State: [facility] . 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 Sex at : Female. Sexual orientation: Heterosexual. Gender identity: Female. Gender of partner(s): Male. Age of first sexual intercourse: 18. Sexually Active: no. Ashley Keyess " social history reviewed E&M reviewed today Ashley Keyess " assessment of health literacy ([employer] 2014 Standards, 3C10) Adequate Ashley Fields [...] is very supportive Not homeless. Born in [place]. State: [facility] . 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 Sex at : Female. Sexual orientation: Heterosexual. Gender identity: Female. Gender of partner(s): Male. Age of first sexual intercourse: 18. Sexually Active: Yes. Steph Amaury " social history reviewed E&M reviewed today Steph Amaury " sexual orientation Heterosexual Steph Amaury " assessment of health literacy ([employer] 2014 Standards, 3C10) Adequate Steph Amaury [...] is very supportive Not homeless. Born in [place]. State: [facility] . 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 Sex at : Female. Sexual orientation: Heterosexual. Gender identity: Female. Gender of partner(s): Male. Age of first sexual intercourse: 18. Sexually Active: Yes. Anay May " social history reviewed E&M reviewed today Anay May " sexual orientation Heterosexual Anay May " assessment of health literacy ([employer] 2014 Standards, 3C10) Adequate Anay May " passive cigarette smoke exposure No Anay May " smoking status never smoker Anay May social history reviewed E&M reviewed today Mariajose Carmichael " social history E&M . from , 1 son working and 1 daughter who is very supportive Not homeless. Born in [place]. State: [facility] . Lives with daughter with [...] Anay May " assessment of health literacy ([facility] 2014 Standards, 3C10) Adequate Anay May [...] Yuniel Lee " assessment of health literacy ([facility] 2014 Standards, 3C10) Adequate Yuniel Lee [...] Ashley Sevilla " assessment of health literacy ([facility] 2014 Standards, 3C10) Adequate Ashley Sevilla " passive cigarette smoke exposure No Ashley Wrightvez " smoking status never smoker Ashley Sevilla FUNCTIONAL STATUS No Information Available MENTAL STATUS Date Observation Value Provider assessment of judgment and insight E[facility] intact [facility] " mental status examination: orientation E&M oriented to time, place, and person [facility] " assessment of mood and affect E&M no depression, anxiety, or agitation [facility] " Generalized Anxiety Disorder Questionnaire - Question 2 0 Sierra Echeverria " Generalized Anxiety Disorder Questionnaire - Question 1 0 Sierra Echeverria assessment of judgment and insight E&M intact [facility] " mental status examination: orientation E&M oriented to time, place, and person [facility] " assessment of mood and affect E&M no depression, anxiety, or agitation [facility] " Generalized Anxiety Disorder Questionnaire - Question 2 0 Ashley Sevilla " Generalized Anxiety Disorder Questionnaire - Question 1 0 Ashley Sevilla assessment of judgment and insight [facility] examination: orientation E&M oriented to time, place, and person [facility] " assessment of mood and affect E&M no depression, anxiety, or agitation [facility] " Generalized Anxiety Disorder Questionnaire - Question 2 0 Steph Rebolledo " Generalized Anxiety Disorder Questionnaire - Question 1 0 Steph Rebolledo assessment of judgment and insight E&M intact [facility] " mental status examination: orientation E&M oriented to time, place, and person [facility] " assessment of mood and affect E&M no depression, anxiety, or agitation [facility] " Generalized Anxiety Disorder Questionnaire - Question [...] oriented to situation, oriented to reality Juan Clifton " hallucinations none Juan Clifton " thought content (mental status exam) (E&M) lucid Juan Clifton " mental status assessment, process able to abstract, circumstantial, logical Juan Clifton " mental status assessment, sensorium alert, attentive, clear Juan Faustijos " affect (mental status exam) congruent, euthymic, normal intensity, normal range Juan Faustijos " mood (mental status exam) pleasant, sad, worried, frustrated Juan Faustijos " mental status assessment, speech activity normal flow, normal pace, normal pressure, normal rate, normal tone, normal volume, spontaneous, limitted [place] Juan Faustijos " mental status assessment, motor activity normal gait, normal posture Enrike Etienne " behavior (mental status exam) appropriate, candid, cooperative, good eye contact, polite, responsive Juan Faustijos " mental appearance (mental status exam) adequate hygiene, appropriate dress, looks like stated age, neat, makeup appropriate Juan Ramirez Etienne Generalized Anxiety Disorder Questionnaire - Question 2 [...] of judgment and insight E&M intact Kobi Alvaradott " mental status examination: orientation E&M oriented to time, place, and person Kobi Alvaradott " assessment of mood and affect E&M [...] reality Mariajose Carmichael " hallucinations none Mariajose Carmichael" thought content (mental status exam) (E&M) lucid [...] oriented to time, place, and person [facility] " assessment of mood and affect E&M no depression, anxiety, or agitation Joe[facility]eddy [facility]ikagrey " Generalized Anxiety Disorder Questionnaire - Question 2 0 Yuniel Lee " Generalized Anxiety Disorder Questionnaire - Question 1 0 Yuniel Lee assessment of judgment and insight E&M intact Joeyteddy Ross " mental status examination: orientation E&M oriented to time, place, and person [facility] " assessment of mood and affect E&M no depression, anxiety, or agitation Joeyteddy Nelsongrey " Generalized Anxiety Disorder Questionnaire - Question 2 0 Ashley Sevilla " Generalized Anxiety Disorder Questionnaire - Question 1 1 Ashley Sevilla MEDICAL EQUIPMENT No Information Available FAMILY HISTORY No Information Available INSURANCE PROVIDERS Payer name Policy type / Coverage type Covered alliance party ID Sliding Fee - Cat 1 [employer] [id number] ADVANCE DIRECTIVES No Information Available TREATMENT PLAN Date Name Magnesium, Serum Phosphorus, Serum TSH Rfx on Abnormal to Free T4 Microalb/Creat Ratio, Randm Ur Hemoglobin A1c Lipid Panel Comp. Metabolic Panel (14) Pap w/HPV w rflx /18/45 (30+) Comp. Metabolic Panel (14) Cortisol Adrenocorticotropic Hormone (ACTH), Plasma H. pylori Stool Ag, EIA FIT- Fecal immunoassay test TSH Rfx on Abnormal to Free T4 Microalb/Creat Ratio, Randm Ur Hemoglobin A1c Lipid Panel Comp. Metabolic Panel (14) CBC With Differential/Platelet - - - - - - Est Patient Exp Problem - 07500 Est Patient Exp Problem - 93017 Est Patient Exp Problem - 43110 Est Patient Exp Problem - 04231 Diagnostic evaluation with medical - 60689 New Patient Well Exam (40 - 64 Yrs) - 67532 Est Patient Exp Problem - 72890 Behavioral Health - Therapy Behavioral Health - Psychiatry Stereotyper Apprentice Ofc Vst, Est Level III Dispensing Visit (Non-Billable) [facility] Assessment - Varnish Cooker Diagnostic evaluation (no medical) - 66792 Ofc Vst, Est Level III Est Patient Exp Problem - 80601 Integrated Behavioral Health Assessment (IBH) Behavioral Health - Psychiatry Frames, purchases Sphere, bif, plano to +/- 4.00d, per lens New Patient Intermediate Opth - 72703 New Patient Detailed - 45406 Prescription Assistance (Non-HIV) Stereotyper Apprentice [facility] - Internal Behavioral Health - Psychiatry HISTORY OF PROCEDURES Procedure Date Procedure Name Provider Procedure Notes Status Diagnostic evaluation with medical - 78297 Juan Clifton completed Dispensing Visit (Non-Billable) Janeth Rossi completed [facility] Assessment - Varnish Cooker Mariajose Carmichael completed Diagnostic evaluation (no medical) - 96235 Mariajose Carmichael completed Frames, purchases Janeth Rossi completed Sphere, bif, plano to +/- 4.00d, per lens Janeth Rossi 65.00 completed New Patient Intermediate [facility] - 72944 Arseniojunaid Larsen completed GOALS No Information Available HEALTH CONCERNS No Information Available
--- OUTSIDE RECORDS SUMMARY | 2019-06-10 14:42 | XMS REPORT ---
Author Author Admin, [place] Organization Unknown Address Unknown Phone Unavailable PROBLEMS Condition Status Date Provider Notes Numbness completed - Joey Lesliefouz Headache, severe completed - Joey Lesliefouz Hypertension active Joey Lesliefouz Hx of syncope and collapse active Joey Mahfouz Dysautonomia active Joey Mahfouz Orthostatic hypotension active Joeyteddy Lloyduz ANXIETY DISORDER, UNSPECIFIED active Juan Clifton DEPRESSIVE DISORDER, MAJOR, RECURRENT EPISODE, MILD active Juan Clifton Screening for vaginal cancer active 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 Mammogram not high risk screening active 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 History of ovarian cyst active 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 Dementia completed - Joey Ross Abnormal abdominal imaging active Joeyteddy Lloyduz Melasma active Joeyteddy Nelsonfouz Hypotension active Joeyteddy Ross Intermittent Muscle spasm, back active Joey Lesliefouz Dysuria active Joeyteddy Lloyduz Unspecified ovarian cyst, left side active Kobi Long DEPRESSIVE DISORDER, D/T ANOT MED COND, W/ DEPRESSIVE FEATURES completed - Juan Clifton Diverticulitis active Kobi Long Overweight active Juan José Polanco Epigastric discomfort active Joey Ross 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 active Arsenio Larsen Presbyopia - OU active Arsenio Larsen Myopia - OU active Arsenio Dicks Asthma active Joey Mahfouz Dry eye active [...] Location Encounter Diagnosis - Ambulatory Encounter Joeyteddy Nelsonfogrey [facility] UNK - Ambulatory Encounter LS Lab Support Desktop [facility] UNK - Ambulatory Encounter Joey Nelsonfogrey [facility] UNK - Ambulatory Encounter Joey Cook Mahfouz [facility] UNK - [facility] - Ambulatory Encounter Zuleyka Ross [facility] HypertensionHeadache, severeNumbness - Ambulatory Encounter [facility]eddy [facility] UNK - Ambulatory Encounter [facility] UNK - Ambulatory Encounter Joey Lesliegrey Cook [facility] UNK - Ambulatory Encounter Joey Vandana [facility] UNK - Ambulatory Encounter Zuleyka Wade Joey [facility] Steph Rebolledo [facility] HypertensionHeadache, severeNumbness - Ambulatory Encounter [facility] - [facility]ulatory Encounter Fax Status [facility] [place] [facility] UNK - Ambulatory [facility] - [facility] Encounter [facility] UNK - Ambulatory Encounter Joey Vandana [facility] UNK - Ambulatory Encounter Joey Lesliegrey Joey [facility] UNK - Ambulatory Encounter Joey Vandana [facility] UNK - Ambulatory Encounter Zuleyka Joe [facility] DementiaOrthostatic hypotensionDysautonomiaHx of syncope and collapse - Ambulatory Encounter [facility] UNK - Ambulatory Encounter Joey Lesliegrey [facility] UN[facility] - Ambulatory Encounter [facility] UNK - Ambulatory Encounter Juan Clifton Lisa [facility] DEPRESSIVE DISORDER, D/T ANOT MED COND, W/ DEPRESSIVE FEATURESDEPRESSIVE DISORDER, MAJOR, RECURRENT EPISODE, MILDANXIETY DISORDER, UNSPECIFIED - Ambulatory Encounter Matthew Castro [facility] UNK - Ambulatory Encounter Isidra Angeles [facility] UNK - Ambulatory Encounter Matthew Castro [facility] UN[facility] - Ambulatory Encounter Matthew Castro [facility] UNK - Ambulatory Encounter Isidra Fonseca [facility] UNK - Ambulatory Encounter Ashley Fields [facility] UNK - Ambulatory Encounter Matthew Castro A [facility] UNK - Ambulatory Encounter Matthew Castro A Maru Ramirez Fields [facility] Machine Accountant annual examHistory of ovarian cystMammogram not high risk screeningScreening for vaginal cancer - Ambulatory Encounter Joey Cook [facility] UNK - Ambulatory Encounter Joey Cook [facility] Practice UNK - Ambulatory Encounter Joey Cook [facility] UNK - Ambulatory Encounter Joey Cook [facility] UNK - Ambulatory Encounter [facility] UNK - Ambulatory Encounter [facility] UNK - Ambulatory Encounter Joey Vandana Nelsonfouz [facility] UNK - Ambulatory Encounter Joey Vandana [facility] UNK - Ambulatory Encounter Isidra Lee [facility] UNK - Ambulatory Encounter Joeyteddy [facility] - [facility] Encounter Joey [facility]andana [facility] Steph Rebolledo [facility] UNK - Ambulatory Encounter Joey [facility]ana [facility] UNK - Ambulatory Encounter Joeyteddy Nelsonfogrey [facility] UNK - Ambulatory Encounter Fax [...] UNK - Ambulatory Encounter Joey Vandana [facility] - Ambulatory Encounter Joey Vandana Nelsonfogrey [facility] UNK - Ambulatory Encounter Patrica Maurizio Torres Baljit Lise Rebolledo [facility] DysuriaMuscle spasm, backHypotensionMelasmaAbnormal abdominal imagingDementia - Ambulatory Encounter Sally Tejeda [facility] Services Contact Center UNK - Ambulatory Encounter Margie [facility] UNK - Ambulatory Encounter Margie [facility] UNK - Ambulatory Encounter Margie [facility] UNK - Ambulatory Encounter Kobi Long [facility] UNK - Ambulatory Encounter Kobi Long [facility] UNK - Ambulatory Encounter Kobi Long [facility] UNK - Ambulatory Encounter Kobi Langston Ashley Micah Anay May FaQuazia Cam [facility] Unspecified ovarian cyst, left side - Ambulatory Encounter Margie [facility] UNK - Ambulatory Encounter Benjamin Sergei [facility] UNK - Ambulatory Encounter Janeth Rossi [facility] UNK - Ambulatory Encounter Yuniel Lee [facility] UNK - Ambulatory Encounter Kobi Long [facility] UNK - Ambulatory Encounter Kobi Long [facility] UNK - Ambulatory Encounter Kobi Cueva May [facility] Diverticulitis - Ambulatory Encounter Mariajose Amol [facility] DEPRESSIVE DISORDER, D/T ANOT MED COND, W/ DEPRESSIVE FEATURES - Ambulatory Encounter [facility] - Ambulatory Encounter Janeth Rossi [facility] UNK - Ambulatory En[facility] - Ambulatory Encounter Jayleenarmando Medel [facility] UNK - Ambulatory Encounter Ashley Sevilla [facility] UNK - Ambulatory En[facility] - [facility] - [facility] - [facility] - Ambulatory Encounter Juan José Chacon [facility] Yuniel Lee [facility] Epigastric discomfortOverweight - Ambulatory Encounter [facility] - [facility] - [facility] - Ambulatory Encounter Joey [facility] Joey Mahkikagrey Ingrid Leung [facility] Contact Center UNK - Ambulatory Encounter Devaughn Soto Carbajal Lorna [facility] UNK - Ambulatory Encounter Janeth Rossi [facility] UNK - Ambulatory Encounter Joey Ross Omteddy Nelsonfogrey [facility] UNK - Ambulatory Encounter Arseniojunaid Larsen [facility] UNK - Ambulatory Encounter Arseniojunaid Larsen [facility] UNK - Ambulatory Encounter Arseniojunaid Larsen [facility] UNK - Ambulatory Encounter Arseniojunaid Cartagena [facility] Myopia - OUPresbyopia - OU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 - Ambulatory Encounter Isidra Fonseca [facility] UNK - Ambulatory Encounter [facility]yteddy [facility] - Ambulatory Encounter Joeyteddy Nelsonkikagrey Joey Cheek [facility] Services Contact Center UNK - Ambulatory Encounter Leatha Durant [facility] UNK - Ambulatory Encounter Annette John Sanders [facility] UNK - Ambulatory Encounter Joeyteddy Nelsonkikagrey [facility] UNK - Ambulatory Encounter Joeyteddy Nelsonkikagrey Joey Mahfouz [facility] UNK - Ambulatory Encounter Joey Lesliekikagrey Joey Mahfouz [facility] UNK - Ambulatory Encounter Joey Lesliekikagrey Wrightteddy Lloydgrey [facility] UNK - Ambulatory Encounter Marlene Chilel Omteddy Nelsongrey Leatha Soto [facility] Diverticulitis, colonDiverticular diseaseHypotensionHistory of hypertensionAnemia due to dietary iron deficiencyHx of hypokalemiaHyperlipidemiaGERDDepressionAbdominal distentionScreening for colon cancerAnxietyVertigoGastroparesisDiabetic neuropathyDry eyeAsthma - Ambulatory Encounter Joey [facility] UNK VITAL SIGNS Date Observation Value Provider BP diastolic #1 98 mm[Hg] Ashley Sevilla [...] pressure, systolic, third observation 170 mm[Hg] Joey Mahfouz " blood pressure, diastolic, second observation 105 mm[Hg] Steph Rebolledo " blood pressure, systolic, second observation 161 mm[Hg] Steph Rebolledo " oxygen saturation, oximetry 98 % Steph Rebolledo " blood pressure, diastolic 98 mm[Hg] Steph Amaury " blood pressure, systolic 150 mm[Hg] Steph Jack " respiratory rate E&M 18 /min Steph Jack " pulse rate E&M 78 /min Steph Jack " temperature E&M 97.9 [degF] Steph Rebolledo [...] Steph Rebolledo pulse rate #4 97 /min Joeyteddy Nelsonfouz " blood pressure, diastolic, fourth observation 85 mm[Hg] Joey Mahfouz " blood pressure, systolic, fourth observation 127 mm[Hg] Joey Mahfouz " pulse rate #3 97 Joey Lesliefouz " blood pressure, diastolic, third observation 86 [...] " pulse rate E&M 93 /min Ashley Wrightvez " temperature site oral Ashley Sevilla " temperature E&M 98.3 [degF] Ashley Wrightvez " weight E&M 161.80 lbs. Ashley Sevilla [...] Keyess " weight E&M 156.80 lbs. Ashley Keeyss " weight in kilograms E&M 71.27 kg [...] Amaury " temperature E&M 98.1 [degF] Steph Rebolledo [...] - Screening - Neurology - External - WRAPPER SHEETER - Internal - Gastroenterology - External RESULTS [...] negative Stephghulam Rebolledo " bilirubin, urine negative Steph Amaury " blood in urine (hemoglobin) by dipstick negative Steph Rebolledo " specific gravity, urine 1.020 Steph Jack " protein, urine, semiquantitative (dipstick) negative Steph Rebolledo " urobilinogen, urine, semiquantitative (dipstick) negative Steph Rebolledo " appearance, urine clear Steph Amaury " ketones, urine, by test strip negative Steph Rebolledo " pH, urine, semiquantitative 5.5 Steph Amaury [...] 1 by mouth nightly at bedtime - Enrike Etienne REGLAN 10 MG ORAL TABLET 1 by [...] Observation Value Provider Exercise Program Referral T Ashley Sevilla " Weight Management Counseling Provided T Ashley Sevilla " Nutrition intervention T Ashley Sevilla " sexual orientation Heterosexual Ashley Swainz " assessment of health literacy ([facility] Standards, 3C10) Adequate Ashley Sevilla " passive cigarette smoke exposure No Ashley Sevilla " smoking status never smoker Ashley Di " social history E&M . She is 1 of 12 siblings. from , 1 son working and 1 daughter who is very supportive. Not homeless. Born in [place]. State: [facility] . Lives with daughter with her family (, 3 kids). 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 Sex at : Female. Sexual orientation: Heterosexual. Gender identity: Female. Gender of partner(s): Male. Age of first sexual intercourse: 18. Sexually Active: no. Jehova's witness. Arrested for "food stamp fraud", dismissed. Ashley Sevilla " social history reviewed E&M reviewed today Ashley Sevilla drug use, illicit Never Steph Rebolledo " alcohol use Never Steph Rebolledo " social history E&M . She is 1 of 12 siblings. from , 1 son working and 1 daughter who is very supportive. Not homeless. Born in [place]. State: [facility] . Lives with daughter with her family (, 3 kids). 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 Unemployed since 2016, [...] Steph Rebolledo " assessment of health literacy ([facility] 2014 Standards, 3C10) Adequate Steph Amaury " passive cigarette smoke exposure No Steph Jack " smoking status never smoker Steph Rebolledo [...] is very supportive. Not homeless. Born in [place]. State: [facility] . Lives with daughter with her family (, 3 kids). 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 Unemployed since 2016, [...] Sevilla " assessment of health literacy ([facility] 2014 Standards, 3C10) Adequate Ashley Sevilla [...] is very supportive. Not homeless. Born in [place]. State: [facility] . Lives with daughter with her family (, 3 kids). 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 Born in [place]. State: [facility] . 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 Sex at : Female. Sexual orientation: Heterosexual. Gender identity: Female. Gender of partner(s): Male. Age of first sexual intercourse: 18. Sexually Active: no. Ashley Fields " social history reviewed E&M reviewed today Ashley Fields " assessment of health literacy ([facility] 2014 Standards, 3C10) Adequate Ashley Fields " passive cigarette smoke exposure No Ashley Fields " smoking status never smoker Ashley Fields " Exercise Program Referral Slava Fields " Weight Management Counseling Provided Slava Fields " Nutrition intervention Slava Fields drug use, illicit Never Steph Amaury " alcohol use Never Steph Amaury " social history E&M . from , 1 son working and 1 daughter who is very supportive Not homeless. Born in [place]. State: [facility] . 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 Sex at : Female. Sexual orientation: Heterosexual. Gender identity: Female. Gender of partner(s): Male. Age of first sexual intercourse: 18. Sexually Active: Yes. Steph Jack " social history reviewed E&M reviewed today Steph Rebolledo " sexual orientation Heterosexual Steph Rebolledo " assessment of health literacy ([facility] 2014 Standards, 3C10) Adequate Stephghulam Rebolledo " is there any chance that [...] is very supportive Not homeless. Born in [place]. State: [facility] . 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 Sex at : Female. Sexual orientation: Heterosexual. Gender identity: Female. Gender of partner(s): Male. Age of first sexual intercourse: 18. Sexually Active: Yes. Anay May " social history reviewed E&M reviewed today Anay Mya " sexual orientation Heterosexual Anay May " assessment of health literacy ([facility] 2014 Standards, 3C10) Adequate Anay May " passive cigarette smoke exposure No Anay May " smoking status never smoker Anay May social history reviewed E&M reviewed today Mariajose Carmichael " social history E&M . from , 1 son working and 1 daughter who is very supportive Not homeless. Born in [place]. State: [facility] . Lives with daughter with her [...] May " assessment of health literacy ([facility] 2014 Standards, 3C10) Adequate Anay Amy " passive cigarette smoke exposure No Anay May " smoking status never smoker Anay May home/family situation, assessment Lives with daughter with her family Mariajose Carmichael " patient considered to be homeless No Mariajose Carmichael " family support from , 1 son working and 1 daughter who is very supportive Mariajose Carmichael time of call 10/02/2018 11:05 AM Jaylenearmando Medel social history reviewed E&M reviewed today Yuniel Lee " sexual orientation Heterosexual Yuniel Lee " assessment of health literacy ([facility] 2014 Standards, 3C10) Adequate Yuniel Lee " is there any chance that you could be ? 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 Ashley Swainz " assessment of health literacy ([facility] 2014 Standards, 3C10) Adequate Ashley Sevilla " passive cigarette smoke exposure No Ashley Sevilla " smoking status never smoker Ashley Di FUNCTIONAL STATUS No Information Available MENTAL STATUS [...] a lot, panic attacks, muscle tension Juan Clifton" mental status assessment, judgment fair Juan Clifton " insight (mental status exam) fair Juan Clifton" Mental Status Exam: intelligence adequate fund of information, intact memory processes, oriented to person, oriented to place, oriented to time, oriented to situation, oriented to reality Juan Clifton" hallucinations none Juan Clifton" thought content (mental status exam) (E&M) lucid Juan Clifton" mental status assessment, process able to abstract, circumstantial, logical Juan Clifton" mental status assessment, sensorium alert, attentive, clear Juan Clifton" affect (mental status exam) congruent, euthymic, normal intensity, normal range Juan Clifton" mood (mental status exam) pleasant, sad, worried, frustrated Juan Clifton" mental status assessment, speech activity normal flow, normal pace, normal pressure, normal rate, normal tone, normal volume, spontaneous, limitted Swiss Juan Clifton" mental status assessment, motor activity [...] mental status assessment, sensorium alert, attentive, clear Mariajsoe Carmichael " affect (mental status exam) congruent, [...] party ID Sliding Fee - Cat 1 Browser[employer] insurance [employer] [id number] ADVANCE DIRECTIVES No Information Available TREATMENT PLAN [...] - - Est Patient Exp Problem - 21090 Est Patient Exp Problem - 19322 Est Patient Exp Problem - 73078 Diagnostic evaluation with medical - 53049 New Patient Well Exam (40 - 64 Yrs) - 76479 Est Patient Exp Problem - 21730 Behavioral Health - Therapy Behavioral Health - Psychiatry Mid Wife Ofc Vst, Est Level III Dispensing Visit (Non-Billable) [facility] Assessment - Tire Worker Diagnostic evaluation (no medical) - 23601 Ofc Vst, Est Level III Est Patient Exp Problem - 33057 Integrated Behavioral Health Assessment (IBH) Behavioral Health - Psychiatry Frames, purchases Sphere, bif, plano to +/- 4.00d, per lens New Patient Intermediate Opt - 84680 New Patient Detailed - 99333 Prescription Assistance (Non-HIV) Mid Wife [facility] - Internal Behavioral Health - Psychiatry HISTORY OF PROCEDURES Procedure Date Procedure Name Provider Procedure Notes Status Diagnostic evaluation with medical - 93522 Juan Clifton completed Dispensing Visit (Non-Billable) Janeth Rossi completed [facility] Assessment - Tire Worker Mariajose Carmichael completed Diagnostic evaluation (no medical) - 69359 Mariajose Carmichael completed Frames, purchases Janeth Rossi completed Sphere, bif, plano to +/- 4.00d, per lens Janeth Rossi 65.00 completed New Patient Intermediate Opt - 83966 Arsenio Larsen completed GOALS No Information Available HEALTH CONCERNS No Information Available
--- OUTSIDE RECORDS SUMMARY | 2019-06-10 14:43 | XMS REPORT ---
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 Dementia completed [...] Joey Mahfouz Screening for colon cancer active Ojey Mahfouz Abdominal distention active Joey Mahfouz Depression active Joey Mahfouz GERD active Joey Mahfouz Hyperlipidemia active Joey Mahfouz Hx of hypokalemia active Joey Mahfouz Anemia due to dietary iron deficiency active Joey Mahfouz History of hypertension active Joey Mahfouz Hypotension active Joey Mahfouz Diverticular disease active Joey Mahfouz Diverticulitis, colon active Joey Mahfouz ENCOUNTERS Date Type Provider Location Encounter Diagnosis - Ambulatory Encounter oJey Nelsonfogrey [facility] UNK - Ambulatory Encounter Joey Nelsonfogrey [facility] UNK - [facility] UNK - Ambulatory En[facility]dy [facility] UNK - Ambulatory Encounter Juan José Echeverria [facility] PrediabetesBMI 31.0-31.9 - Ambulatory Encounter [facility] UNK - Ambulatory Encounter [facility] UNK - Ambulatory Encounter Joey Vandana Cook Mahfouz [facility] UNK - Ambulatory Encounter Joey Vandana Cook Mahfouz [facility] UNK - Ambulatory Encounter Joey Vandana Cook Mahfouz [facility] UNK - Ambulatory Encounter Joey Vandana Cook Mahfouz [facility] UNK - Ambulatory Encounter [facility] UNK - Ambulatory Encounter Zuleyka Sevilla [facility] HypertensionHeadache, severeNumbness - Ambulatory Encounter Joey [facility] UNK - Ambulatory Encounter Joey [facility] UNK - Ambulatory Encounter Joey Lesliegrey [facility] UNK - Ambulatory Encounter Joey [facility]ana [facility] UNK - Ambulatory Encounter Zuleyka Cook Vandana Nelsongrey Steph Rebolledo [facility] HypertensionHeadache, severeNumbness - Ambulatory Encounter Fax Status [facility] UNK - Ambulatory Encounter Fax Status [facility] UNK - Ambulatory Encounter Fax Status [facility] UNK - Ambulatory Encounter [facility] UNK - Ambulatory Encounter Joey [facility] Joey [facility] UNK - Ambulatory Encounter Joey [facility] UNK - Ambulatory Encounter Joey [facility] Joey [facility] UNK - Ambulatory Encounter Zuleyka Joe [facility] DementiaOrthostatic hypotensionDysautonomiaHx of syncope and collapse - Ambulatory Encounter Joey [facility] UNK - Ambulatory Encounter Joey [facility] UNK - Ambulatory Encounter Joey [facility] UNK - Ambulatory Encounter Juan Loja [facility] DEPRESSIVE DISORDER, D/T ANOT MED COND, W/ DEPRESSIVE FEATURESDEPRESSIVE DISORDER, MAJOR, RECURRENT EPISODE, MILDANXIETY DISORDER, UNSPECIFIED - Ambulatory Encounter 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 - Ambulatory Encounter Isidra Angeles 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 UNK - Ambulatory Encounter 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 - Ambulatory Encounter 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 - Ambulatory Encounter Isidra Fonseca 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 UNK - Ambulatory Encounter Ashley Fields [facility] UNK - Ambulatory Encounter Matthewmirza Mahoney Matthew A Maru [facility] UNK - Ambulatory Encounter Matthew Trung Maru Castro A Maru Joe Ashley Fields [facility] Information Assistant annual examHistory of ovarian cystMammogram not high risk screeningScreening for vaginal cancer - Ambulatory Encounter Joey [facility] Cook [facility] UNK - Ambulatory Encounter Joey [facility] Cook [facility] UNK - Ambulatory Encounter Joey [facility] Joey [facility] UNK - Ambulatory Encounter Joey [facility] Joey [facility] UNK - Ambulatory Encounter Joey [facility] Joey [facility] UNK - Ambulatory Encounter Joey [facility] Joey [facility] UNK - Ambulatory Encounter Joey Lesliegrey Joey [facility] UNK - Ambulatory Encounter Joey [facility] Joey [facility] UNK - Ambulatory Encounter Isidra Lee 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 UNK - Ambulatory Encounter Joey [facility] UNK - Ambulatory Encounter Joey [facility] Islaseshtrung Rebolledo [facility] UNK - Ambulatory Encounter Joey Cook [facility] UNK - Ambulatory Encounter Joey Ross [facility] UNK - Ambulatory Encounter Fax Status [facility] UNK - Ambulatory Encounter Fax Status [facility] UNK - Ambulatory Encounter Fax Status [facility] UNK - Ambulatory Encounter Fax Status [facility] UNK - Ambulatory Encounter Fax Status [facility] UNK - Ambulatory Encounter Fax Status [facility] UNK - Ambulatory Encounter Joey Ross [facility] - Ambulatory Encounter Joey [facility] - Ambulatory Encounter Patrica Fonseca Joey [facility] [place] Stephghulam Rebolledo [facility] DysuriaMuscle spasm, backHypotensionMelasmaAbnormal abdominal imagingDementia - Ambulatory Encounter Sally Tejeda [facility] Contact Center UNK - Ambulatory Encounter [facility] UNK - Ambulatory Encounter Margie [facility] UNK - Ambulatory [facility] - Ambulatory Encounter Kobi Long [facility] UNK - Ambulatory Encounter Kobi Long [facility] UNK - Ambulatory Encounter Kobi [facility] UNK - Ambulatory Encounter Kobi Obrien Anay May FaQuazia Cam [facility] Unspecified ovarian cyst, left side - Ambulatory Encounter Margie Pastrana [facility] UNK - Ambulatory Encounter Benjamin Sergei [facility] UNK - Ambulatory Encounter Janethreji Rossi [facility] UNK - Ambulatory Encounter Yuniel Lee [facility] UNK - Ambulatory Encounter Kobi Long [facility] UNK - Ambulatory Encounter Kobi Long [facility] UNK - Ambulatory Encounter Kobi May [facility] Diverticulitis - Ambulatory Encounter Mariajose Carmichael [facility] DEPRESSIVE DISORDER, D/T ANOT MED COND, W/ DEPRESSIVE FEATURES - Ambulatory Encounter Joey Mahfouz Joey Mahfouz [facility] UNK - Ambulatory Encounter Janeth Rossi [facility] UNK - Ambulatory Encounter Joey Mahfogrey Joey Mahfouz [facility] UNK - Ambulatory Encounter Jayleenarmando Clemonsas [facility] UNK - Ambulatory Encounter Ashley Sevilla [facility] UNK - Ambulatory Encounter Joey [facility] UNK - Ambulatory Encounter Joey [facility] Cook [facility] UNK - Ambulatory Encounter Joey [facility] - [facility]ulatory Encounter [facility] UNK - Ambulatory Encounter Juan José Chacon Joey [facility] Cook [facility] Epigastric discomfortOverweight - Ambulatory Encounter Patrica Torres [facility] - Ambulatory Encounter Joey [facility] - Ambulatory Encounter [facility] - Ambulatory Encounter Joey [facility] Joey [facility] Ingrid Leung [facility] Contact Center UNK - Ambulatory Encounter Devaughn Sanzalvo [facility] UNK - Ambulatory Encounter Janeth [facility] UNK - Ambulatory Encounter Joey [facility] Joey [facility] - Ambulatory Encounter Arseniojunaid Larsen [facility] UNK - Ambulatory Encounter Arseniojunaid Larsen [facility] UNK - Ambulatory Encounter Arseniojunaid Larsen [facility] UNK - Ambulatory Encounter Arsenio Cartagena [facility] Myopia - OUPresbyopia - OU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 - Ambulatory Encounter Isidra Fonseca [facility] UNK - Ambulatory Encounter Joey Nels[facility]ton [facility] UNK - Ambulatory Encounter Joey [facility] Che[facility] Contact Center UNK - Ambulatory Encounter Leatha Durant [facility] Public [facility] Services UNK - Ambulatory Encounter Annette Sanders [facility] UNK - Ambulatory Encounter Joey [facility] UNK - Ambulatory Encounter Joey [facility] UNK - Ambulatory Encounter Joey [facility] UNK - Ambulatory Encounter Joeyteddy Ross Joey [facility] UNK - Ambulatory Encounter Marlene Cook [facility] Joey [facility] Diverticulitis, colonDiverticular diseaseHypotensionHistory of hypertensionAnemia due to dietary iron deficiencyHx of hypokalemiaHyperlipidemiaGERDDepressionAbdominal distentionScreening for colon cancerAnxietyVertigoGastroparesisDiabetic neuropathyDry eyeAsthma - Ambulatory Encounter Joeyteddy Ross Omar [facility] UNK VITAL SIGNS Date Observation [...] blood pressure, site #1 left arm Anay Mya " blood pressure, diastolic 77 mm[Hg] Anay [...] May oxygen saturation, oximetry 98 % Anay Mya " method used to obtain blood pressure [...] - Screening - Neurology - External - STRATEGY PLANNING CONSULTANT - Internal - Gastroenterology - External RESULTS [...] Sierra Echeverria " assessment of health literacy ([facility] 2014 Standards, 3C10) Adequate Sierra Echeverria " [...] is very supportive. Not homeless. Born in [place]. State: [facility] . Lives with daughter with her family (, 3 kids). 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 Not homeless. Born in [place]. State: [facility] . Lives with daughter with her family (, 3 kids). 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 Sex at : Female. Sexual orientation: Heterosexual. Gender identity: Female. Gender of partner(s): Male. Age of first sexual intercourse: 18. Sexually Active: no. Jehova's witness. Arrested for "food stamp fraud", dismissed. Steph Rebolledo " social history reviewed E&M reviewed today Steph Rebolledo " sexual orientation Heterosexual Stephghulam Rebolledo " assessment of health literacy ([facility] 2014 Standards, 3C10) Adequate Steph Jack " [...] is very supportive. Not homeless. Born in [place]. State: [facility] . Lives with daughter with her family (, 3 kids). 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 Not homeless. Born in [place]. State: [facility] . Lives with daughter with her family (, 3 kids). 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 Born in [place]. State: [facility] . 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 Sex at : Female. Sexual orientation: Heterosexual. Gender identity: Female. Gender of partner(s): Male. Age of first sexual intercourse: 18. Sexually Active: no. Ashley Keyess " social history reviewed E&M reviewed today Ashley Keyess " assessment of health literacy ([facility] 2014 Standards, 3C10) Adequate Ashley Fielsd " passive cigarette smoke exposure No Ashley [...] is very supportive Not homeless. Born in [place]. State: [facility] . Lives with daughter with [...] is very supportive Not homeless. Born in [place]. State: [facility] . Lives with daughter with [...] is very supportive Not homeless. Born in [place]. State: [facility] . Lives with daughter with [...] of judgment and insight E&M intact Joey [facility] " mental status examination: orientation E&M oriented to time, place, and person Joey [facility] " assessment of mood and affect E&M no depression, anxiety, or agitation [facility] " Generalized Anxiety Disorder Questionnaire - Question 2 0 Sierra Echeverria " Generalized Anxiety Disorder Questionnaire - Question 1 0 Sierra Echeverria assessment of judgment and insight E&M intact Joey [facility] " mental status examination: orientation E&M oriented to time, place, and person Joey [facility] " assessment of mood and affect E&M no depression, anxiety, or agitation [facility] " Generalized Anxiety Disorder Questionnaire - Question 2 0 Ashley Sevilla " Generalized Anxiety Disorder Questionnaire - Question 1 0 Ashley Sevilla assessment of judgment and insight E[facility]M intact [facility] mental status examination: orientation E&M oriented to time, place, and person Joey [facility] " assessment of mood and affect E&M no depression, anxiety, or agitation [facility] " Generalized Anxiety Disorder Questionnaire - Question 2 0 Steph Rebolledo " Generalized Anxiety Disorder Questionnaire - Question 1 0 Steph Rebolledo assessment of judgment and insight E&M intact [facility] " mental status examination: orientation E&M oriented to time, place, and person [facility] " assessment of mood and affect E&M no depression, anxiety, or agitation [facility] " Generalized Anxiety Disorder Questionnaire - Question [...] to reality Juan Clifton " hallucinations none Jaun Clifton " thought content (mental status exam) (E&M) lucid Juan Clifton " mental status assessment, process able to abstract, circumstantial, logical Juan Clifton " mental status assessment, sensorium alert, attentive, clear Juan Faustijos " affect (mental status exam) congruent, euthymic, normal intensity, normal range Juan Fuastijos " mood (mental status exam) pleasant, sad, worried, frustrated Juan Faustijos " mental status assessment, speech activity normal flow, normal pace, normal pressure, normal rate, normal tone, normal volume, spontaneous, limitted Citizen Of [place] Juan Faustijos " mental status assessment, motor [...] oriented to time, place, and person Joey [facility] " assessment of mood and affect E&M [...] republican ID Sliding Fee - Cat 1 [employer] insurance [employer] [id number] ADVANCE DIRECTIVES No Information Available TREATMENT PLAN [...] - - Est Patient Exp Problem - 22408 Est Patient Exp Problem - 02189 Est Patient Exp Problem - 51163 Est Patient Exp Problem - 57808 Diagnostic evaluation with medical - 57458 New Patient Well Exam (40 - 64 Yrs) - 19520 Est Patient Exp Problem - 32131 Behavioral Health - Therapy Behavioral Health - Psychiatry 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 Ofc Vst, Est Level III Dispensing Visit (Non-Billable) [facility] Assessment - Operations/Dispatch Diagnostic evaluation (no medical) - 03814 Ofc Vst, Est Level III Est Patient Exp Problem - 12464 Integrated Behavioral Health Assessment (IBH) Behavioral Health - Psychiatry Frames, purchases Sphere, bif, plano to +/- 4.00d, per lens New Patient Intermediate Opth - 35779 New Patient Detailed - 42083 Prescription Assistance (Non-HIV) 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 [facility] - Internal Behavioral Health - Psychiatry HISTORY OF PROCEDURES Procedure Date Procedure Name Provider Procedure Notes Status Diagnostic evaluation with medical - 92898 Juan Clifton completed Dispensing Visit (Non-Billable) Janeth Rossi completed [facility] Assessment - Operations/Dispatch Mariajose Carmichael completed Diagnostic evaluation (no medical) - 04932 Mariajose Carmichael completed Frames, purchases Janeth Rossi completed Sphere, bif, plano to +/- 4.00d, per lens Janeth Rossi 65.00 completed New Patient Intermediate [facility] - 57360 Arseniojunaid Larsen completed GOALS No Information Available HEALTH CONCERNS No Information Available
--- OUTSIDE RECORDS SUMMARY | 2019-06-10 14:44 | XMS REPORT ---
Author Author Admin, [place] Organization Unknown Address Unknown Phone Unavailable PROBLEMS Condition Status Date Provider Notes Otitis media acute right active Joey Premauz BMI 31.0-31.9 active Juan José Polanco Prediabetes active Joey Mahfouz Numbness completed - Joey Lesliefouz Headache, severe completed - Joey Mahfouz Hypertension active Joeyteddy Nelsonfouz Hx of syncope and collapse active Joey Lesliefouz Dysautonomia active Joey Mahfouz Orthostatic hypotension active Joeyteddy Lloyduz ANXIETY DISORDER, UNSPECIFIED active Juan Clifton DEPRESSIVE DISORDER, MAJOR, RECURRENT EPISODE, MILD active Juan Clifton Screening for vaginal cancer active 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 Mammogram not high risk screening active 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 History of ovarian cyst active 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 Dementia completed - Joeyteddy Ross Abnormal abdominal imaging active Joey Mahfouz Melasma active Joey Mahfouz Hypotension active Joey Lesliefouz Intermittent Muscle spasm, back active Joey Mahfouz Dysuria active Joeyteddy Lloyduz Unspecified ovarian cyst, left side active Kobi Long DEPRESSIVE DISORDER, D/T ANOT MED COND, W/ DEPRESSIVE FEATURES completed - Juan Clifton Diverticulitis active Kobi Long Overweight active Juan José Polanco Epigastric discomfort active Joey Mahfouz 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 active Arsenio Chava Presbyopia - OU active Arsenio Chava Myopia - OU active Arsenio Chava Asthma [...] disease active Joey Mahfouz Diverticulitis, colon active Joeyteddy Nelsonfouz ENCOUNTERS Date Type Provider Location Encounter Diagnosis - Ambulatory Encounter Joey Nelsonfogrey [facility] UNK - Ambulatory Encounter Joey Nelsonfogrey [facility] UNK - Ambulatory Encounter Joeyteddy Nelsonfogrey [facility] UNK - [facility] Otitis media acute right - Ambulatory Encounter [facility] UNK - Ambulatory Encounter [facility]eddy [facility] UNK - Ambulatory [facility]counter [facility] UNK - Ambulatory [facility] UNK - Ambulatory Encounter Joey Lesliefogrey [facility] UNK - Ambulatory Encounter Joey Lesliefogrey [facility] UNK - Ambulatory Encounter Joey Lesliegrey [facility] - Ambulatory Encounter Juan [facility] Sierra Echeverria [facility] PrediabetesBMI 31.0-31.9 - Ambulatory Encounter [facility] UNK - Ambulatory Encounter Joey Lesliefogrey [facility] UNK - [facility] UNK - Ambulatory Encounter Joey Lesliefogrey [facility] UNK - Ambulatory Encounter [facility] UNK - Ambulatory Encounter [facility] UNK - [facility] UNK [facility] Ambulatory Encounter Zuleyka Sevilla [facility] HypertensionHeadache, severeNumbness - Ambulatory Encounter [facility] UNK - Ambulatory Encounter Joey Vandana Cook [facility] UNK - Ambulatory Encounter Joeyteddy Cook [facility] UNK - Ambulatory Encounter Joey Vandana [facility] UNK - Ambulatory Encounter Zuleyka Wade Joey Nelsonfogrey Steph Rebolledo [facility] HypertensionHeadache, severeNumbness - Ambulatory Encounter [facility] - [facility] En[facility] - Ambulatory Encounter [facility] - Ambulatory Encounter Joeyteddy Cook [facility] UNK - Ambulatory Encounter Joey Vandana [facility] UNK - Ambulatory Encounter Joey Vandana Cook [facility] UNK - Ambulatory Encounter Joey Lesliegrey [facility] UNK - Ambulatory Encounter Zuleyka Joe [facility] Sky Cotton [facility] DementiaOrthostatic hypotensionDysautonomiaHx of syncope and collapse - Ambulatory Encounter Joeyteddy Nelsongrey [facility] UNK - Ambulatory Encounter Joey Vandana [facility] UNK - Ambulatory Encounter Joey Vandana Cook [facility] UNK - Ambulatory Encounter Juan Loja [facility] DEPRESSIVE DISORDER, D/T ANOT MED COND, W/ DEPRESSIVE FEATURESDEPRESSIVE DISORDER, MAJOR, RECURRENT EPISODE, MILDANXIETY DISORDER, UNSPECIFIED - Ambulatory Encounter Matthew Castro A Mar[facility] UNK - Ambulatory Encounter Isidra Angeles [facility] UNK - Ambulatory Encounter Matthew Castro A [facility] 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 UNK - Ambulatory Encounter Matthew Castro A Maru [facility] 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 UNK - Ambulatory Encounter Isidra Fonseca [facility] UNK - Ambulatory Encounter Ashley Fields 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 UNK - Ambulatory Encounter Matthew Castro A Maru 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 UNK - Ambulatory Encounter Matthew Ramirez Fields 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 Carousel Attendant annual examHistory of ovarian cystMammogram not high risk screeningScreening for vaginal cancer - Ambulatory Encounter Joey Cook [facility] UNK - Ambulatory Encounter Joye Cook [facility] UNK - Ambulatory Encounter Joey Cook [facility] UNK - Ambulatory Encounter Joey Cook [facility] UNK - Ambulatory Encounter Joeyteddy Cook [facility] UNK - Ambulatory Encounter Joey Vandana Cook [facility] UNK - Ambulatory Encounter Joey Vandana Cook [facility] UNK - Ambulatory Encounter Joey Vandana Cook [facility] UNK - Ambulatory Encounter Isidra Lee [facility] UNK - Ambulatory Encounter Joey Vandana [facility] - Ambulatory Encounter Joey Vandana [facility] Steph eRbolledo [facility] UNK - Ambulatory Encounter Joey Vandana Cook [facility] UNK - Ambulatory Encounter Joey Vandana Nelsonfogrey [facility] UNK - Ambulatory Encounter Fax [...] UNK - Ambulatory Encounter Fax Status [facility] UNK - Ambulatory Encounter Joey V[facility] En[facility] UNK - Ambulatory Encounter Patrica Fonseca [facility] Swanson Yury Arnettistine Charles Islaseshtrung Rebolledo [facility] DysuriaMuscle spasm, backHypotensionMelasmaAbnormal abdominal imagingDementia - Ambulatory Encounter Sally Tejeda [facility] UNK - Ambulatory Encounter [facility] - Ambulatory Encounter [facility]K - Ambulatory Encounter [facility] UNK - Ambulatory Encounter Kobi Long [facility] UNK - Ambulatory Encounter Kobi Long [facility] UNK - Ambulatory Encounter Kobi Long [facility] UNK - Ambulatory Encounter Kobi Langston Ashley Obrien Anay May FaQuazia Cam [facility] Unspecified ovarian cyst, left side - Ambulatory Encounter Margie [facility] UNK - Ambulatory Encounter Benjamin Sergei [facility] UNK - Ambulatory Encounter Janeth Rossi [facility] UNK - Ambulatory Encounter Yuniel Jesus [facility] UNK - Ambulatory Encounter Kobi Long [facility] UNK - Ambulatory Encounter Kobi Long [facility] UNK - Ambulatory Encounter Kobi May [facility] Diverticulitis - Ambulatory Encounter Mariajose Carmichael [facility] DEPRESSIVE DISORDER, D/T ANOT MED COND, W/ DEPRESSIVE FEATURES - Ambulatory Encounter [facility] UNK - Ambulatory Encounter Janeth Rossi [facility] UNK - [facility] - Ambulatory Encounter Jayleen Gianfranco [facility] UNK - Ambulatory Encounter Ashley Sevilla [facility] UNK - Ambulatory Encounter Joey [facility] UNK - Ambulatory Encounter Joey [facility] UNK [facility] Ambulatory Encounter [facility] UNK - Ambulatory Encounter [facility] - Ambulatory Encounter Juan José Chacon [facility] Yuniel Lee [facility] Epigastric discomfortOverweight - Ambulatory Encounter [facility] UN[facility] - Ambulatory Encounter [facility] UNK - Ambulatory Encounter Joey Mahfouz Joey Mahfouz [facility] UNK - Ambulatory Encounter Joey Ross Omteddy Lloydgrey Ingrid Leung [facility] UNK - Ambulatory Encounter Devaughn Blackman Charles Rothman [facility] - Ambulatory Encounter Janeth Rossi [facility] [facility] UNK - Ambulatory Encounter Joeyteddy Ross Omteddy Nelsonfogrey [facility] UNK - Ambulatory Encounter Arseniojunaid Larsen [facility] UNK - Ambulatory Encounter Arseniojunaid Larsen [facility] UNK - Ambulatory Encounter Arseniojunaid Larsen [facility] UNK - Ambulatory Encounter Arseniojunaid Cartagena [facility] Myopia - OUPresbyopia - OU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 - Ambulatory Encounter Isidra Fonseca [facility] UNK - Ambulatory Encounter Joeyteddy Nelsonkikagrey Joey Ross [facility] UNK - Ambulatory Encounter Joeyteddy Nelsonkikagrey Joey Cheek [facility] UNK - Ambulatory Encounter Leatha Durant [facility] UNK - Ambulatory Encounter Annette Sanders [facility] UNK - Ambulatory Encounter Joeyteddy Ross [facility] UNK - Ambulatory Encounter Joeyteddy Nelsonkikagrey Joey Mahfouz [facility] UNK - Ambulatory Encounter Joeyteddy Ross Joey [facility] UNK - Ambulatory Encounter Joey Cook [facility] UNK - Ambulatory Encounter Marlene Chilel [facility] Leatha Soto [facility] Diverticulitis, colonDiverticular diseaseHypotensionHistory of hypertensionAnemia due to dietary iron deficiencyHx of hypokalemiaHyperlipidemiaGERDDepressionAbdominal distentionScreening for colon cancerAnxietyVertigoGastroparesisDiabetic neuropathyDry eyeAsthma - Ambulatory Encounter Joey Cook [facility] VITAL SIGNS Date Observation Value Provider oxygen saturation, oximetry 96 % Ashley Sevilla " method used to obtain blood pressure automatic Ashley Sevilla " Blood Pressure Position 01 sitting Ashley Sevilla " blood pressure, site #1 left arm Ashley Sevilla " blood pressure, diastolic 79 mm[Hg] Ashley Sevilla " blood pressure, systolic 118 mm[Hg] Ashley Sevilla " respiratory rate E&M 16 /min Ashley Sevilla " pulse rate E&M 85 /min Ashley Sevilla " temperature site oral Ashley Sevilla " temperature E&M 98.7 [degF] Ashley Sevilla " weight E&M 161.40 lbs. Ashley Sevilla " weight in kilograms E&M 73.36 kg Ashley Sevilla " height E&M 60 [in_i] Ashley Sevilla " height in centimeters E&M 152.40 cm Ashley Sevilla oxygen saturation, oximetry 96 % Sierra Echeverria [...] Sierra Echeverria " temperature site oral Sierra Juwan " temperature E&M 98.9 [degF] Sierra Echeverria " weight E&M 163 lbs. Sierra Echeverria " weight in kilograms E&M 74.09 kg Sierra Juwan " height E&M 60 [in_i] Sierra Juwan " height in centimeters E&M 152.40 cm Sierrakaia Echeverria BP diastolic #1 98 mm[Hg] Ashley Sevilla " BP systolic #1 156 mm[Hg] Ashley Sevilla " pulse rate #2 103 Ashley Sevilla " blood pressure, diastolic, second observation 91 mm[Hg] Ashley Sevilla " blood pressure, systolic, second observation 148 mm[Hg] Ashley Wrightvez " oxygen saturation, oximetry 98 % Ashley Sevilla " method used to obtain blood pressure automatic Ashley Sevilla " Blood Pressure Position 01 sitting Ashley Sevilla " blood pressure, site #1 left arm Ashlye Sevilla " blood pressure, diastolic 91 mm[Hg] Ashley Wrightvez " blood pressure, systolic 148 mm[Hg] Ashley [...] height in centimeters E&M 152.40 cm Ashley Wrightvez blood pressure, diastolic, third observation 100 mm[Hg] Joey Lesliefouz " blood pressure, systolic, third observation 170 mm[Hg] Joey Mahfouz " blood pressure, diastolic, second observation 105 mm[Hg] Steph Amaury " blood pressure, systolic, second observation 161 mm[Hg] Steph Amaury " oxygen saturation, oximetry 98 % Steph Amaury " blood pressure, diastolic 98 mm[Hg] Steph Amaury " blood pressure, systolic 150 mm[Hg] Steph Amaury " respiratory rate E&M 18 /min Steph Amaury " pulse rate E&M 78 /min Steph Amaury " temperature E&M 97.9 [degF] Steph Amaury " weight E&M 162.25 lbs. Steph Rebolledo [...] blood pressure, systolic, fourth observation 127 mm[Hg] Jeoy Mahfouz " pulse rate #3 97 Joey Lesliefouz " blood pressure, diastolic, third observation 86 mm[Hg] Joey Mahfouz " blood pressure, systolic, third observation 120 mm[Hg] Joey Mahfouz " pulse rate #2 95 Joey Lesliefouz " blood pressure, diastolic, second observation 84 [...] Loja " Blood Pressure Position 01 sitting Lisaprieto Loja " blood pressure, site #1 left arm Lisaprieto Loja " blood pressure, diastolic 92 mm[Hg] Lisaprieto Loja " blood pressure, systolic 147 mm[Hg] [...] used to obtain blood pressure automatic Ashley Keyess " Blood Pressure Position 01 sitting Ashley Donnie " blood pressure, site #1 left arm Ashley Fields " blood pressure, diastolic 76 mm[Hg] Ashley [...] Amaury " pulse rate E&M 90 /min Setph Amaury " temperature site oral Steph Amaury " temperature E&M 98.1 [degF] Steph Amaury " weight E&M 157 lbs. Steph Amaury " weight in kilograms E&M 71.36 kg Steph Amaury " height E&M 60 [in_i] Steph Amaury " height in centimeters E&M 152.40 cm Steph Amaury oxygen saturation, oximetry 96 % Anay May [...] Yuniel Lee pulse rate E&M 70 /min Charlesjules Rothman " blood pressure, diastolic 82 mm[Hg] Charles Rothman " blood pressure, systolic 125 mm[Hg] Charles Savagevo oxygen saturation, oximetry 98 % Ashley Sevilla " method used to obtain blood pressure automatic Ashley Sevilla " Blood Pressure Position 01 sitting Ashley Sevilla " blood pressure, site #1 left arm Ashley Sevilla " blood pressure, diastolic 76 mm[Hg] Ashley Wrightvez " blood pressure, systolic 114 mm[Hg] Ashley Sevilla " respiratory rate E&M 16 /min Ashley Wrightvez " pulse rate E&M 87 /min Ashley Wrightvez " temperature site oral Ashley Sevilla " temperature E&M 98.1 [degF] Ashley Wrightvez " height E&M 60 [in_i] Ashley Wrightvez " height in centimeters E&M 152.40 cm Ashley Sevilla " weight E&M 152.80 lbs. Ashley Sevilla " weight in kilograms E&M 69.45 kg Ashley Wrightvez ALLERGIES Allergy Name Onset Date Reaction Criticality Status LATEX Swelling, burning, rash high fever High Criticality active PCN rash, swelling, burning, SOB, chest pain High Criticality active REASON FOR REFERRAL Start Date - End Date Service - Neurology - External - Ultrasound - Pelvic/Transvaginal - Mammogram - Screening - Neurology - External - 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 - Internal - Gastroenterology - External RESULTS [...] MEDICATION USE Medication Instructions Dates Provider Comments AMOXICILLIN 500 MG ORAL CAPSULE Take 2 cap By Mouth Twice a Day - Joeyteddy Ross GABAPENTIN 300 MG ORAL CAPSULE 1 by mouth three times a day Joey Ross FLUDROCORTISONE ACETATE 0.1 MG ORAL TABLET One tablet By Mouth Every Day - Joeyteddy Nelsonkikauz ZOLOFT 100 MG ORAL TABLET Take 1 tablet by mouth daily. Juan Clifton BACLOFEN 10 MG ORAL TABLET one tablet by mouth take at bedtime as needed for muscle spasm - Joey Lloydgrey MACROBID 100 MG ORAL CAPSULE 1 by [...] is very supportive. Not homeless. Born in [place]. State: [facility] . Lives with daughter with her family (, 3 kids). 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 Unemployed since 2015, not on disability "fighting it". Sex at : Female. Sexual orientation: Heterosexual. Gender identity: Female. Gender of partner(s): Male. Age of first sexual intercourse: 18. Sexually Active: no. Jehova's witness. Arrested for "food stamp fraud", dismissed. Ashley Sevilla " social history reviewed E&M reviewed today Ashley Sevilla " sexual orientation Heterosexual Ashley Sevilla " assessment of health literacy ([facility] 2014 Standards, 3C10) Adequate Ashley Sevilla " passive cigarette smoke exposure No Ashley Sevilla " smoking status never smoker Ashley Sevilla Exercise Program Referral Slava Polanco " Weight Management Counseling Provided Slava Polanco " Nutrition intervention Slava Polanco " sexual orientation Heterosexual Sierra Echeverria " assessment of health literacy ([facility] 2014 Standards, 3C10) Adequate Sierra Echeverria " drug use, illicit Never Sierra Juwan " alcohol use Never Sierra Echeverria " smoking status never smoker Sierra Echeverria Exercise Program Referral Slava Sevilla " Weight Management Counseling Provided Slava Sevilla " Nutrition intervention Slava Sevilla " sexual orientation Heterosexual Ashley Sevilla " assessment of health literacy ([facility] 2014 Standards, 3C10) Adequate Ashley Sevilla " passive cigarette smoke exposure No Ashley Sevilla " smoking status never smoker Ashley Sevilla " social history E&M . She is 1 of 12 siblings. from , 1 son working and 1 daughter who is very supportive. Not homeless. Born in [place]. State: [facility] . Lives with daughter with her family (, 3 kids). 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 Not homeless. Born in [place]. State: [facility] . Lives with daughter with her family (, 3 kids). 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 Sex at : Female. Sexual orientation: Heterosexual. Gender identity: Female. Gender of partner(s): Male. Age of first sexual intercourse: 18. Sexually Active: no. Jehova's witness. Arrested for "food stamp fraud", dismissed. Steph Jack " social history reviewed E&M reviewed today Steph Amaury " sexual orientation Heterosexual Steph Jack " assessment of health literacy ([facility] 2014 Standards, 3C10) Adequate Steph Jack " passive cigarette smoke exposure No Stephghulam Rebolledo " smoking status never smoker Steph Rebolledo " Exercise Program Referral T Steph Jack " Weight Management Counseling Provided T Steph Jack " Nutrition intervention T Steph Jack Exercise Program Referral T Ashley Sevilla " Weight Management Counseling Provided T Ashley Sevilla " Nutrition intervention T Ashley Sevilla " social history E&M . She is 1 of 12 siblings. from , 1 son working and 1 daughter who is very supportive. Not homeless. Born in [place]. State: [facility] . Lives with daughter with her family (, 3 kids). 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 Not homeless. Born in [place]. State: [facility] . Lives with daughter with her family (, 3 kids). 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 Born in [place]. State: [facility] . 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 Sex at : Female. Sexual orientation: Heterosexual. Gender identity: Female. Gender of partner(s): Male. Age of first sexual intercourse: 18. Sexually Active: no. Ashley Fields " social history reviewed E&M reviewed today Ashley Keyess " assessment of health literacy ([facility] 2014 Standards, 3C10) Adequate Ashley Fields " passive cigarette smoke exposure No Ashley Fields " smoking status never smoker Ashley Keyess " Exercise Program Referral T Ashley Keyess " Weight Management Counseling Provided T Ashley Fields " Nutrition intervention T Ashley Fields drug use, illicit Never Steph Amaury " alcohol use Never Steph Amaury " social history E&M . from , 1 son working and 1 daughter who is very supportive Not homeless. Born in [place]. State: [facility] . 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 Sex at : Female. Sexual orientation: Heterosexual. Gender identity: Female. Gender of partner(s): Male. Age of first sexual intercourse: 18. Sexually Active: Yes. Steph Amaury " social history reviewed E&M reviewed today Steph Amaury " sexual orientation Heterosexual Steph Amaury " assessment of health literacy ([facility] 2014 Standards, 3C10) Adequate Steph Amaury [...] is very supportive Not homeless. Born in [place]. State: [facility] . 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 Sex at : Female. Sexual orientation: Heterosexual. Gender identity: Female. Gender of partner(s): Male. Age of first sexual intercourse: 18. Sexually Active: Yes. Anay May " social history reviewed E&M reviewed today Anay May " sexual orientation Heterosexual Anay May " assessment of health literacy ([facility] 2014 Standards, 3C10) Adequate Anay May " passive cigarette smoke exposure No Anay May " smoking status never smoker Anay May social history reviewed E&M reviewed today Mariajose Amol " social history E&M . from , 1 son working and 1 daughter who is very supportive Not homeless. Born in [place]. State: [facility] . Lives [...] Anay May " assessment of health literacy ([facility] 2014 Standards, 3C10) Adequate Anay May [...] Yuniel Lee " assessment of health literacy ([facility] 2014 Standards, 3C10) Adequate Yuniel Lee " is there any chance that you could be ? No Yuniel Lee " passive cigarette smoke exposure No Yuniel Lee " smoking status never smoker Yuniel Lee " Exercise Program Referral T Yuniel Lee " Weight Management Counseling Provided Slava Lee " Nutrition intervention Slava Lee time of call 09/19/2018 4:41 PM Ingrid Leung time of call 09/17/2018 12:43 PM Rylee Cheek time of call 09/17/2018 12:14 PM Leatha Durant Exercise Program Referral T Ashley Swainz " Weight Management Counseling Provided T Ashley Swainz " Nutrition intervention T Ashley Sevilla " social history reviewed E&M reviewed today Ashley Wrightvez " drug use, illicit Never Ashley Sevilla " alcohol use Never Ashley Sevilla " sexual orientation Heterosexual Ashley Sevilla " sex at Female Ashley Sevilla " 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 Ashley Sevilla " assessment of health literacy ([facility] 2014 Standards, 3C10) Adequate Ashley Sevilla " passive cigarette smoke exposure No Ashley Sevilla " smoking status never smoker Ashley Sevilla FUNCTIONAL STATUS No Information Available MENTAL STATUS Date Observation Value Provider assessment of judgment and insight E&M intact Joey Mahfouz " mental status examination: orientation E&M oriented to time, place, and person Joey Mahfouz " assessment of mood and affect E&M no depression, anxiety, or agitation Joey Mahfouz " Generalized Anxiety Disorder Questionnaire - Question 2 0 Ashley Sevilla " Generalized Anxiety Disorder Questionnaire - Question 1 0 Ashley Sevilla assessment of judgment and insight E&M intact Joey Mahfouz " mental status examination: orientation E&M oriented to time, place, and person Joey Mahfouz " assessment of mood and affect E&M no depression, anxiety, or agitation Joey Mahfouz " Generalized Anxiety Disorder Questionnaire - Question 2 0 Sierra Echeverria " Generalized Anxiety Disorder Questionnaire - Question 1 0 Sierra Echeverria assessment of judgment and insight E&M intact Joey Mahfouz " mental status examination: orientation E&M oriented to time, place, and person Joey Mahfouz " assessment of mood and affect E&M no depression, anxiety, or agitation Joey Mahfouz " Generalized Anxiety Disorder Questionnaire - Question 2 0 Ashley Sevilla " Generalized Anxiety Disorder Questionnaire - Question 1 0 Ashley Sevilla assessment of judgment and insight E&M intact Joey Mahfouz " mental status examination: orientation E&M oriented to time, place, and person Joey Mahfouz " assessment of mood and affect E&M no depression, anxiety, or agitation Joey Lloydgrey " Generalized Anxiety Disorder Questionnaire - Question [...] Clifton" mental status assessment, judgment fair Juan Clifton" [...] rate, normal tone, normal volume, spontaneous, limitted Thai Juna Clifton" mental status assessment, motor activity normal [...] of judgment and insight E&M poor Joey Lloydgrey " assessment of mood and affect E&M no depression, anxiety, or agitation Joey Ross " mental status examination: orientation E&M oriented to time, place, and person Joey Vandana " Generalized Anxiety Disorder Questionnaire - Question [...] candid, cooperative, good eye contact, polite, responsive Mariaojse Carmichael" mental appearance (mental status exam) adequate [...] libertarian ID Sliding Fee - [employer] insurance [employer] [id number] ADVANCE DIRECTIVES No Information Available TREATMENT PLAN [...] - - Est Patient Exp Problem - 76214 Est Patient Exp Problem - 66610 Est Patient Exp Problem - 32514 Est Patient Exp Problem - 42209 Est Patient Exp Problem - 23344 Diagnostic evaluation with medical - 12729 New Patient Well Exam (40 - 64 Yrs) - 13270 Est Patient Exp Problem - 03736 Behavioral Health - Therapy Behavioral Health - Psychiatry Medical Records Custodian Ofc Vst, Est Level III Dispensing Visit (Non-Billable) [facility] Assessment - Shower Room Attendant Diagnostic evaluation (no medical) - 54585 Ofc Vst, Est Level III Est Patient Exp Problem - 96367 Integrated Behavioral Health Assessment (IBH) Behavioral Health - Psychiatry Frames, purchases Sphere, bif, plano to +/- 4.00d, per lens New Patient Intermediate Opth - 00666 New Patient Detailed - 05533 Prescription Assistance (Non-HIV) Medical Records Custodian [facility] - Internal Behavioral Health - Psychiatry HISTORY OF PROCEDURES Procedure Date Procedure Name Provider Procedure Notes Status Diagnostic evaluation with medical - 52898 Juan Clifton completed Dispensing Visit (Non-Billable) Janeth Rossi completed [facility] Assessment - Shower Room Attendant Mariajose Carmichael completed Diagnostic evaluation (no medical) - 56535 Mariajose Carmichael completed Frames, purchases Janeth Rossi completed Sphere, bif, plano to +/- 4.00d, per lens Janeth Rossi 65.00 completed New Patient Intermediate Opt - 74436 Arsenio Larsen completed GOALS No Information Available HEALTH CONCERNS No Information Available
--- OUTSIDE RECORDS SUMMARY | 2019-06-10 14:44 | XMS REPORT ---
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 Dementia completed - Joeyteddy Ross Abnormal abdominal imaging active Joey Mahfouz Melasma active Joey Mahfouz Hypotension active Jeoy Lesliefouz Intermittent Muscle spasm, back active Joey Mahfouz Dysuria active Joeyteddy Lloyduz Unspecified ovarian cyst, left side active Kobi Long DEPRESSIVE DISORDER, D/T ANOT MED COND, W/ DEPRESSIVE FEATURES completed - Juan Clifton Diverticulitis active Kboi Long Overweight active Juan José Polanco Epigastric [...] Location Encounter Diagnosis - Ambulatory Encounter [facility]onnell [facility] UNK - Ambulatory Encounter Joey Nelsonfogrey [facility] UNK - Ambulatory Encounter Joey Nelsonfogrey [facility] UNK - Ambulatory Encounter Joey Nelsonfogrey [facility] UNK - Ambulatory Encounter Zuleyka Nelsonfogrey [facility] Otitis media acute right - Ambulatory Encounter Joeyteddy Ross [facility] UNK - Ambulatory Encounter [facility] UNK - Ambulatory Encounter Joey Lesliefogrey [facility] UNK - Ambulatory Encounter [facility] UNK - Ambulatory Encounter Joey [facility] UNK - Ambulatory Encounter Joey Lesliegrey [facility] UNK - Ambulatory Encounter Joey Lesliegrey [facility] UNK - Ambulatory Encounter Juan José Polanco [facility] Sierra Echeverria [facility] PrediabetesBMI 31.0-31.9 - Ambulatory Encounter Joey Lesliegrey [facility] UNK - Ambulatory Encounter Joey Lesliegrey [facility] UNK - Ambulatory Encounter [facility] UNK - Ambulatory Encounter Joey [facility] UNK - Ambulatory Encounter Joey [facility] UNK - Ambulatory Encounter Joey [facility] UNK - Ambulatory Encounter Joey [facility] UNK - Ambulatory Encounter Zuleyka Sevilla Joey Nelsongrey Cook [facility] HypertensionHeadache, severeNumbness - Ambulatory Encounter Joey Lesliegrey Cook [facility] UNK - Ambulatory Encounter Joey Vandana Cook [facility] UNK - Ambulatory Encounter Joey Lesliegrey Cook [facility] UNK - Ambulatory Encounter Joey Lesliegrey [facility] UNK - Ambulatory Encounter Zuleyka Wade Joey Nelsongrey Cook [facility] Steph Rebolledo [facility] HypertensionHeadache, severeNumbness - Ambulatory Encounter Fax Status [facility] UNK - Ambulatory Encounter F[facility] Status [facility] - Ambulatory Encounter Fax Status [facility] - Ambulatory Encounter Joeyteddy Nelsongrey Cook [facility] UNK - Ambulatory Encounter Joey Vandana Cook [facility] UNK - Ambulatory Encounter Joey [facility] UNK - Ambulatory Encounter Joey Lesliegrey Cook [facility] UNK - Ambulatory Encounter Zuleyka Joe Joey [facility] Joey [facility] Sky Cotton [facility] DementiaOrthostatic hypotensionDysautonomiaHx of syncope and collapse - Ambulatory Encounter Joey [facility] UNK - Ambulatory Encounter Joey Premauz Joey [facility] UNK - Ambulatory Encounter Joey Cook [facility] UNK - Ambulatory Encounter Juan Mcmahanos Enrike Etiennestewart Loja [facility] DEPRESSIVE DISORDER, D/T ANOT MED COND, W/ DEPRESSIVE FEATURESDEPRESSIVE DISORDER, MAJOR, RECURRENT EPISODE, MILDANXIETY DISORDER, UNSPECIFIED - Ambulatory Encounter Matthew Castro A Maru [facility] UNK - Ambulatory Encounter Isidra Angeles [facility] Sales Account Representative UNK - Ambulatory Encounter Matthew Castro A Maru [facility] UNK - Ambulatory Encounter Matthew Castro A Maru [facility] UNK - Ambulatory Encounter Isidra Fonseca [facility] Sales [facility] Representative UNK - Ambulatory Encounter Ashley Fields [facility] UNK - Ambulatory Encounter Matthew Castro A Maru [facility] UNK - Ambulatory Encounter Matthew Fields [facility] Marine 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 annual examHistory of ovarian cystMammogram not high risk screeningScreening for vaginal cancer - Ambulatory Encounter Joey Nelsonkikagrey Wrightar [facility] UNK - Ambulatory Encounter Joey Ross Omar [facility] UNK - Ambulatory Encounter Joey Premagrey Wrightar Mahfouz [facility] UNK - Ambulatory Encounter Joey Vandana [facility] UNK - Ambulatory Encounter Joey Vandana Nelsonfogrey [facility] UNK - Ambulatory Encounter Joey Vandana Cook Mahfouz [facility] UNK - Ambulatory Encounter Joey Vandana Cook Mahfouz [facility] UNK - Ambulatory Encounter Joey Vandana Cook Mahfouz [facility] UNK - Ambulatory Encounter Isidra Lee [facility] Sales Account Representative UNK - Ambulatory Encounter Joey Vandana Cook [facility] - Ambulatory Encounter Joey Vandana Cook [facility] Steph Rebolledo [facility] UNK - Ambulatory Encounter Joey Vandana Cook [facility] UNK - Ambulatory Encounter Joey Vandana Cook [facility] UNK - Ambulatory Encounter Fax [...] Health Services UNK - Ambulatory Encounter Joey [facility] Cook [facility] UNK - Ambulatory Encounter Joey [facility] Joey [facility] UNK - Ambulatory Encounter Patrica Fonseca [facility] Vickeytanya Rebolledo [facility] DysuriaMuscle spasm, backHypotensionMelasmaAbnormal abdominal imagingDementia - Ambulatory Encounter Sally Tejeda [facility] UNK - Ambulatory Encounter Margie [facility] UNK - Ambulatory Encounter Margie [facility] UNK - Ambulatory Encounter Margie [facility] UNK - Ambulatory Encounter Kobi Long [facility] UNK - Ambulatory Encounter Kobi Lisaiott [facility] UNK - Ambulatory Encounter Kobi Long [facility] UNK - Ambulatory Encounter Kobi Obrien Anay May FaQuazia Cam [facility] Unspecified ovarian cyst, left side - Ambulatory Encounter Margie [facility] UNK - Ambulatory Encounter Benjamin Sergei [facility] UNK - Ambulatory Encounter Janeth Rossi [facility] UNK - Ambulatory Encounter Yuniel Lee [facility] UNK - Ambulatory Encounter Kobi Long [facility] UNK - Ambulatory Encounter Kobi Long [facility] UNK - Ambulatory Encounter Kobi Long Anay May [facility] Diverticulitis - Ambulatory Encounter Mariajose Carmichael [facility] DEPRESSIVE DISORDER, D/T ANOT MED COND, W/ DEPRESSIVE FEATURES - Ambulatory Encounter [facility] - Ambulatory Encounter Janeth Rossi [facility] UNK - Ambulatory Encounter [facility] UNK - Ambulatory Encounter Jayleen Gianfranco [facility] UNK - Ambulatory Encounter Ashley Sevilla [facility] UNK - Ambulatory Encounter [facility] UNK - Ambulatory Encounter [facility] - Ambulatory Encounter [facility] UNK - Ambulatory Encounter Joey [facility] UNK - Ambulatory Encounter Juan José Chacon [facility] Yuniel Lee [facility] Epigastric discomfortOverweight - Ambulatory Encounter [facility] - Ambulatory Encounter Joey Lesliefouz Joey [facility] - Ambulatory Encounter Joey Nelsonfogrey [facility] UNK - Ambulatory Encounter Joey Ross Ingrid Leung [facility] Contact Center UNK - Ambulatory Encounter Devaughn Rothman [facility] UNK - Ambulatory Encounter Janeth [facility] - Ambulatory Encounter Joey Cook [facility] UNK - Ambulatory Encounter Arseniojunaid Larsen [facility] UNK - Ambulatory Encounter Arsenio Larsen [facility] UNK - Ambulatory Encounter Arseniojunaid Larsen [facility] UNK - Ambulatory Encounter Arseniojunaid Cartagena [facility] Myopia - OUPresbyopia - OU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 - Ambulatory Encounter Isidra Fonseca [facility] UNK - Ambulatory Encounter Joey [facility] UNK - Ambulatory Encounter Joey Nelsonkikagrey Bella Cheek [facility] Contact Center UNK - Ambulatory Encounter Leatha Durant [facility] UNK - Ambulatory Encounter Annette Sanders [facility] UNK - Ambulatory Encounter Joeyteddy Cook [facility] UNK - Ambulatory Encounter Joey Cook [facility] UNK - Ambulatory Encounter Joey Cook [facility] UNK - Ambulatory Encounter Joey Cook [facility] UNK - Ambulatory Encounter Marlene Chilel Joey [facility] Joey [facility] Leatha Soto [facility] Diverticulitis, colonDiverticular diseaseHypotensionHistory of hypertensionAnemia due to dietary iron deficiencyHx of hypokalemiaHyperlipidemiaGERDDepressionAbdominal distentionScreening for colon cancerAnxietyVertigoGastroparesisDiabetic neuropathyDry eyeAsthma - Ambulatory Encounter Joey Cook [facility] UNK VITAL SIGNS Date Observation Value Provider [...] Echeverria " weight E&M 163 lbs. Sierra Juwan " weight in kilograms E&M 74.09 kg Sierra Echeverria " height E&M 60 [in_i] Sierra Echeverria " height in centimeters E&M 152.40 cm Sierra Juwan BP diastolic #1 98 mm[Hg] Ashley Sevilla [...] " blood pressure, systolic 148 mm[Hg] Ashley Wrightvez " respiratory rate E&M 18 /min Ashley Sevilla " pulse rate E&M 103 /min Ashley Wrightvez " temperature site oral Ashley Swainz " temperature E&M 98.4 [degF] Ashley Sevilla " weight E&M 161.60 lbs. Ashley Wrightvez " weight in kilograms E&M 73.45 kg Ashley Sevilla " height E&M 60 [in_i] Ashley Wrightvez " height in centimeters E&M 152.40 cm Ashley Sevilla blood pressure, diastolic, third observation 100 mm[Hg] Joeyteddy Ross " blood pressure, systolic, third observation 170 mm[Hg] Joey Lesliefouz " blood pressure, diastolic, second observation 105 [...] method used to obtain blood pressure automatic Stpeh Rebolledo " Blood Pressure Position 01 sitting [...] Ashley Fields " temperature site oral Ashley Fields " temperature E&M 98.6 [degF] Ashley Fields " weight E&M 156.80 lbs. Ashley Fields " weight in kilograms E&M 71.27 kg [...] Lee pulse rate E&M 70 /min Charles Rothman " blood pressure, diastolic 82 mm[Hg] [...] - Screening - Neurology - External - CLAY MOLDER - Internal - Gastroenterology - External RESULTS [...] MEDICATION USE Medication Instructions Dates Provider Comments AZITHROMYCIN 250 MG ORAL TABLET 2 tablets by mouth on day one then one tablet by mouth each day for a total of 5 days - Joey Ross GABAPENTIN 300 MG ORAL CAPSULE [...] 1 tablet 30 minutes before meals Kobi Lisaiott CARAFATE 1 GM ORAL TABLET 1 by [...] is very supportive. Not homeless. Born in [place]. [place]: [place] . Lives with daughter with her family (, 3 kids). 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 Unemployed since 2016, [...] Ashley Sevilla " assessment of health literacy ([facility] 2014 Standards, 3C10) Adequate Ashley Sevilla " passive cigarette smoke exposure No Ashley Sevilla " smoking status never smoker Ashley Sevilla Exercise Program Referral T Juan José Polanco " Weight Management Counseling Provided Slava Juan José Polanco " Nutrition intervention T Juan José Polanco " sexual orientation Heterosexual Sierra Echeverria " assessment of health literacy ([facility] 2014 Standards, 3C10) Adequate Sierra Echeverria " drug use, illicit Never Sierra Echeverria " alcohol use Never Sierra Echeverria " smoking status never smoker Sierra Echeverria Exercise Program Referral T Ashley Sevilla " Weight Management Counseling Provided T Ashley Sevilla " Nutrition intervention T Ashley Sevilla " sexual orientation Heterosexual Ashley Sevilla " assessment of health literacy ([facility] 2014 Standards, 3C10) Adequate Ashley Sevilla " passive cigarette smoke exposure No Ashley Sevilla " smoking status never smoker Ashley Sevilla " social history E&M . She is 1 of 12 siblings. from , 1 son working and 1 daughter who is very supportive. Not homeless. Born in [place]. [place]: [employer] . Lives with daughter with her family (, 3 kids). 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 Sex at : Female. Sexual orientation: Heterosexual. Gender identity: Female. Gender of partner(s): Male. Age of first sexual intercourse: 18. Sexually Active: no. Jehova's witness. Arrested for "food stamp fraud", dismissed. Ashley Sevilla " social history reviewed E&M reviewed today Ashley Sevilla drug use, illicit Never Stephghulam Rebolledo " alcohol use Never Stephghulam Rebolledo " social history E&M . She is 1 of 12 siblings. from , 1 son working and 1 daughter who is very supportive. Not homeless. Born in [place]. [place]: [place] . Lives with daughter with her family (, 3 kids). 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 Sex at : Female. Sexual orientation: Heterosexual. Gender identity: Female. Gender of partner(s): Male. Age of first sexual intercourse: 18. Sexually Active: no. Jehova's witness. Arrested for "food stamp fraud", dismissed. Steph Amaury " social history reviewed E&M reviewed today Steph Amaury " sexual orientation Heterosexual Steph Rebolledo " assessment of health literacy ([facility] 2014 Standards, 3C10) Adequate Steph [...] is very supportive. Not homeless. Born in [place]. [place]: [employer] . Lives with daughter with her family (, 3 kids). 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 Not homeless. Born in [place]. [place]: [employer] . Lives with daughter with her family (, 3 kids). 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 Born in [place]. [place]: [employer] . 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 Sex at : Female. Sexual orientation: Heterosexual. Gender identity: Female. Gender of partner(s): Male. Age of first sexual intercourse: 18. Sexually Active: no. Ashley Fields " social history reviewed E&M reviewed today Ashley Fields " assessment of health literacy ([facility] 2014 Standards, 3C10) Adequate Ashley [...] is very supportive Not homeless. Born in [place]. [place]: [employer] . 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 Sex at : Female. Sexual orientation: Heterosexual. Gender identity: Female. Gender of partner(s): Male. Age of first sexual intercourse: 18. Sexually Active: Yes. Steph Amaury " social history reviewed E&M reviewed today Steph Amaury " sexual orientation Heterosexual Steph Amaury " assessment of health literacy ([facility] 2014 Standards, 3C10) Adequate Steph Amaury " [...] is very supportive Not homeless. Born in [place]. [place]: [employer] . 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 Sex at : Female. Sexual orientation: Heterosexual. Gender identity: Female. Gender of partner(s): Male. Age of first sexual intercourse: 18. Sexually Active: Yes. Anay May " social history reviewed E&M reviewed today Anay May " sexual orientation Heterosexual Anay May " assessment of health literacy ([facility] 2014 Standards, 3C10) Adequate Anay May " passive cigarette smoke exposure No Anay May " smoking status never smoker Anay May social history reviewed E&M reviewed today Mariajose Amol " social history E&M . from , 1 son working and 1 daughter who is very supportive Not homeless. Born in [place]. [place]: [employer] . Lives with daughter with her family [...] health literacy ([facility] 2014 Standards, 3C10) Adequate Anay [...] health literacy ([facility] 2014 Standards, 3C10) Adequate Yuniel Lee " is there any chance that you could be ? No Yuniel Caputoa " passive cigarette smoke exposure No Yuniel Lee " smoking status never smoker Yuniel Lee " Exercise Program Referral T Yuniel Lee " Weight Management Counseling Provided T Yuniel Lee " Nutrition intervention T Yuniel Jesus time of call 09/19/2018 4:41 PM Ingrid Leung time of call 09/17/2018 12:43 PM Rylee Cheek time of call 09/17/2018 12:14 PM Leatha Durant Exercise Program Referral T Ashley Di " Weight Management Counseling Provided T Ashley Swainz " Nutrition intervention T Ashley Swainz " social history reviewed E&M reviewed today Ashley Wrightvez " drug use, illicit Never Ashley Sevilla " alcohol use Never Ashley Swainz " sexual orientation Heterosexual Ashley Wrightvez " sex at Female Ashley Sevilla " 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 Ashley Sevilla " assessment of health literacy ([facility] 2014 Standards, 3C10) Adequate Ashley Sevilla " passive cigarette smoke exposure No Ashley Sevilla " smoking status never smoker Ashley Sevilla FUNCTIONAL STATUS No Information Available MENTAL STATUS Date Observation Value Provider assessment of judgment and insight E&M intact [facility] " mental status examination: orientation E&M oriented to time, place, and person [facility] " assessment of mood and affect E&M no depression, anxiety, or agitation Joey [facility] " Generalized Anxiety Disorder Questionnaire - Question 2 0 Ashley Sevilla " Generalized Anxiety Disorder Questionnaire - Question 1 0 Ashley Sevilla assessment of judgment and insight E&M intact Joey [facility] " mental status examination: orientation E&M oriented to time, place, and person Joey [facility] " assessment of mood and affect E&M no depression, anxiety, or agitation Joey Mahfouz " Generalized Anxiety Disorder Questionnaire - Question 2 0 Sierra Echeverria " Generalized Anxiety Disorder Questionnaire - Question 1 0 Sierra Echeverria assessment of judgment and insight E&M intact Joey [facility] " mental status examination: orientation E&M oriented [...] oriented to time, place, and person Joeyteddy Nelsongrey " assessment of mood and affect E&M no depression, anxiety, or agitation Joey Ross " Generalized Anxiety Disorder Questionnaire - Question 2 0 Steph Rebolledo " Generalized Anxiety Disorder Questionnaire - Question 1 0 Steph Rebolledo assessment of judgment and insight E&M intact Joey Lesliefouz " mental status examination: orientation E&M oriented to time, place, and person Joey [facility] " assessment of mood and [...] rate, normal tone, normal volume, spontaneous, limitted Syriac Juan Clifton" mental status assessment, motor activity normal gait, normal posture Juan Clifton" behavior (mental status exam) appropriate, candid, cooperative, good eye contact, polite, responsive Juan Clifton" mental appearance (mental status exam) adequate hygiene, appropriate dress, looks like stated age, neat, makeup appropriate Juan Clifton Generalized Anxiety Disorder Questionnaire - Question 2 0 Ashley Keyess " Generalized Anxiety Disorder Questionnaire - Question [...] democrat ID Sliding Fee - Cat 1 [employer] insurance manetch [id number] ADVANCE DIRECTIVES No Information Available TREATMENT PLAN [...] - - Est Patient Exp Problem - 39777 Est Patient Exp Problem - 07524 Est Patient Exp Problem - 00736 Est Patient Exp Problem - 22630 Est Patient Exp Problem - 43437 Diagnostic evaluation with medical - 50654 New Patient Well Exam (40 - 64 Yrs) - 19262 Est Patient Exp Problem - 76439 Behavioral Health - Therapy Behavioral Health - Psychiatry Sales Account Representative Ofc Vst, Est Level III Dispensing Visit (Non-Billable) [facility] Assessment - Cell Operator Diagnostic evaluation (no medical) - 00004 Ofc Vst, Est Level III Est Patient Exp Problem - 83399 Integrated Behavioral Health Assessment (IBH) Behavioral Health - Psychiatry Frames, purchases Sphere, bif, plano to +/- 4.00d, per lens New Patient Intermediate Opt - 11471 New Patient Detailed - 64448 Prescription Assistance (Non-HIV) Sales Account Representative [facility] - Psychiatry HISTORY OF PROCEDURES Procedure Date Procedure Name Provider Procedure Notes Status Diagnostic evaluation with medical - 92283 Juan Clifton completed Dispensing Visit (Non-Billable) Janeth Rossi completed [facility] Assessment - Cell Operator Mariajose Carmichael completed Diagnostic evaluation (no medical) - 46723 Mariajose Carmichael completed Frames, purchases Janeth Rossi completed Sphere, bif, plano to +/- 4.00d, per lens Janeth Rossi 65.00 completed New Patient Intermediate Opt - 50470 Arsenio Larsen completed GOALS No Information Available HEALTH CONCERNS No Information Available
--- OUTSIDE RECORDS SUMMARY | 2019-06-10 14:45 | XMS REPORT ---
Author Author Admin, [place] Organization Unknown Address Unknown Phone Unavailable PROBLEMS Condition Status Date Provider Notes Personal history of anaphylaxis active Joey Mahfouz Headache, chronic active Joey Mahfouz Otitis media acute right active Joey Mahfouz BMI 31.0-31.9 active Juan José Saenzberg Prediabetes active Joey Mahfouz Numbness completed - Joey Mahfouz Headache, severe completed - Joey Mahfouz Hypertension active Joey Mahfouz Hx of syncope and collapse active Joey Mahfouz Dysautonomia active Joey Mahfouz Orthostatic hypotension active Joey Premauz ANXIETY DISORDER, UNSPECIFIED active Juan Clifton DEPRESSIVE DISORDER, MAJOR, RECURRENT EPISODE, MILD active Juan Clifton Screening for vaginal cancer active 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 Mammogram not high risk screening active 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 History of ovarian cyst active 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 Matthew Hurdria Dementia completed - Joeyteddy Ross Abnormal abdominal imaging active Joey Mahfouz Melasma active Joey Mahfouz Hypotension active Joeyteddy Nelsonfouz Intermittent Muscle spasm, back active Joey Lesliefouz Dysuria active Joeyteddy Lloyduz Unspecified ovarian cyst, left side active Kobi Long DEPRESSIVE DISORDER, D/T ANOT MED COND, W/ DEPRESSIVE FEATURES completed - Juan Clifton Diverticulitis active Kobi Long Overweight active Juan José Polanco Epigastric discomfort active Joey Mahfouz 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 active Arsenio Chava Presbyopia - OU active Arsenio Dicks Myopia - OU active Arsenio Dickcarmen Asthma active Joey Mahfouz Dry eye active [...] Location Encounter Diagnosis - Ambulatory Encounter Joeyteddy Nelsonfouz [facility] UNK - Ambulatory Encounter Joey Lesliefogrey Joey Mahfouz [facility] UNK - Ambulatory Encounter Joeyteddy Nelsonfogrey Joey Mahfouz [facility] UNK - Ambulatory Encounter Joey Vandana Joey Mahfouz [facility] UNK - Ambulatory Encounter Joeyteddy Ross Joey Mahfouz [facility] UNK - Ambulatory Encounter Juan [facility] Polanco [facility] Sierra Echeverria [facility] Headache, chronicPersonal history of anaphylaxis - Ambulatory Encounter Joey Lesliegrey Cook Vandana [facility]cd[facility] UNK - Ambulatory Encounter Joey Lesliegrey [facility] UNK - Ambulatory Encounter Joey Lesliegrey [facility] UNK - Ambulatory Encounter Joey Lesliegrey [facility] UNK - Ambulatory Encounter Zuleyka Sevilla Joeyteddy Nelsongrey Joey [facility] Otitis media acute right - Ambulatory Encounter Joey Lesliegrey Cook [facility] UNK - Ambulatory Encounter Joey Lesliegrey Cook [facility] UNK - Ambulatory Encounter Joey Lesliegrey Joey [facility] UNK - Ambulatory Encounter Joey Lesliegrey [facility] UNK - [facility] UNK - Ambulatory Encounter Joey Lesliegrey [facility] UNK - Ambulatory Encounter Joey Lesliegrey [facility] UNK - Ambulatory Encounter Juan José Polanco Joey Lesliegrey Joey Vandana Echeverria [facility] PrediabetesBMI 31.0-31.9 - Ambulatory Encounter Joey Vandana Cook Mahfouz [facility] UNK - Ambulatory Encounter Joey Vandana Cook [facility] UNK - Ambulatory Encounter Joey Vandana Cook [facility] UNK - Ambulatory Encounter Joey Vandana Cook Mahfouz [facility] UNK - Ambulatory Encounter Joey Vandana Cook Mahfouz [facility] UNK - Ambulatory Encounter Joey Vandana Cook Mahfouz [facility] UNK - Ambulatory Encounter Joey Vandana Cook [facility] UNK - Ambulatory Encounter Zuleyka Sevilla Joey [facility] HypertensionHeadache, severeNumbness - Ambulatory Encounter Joey Vandana Cook [facility] UNK - Ambulatory Encounter Joey Vandana Cook [facility] UNK - Ambulatory Encounter Joey Vandana Joey [facility] UNK - Ambulatory Encounter Joey Vandana Cook [facility] UNK - Ambulatory Encounter Zuleyka Cook Vandana Nelsongrey Steph Rebolledo [facility] HypertensionHeadache, severeNumbness - Ambulatory Encounter Fax Status Link[facility] UNK - Ambulatory Encounter F[facility] UNK - Ambulatory Encounter Fax Status Link[facility] UNK - Ambulatory Encounter Joey [facility] - Ambulatory Encounter [facility] - [facility] En[facility] - Ambulatory Encounter [facility] - Ambulatory Encounter Zuleyka Joe [facility] Sky Cotton [facility] DementiaOrthostatic hypotensionDysautonomiaHx of syncope and collapse - Ambulatory Encounter Joey [facility] UNK - Ambulatory Encounter [facility] UNK - Ambulatory Encounter Joeyteddy Nelsongrey Cook [facility] UNK - Ambulatory Encounter Juan Loja [facility] DEPRESSIVE DISORDER, D/T ANOT MED COND, W/ DEPRESSIVE FEATURESDEPRESSIVE DISORDER, MAJOR, RECURRENT EPISODE, MILDANXIETY DISORDER, UNSPECIFIED - Ambulatory Encounter 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 [facility] UN[facility] - Ambulatory Encounter Isidra Angeles [facility] [employer] UNK - Ambulatory Encounter 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 [facility] DIRECT[facility] DATA PROCESSING UNK - Ambulatory Encounter 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 [facility] DIRECTOR DATA PROCESSING UNK - Ambulatory Encounter Isidra Fonseca [facility] [employer] [facility] UNK - Ambulatory Encounter Ashley Fields [facility] DATA PROCESSING UNK - Ambulatory Encounter Matthewmirza Hurdpriya Castro A Maru [facility] PROCESSING UNK - Ambulatory Encounter Matthew Trung Maru Castro A Maru Joe Ashley Fields [facility] DIRECTOR DATA PROCESSING Pipe Line Repairer annual examHistory of ovarian cystMammogram not high risk screeningScreening for vaginal cancer - Ambulatory Encounter Joey [facility] Wrightar [facility] UNK - Ambulatory Encounter Joey [facility] Cook [facility] UN[facility] - Ambulatory Encounter [facility] LinkLog [facility] UNK - Ambulatory Encounter Joey Lesliegrey Cook [facility] LinkLog [facility] UNK - Ambulatory Encounter [facility] LinkLog [facility] UNK - Ambulatory Encounter Joey Lesliegrey Joey [facility] LinkLog [facility] UNK - Ambulatory Encounter Joey Lesliegrey Joey [facility] LinkLog [facility] UNK - Ambulatory Encounter Joey Lesliegrey Joey [facility] LinkLog [facility] UNK - Ambulatory Encounter Isidra Lee [facility] [employer] UNK - Ambulatory Encounter [facility] UNK - Ambulatory Encounter Joey [facility] Cook [facility] Rebolledo [facility] UNK - Ambulatory Encounter Joey Cook [facility] UNK - Ambulatory Encounter Joey Nelsongrey [facility] UNK - Ambulatory Encounter Fax Status [facility] - Ambulatory Encounter Fax Status [facility] UNK - Ambulatory Encounter Fax Status [facility] UNK - Ambulatory Encounter Fax Status [facility] UNK - Ambulatory Encounter Fax Status [facility] UNK - Ambulatory Encounter Fax Status [facility] UNK - Ambulatory Encounter Joey Cook [facility] UNK - Ambulatory Encounter Joey [facility] Joey [facility] UNK - Ambulatory Encounter Patrica [facility] Sky Pandaa Amaury [facility] DysuriaMuscle spasm, backHypotensionMelasmaAbnormal abdominal imagingDementia - Ambulatory Encounter Sally Tejeda [facility] Contact Center UNK - Ambulatory En[facility] - Ambulatory Encounter Margie Pastrana [facility] UNK - Ambulatory Encounter Margie Pastrana [facility] UNK - Ambulatory Encounter Kobi Long [facility] UNK - Ambulatory Encounter Kobi Long [facility] UNK - Ambulatory Encounter Kobi Long [facility] UNK - Ambulatory Encounter Kobi Obrien Anay May FaQuazia [facility] Unspecified ovarian cyst, left side - Ambulatory Encounter Margie Victoriano [facility] UNK - Ambulatory Encounter Benjamin Sergei [facility] UNK - Ambulatory Encounter Janethreji Rossi [facility] UNK - Ambulatory Encounter Yuniel Lee [facility] UNK - Ambulatory Encounter Kobi Long [facility] UNK - Ambulatory Encounter Kobi Long [facility] UNK - Ambulatory Encounter Kobi May [facility] Diverticulitis - Ambulatory Encounter Mariajose Carmichael [facility] DEPRESSIVE DISORDER, D/T ANOT MED COND, W/ DEPRESSIVE FEATURES - Ambulatory Encounter Joey Lesliefogrey Wrightar Mahfouz [facility] UNK - Ambulatory Encounter Janetherji Rossi [facility] UNK - Ambulatory Encounter Joey Mahfogrey Joey [facility] UNK - Ambulatory Encounter Jayleenarmando Medel [facility] UNK - Ambulatory Encounter Ashley Sevilla [facility] UNK - Ambulatory Encounter [facility] - Ambulatory Encounter Joey [facility] Joey [facility] UNK - Ambulatory Encounter [facility] - Ambulatory Encounter Joey [facility] UNK - Ambulatory Encounter Juan José Chacon [facility] Epigastric discomfortOverweight - Ambulatory Encounter Patrica Torres [facility] UNK - Ambulatory Encounter Joey [facility] - Ambulatory Encounter [facility] - Ambulatory Encounter [facility] Joey [facility] Ingrid Leung [facility] Contact Center UNK - Ambulatory Encounter Devaughn Rothman [facility] UNK - Ambulatory Encounter [facility]eth [facility] UNK - Ambulatory Encounter Joey [facility] Cook [facility] UNK - Ambulatory Encounter Arseniojunaid Larsen [facility] UNK - Ambulatory Encounter Arseniojunaid Larsen [facility] UNK - Ambulatory Encounter Arseniojunaid Larsen [facility] UNK - Ambulatory Encounter Arsenio Cartagena [facility] Myopia - OUPresbyopia - OU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 - Ambulatory Encounter Isidra Fonseca [facility] UNK - Ambulatory Encounter Joey Nelsondayton [facility] UNK - Ambulatory Encounter Joey oCok Premagrey Bella Cheek [facility] Services Contact Center UNK - Ambulatory Encounter Leatha Durant [facility] Public Health Services UNK - Ambulatory Encounter Annette John Sanders [facility] UNK - Ambulatory Encounter Joey Ross Joey [facility] UNK - Ambulatory Encounter Joey Nelsonkikagrey Joey [facility] UNK - Ambulatory Encounter Joeyteddy Nelsongrey Joey [facility] UNK - Ambulatory Encounter Joeyteddy Nelsongrey Joey [facility] UNK - Ambulatory Encounter Marlene Cook [facility] Leatha Soto [facility] Diverticulitis, colonDiverticular diseaseHypotensionHistory of hypertensionAnemia due to dietary iron deficiencyHx of hypokalemiaHyperlipidemiaGERDDepressionAbdominal distentionScreening for colon cancerAnxietyVertigoGastroparesisDiabetic neuropathyDry eyeAsthma - Ambulatory Encounter Joeyteddy Nelsonkikagrey Joey [facility] UNK VITAL SIGNS Date Observation Value Provider oxygen saturation, oximetry 97 % Sierra Echeverria " method used to obtain blood pressure automatic Sierra Echeverria " Blood Pressure Position 01 sitting Sierra Echeverria " blood pressure, site #1 left arm Sierra Echeverria " blood pressure, diastolic 77 mm[Hg] Sierra Echeverria " blood pressure, systolic 123 mm[Hg] Sierra Echeverria " respiratory rate E&M 16 /min Sierra Echeverria " pulse rate E&M 77 /min Sierra Echeverria " temperature site oral Sierra Echeverria " temperature E&M 98.5 [degF] Sierra Echeverria " weight E&M 160.50 lbs. Sierra Echeverria " weight in kilograms E&M 72.95 kg Sierra Echeverria " height E&M 60 [in_i] Sierra Echeverria " height in centimeters E&M 152.40 cm Sierra Echeverria oxygen saturation, oximetry 96 % Ashley Sevilla [...] Echeverria " height E&M 60 [in_i] Sierra Juwan " height in centimeters E&M 152.40 cm Sierra Echeverria BP diastolic #1 98 mm[Hg] Ashley Sevilla " BP systolic #1 156 mm[Hg] Ashley Sevilla " pulse rate #2 103 Ashley Sevilla " blood pressure, diastolic, second observation 91 mm[Hg] Ashley Di " blood pressure, systolic, second observation 148 mm[Hg] Ashley Sevilla " oxygen saturation, oximetry 98 % Ashley Sevilla " method used to obtain blood pressure automatic Ashley Sevilla " Blood Pressure Position 01 sitting Ashley Sevilla " blood pressure, site #1 left arm Ashley Sevilla " blood pressure, diastolic 91 mm[Hg] Ashley Di " blood pressure, systolic 148 mm[Hg] Ashley [...] pressure, diastolic, third observation 100 mm[Hg] Joey Nelsonfouz " blood pressure, systolic, third observation 170 [...] Amaury " weight E&M 162.25 lbs. Steph Amaury " weight in kilograms E&M 73.75 kg Steph Amaury " method used to obtain [...] pressure, diastolic, fourth observation 85 mm[Hg] Joey Lesliefouz " blood pressure, systolic, fourth observation 127 mm[Hg] Joey Mahfouz " pulse rate #3 97 Joey Lesliefouz " blood pressure, diastolic, third observation 86 mm[Hg] Joey Lesliefouz " blood pressure, systolic, third observation 120 mm[Hg] Joey Lesliefouz " pulse rate #2 95 Joeyteddy Nelsonfouz " blood pressure, diastolic, second observation 84 mm[Hg] Joey Lesliefouz " blood pressure, systolic, second observation 134 mm[Hg] Joey Lesliefouz " oxygen saturation, oximetry 98 % Ashley [...] Loja " blood pressure, systolic 147 mm[Hg] Lisaprieto Loja " pulse rate E&M 74 /min [...] " blood pressure, diastolic 76 mm[Hg] Ashley Fields " blood pressure, systolic 112 mm[Hg] Ashley Fields " respiratory rate E&M 90 /min Ashley Fields " pulse rate E&M 17 /min Ashley Fields " temperature site oral Ashley Fields " temperature E&M 98.6 [degF] Ashley Keyess [...] Lee " Blood Pressure Position 01 sitting Yunielesteban Caputoa " blood pressure, site #1 left arm Yuniel [place] " blood pressure, diastolic 80 mm[Hg] Yuniel [...] " blood pressure, systolic 125 mm[Hg] Charles Rothman oxygen saturation, oximetry 98 % Ashley Sevilla " method used to obtain blood pressure automatic Ashley Sevilla " Blood Pressure Position 01 sitting Ashley Sevilla " blood pressure, site #1 left arm Ashley Sevilla " blood pressure, diastolic 76 mm[Hg] Ashley Di " blood pressure, systolic 114 mm[Hg] Ashley Di " respiratory rate E&M 16 /min Ashley Di " pulse rate E&M 87 /min Ashley Di " temperature site oral Ashley Sevilla " temperature E&M 98.1 [degF] Ashley Sevilla " height E&M 60 [in_i] Ashley Di " height in centimeters E&M 152.40 cm [...] Screening - Neurology - External - DIRECTOR DATA PROCESSING - Internal - Gastroenterology - External RESULTS [...] Steph Amaury " specific gravity, urine 1.020 Stephghulam Rebolledo " protein, urine, semiquantitative (dipstick) negative Steph Amaury " urobilinogen, urine, semiquantitative (dipstick) negative Steph Amaury " appearance, urine clear Stephghulam Rebolledo " ketones, urine, by test strip negative Steph Rebolledo " pH, urine, semiquantitative 5.5 Steph Rebolledo " nitrite, urine, semiquantitative negative Steph Amaury " urine color light yellow Stephghulam Rebolledo " leukocyte esterase, urine, by dipstick 2+ Steph Jack Helicobacter pylori antigen, stool Negative LinkLogic Negative [...] by mouth three times a day Joey Lloydgrey FLUDROCORTISONE ACETATE 0.1 MG ORAL TABLET One tablet By Mouth Every Day - Joey Lesliekikagrey ZOLOFT 100 MG ORAL TABLET Take 1 [...] Ross SOCIAL HISTORY Date Observation Value Provider " sexual orientation Heterosexual Sierra Echeverria " assessment of health literacy ([facility] 2014 Standards, 3C10) Adequate Sierra Echeverria " if the patient is using/has used a vaping item, Current, Former, Never Used, Not asked No Sierra Echeverria " drug use, illicit Never [...] is very supportive. Not homeless. Born in [place]. State: [facility] . Lives with daughter with her family (, 3 kids). 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 Unemployed since 2016, not [...] " assessment of health literacy ([facility] 2014 Standards, 3C10) Adequate Ashley Sevilla " passive cigarette smoke exposure No Ashley Sevilla " smoking status never smoker Ashley Sevilla Exercise Program Referral Slava Polanco " Weight Management Counseling Provided T Juan José Polanco " Nutrition intervention T Juan José Polanco " sexual orientation Heterosexual Sierra Echeverria " assessment of health literacy ([facility] 2014 Standards, 3C10) Adequate Sierra Echeverria " drug use, illicit Never Sierra Echeverria " alcohol use Never Sierra Echeverria " smoking status never smoker Sierra Echeverria Exercise Program Referral T Ashley Sevilla " Weight Management Counseling Provided T Ashley Sevilla " Nutrition intervention T Ashley Sevilla " sexual orientation Heterosexual Ashley Sevilla " assessment of health literacy ([facility] 2014 Standards, 3C10) Adequate Ashley Sevilla " passive cigarette smoke exposure No Ashley Sevilla " smoking status never smoker Ashley Sevilla " social history E&M . She is 1 of 12 siblings. from , 1 son working and 1 daughter who is very supportive. Not homeless. Born in [place]. State: [facility] . Lives with daughter with her family (, 3 kids). 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 Sex at : Female. Sexual orientation: Heterosexual. Gender identity: Female. Gender of partner(s): Male. Age of first sexual intercourse: 18. Sexually Active: no. Jehova's witness. Arrested for "food stamp fraud", dismissed. Ashley Sevilla " social history reviewed E&M reviewed today Ashley Sevilla drug use, illicit Never Steph Amaury " alcohol use Never Steph Amaury " social history E&M . She is 1 of 12 siblings. from , 1 son working and 1 daughter who is very supportive. Not homeless. Born in [place]. State: [facility] . Lives with daughter with her family (, 3 kids). 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 Unemployed since 2016, not [...] " assessment of health literacy ([facility] 2014 Standards, 3C10) Adequate Steph Rebolledo " [...] is very supportive. Not homeless. Born in [place]. State: [facility] . Lives with daughter with her family (, 3 kids). 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 Sex at : Female. Sexual orientation: Heterosexual. Gender identity: Female. Gender of partner(s): Male. Age of first sexual intercourse: 18. Sexually Active: no. Jehova's witness. Arrested for "food stamp fraud", dismissed. Ashley Sevilla " social history reviewed E&M reviewed today Ashley Wrightvez " passive cigarette smoke exposure No Ashley Sevilla " smoking status never smoker Ashley Sevilla " assessment of health literacy ([facility] 2014 Standards, 3C10) Adequate Ashley Sevilla " [...] is very supportive. Not homeless. Born in [place]. State: [facility] . Lives with daughter with her family (, 3 kids). 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 Born in [place]. State: [facility] . 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 Sex at : Female. Sexual orientation: Heterosexual. Gender identity: Female. Gender of partner(s): Male. Age of first sexual intercourse: 18. Sexually Active: no. Ashley Fields " social history reviewed E&M reviewed today Ashley Fields " assessment of health literacy ([facility] 2014 Standards, 3C10) Adequate Ashley Fields " [...] is very supportive Not homeless. Born in [place]. State: [facility] . 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 Sex at : Female. Sexual orientation: Heterosexual. Gender identity: Female. Gender of partner(s): Male. Age of first sexual intercourse: 18. Sexually Active: Yes. Steph Amaury " social history reviewed E&M reviewed today Steph Amaury " sexual orientation Heterosexual Steph Amaury " assessment of health literacy ([facility] 2014 Standards, 3C10) Adequate Steph Amaury " is there any chance that you could be ? No Steph Amaury " passive cigarette smoke exposure No Steph Amaury " smoking status never smoker Steph Amaury " Exercise Program Referral T Steph Amaury " Weight Management Counseling Provided T Steph Amaruy " Nutrition intervention T Steph Amaury drug use, illicit Never Anay May " alcohol use Never Anay May " social history E&M . from , 1 son working and 1 daughter who is very supportive Not homeless. Born in [place]. State: [facility] . 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 Sex at : Female. Sexual orientation: Heterosexual. Gender identity: Female. Gender of partner(s): Male. Age of first sexual intercourse: 18. Sexually Active: Yes. Anay May " social history reviewed E&M reviewed today Anay May " sexual orientation Heterosexual Anay May " assessment of health literacy ([facility] 2014 Standards, 3C10) Adequate Anay May " passive cigarette smoke exposure No Anay May " smoking status never smoker Anay May social history reviewed E&M reviewed today Mariajose Carmichael " social history E&M . from , 1 son working and 1 daughter who is very supportive Not homeless. Born in [place]. State: [facility] . Lives with daughter [...] " assessment of health literacy ([facility] 2014 Standards, 3C10) Adequate Anay May " passive cigarette smoke exposure No Anay May " smoking status never smoker Anay May home/family situation, assessment Lives with daughter with her family Mariajose Carmichael " patient considered to be homeless No Mariajose Carmicahel " family support from , 1 son working and 1 daughter who is very supportive Mariajose Carmichael time of call 10/02/2018 11:05 AM Jayleen Medel social history reviewed E&M reviewed today Yuniel Lee " sexual orientation Heterosexual Yuniel Lee " assessment of health literacy ([facility] 2014 Standards, 3C10) Adequate Yuniel Lee " is there any chance that you could be ? No Yuniel Caputoa " passive cigarette smoke exposure No Yuniel Lee " smoking status never smoker Yuniel Lee " Exercise Program Referral T Yuniel Lee " Weight Management Counseling Provided T Yuniel Lee " Nutrition intervention T Yuniel Lee time of call 09/19/2018 4:41 PM Ingrid Nixonnandez time of call 09/17/2018 12:43 PM Rylee Adia time of call 09/17/2018 12:14 PM Leatha [...] " assessment of health literacy ([facility] 2014 Standards, 3C10) Adequate Ashley Sevilla " passive cigarette smoke exposure No Ashley Sevilla " smoking status never smoker Ashley Sevilla FUNCTIONAL STATUS No Information Available MENTAL STATUS Date Observation Value Provider assessment of judgment and insight E&M intact [facility] " mental status examination: orientation E&M oriented to time, place, and person Joey Mahfouz " assessment of mood and affect E&M no depression, anxiety, or agitation Joey Mahfouz " Generalized Anxiety Disorder Questionnaire - Question 2 0 Sierra Echeverria " Generalized Anxiety Disorder Questionnaire - Question 1 0 Sierra Echeverria assessment of judgment and insight E&M intact [facility] " mental status examination: orientation E&M oriented [...] [facility] judgment [facility] status examination: orientation E&M oriented to time, place, and person [facility] " assessment of mood and affect E&M no depression, anxiety, [facility] " Generalized Anxiety Disorder Questionnaire - Question 2 0 Ashley Sevilla " Generalized Anxiety Disorder Questionnaire - Question 1 0 Ashley Sevilla assessment of judgment and insight E&M intact [facility] " mental status examination: orientation E&M oriented to time, place, and person [facility] " assessment of mood and affect E&M no depression, anxiety, or agitation [facility] " Generalized Anxiety Disorder Questionnaire - Question 2 0 Steph Rebolledo " Generalized Anxiety Disorder Questionnaire - Question 1 0 Steph Rebolledo assessment of judgment and insight [facility] mental status examination: orientation E&M oriented to time, place, and person [facility] " assessment of mood and affect E&M no depression, anxiety, [facility] " Generalized Anxiety Disorder Questionnaire - [...] rate, normal tone, normal volume, spontaneous, limitted Slovak Juan Clifton " mental status assessment, motor activity normal gait, normal posture Juan Clifton " behavior (mental status exam) appropriate, candid, cooperative, good eye contact, polite, responsive Juan Clifton " mental appearance (mental status exam) adequate hygiene, appropriate dress, looks like stated age, neat, makeup appropriate Juan Clifton Generalized Anxiety Disorder Questionnaire - Question 2 0 Ashley Fields " Generalized Anxiety Disorder Questionnaire - Question 1 0 Ashley Fields assessment of judgment and insight E&M poor Joey Vandana " assessment of mood and affect E&M [...] oriented to time, place, and person Joeyteddy Nelsonkikagrey " assessment of mood and affect E&M [...] libertarian ID Sliding Fee - Cat 1 [employer] insurance [employer] [id number] ADVANCE DIRECTIVES No Information Available TREATMENT PLAN [...] - - Est Patient Exp Problem - 38828 Est Patient Exp Problem - 73600 Est Patient Exp Problem - 08409 Est Patient Exp Problem - 34216 Est Patient Exp Problem - 93428 Est Patient Exp Problem - 17922 Diagnostic evaluation with medical - 24578 New Patient Well Exam (40 - 64 Yrs) - 66159 Est Patient Exp Problem - 83901 Behavioral Health - Therapy Behavioral Health - Psychiatry Tool Dresser Ofc Vst, Est Level III Dispensing Visit (Non-Billable) [facility] Assessment - Probation Agent Diagnostic evaluation (no medical) - 39096 Ofc Vst, Est Level III Est Patient Exp Problem - 59400 Integrated Behavioral Health Assessment (IBH) Behavioral Health - Psychiatry Frames, purchases Sphere, bif, plano to +/- 4.00d, per lens New Patient Intermediate Opth - 28369 New Patient Detailed - 54930 Prescription Assistance (Non-HIV) [employer] - Internal Behavioral Health - Psychiatry HISTORY OF PROCEDURES Procedure Date Procedure Name Provider Procedure Notes Status Diagnostic evaluation with medical - 67752 Juan Clifton completed Dispensing Visit (Non-Billable) Janeth Rossi completed [facility] Assessment - Probation Agent Mariajose Carmichael completed Diagnostic evaluation (no medical) - 70541 Mariajose Carmichael completed Frames, purchases Janeth Rossi completed Sphere, bif, plano to +/- 4.00d, per lens Janeth Rossi 65.00 completed New Patient Intermediate Opt - 78905 Arseniojunaid Larsen completed GOALS No Information Available HEALTH CONCERNS No Information Available
--- OUTSIDE RECORDS SUMMARY | 2019-06-10 14:46 | XMS REPORT ---
Author Author Admin, [place] Organization Unknown Address Unknown Phone Unavailable PROBLEMS [...] History of ovarian cyst active 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 Kiln Burner annual exam active Matthew Hurdria Dementia completed - Joeyteddy Ross Abnormal abdominal imaging active Joey Mahfouz Melasma active Joey Mahfouz Hypotension active Joeyteddy Nelsonfouz Intermittent Muscle spasm, back active Joey Lesliefouz Dysuria active Joeyteddy Lloyduz Unspecified ovarian cyst, left side active Kobi Long DEPRESSIVE DISORDER, D/T ANOT MED COND, W/ DEPRESSIVE FEATURES completed - Juan Ramirez Etienne Diverticulitis active Kobi Long Overweight active Juan José Polanco Epigastric discomfort active Joey Mahfouz 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 active Arseniojunaid Larsen Presbyopia - OU active Arsenio Sergeys Myopia [...] Provider Location Encounter Diagnosis - Ambulatory Encounter Patrica Torres [facility] UNK - Ambulatory Encounter Mahin Venegas [place] [facility]CE MANA[facility] UNK - Ambulatory En[facility] UNK - Ambulatory Encounter Joey Nelsonfouz [facility] UNK - Ambulatory [facility] - [facility] - Ambulatory Encounter Fax Status [facility] - Ambulatory Encounter Fax Status [facility] - Ambulatory Encounter Fax Status [facility] - Ambulatory Encounter Fax Status [facility] - Ambulatory Encounter [facility] UNK - Ambulatory Encounter Joeyteddy Nelsongrey [facility] UNK - Ambulatory Encounter Joeyteddy Nelsongrey Joey Mahfo [facility] UNK - Ambulatory Encounter [facility] Cook Mahfouz [facility] UNK - Ambulatory Encounter Joey [facility]grey [facility] UNK - Ambulatory Encounter Juan José Langston [facility] Echeverria [facility] Headache, chronicPersonal history of anaphylaxis - Ambulatory Encounter [facility] Vandana Mcdonnell [facility] - Ambulatory Encounter Joey Lesliegrey [facility] UNK - Ambulatory Encounter [facility] UNK - Ambulatory Encounter Joey Lesliegrey [facility] UNK - Ambulatory Encounter Zuleyka Sevilla [facility] Otitis media acute right - Ambulatory Encounter [facility] UNK - Ambulatory Encounter [facility] UNK - Ambulatory Encounter Joey Lesliegrey [facility] UNK [facility] Ambulatory Encounter [facility] UNK - Ambulatory Encounter Joey Lesliegrey [facility] UNK - Ambulatory Encounter Joey Lesliegrey [facility] UNK - Ambulatory Encounter Joey Lesliegrey [facility] UNK - Ambulatory Encounter Juan José Polanco [facility] Sierra Echeverria [facility] PrediabetesBMI 31.0-31.9 - Ambulatory Encounter [facility] UNK - Ambulatory Encounter Joey Lesliegrey [facility] UNK - Ambulatory Encounter [facility] UNK - Ambulatory Encounter Joey Lesliegrey [facility] UNK - Ambulatory Encounter [facility] UNK - Ambulatory Encounter [facility] UNK - Ambulatory Encounter [facility] UNK - Ambulatory Encounter Zuleyka Sevilla [facility] HypertensionHeadache, severeNumbness - Ambulatory Encounter Joey Vandana [facility] UNK - Ambulatory Encounter Joey Lesliegrey [facility] UNK - Ambulatory Encounter Joey Vandana [facility] UNK - Ambulatory Encounter Joey Lesliegrey [facility] UNK - Ambulatory Encounter Zuleyka Wade Joey Nelsonkikagrey Steph Rebolledo [facility] HypertensionHeadache, severeNumbness - Ambulatory Encounter Fax Status [facility] UNK - Ambulatory Encounter Fax Status [facility] UNK - Ambulatory Encounter Fax Status [facility] UNK - Ambulatory Encounter Joeyteddy [facility] UNK - Ambulatory Encounter Joey Lesliegrey [facility] UNK - Ambulatory Encounter Joey Vandana [facility] UNK - Ambulatory Encounter Joeyteddy Nelsongrey [facility] UNK - Ambulatory Encounter Zuleyka Joe [facility] Sky Cotton [facility] DementiaOrthostatic hypotensionDysautonomiaHx of syncope and collapse - Ambulatory Encounter Joey Vandana Cook [facility] UNK - Ambulatory Encounter Joey Cook [facility] UNK - Ambulatory Encounter Joey Cook [facility] UNK - Ambulatory Encounter uJan Loja [facility] DEPRESSIVE DISORDER, D/T ANOT MED COND, W/ DEPRESSIVE FEATURESDEPRESSIVE DISORDER, MAJOR, RECURRENT EPISODE, MILDANXIETY DISORDER, UNSPECIFIED - Ambulatory Encounter Matthew Castro A [facility] UNK - Ambulatory Encounter Isidra Kim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 UNK - Ambulatory Encounter Matthew Castro [facility] - Ambulatory Encounter Matthew Castro [facility]NA[facility] UNK - Ambulatory Encounter Isidra Fonseca [place] 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 UNK - Ambulatory Encounter Ashley Fields [place] [facility]IL[facility] MAINTENANCE MANAGER UNK - Ambulatory Encounter Matthew Castro A Maru [place] [facility]IL[facility] MAINTENANCE MANAGER UNK - Ambulatory Encounter Matthew Castro A Maru Fields [place] FACILIT[facility] MAINTENANCE MANAGER Kiln Burner annual examHistory of ovarian cystMammogram not high risk screeningScreening for vaginal cancer - Ambulatory Encounter Joey Cook [facility] UNK - Ambulatory Encounter Joey Cook [facility] UNK - Ambulatory Encounter Joey Vandana [facility] UNK - Ambulatory Encounter Joey Vandana Cook Mahfouz [facility] UNK - Ambulatory Encounter Joey Vandana Cook Mahfouz [facility] UNK - Ambulatory Encounter Joey Vandana Cook Mahfouz [facility] UNK - Ambulatory Encounter Joey Vandana Cook Mahfouz [facility] UNK - Ambulatory Encounter Joey Vandana [facility] UNK - Ambulatory Encounter Isidra Brice Lee [place] 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 UNK - Ambulatory Encounter Joey V[facility]ana [facility] - Ambulatory Encounter Joey Vandana [facility] Steph Rebolledo [facility] UNK - Ambulatory Encounter Joey Vandana [facility] UNK - Ambulatory Encounter Joey Vandana [facility] UNK - Ambulatory Encounter Fax Status [facility] UNK - Ambulatory Encounter Fax Status [facility] UNK - Ambulatory Encounter Fax Status [facility] UNK - Ambulatory Encounter Fax Status [facility] UNK - Ambulatory Encounter Fax Status [facility] UNK - Ambulatory Encounter Fax Status [facility]K - Ambulatory Encounter [facility] UNK - Ambulatory Encounter Joey [facility] Joey [facility] UNK - Ambulatory Encounter Patrica Fonseca Jeoy [facility] Vickeytanya [facility] DysuriaMuscle spasm, backHypotensionMelasmaAbnormal abdominal imagingDementia - Ambulatory Encounter Sally Tejeda [facility] UNK - Ambulatory [facility] - [facility] - Ambulatory Encounter Margie [facility] UNK - Ambulatory Encounter Kobi Long [facility] UNK - Ambulatory Encounter Kobi Long [facility] UNK - Ambulatory Encounter Kobi Long [facility] UNK - Ambulatory Encounter Kobi Obrien Anay May FaQuazia Cam [facility] Unspecified ovarian cyst, left side - Ambulatory Encounter Margie Victoriano [facility] UNK - Ambulatory Encounter Benjamin Sergei [facility] UNK - Ambulatory Encounter Janeth Rossi [facility] UNK - Ambulatory Encounter Yuniel Lee [facility] UNK - Ambulatory Encounter Kobi Long [facility] UNK - Ambulatory Encounter Kobi Long [facility] UNK - Ambulatory Encounter Kobi May [facility] Diverticulitis - Ambulatory Encounter Mariajose Amol [facility] DEPRESSIVE DISORDER, D/T ANOT MED COND, W/ DEPRESSIVE FEATURES - Ambulatory Encounter [facility] - Ambulatory Encounter Janeth Rossi [facility] UNK - Ambulatory Encounter Joey [facility] UN[facility] - Ambulatory Encounter Jayleen Medel [facility] UNK - Ambulatory Encounter Ashley Sevilla [facility] UNK - Ambulatory Encounter [facility] - Ambulatory Encounter [facility] - Ambulatory Encounter [facility] - Ambulatory Encounter [facility] - Ambulatory Encounter Juan José Chacon [facility] Yuniel Lee [facility] Epigastric discomfortOverweight - Ambulatory Encounter [facility] - Ambulatory Encounter Joey Cook [facility] UNK - Ambulatory Encounter Joey Cook [facility] UNK - Ambulatory Encounter Joey Ross Ingrid Leung [facility] Contact Center UNK - Ambulatory Encounter Devaughn Carbajal Rothman [facility] UNK - Ambulatory Encounter Janeth Rossi [facility] UNK - Ambulatory Encounter Joey Cook [facility] - Ambulatory Encounter Arsenio Larsen [facility] UNK - Ambulatory Encounter Arseniojunaid Larsen [facility] UNK - Ambulatory Encounter Arseniojunaid Larsen [facility] UNK - Ambulatory Encounter Arseniojunaid Cartagena [facility] Myopia - OUPresbyopia - OU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 - Ambulatory Encounter Isidra Fonseca [place] 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 UNK - Ambulatory Encounter Joey [facility] UN[facility] - Ambulatory Encounter Joey Nelsonkikagrey Bella Cheek [facility] Services Contact Center UNK - Ambulatory Encounter Le[facility] UNK - Ambulatory En[facility] - Ambulatory Encounter Joey Cook [facility] UNK - Ambulatory Encounter [facility] UNK - Ambulatory Encounter Joey Cook [facility] UNK - Ambulatory Encounter Joey Cook [facility] UNK - Ambulatory Encounter Marlene Chilel [facility] Leatha [facility] Diverticulitis, colonDiverticular diseaseHypotensionHistory of hypertensionAnemia due to dietary iron deficiencyHx of hypokalemiaHyperlipidemiaGERDDepressionAbdominal distentionScreening for colon cancerAnxietyVertigoGastroparesisDiabetic neuropathyDry eyeAsthma - Ambulatory Encounter Joey Cook [facility] UNK VITAL SIGNS Date Observation [...] " blood pressure, systolic 118 mm[Hg] Ashley Wrightvez " respiratory rate E&M 16 /min Ashley Wrightvez " pulse rate E&M 85 /min Ashley Wrightvez " temperature site oral Ashley Sevilla " temperature E&M 98.7 [degF] Ashley Sevilla " weight E&M 161.40 lbs. Ashley Swainz " weight in kilograms E&M 73.36 kg Ashley Swainz " height E&M 60 [in_i] Ashley Sevilla [...] Echeverria BP diastolic #1 98 mm[Hg] Ashley Wrightvez " BP systolic #1 156 mm[Hg] Ashley Wrightvez " pulse rate #2 103 Ashley Sevilla " blood pressure, diastolic, second observation 91 mm[Hg] Ashley Wrightvez " blood pressure, systolic, second observation 148 mm[Hg] Ashley Wrightvez " oxygen saturation, oximetry 98 % Ashley Sevilla " method used to obtain blood pressure automatic Ashley Sevilla " Blood Pressure Position 01 sitting Ashley Sevilla " blood pressure, site #1 left arm Ashley Swainz " blood pressure, diastolic 91 mm[Hg] Ashley [...] pressure, systolic, third observation 170 mm[Hg] Joey Lloyduz " blood pressure, diastolic, second observation 105 [...] site #1 left arm Steph Amaury " temperature site oral Steph Rebolledo " height E&M 60 [in_i] Steph Rebolledo " height in centimeters E&M 152.40 cm Steph Rebolledo pulse rate #4 97 /min Joey Ross " blood pressure, diastolic, fourth observation 85 mm[Hg] Joey Nelsonfouz " blood pressure, systolic, fourth observation 127 mm[Hg] Joey Nelsonfouz " pulse rate #3 97 Joey Nelsonfouz " blood pressure, diastolic, third observation 86 mm[Hg] Joey Nelsonfouz " blood pressure, systolic, third observation 120 mm[Hg] Joey Nelsonfouz " pulse rate #2 95 Joey Lloyduz " blood pressure, diastolic, second observation 84 mm[Hg] Joey Lloyduz " blood pressure, systolic, second observation 134 mm[Hg] Joey Lloyduz " oxygen saturation, oximetry 98 % Ashley [...] Ashley Sevilla " temperature E&M 98.3 [degF] Ashlye Sevilla " weight E&M 161.80 lbs. Ashley [...] Loja oxygen saturation, oximetry 98 % Ashley Keyess " method used to obtain blood pressure [...] site #1 left arm Steph Rebolledo " blood pressure, diastolic 83 mm[Hg] Steph Amaury " blood pressure, systolic 130 mm[Hg] Steph Rebolledo " respiratory rate E&M 18 /min Steph Amaury " pulse rate E&M 90 /min Steph Amaury " temperature site oral Steph Rebolledo " [...] Anay May oxygen saturation, oximetry 98 % Yunielesteban Caputoa " method used to obtain blood pressure [...] Yuniel Lee " weight E&M 151 lbs. Yunielesteban [place] " weight in kilograms E&M 68.64 kg Yuniel Lee " height E&M 60 [in_i] Yuniel Lee " height in centimeters E&M 152.40 cm Yuniel [place] pulse rate E&M 70 /min Charles Carbajal [...] Start Date - End Date Service - Immunology - External - Neurology - External - Ultrasound - Pelvic/Transvaginal - Mammogram - Screening - FACILITIES MAINTENANCE MANAGER - Internal RESULTS Date Observation Value Provider Reference Range [...] Stephghulam Rebolledo " pH, urine, semiquantitative 5.5 Steph [...] by mouth nightly at bedtime - Juan Ramirez Etienne REGLAN 10 MG ORAL TABLET 1 by mouth ac and nightly at bedtime - Joey Ross MECLIZINE HCL 25 MG ORAL TABLET 1 by mouth 3 times a day as needed Joeyteddy Ross FERROUS SULFATE 325 (65 FE) MG [...] DELAYED RELEASE 1 by mouth every day Joeyteddy Ross PROAIR HFA 108 (90 BASE) MCG/ACT INHALATION AEROSOL SOLUTION 2 puffs every 4 - 6 hours as needed Joeyteddy Ross FLAGYL 500 MG ORAL TABLET 1 tab by mouth three a day - Joeyteddy Rsos CIPRO 500 MG ORAL TABLET 1 by mouth twice a day - Joey Lloydgrey SOCIAL HISTORY Date Observation Value Provider " sexual orientation Heterosexual Sierra Echeverria " assessment of health literacy ([facility] 2014 Standards, 3C10) Adequate Sierra Echeverria " if the patient is using/has used a vaping item, Current, Former, Never Used, Not asked No Sierra Echeverria " drug use, illicit Never Sierra Echeverria " alcohol use Never Sierra Juwan " smoking status never smoker Sierra Echeverria Exercise Program Referral T Ashley Sevilla " Weight Management Counseling Provided T Ashley Sevilla " Nutrition intervention T Ashley Wrightvez " social history E&M . She is 1 of 12 siblings. from , 1 son working and 1 daughter who is very supportive. Not homeless. Born in [place]. State: [facility] . Lives with daughter with her family (, 3 kids). 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, [...] Ashley Sevilla " assessment of health literacy ([facility] 2014 Standards, 3C10) Adequate Ashley Sevilla " passive cigarette smoke exposure No Ashley Sevilla " smoking status never smoker Ashley Sevilla Exercise Program Referral T Juan José Polanco " Weight Management Counseling Provided Slava Polanco " Nutrition intervention Slava Polanco " sexual orientation Heterosexual Sierra Echeverria " assessment of health literacy ([facility] 2014 Standards, 3C10) Adequate Sierra Echeverria " drug use, illicit Never Sierra Juwan " alcohol use Never Sierra Juwan " smoking status never smoker Sierra Juwan Exercise Program Referral T Ashley Sevilla " Weight Management Counseling Provided T Ashley Sevilla " Nutrition intervention T Ashley Sevilla " sexual orientation Heterosexual Ashley Sevilla " assessment of health literacy ([facility] 2014 Standards, 3C10) Adequate Ashley Sevilla " passive cigarette smoke exposure No Ashley Sevilla " smoking status never smoker Ashley Sevilla " social history E&M . She is 1 of 12 siblings. from , 1 son working and 1 daughter who is very supportive. Not homeless. Born in [place]. State: [facility] . Lives with daughter with her family (, 3 kids). 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 She is 1 of 12 siblings. from , 1 son working and 1 daughter who is very supportive. Not homeless. Born in [place]. State: [facility] . Lives with daughter with her family (, 3 kids). 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 Not homeless. Born in [place]. State: [facility] . Lives with daughter with her family (, 3 kids). 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 Not homeless. Born in [place]. State: [facility] . Lives with daughter with her family (, 3 kids). 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 Born in [place]. State: [facility] . 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 Sex at : Female. Sexual orientation: Heterosexual. Gender identity: Female. Gender of partner(s): Male. Age of first sexual intercourse: 18. Sexually Active: no. Ashley Keyess " social history reviewed E&M reviewed today Ashley Keyess " assessment of health literacy ([facility] 2014 Standards, 3C10) Adequate Ashley [...] is very supportive Not homeless. Born in [place]. State: [facility] . 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 Sex at : Female. Sexual orientation: Heterosexual. Gender identity: Female. Gender of partner(s): Male. Age of first sexual intercourse: 18. Sexually Active: Yes. Steph Amaury " social history reviewed E&M reviewed today Steph Amaury " sexual orientation Heterosexual Steph Amaury " assessment of health literacy ([facility] 2014 Standards, 3C10) Adequate Steph Amaury " is there any chance that you could be ? No Steph Amaury " passive cigarette smoke exposure No Steph Amaury " smoking status never smoker Steph Amaury " Exercise Program Referral T Steph Amaury " Weight Management Counseling Provided T Steph Amaury " Nutrition intervention T Stephghluam Rebolledo drug use, illicit Never Anay May " alcohol use Never Anay May " social history E&M . from , 1 son working and 1 daughter who is very supportive Not homeless. Born in [place]. State: [facility] . 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 Sex at : Female. Sexual orientation: Heterosexual. Gender identity: Female. Gender of partner(s): Male. Age of first sexual intercourse: 18. Sexually Active: Yes. Anay May " social history reviewed E&M reviewed today Anay May " sexual orientation Heterosexual Anay May " assessment of health literacy ([facility] 2014 Standards, 3C10) Adequate Anay May " passive cigarette smoke exposure No Anay May " smoking status never smoker Anay May social history reviewed E&M reviewed today Mariajose Carmichael " social history E&M . from , 1 son working and 1 daughter who is very supportive Not homeless. Born in [place]. State: [facility] . Lives with daughter with her [...] Anay May " assessment of health literacy ([facility] 2014 Standards, 3C10) Adequate Anay [...] Yuniel Lee " assessment of health literacy ([facility] 2014 Standards, 3C10) Adequate Yuniel [...] Ashley Sevilla " assessment of health literacy ([facility] 2014 Standards, 3C10) Adequate Ashley Sevilla " passive cigarette smoke exposure No Ashley Wrightvez " smoking status never smoker Ashley Sevilla FUNCTIONAL STATUS No Information Available MENTAL STATUS Date Observation Value Provider assessment of judgment and insight E&M intact [facility] mental status examination: orientation E&M oriented [...] reality Juan Clifton " hallucinations none Juan Clifton" thought content (mental [...] rate, normal tone, normal volume, spontaneous, limitted Khmer Juan Clifton " mental status assessment, motor [...] of judgment and insight E&M intact Joey Lesliekikagrey " mental status examination: orientation E&M oriented to time, place, and person Joey Ross " assessment of mood and affect E&M no depression, anxiety, or agitation Joey Ross " Generalized Anxiety Disorder Questionnaire - Question 2 0 Yuniel Lee " Generalized Anxiety Disorder Questionnaire - Question 1 0 Yuniel Lee assessment of judgment and insight E&M intact Joey Lesliekikagrey " mental status examination: orientation E&M oriented to time, place, and person Joey eNlsonkikagrey " assessment of mood and affect E&M no depression, anxiety, or agitation Joey Ross " Generalized Anxiety Disorder Questionnaire - Question 2 0 Ashley Sevilla " Generalized Anxiety Disorder Questionnaire - Question 1 1 Ashley Sevilla MEDICAL EQUIPMENT No Information Available FAMILY HISTORY No Information Available INSURANCE PROVIDERS Payer name Policy type / Coverage type Covered democrat ID Sliding Fee - Cat 1 [employer] insurance company [id number] ADVANCE DIRECTIVES No Information Available TREATMENT PLAN [...] - - Est Patient Exp Problem - 88404 Est Patient Exp Problem - 49297 Est Patient Exp Problem - 52066 Est Patient Exp Problem - 62099 Est Patient Exp Problem - 15596 Est Patient Exp Problem - 46902 Diagnostic evaluation with medical - 19533 New Patient Well Exam (40 - 64 Yrs) - 43036 Est Patient Exp Problem - 53293 Behavioral Health - Therapy Behavioral Health - Psychiatry 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 Ofc Vst, Est Level III Dispensing Visit (Non-Billable) [facility] Assessment - Smash Piecer Diagnostic evaluation (no medical) - 56436 Ofc Vst, Est Level III Est Patient Exp Problem - 22865 Integrated Behavioral Health Assessment (IBH) Behavioral Health - Psychiatry Frames, purchases Sphere, bif, plano to +/- 4.00d, per lens New Patient Intermediate Opt - 16186 New Patient Detailed - 18230 Prescription Assistance (Non-HIV) 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 [facility] - Internal Behavioral Health - Psychiatry HISTORY OF PROCEDURES Procedure Date Procedure Name Provider Procedure Notes Status Diagnostic evaluation with medical - 81267 Juan Clifton completed Dispensing Visit (Non-Billable) Janeth Rossi completed [facility] Assessment - Smash Piecer Mariajose Carmichael completed Diagnostic evaluation (no medical) - 47394 Mariajose Carmichael completed Frames, purchases Janeth Rossi completed Sphere, bif, plano to +/- 4.00d, per lens Janeth Rossi 65.00 completed New Patient Intermediate Opt - 84979 Arsenio Larsen completed GOALS No Information Available HEALTH CONCERNS No Information Available
--- OUTSIDE RECORDS SUMMARY | 2019-06-10 14:46 | XMS REPORT ---
Author Author Admin, [place] Organization Unknown Address Unknown Phone Unavailable PROBLEMS [...] History of ovarian cyst active 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 Bulker annual exam active Matthew Hurdria Dementia completed [...] Diagnosis - Ambulatory Encounter Joeyteddy Nelsonfouz [facility] UNK - Ambulatory Encounter Joey Lesliefogrey Joey Mahfouz [facility] UNK - Ambulatory Encounter Joeyteddy Nelsonfogrey Joey Mahfouz [facility] UNK - Ambulatory Encounter Joey Vandana Joey Mahfouz [facility] UNK - Ambulatory Encounter Joeyteddy Ross Joey Mahfouz [facility] UNK - Ambulatory Encounter Juan José Polanco [facility] Sierra Echeverria [facility] Headache, chronicPersonal history of anaphylaxis - Ambulatory Encounter Joey Lesliegrey Cook [facility] UNK - Ambulatory Encounter Joey Lesliegrey [facility] UNK - Ambulatory Encounter Joey Lesliegrey [facility] UNK - Ambulatory Encounter Joey Lesliegrey [facility] UNK - Ambulatory Encounter Zuleyka Sevilla Joeyteddy Nelsongrey Joey [facility] Otitis media acute right - Ambulatory Encounter Joey Lesliegrey Cook [facility] UNK - Ambulatory Encounter Joey Lesliegrey Cook [facility] UNK - Ambulatory Encounter Joey Lesliegrey Joey [facility] UNK - Ambulatory Encounter Joey Lesliegrey [facility] UNK - Ambulatory [facility] UNK - Ambulatory Encounter Joey Lesliegrey [facility] UNK - Ambulatory Encounter Joey Lesliegrey [facility] UNK - Ambulatory Encounter Juan José Polanco Joey Lesliegrey Joey Vandana Echeverria [facility] PrediabetesBMI 31.0-31.9 - Ambulatory Encounter Joey Vandana Cook Mahfouz [facility] UNK - Ambulatory Encounter Joey Vandana [facility] UNK - Ambulatory Encounter Joey Vandana Cook [facility] UNK - Ambulatory Encounter Joey Vandana Cook Mahfouz [facility] UNK - Ambulatory Encounter Joey Vandana Cook Mahfouz [facility] UNK - Ambulatory Encounter Joey Vandana Cook Mahfouz [facility] UNK - Ambulatory Encounter Joey Vandana Cook [facility] UNK - Ambulatory Encounter Zuleyka Sevilla Joey Cook [facility] HypertensionHeadache, severeNumbness - Ambulatory Encounter Joey Vandana Cook [facility] UNK - Ambulatory Encounter Joey Vandana Cook [facility] UNK - Ambulatory Encounter Joey Vandana Joey [facility] UNK - Ambulatory Encounter Joey Vandana Cook [facility] UNK - Ambulatory Encounter Zuleyka Cook Vandana Nelsongrey Steph Rebolledo [facility] HypertensionHeadache, severeNumbness - Ambulatory Encounter Fax Status [facility] UNK - Ambulatory Encounter [facility] - Ambulatory Encounter Fax Status [facility] UNK - Ambulatory Encounter Joey [facility] Cook [facility] UNK - Ambulatory Encounter [facility] - Ambulatory Encounter [facility] UNK - Ambulatory Encounter [facility] UNK - Ambulatory Encounter Zuleyka Joe [facility] Sky Cotton [facility] DementiaOrthostatic hypotensionDysautonomiaHx of syncope and collapse - Ambulatory Encounter [facility] UNK - Ambulatory Encounter [facility] UNK - Ambulatory Encounter Joeyteddy Nelsongrey Cook [facility] UNK - Ambulatory Encounter Juan Loja [facility] DEPRESSIVE DISORDER, D/T ANOT MED COND, W/ DEPRESSIVE FEATURESDEPRESSIVE DISORDER, MAJOR, RECURRENT EPISODE, MILDANXIETY DISORDER, UNSPECIFIED - Ambulatory Encounter 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 - [facility]ulatory Encounter Isidra Angeles [facility] UNK - Ambulatory Encounter 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 [facility] CORROSION PREVENTION METAL SPRAYER UNK - Ambulatory Encounter 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 [facility] METAL SPRAY[facility] UNK - Ambulatory Encounter Isidra Fonseca [facility] UNK - Ambulatory Encounter Ashley Fields [facility] CORROSION PREVENTION METAL SPRAYER UNK - Ambulatory Encounter Matthewmirza Hurdpriya Castro A Maru [facility] CORROSION PREVENTION METAL SPRAYER UNK - Ambulatory Encounter Matthew Trung Maru Castro A Maru Joe Ashley Fields [facility] CORROSION PREVENTION METAL SPRAYER Bulker annual examHistory of ovarian cystMammogram not high risk screeningScreening for vaginal cancer - Ambulatory Encounter [facility] Wrightar [facility] UNK - Ambulatory Encounter Joey [facility] Cook [facility] - Ambulatory Encounter [facility] LinkLog [facility] UNK - Ambulatory Encounter Joey Lesliegrey Cook [facility] LinkLog [facility] UNK - Ambulatory Encounter [facility] LinkLog [facility] UNK - Ambulatory Encounter Joey Lelsiegrey Joey [facility] LinkLog [facility] UNK - Ambulatory Encounter Joey Lesliegrey Joey [facility] LinkLog [facility] UNK - Ambulatory Encounter Joey Lesliegrey Joey [facility] LinkLog [facility] UNK - Ambulatory Encounter Isidra Lee [facility] Color Consultant UNK - Ambulatory Encounter [facility] UNK - Ambulatory Encounter Joey [facility] Rebolledo [facility] UNK - Ambulatory Encounter Joey [facility] UNK - Ambulatory Encounter Joey Nelsongrey [facility] UNK - Ambulatory Encounter Fax Status [facility] - Ambulatory Encounter Fax Status [facility] - Ambulatory Encounter Fax Status [facility] UNK - Ambulatory Encounter Fax Status [facility] UN[facility] - Ambulatory Encounter Fax Status [facility] UNK - Ambulatory Encounter Fax Status [facility] UNK - Ambulatory Encounter Joey Cook [facility] UNK - Ambulatory Encounter [facility] UNK - Ambulatory Encounter Patrica Fonseca [facility] Sky Pandaa Amaury [facility] DysuriaMuscle spasm, backHypotensionMelasmaAbnormal abdominal imagingDementia - Ambulatory Encounter Sally Tejeda [facility] Contact Center UNK - Ambulatory En[facility] - Ambulatory Encounter Margie Pastrana [facility] UNK - Ambulatory Encounter Margie Pastrana [facility] UNK - Ambulatory Encounter Kobi Long [facility] UNK - Ambulatory Encounter Kobi Long [facility] UNK - Ambulatory Encounter Kobi Long [facility] UNK - Ambulatory Encounter Kobi Obrien Naay May FaQuazia [facility] Unspecified ovarian cyst, left side - Ambulatory Encounter Margie Victoriano [facility] UNK - Ambulatory Encounter Benjamin Sergei [facility] UNK - Ambulatory Encounter Janethreji Rossi [facility] UNK - Ambulatory Encounter Yuniel Lee [facility] UNK - Ambulatory Encounter Kobi Long [facility] UNK - Ambulatory Encounter Kobi Long [facility] UNK - Ambulatory Encounter Kobi May [facility] Diverticulitis - Ambulatory Encounter Mariajose Carmichael [facility] DEPRESSIVE DISORDER, D/T ANOT MED COND, W/ DEPRESSIVE FEATURES - Ambulatory Encounter Joey Lesliefogrey Wrightar Mahfouz [facility] UNK - Ambulatory Encounter Janethreji Rossi [facility] UNK - Ambulatory Encounter Joey Mahfogrey Joey [facility] UNK - Ambulatory Encounter Jayleenarmando Medel [facility] UNK - Ambulatory Encounter Ashley Sevilla [facility] UNK - Ambulatory Encounter [facility] UNK - Ambulatory Encounter [facility] UNK - Ambulatory Encounter [facility] UNK - Ambulatory Encounter Joey [facility] Cook [facility] UNK - Ambulatory Encounter Juan José Chacon [facility] Epigastric discomfortOverweight - Ambulatory Encounter Patrica Torres [facility] UNK - Ambulatory Encounter [facility] UNK - Ambulatory Encounter [facility] UNK - Ambulatory Encounter [facility] Joey [facility] Ingrid Leung [facility] Contact Center UNK - Ambulatory Encounter Devaughn Rothman [facility] UNK - Ambulatory Encounter Janeth Rossi [facility] UNK - Ambulatory Encounter [facility] UNK - Ambulatory Encounter Arseniojunaid Larsen [facility] UNK - Ambulatory Encounter Arseniojunaid Larsen [facility] UNK - Ambulatory Encounter Arseniojunaid Larsen [facility] UNK - Ambulatory Encounter Arsenio Cartagena [facility] Myopia - OUPresbyopia - OU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 - Ambulatory Encounter Isidra Fonseca [facility] UNK - Ambulatory Encounter Joey Nelsondayton [facility] Adult [facility] UNK - Ambulatory Encounter Joey Cook Premagrey Bella Cheek [facility] Services Contact Center UNK - Ambulatory Encounter Leatha Durant [facility] Public Health Services UNK - Ambulatory Encounter Annette John Sanders [facility] UNK - Ambulatory Encounter Joey Ross Joey [facility] UNK - Ambulatory Encounter Joey Nelsonkikagrey Joey [facility] UNK - Ambulatory Encounter Joeyteddy Nelsongrey Joey [facility] UNK - Ambulatory Encounter Joeyteddy Nelsongrey Joey [facility] UNK - Ambulatory Encounter Marlene Cook [facility] Cook [facility] Leatha Soto [facility] Diverticulitis, colonDiverticular diseaseHypotensionHistory of hypertensionAnemia due to dietary iron deficiencyHx of hypokalemiaHyperlipidemiaGERDDepressionAbdominal distentionScreening for colon cancerAnxietyVertigoGastroparesisDiabetic neuropathyDry eyeAsthma - Ambulatory Encounter Joeyteddy Nelsonkikagrey Joey [facility] UNK VITAL SIGNS Date Observation Value Provider [...] pressure, diastolic, second observation 91 mm[Hg] Ashley iD " blood pressure, systolic, second observation 148 [...] - Screening - Neurology - External - CORROSION PREVENTION METAL SPRAYER - Internal - Gastroenterology - External RESULTS [...] Sierra Echeverria " assessment of health literacy ([facility] 2014 Standards, 3C10) Adequate Sierra Echeverria " [...] is very supportive. Not homeless. Born in [place]. State: [facility] . Lives with daughter with her family (, 3 kids). 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, [...] Ashley Sevilla " assessment of health literacy ([facility] 2014 Standards, 3C10) Adequate Ashley Sevilla " passive cigarette smoke exposure No Ashley Sevilla " smoking status never smoker Ashley Sevilla Exercise Program Referral Slava Polanco " Weight Management Counseling Provided T Juan José Polanco " Nutrition intervention T Juan José Polanco " sexual orientation Heterosexual Sierra Echeverria " assessment of health literacy ([facility] 2014 Standards, 3C10) Adequate Sierra Echeverria " drug use, illicit Never Sierra Echeverria " alcohol use Never Sierra Echeverria " smoking status never smoker Sierra Echeverria Exercise Program Referral T Ashley Sevilla " Weight Management Counseling Provided T Ashley Sevilla " Nutrition intervention T Ashley Sevilla " sexual orientation Heterosexual Ashley Sevilla " assessment of health literacy ([facility] 2014 Standards, 3C10) Adequate Ashley Sevilla " passive cigarette smoke exposure No Ashley Sevilla " smoking status never smoker Ashley Sevilla " social history E&M . She is 1 of 12 siblings. from , 1 son working and 1 daughter who is very supportive. Not homeless. Born in [place]. State: [facility] . Lives with daughter with her family (, 3 kids). 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 Not homeless. Born in [place]. State: [facility] . Lives with daughter with her family (, 3 kids). 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 Not homeless. Born in [place]. State: [facility] . Lives with daughter with her family (, 3 kids). 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 Not homeless. Born in [place]. State: [facility] . Lives with daughter with her family (, 3 kids). 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 Born in [place]. State: [facility] . 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 Sex at : Female. Sexual orientation: Heterosexual. Gender identity: Female. Gender of partner(s): Male. Age of first sexual intercourse: 18. Sexually Active: no. Ashley Fields " social history reviewed E&M reviewed today Ashley Fields " assessment of health literacy ([facility] 2014 Standards, 3C10) Adequate Ashley Fields " [...] is very supportive Not homeless. Born in [place]. State: [facility] . 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 Sex at : Female. Sexual orientation: Heterosexual. Gender identity: Female. Gender of partner(s): Male. Age of first sexual intercourse: 18. Sexually Active: Yes. Steph Amaury " social history reviewed E&M reviewed today Steph Amaury " sexual orientation Heterosexual Steph Amaury " assessment of health literacy ([facility] 2014 Standards, 3C10) Adequate Steph Amaury " [...] is very supportive Not homeless. Born in [place]. State: [facility] . 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 Sex at : Female. Sexual orientation: Heterosexual. Gender identity: Female. Gender of partner(s): Male. Age of first sexual intercourse: 18. Sexually Active: Yes. Anay May " social history reviewed E&M reviewed today Anay May " sexual orientation Heterosexual Anay May " assessment of health literacy ([facility] 2014 Standards, 3C10) Adequate Anay May " passive cigarette smoke exposure No Anay Amy " smoking status never smoker Anay May social history reviewed E&M reviewed today Mariajose Carmichael " social history E&M . from , 1 son working and 1 daughter who is very supportive Not homeless. Born in [place]. State: [facility] . Lives with daughter with her family [...] Anay May " assessment of health literacy ([facility] 2014 Standards, 3C10) Adequate Anay May " [...] Yuniel Lee " assessment of health literacy ([facility] 2014 Standards, 3C10) Adequate Yuniel Lee " [...] Ashley Sevilla " assessment of health literacy ([facility] 2014 Standards, 3C10) Adequate Ashley Sevilla " passive cigarette smoke exposure No Ashley Sevilla " smoking status never smoker Ashley Sevilla FUNCTIONAL STATUS No Information Available MENTAL STATUS Date Observation Value Provider assessment of judgment and insight E&M intact Joey [facility] " mental status examination: orientation E&M oriented to time, place, and person Joey Mahfouz " assessment of mood and affect E&M no depression, anxiety, or agitation Joey Mahfouz " Generalized Anxiety Disorder Questionnaire - Question 2 0 Sierra Echeverria " Generalized Anxiety Disorder Questionnaire - Question 1 0 Sierra Echeverria assessment of judgment and insight E&M intact Joey [facility] " mental status examination: [...] assessment of judgment and insight E&M [facility] " mental status examination: orientation E&M oriented to time, place, and person [facility] " assessment of mood and affect E&M no depression, anxiety, or agitation [facility] " Generalized Anxiety Disorder Questionnaire - Question 2 0 Ashley Sevilla " Generalized Anxiety Disorder Questionnaire - Question 1 0 Ashley Sevilla assessment of judgment and insight E&M intact [facility] " mental status examination: orientation E&M oriented to time, place, and person [facility] " assessment of mood and affect E&M no depression, anxiety, or agitation [facility] " Generalized Anxiety Disorder Questionnaire - Question 2 0 Steph Rebolledo " Generalized Anxiety Disorder Questionnaire - Question 1 0 Steph Rebolledo assessment of judgment and insight [facility] " mental status examination: orientation E&M oriented to time, place, and person [facility] " assessment of mood and affect E&M no depression, anxiety, or agitation [facility] " Generalized Anxiety Disorder Questionnaire - [...] rate, normal tone, normal volume, spontaneous, limitted Bengali Juan Clifton " mental status assessment, motor [...] party ID Sliding Fee - Cat 1 [employer] insurance Strikingly [id number] ADVANCE DIRECTIVES No Information Available TREATMENT PLAN [...] - - Est Patient Exp Problem - 89438 Est Patient Exp Problem - 14261 Est Patient Exp Problem - 13813 Est Patient Exp Problem - 62946 Est Patient Exp Problem - 57286 Est Patient Exp Problem - 91268 Diagnostic evaluation with medical - 56173 New Patient Well Exam (40 - 64 Yrs) - 91965 Est Patient Exp Problem - 35236 Behavioral Health - Therapy Behavioral Health - Psychiatry Color Consultant Ofc Vst, Est Level III Dispensing Visit (Non-Billable) [facility] Assessment - Loader Machine Diagnostic evaluation (no medical) - 46768 Ofc Vst, Est Level III Est Patient Exp Problem - 01572 Integrated Behavioral Health Assessment (IBH) Behavioral Health - Psychiatry Frames, purchases Sphere, bif, plano to +/- 4.00d, per lens New Patient Intermediate Opth - 08734 New Patient Detailed - 08912 Prescription Assistance (Non-HIV) Color Consultant Vision Dental - Internal Behavioral Health - Psychiatry HISTORY OF PROCEDURES Procedure Date Procedure Name Provider Procedure Notes Status Diagnostic evaluation with medical - 56400 Juan Clifton completed Dispensing Visit (Non-Billable) Janeth Rossi completed [facility] Assessment - Loader Machine Mariajose Carmichael completed Diagnostic evaluation (no medical) - 08620 Mariajose Carmichael completed Frames, purchases Janeth Rossi completed Sphere, bif, plano to +/- 4.00d, per lens Janeth Rossi 65.00 completed New Patient Intermediate Opt - 22199 Arseniojunaid Larsen completed GOALS No Information Available HEALTH CONCERNS No Information Available
--- OUTSIDE RECORDS SUMMARY | 2019-06-10 14:47 | XMS REPORT ---
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 annual exam active Matthew Hurdria Dementia completed [...] Encounter Diagnosis - Ambulatory Encounter Joey Ross [facility] UNK - Ambulatory Encounter Joey Cook Mahfouz [facility] UNK - Ambulatory Encounter [facility]uleyka [facility] - Ambulatory Encounter Patrica Torres [facility] UNK - Ambulatory Encounter Mahin Venegas [facility] UNK - Ambulatory Encounter Joeyteddy Nelsonfogrey [facility] UNK - Ambulatory Encounter Joeyteddy Nelsonfogrey [facility] UNK - Ambulatory Encounter Fax Status [facility] UNK - Ambulatory Encounter Fax Status [facility] UNK - Ambulatory Encounter Fax Status [facility] - [facility] - Ambulatory Encounter Fax Status [facility] UNK [facility] Ambulatory Encounter Fax Status [facility] UNK - Ambulatory Encounter [facility] UNK - Ambulatory Encounter Joeyteddy [facility] UNK - Ambulatory Encounter Joeyteddy Nelsongrey Cook Mahfo [facility] UNK - Ambulatory Encounter Joey Lesliegrey [facility] - [facility] UN[facility] - Ambulatory Encounter Juan José Langston [facility] Sierra Echeverria [facility] Headache, chronicPersonal history of anaphylaxis - Ambulatory Encounter [facility] - [facility] En[facility] UNK - Ambulatory Encounter Joey Lesliefogrey [facility] UNK - Ambulatory Encounter Joey Lesliegrey [facility] UNK - Ambulatory Encounter Zuleyka Wade Ashley Sevilla [facility] Otitis media acute right - Ambulatory Encounter Joey Lesliegrey [facility] UNK - Ambulatory Encounter Joey Vandana [facility] UNK - Ambulatory Encounter Joey Vandana [facility] UNK - Ambulatory Encounter Joey Lesliegrey [facility] UNK - Ambulatory Encounter Joey Lesliegrey [facility] UNK - Ambulatory Encounter Joey Lesliegrey [facility] UNK - Ambulatory Encounter Joey Lesliegrey [facility] UNK - Ambulatory Encounter Juan José Polanco [facility] Sierra Echeverria [facility] PrediabetesBMI 31.0-31.9 - Ambulatory Encounter Joey Lesliegrey [facility] UNK - Ambulatory Encounter Joey Lesliegrey [facility] UNK - Ambulatory Encounter Joey Lesliegrey [facility] UNK - Ambulatory Encounter Joey Lesliegrey [facility] UNK - Ambulatory Encounter Joey Vandana Cook Mahf[facility]z [facility] UNK - Ambulatory Encounter Joey Vandana [facility] UNK - Ambulatory Encounter Joey Vandana [facility] UNK - Ambulatory Encounter Zuleyka Sevilla Joey [facility] HypertensionHeadache, severeNumbness - Ambulatory Encounter Joey Vandana [facility] UNK - Ambulatory Encounter Joey Vandana Cook Mahfo [facility] UNK - Ambulatory Encounter Joey Vandana Cook [facility] UNK - Ambulatory Encounter Joey Vandana [facility] UNK - Ambulatory Encounter Zuleyka Wade Omteddy Nelsonkikagrey Steph Rebolledo [facility] HypertensionHeadache, severeNumbness - Ambulatory Encounter Fax Status [facility] UNK - Ambulatory Encounter Fax Status [facility] UNK - Ambulatory Encounter Fax Status [facility] UNK - Ambulatory Encounter Joeyteddy [facility] UNK - Ambulatory Encounter Joey Vandana [facility] UNK - Ambulatory Encounter Joey Vandana Cook [facility] UNK - Ambulatory Encounter Joeyteddy Ross [facility] UNK - Ambulatory Encounter Zuleyka Joe [facility] Swanson Cotton [facility] DementiaOrthostatic hypotensionDysautonomiaHx of syncope and collapse - Ambulatory Encounter [facility] UNK - Ambulatory Encounter [facility] UNK - Ambulatory Encounter [facility] UNK - Ambulatory Encounter Juan Loja [facility] DEPRESSIVE DISORDER, D/T ANOT MED COND, W/ DEPRESSIVE FEATURESDEPRESSIVE DISORDER, MAJOR, RECURRENT EPISODE, MILDANXIETY DISORDER, UNSPECIFIED - Ambulatory Encounter Matthew Castro A Maru [facility] UNK - Ambulatory Encounter Isidra Angeles [facility] UNK - Ambulatory Encounter Matthew Castro [facility] - Ambulatory Encounter Matthew Castro [facility] UN[facility] - Ambulatory Encounter Isidra Fonseca [facility] UNK - Ambulatory Encounter Ashley Fields [facility] UNK - Ambulatory Encounter Matthew Castro A Maru [facility] UNK - Ambulatory Encounter Matthew Castro A Maru Fields [facility]NA[facility] Winch Stripper annual examHistory of ovarian cystMammogram not high risk screeningScreening for vaginal cancer - Ambulatory Encounter Joey Vandana [facility] UNK - Ambulatory Encounter Joey Vandana Cook Mahfouz [facility] UNK - Ambulatory Encounter Joey Vandana Cook Mahfouz [facility] UNK - Ambulatory Encounter Joey Vandana Cook Mahfouz [facility] UNK - Ambulatory Encounter Joey Vandana Cook Mahfouz [facility] UNK - Ambulatory Encounter Joey Vandana [facility] UNK - Ambulatory Encounter Joey Vandana Cook Mahfouz [facility] UNK - Ambulatory Encounter Joey Vandana [facility] UNK - Ambulatory Encounter Isidra Lee [facility] UNK - Ambulatory Encounter Joey Vandana Cook [facility] UNK - Ambulatory Encounter Joey Vandana Cook [facility] Steph Rebolledo [facility] UNK - Ambulatory Encounter Joey Vandana [facility] UNK - Ambulatory Encounter Joey Vandana Cook [facility] UNK - Ambulatory Encounter [facility] - [facility]ulatory Encounter Fax Status [facility] UNK - Ambulatory Encounter [facility] - Ambulatory Encounter [facility] - Ambulatory Encounter [facility] - Ambulatory Encounter [facility] - Ambulatory Encounter [facility] UNK - Ambulatory Encounter Joey [facility] UNK - Ambulatory Encounter Patrica Fonseca [facility] Sky Rebolledo [facility] DysuriaMuscle spasm, backHypotensionMelasmaAbnormal abdominal imagingDementia - Ambulatory Encounter Sally Tejeda [facility] UNK - Ambulatory Encounter Margie [facility] UNK - Ambulatory Encounter Margie [facility] UNK - Ambulatory Encounter Margie [facility] UNK - Ambulatory Encounter Kobi Long [facility] UNK - Ambulatory Encounter Kobi Long [facility] UNK - Ambulatory Encounter Kobi Long [facility] UNK - Ambulatory Encounter Kobi Levy [facility] Unspecified ovarian cyst, left side - Ambulatory Encounter [facility] - [facility] Encounter Benjamin Sergei [facility] UNK - Ambulatory Encounter Janeth Rossi [facility] UNK - Ambulatory Encounter Yuniel Lee [facility] UNK - Ambulatory Encounter Kobi Long [facility] UNK - Ambulatory Encounter Kobi Long [facility] UNK - Ambulatory Encounter Kobi May [facility] Diverticulitis - Ambulatory Encounter Mariajose Carmichael [facility] DEPRESSIVE DISORDER, D/T ANOT MED COND, W/ DEPRESSIVE FEATURES - Ambulatory Encounter [facility] - Ambulatory Encounter Janeth Rossi [facility] UNK - Ambulatory Encounter Joey Vandana Cook [facility] - Ambulatory Encounter Jayleen Medel [facility] UNK - Ambulatory Encounter Ashley Sevilla [facility] UNK - Ambulatory Encounter [facility] - Ambulatory Encounter Joey Lesliekikagrey [facility] UNK - Ambulatory Encounter Joey Lesliedayton [facility]K - Ambulatory Encounter Joeyteddy Cook [facility] - Ambulatory Encounter Juan José Chacon [facility] Nelsongrey [facility]iel [facility] Epigastric discomfortOverweight - Ambulatory Encounter Patrica Torres [facility] UNK - Ambulatory Encounter Joey [facility] UNK - Ambulatory Encounter Joey Cook [facility] UNK - Ambulatory Encounter Joey [facility] Ingrid Leung [facility] UNK - Ambulatory Encounter Devaughn Carbajal [facility] UNK - Ambulatory Encounter [facility]eth [facility] - Ambulatory Encounter Joey Cook [facility] UNK - Ambulatory Encounter Arseniojunaid Larsen [facility] UNK - Ambulatory Encounter Arsenio Larsen [facility] UNK - Ambulatory Encounter Arseniojunaid Larsen [facility] UNK - Ambulatory Encounter Arseniojunaid Cartagena [facility] Vision Myopia - OUPresbyopia - OU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 - Ambulatory Encounter Isidra Fonseca [facility] UNK - Ambulatory Encounter Joeyteddy Cook [facility] UN[facility] - Ambulatory Encounter Joey Ross Bella Trinidad Cheek [facility] Contact Center UNK - Ambulatory Encounter Leatha Durant [facility] UNK - Ambulatory En[facility] - [facility]ulatory Encounter Joey Cook [facility] UNK - Ambulatory Encounter Joey Cook [facility] UNK - Ambulatory Encounter Joey Cook [facility] UNK - Ambulatory Encounter Joey Cook [facility] UNK - Ambulatory Encounter Marlene Chilel Joey [facility] Leatha Soto [facility] Diverticulitis, colonDiverticular diseaseHypotensionHistory of hypertensionAnemia due to dietary iron deficiencyHx of hypokalemiaHyperlipidemiaGERDDepressionAbdominal distentionScreening for colon cancerAnxietyVertigoGastroparesisDiabetic neuropathyDry eyeAsthma - Ambulatory Encounter Joey Cook [facility] UNK VITAL SIGNS Date Observation Value [...] arm Ashley Swainz " blood pressure, diastolic 79 mm[Hg] Ashley [...] " temperature site oral Steph Amaury " height E&M 60 [in_i] Steph Amaury " height in centimeters E&M 152.40 cm Steph Amaury pulse rate #4 97 /min Joey Ross " blood pressure, diastolic, fourth observation 85 mm[Hg] Joey Ross " blood pressure, systolic, fourth observation 127 mm[Hg] Joey Ross " pulse rate #3 97 Joey Ross " blood pressure, diastolic, third observation 86 mm[Hg] Joey Ross " blood pressure, systolic, third observation 120 mm[Hg] Joey Ross " pulse rate #2 95 Joey Ross " blood pressure, diastolic, second observation 84 mm[Hg] Joey Ross " blood pressure, systolic, second observation 134 [...] Ashley Sevilla " temperature site oral Ashley Wrightvez " temperature E&M 98.3 [degF] Ashley Sevilla " weight E&M 161.80 lbs. Ashley Wrightvez " weight in kilograms E&M 73.55 kg Ashley Sevilla " height E&M 60 [in_i] Ashley Sevilla " height in centimeters E&M 152.40 cm Ashley Wrightvez method used to obtain blood pressure automatic [...] " pulse rate E&M 17 /min Ashley Keyess " temperature site oral Ashley Fields " temperature E&M 98.6 [degF] Ashley Keyess " weight E&M 156.80 lbs. Ashley Fields [...] " blood pressure, systolic 114 mm[Hg] Ashley Wrightvez " respiratory rate E&M [...] - Pelvic/Transvaginal - Mammogram - Screening - CIRCULATION ANALYST - Internal RESULTS Date Observation Value Provider [...] MEDICATION USE Medication Instructions Dates Provider Comments TYLENOL EXTRA STRENGTH 500 MG ORAL TABLET 2 by mouth every 8 hours as needed Joey Ross AZITHROMYCIN 250 MG ORAL TABLET 2 tablets [...] every 4 - 6 hours as needed oJey Ross FLAGYL 500 MG ORAL TABLET 1 tab by mouth three a day - Joey Ross CIPRO 500 MG ORAL TABLET 1 by mouth twice a day - Joey Ross SOCIAL HISTORY Date Observation Value Provider " sexual orientation Heterosexual Sierra Echeverria " assessment of health literacy ([employer] 2014 Standards, 3C10) Adequate Sierra Echeverria " [...] is very supportive. Not homeless. Born in [place]. State: [facility] . Lives with daughter with her family (, 3 kids). 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, [...] Ashley Sevilla " assessment of health literacy ([employer] 2014 Standards, 3C10) Adequate Ashley Sevilla " passive cigarette smoke exposure No Ashley Sevilla " smoking status never smoker Ashley Sevilla Exercise Program Referral Slava Polanco " Weight Management Counseling Provided Slava Polanco " Nutrition intervention Slava Polanco " sexual orientation Heterosexual Sierra Echeverria " assessment of health literacy ([employer] 2014 Standards, 3C10) Adequate Sierra Echeverria " drug use, illicit Never Sierra Echeverria " alcohol use Never Sierra Echeverria " smoking status never smoker Sierra Echeverria Exercise Program Referral T Ashley Sevilla " Weight Management Counseling Provided T Ashley Sevilla " Nutrition intervention T Ashley Sevilla " sexual orientation Heterosexual Ashley Sevilla " assessment of health literacy ([employer] 2014 Standards, 3C10) Adequate Ashley Sevilla " passive cigarette smoke exposure No Ashley Sevilla " smoking status never smoker Ashley Sevilla " social history E&M . She is 1 of 12 siblings. from , 1 son working and 1 daughter who is very supportive. Not homeless. Born in [place]. State: [facility] . Lives with daughter with her family (, 3 kids). 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 Unemployed since 2016, [...] Steph Rebolledo " alcohol use Never Steph Amaury " social history E&M . She is 1 of 12 siblings. from , 1 son working and 1 daughter who is very supportive. Not homeless. Born in [place]. State: [facility] . Lives with daughter with her family (, 3 kids). 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 Sex at : Female. Sexual orientation: Heterosexual. Gender identity: Female. Gender of partner(s): Male. Age of first sexual intercourse: 18. Sexually Active: no. Jehova's witness. Arrested for "food stamp fraud", dismissed. Steph Rebolledo " social history reviewed E&M reviewed today Steph Jack " sexual orientation Heterosexual Steph Amaury " assessment of health literacy ([employer] 2014 Standards, 3C10) Adequate Steph Amaury " [...] is very supportive. Not homeless. Born in [place]. State: [facility] . Lives with daughter with her family (, 3 kids). 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 Not homeless. Born in [place]. State: [facility] . Lives with daughter with her family (, 3 kids). 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 Born in [place]. State: [facility] . 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 Sex at : Female. Sexual orientation: Heterosexual. Gender identity: Female. Gender of partner(s): Male. Age of first sexual intercourse: 18. Sexually Active: no. Ashley Fields " social history reviewed E&M reviewed today Ashley Fields " assessment of health literacy ([employer] 2014 Standards, 3C10) Adequate Ashley Fields " passive cigarette smoke exposure No Ashley Fields " smoking status never smoker Ashley Fields " Exercise Program Referral T Ashley Fields " Weight Management Counseling Provided T Ashley Fields " Nutrition intervention T Ashley Keyess drug use, illicit Never Steph Amaury " alcohol use Never Steph Amaury " social history E&M . from , 1 son working and 1 daughter who is very supportive Not homeless. Born in [place]. State: [facility] . 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 Sex at : Female. Sexual orientation: Heterosexual. Gender identity: Female. Gender of partner(s): Male. Age of first sexual intercourse: 18. Sexually Active: Yes. Steph Amaury " social history reviewed E&M reviewed today Steph Amaury " sexual orientation Heterosexual Steph Amaury " assessment of health literacy ([employer] 2014 Standards, 3C10) Adequate Steph Amaury " [...] is very supportive Not homeless. Born in [place]. State: [facility] . 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 Sex at : Female. Sexual orientation: Heterosexual. Gender identity: Female. Gender of partner(s): Male. Age of first sexual intercourse: 18. Sexually Active: Yes. Anay May " social history reviewed E&M reviewed today Anay May " sexual orientation Heterosexual Anay May " assessment of health literacy ([employer] 2014 Standards, 3C10) Adequate Anay May " passive cigarette smoke exposure No Anay May " smoking status never smoker Anay May social history reviewed E&M reviewed today Mariajose Amol " social history E&M . from , 1 son working and 1 daughter who is very supportive Not homeless. Born in [place]. State: [facility] . Lives [...] Anay May " assessment of health literacy ([employer] 2014 Standards, 3C10) Adequate Anay May " [...] Yuniel Lee " assessment of health literacy ([employer] 2014 Standards, 3C10) Adequate Yuniel Lee " [...] Ashley Sevilla " assessment of health literacy ([employer] 2014 Standards, 3C10) Adequate Ashley Sevilla " passive cigarette smoke exposure No Ashley Sevilla " smoking status never smoker Ashley Sevilla FUNCTIONAL STATUS No Information Available MENTAL STATUS Date Observation Value Provider assessment of judgment and insight E&M intact [facility] " mental status examination: orientation E&M oriented to time, place, and person [facility] " assessment of mood and affect E&M normal Joey Mahfouz assessment of judgment and insight E&M intact Joey [facility] " mental status examination: orientation E&M oriented to time, place, and person [facility] " assessment of mood and affect E&M no depression, anxiety, or agitation [facility] " Generalized Anxiety Disorder Questionnaire - Question 2 0 Sierra Echeverria " Generalized Anxiety Disorder Questionnaire - Question 1 0 Sierra Echeverria assessment of judgment and insight E&M intact Joey [facility] " mental status examination: orientation E&M oriented to time, place, and person [facility] " assessment of mood and affect E&M no depression, anxiety, or agitation [facility] " Generalized Anxiety Disorder Questionnaire - Question 2 0 Ashley Sevilla " Generalized Anxiety Disorder Questionnaire - Question 1 0 Ashley Sevilla assessment of judgment and insight E&M intact [facility] " mental status examination: orientation E&M oriented to time, place, and person [facility] " assessment of mood and affect E&M no depression, anxiety, or agitation [facility] " Generalized Anxiety Disorder Questionnaire - Question 2 0 Sierra Echeverria " Generalized Anxiety Disorder Questionnaire - Question 1 0 Sierra Echeverria assessment of judgment and insight E&M intact [facility] " mental status examination: orientation E&M [...] rate, normal tone, normal volume, spontaneous, limitted Argentine Juan Clifton" mental status assessment, motor activity [...] time, place, and person Joey [facility] " Generalized Anxiety Disorder Questionnaire - Question [...] cooperative, good eye contact, polite, responsive Mariajose Amol " mental appearance (mental status exam) adequate [...] republican ID Sliding Fee - Cat 1 [employer] insurance [employer] [id number] ADVANCE DIRECTIVES No Information Available TREATMENT PLAN [...] Differential/Platelet - - - - - - Telephone E/M, physician, established pt, 11-20 minutes Est Patient Exp Problem - 72885 Est Patient Exp Problem - 85552 Est Patient Exp Problem - 59855 Est Patient Exp Problem - 15990 Est Patient Exp Problem - 37857 Est Patient Exp Problem - 63841 Diagnostic evaluation with medical - 83710 New Patient Well Exam (40 - 64 Yrs) - 07076 Est Patient Exp Problem - 01489 Behavioral Health - Therapy Behavioral Health - Psychiatry Cryptographer Ofc Vst, Est Level III Dispensing Visit (Non-Billable) [facility] Assessment - Camp Housekeeper Diagnostic evaluation (no medical) - 05595 Ofc Vst, Est Level III Est Patient Exp Problem - 27458 Integrated Behavioral Health Assessment (IBH) Behavioral Health - Psychiatry Frames, purchases Sphere, bif, plano to +/- 4.00d, per lens New Patient Intermediate Opth - 63225 New Patient Detailed - 50857 Prescription Assistance (Non-HIV) Cryptographer [facility] - Internal Behavioral Health - Psychiatry HISTORY OF PROCEDURES Procedure Date Procedure Name Provider Procedure Notes Status Diagnostic evaluation with medical - 79496 Juan Clifton completed Dispensing Visit (Non-Billable) Janeth Rossi completed IB Assessment - Camp Housekeeper Mariajose Carmichael completed Diagnostic evaluation (no medical) - 40471 Mariajose Carmichael completed Frames, purchases Janeth Rossi completed Sphere, bif, plano to +/- 4.00d, per lens Janeth Rossi 65.00 completed New Patient Intermediate [facility] - 04072 Arseniojunaid Larsen completed GOALS No Information Available HEALTH CONCERNS No Information Available
[2019-06-10] MEDS ORDERED: SODIUM CHLORIDE 0.9% 50ML 50 ML ONE (14:50)
[2019-06-10] MEDS ORDERED: DIATRIZOATE MEGL/DIATRIZOA SOD 30 ML BTL PO ONE (14:50)
[2019-06-10] MEDS ORDERED: IOPAMIDOL 370 MG/ML 200 ML INFUS..BTL INJ ONE (14:51)
[2019-06-10 14:58] LABS: BASOPHILS % 0.3 % (0.0-1.0); EOSINOPHILS # (AUTO) 0.1 (0.0-0.4); HEMATOCRIT 37.9 % (34.2-44.1); HEMOGLOBIN 12.4 g/dL (12.0-16.0); LYMPHOCYTES # (AUTO) 1.4 (1.0-3.2); LYMPHOCYTES % 24.3 % (18.0-39.1); MEAN CORPUSCULAR HEMOGLOBIN 26.7 pg (28-32); MEAN CORPUSCULAR HGB CONC 32.7 g/dL (31-35); MEAN CORPUSCULAR VOLUME 81.7 fL (81-99); MONOCYTES # (AUTO) 0.4 (0.2-0.8); MONOCYTES % 7.7 % (4.4-11.3); NEUTROPHILS # (AUTO) 3.8 (2.1-6.9); NEUTROPHILS % 66.4 % (38.7-80.0); PLATELET COUNT 284 x10e3/uL (140-360); RED BLOOD COUNT 4.64 x10e6/uL (3.6-5.1); RED CELL DISTRIBUTION WIDTH 12.9 % (11.7-14.4)
[2019-06-10 15:03] LABS: BILIRUBIN,URINE NEGATIVE (NEGATIVE); CLARITY,URINE CLEAR (CLEAR); COLOR,URINE YELLOW (YELLOW); KETONES,URINE NEGATIVE (NEGATIVE); LEUKOCYTE ESTERASE ,URINE NEGATIVE (NEGATIVE); NITRITE,URINE NEGATIVE (NEGATIVE); PROTEIN,URINE DIPSTICK NEGATIVE (NEGATIVE); URINE UROBILINOGEN 0.2 mg/dL (0.2 - 1)
[2019-06-10 15:14] LABS: EPITHELIAL CELLS,URINE RARE /LPF
[2019-06-10 15:18] LABS: ALANINE AMINOTRANSFERASE 23 IU/L (0-55); ALBUMIN 4.8 g/dL (3.5-5.0); ALBUMIN/GLOBULIN RATIO 1.6 (0.8-2.0); ALKALINE PHOSPHATASE 80 IU/L (40-150); BLOOD UREA NITROGEN 12 mg/dL (7-26); BUN/CREATININE RATIO 14 (6-25); CALCIUM 10.4 mg/dL (8.4-10.2); CARBON DIOXIDE 29 mmol/L (22-29); CHLORIDE 101 mmol/L (98-107); CREATININE, SERUM 0.84 mg/dL (0.57-1.11); EST GLOMERULAR FILTRATION RATE > 60 ML/MIN (60-); GLUCOSE 132 mg/dL (74-118); LIPASE 28 U/L (8-78); SODIUM 139 mmol/L (136-145)
--- NOTE | 2019-06-10 16:18 | Diagnostic Imaging Report ---
EXAM: CT Abdomen and Pelvis WITH intravenous contrast INDICATION: Abdominal pain COMPARISON: None. TECHNIQUE: Abdomen and pelvis were scanned utilizing a multidetector helical scanner from the lung base to the pubic symphysis after administration of IV contrast. Coronal and sagittal reformations were obtained. Routine protocol was performed. Scan was performed during portal venous phase. IV CONTRAST: 100mL of Isovue 370 ORAL CONTRAST: Gastrografin RADIATION DOSE: Total DLP: 580 mGy*cm Dose modulation, iterative reconstruction, and/or weight based adjustment of the mA/kV was utilized to reduce the radiation dose to as low as reasonably achievable. FINDINGS: LOWER THORAX: Normal. HEPATOBILIARY: Diffuse hepatic steatosis. No focal liver lesion. No biliary ductal dilation. Status post cholecystectomy. SPLEEN: No splenomegaly. PANCREAS: No focal masses or ductal dilatation. ADRENALS: No adrenal nodules. KIDNEYS/URETERS: No hydronephrosis, stones, or solid mass lesions. PELVIC ORGANS/BLADDER: Hysterectomy. PERITONEUM / RETROPERITONEUM: No free air or fluid. LYMPH NODES: No lymphadenopathy. VESSELS: Unremarkable. GI TRACT: Moderate sliding hiatal hernia. No abnormal bowel thickening. No bowel obstruction. Mild diverticulosis including of the right colon. No CT evidence of diverticulitis. Normal appendix. BONES AND SOFT TISSUES: No acute osseous injury. No suspicious lytic or blastic lesions. IMPRESSION: Diverticulosis without CT evidence of diverticulitis. Diffuse hepatic steatosis. Moderate hiatal hernia. Signed by: Kylah Lawton MD on 06/10/2019 4:15 PM
[2019-06-16] MEDS ORDERED: GABAPENTIN300 MG PO (13:29)
[2019-06-16] MEDS ORDERED: ZOFRAN4 MG PO (13:29)
[2019-06-16] MEDS ORDERED: SERTRALINE HCL100 MG PO (13:29)
[2019-06-16] MEDS ORDERED: NAPROXEN250 MG PO (13:30)
[2019-06-16] MEDS ORDERED: MECLIZINE HCL12.5 MG PO (13:30)
[2019-06-16] MEDS ORDERED: DOXYCYCLINE HY100 MG PO (13:30)
[2019-06-16] MEDS ORDERED: TYLENOL PO (13:31)
[2019-06-16] MEDS ORDERED: METOCLOPRAMIDE10 MG PO (13:31)
[2019-06-16] MEDS ORDERED: STOOL SOFTENER100 MG PO (13:31)
[2019-06-16] MEDS ORDERED: CETIRIZINE HCL10 MG PO (13:32)
[2019-06-16] MEDS ORDERED: FLUTICASONE (13:32)
[2019-06-16] MEDS ORDERED: ALBUTEROL0.63 MG/3 INH (13:32)
[2019-06-16] MEDS ORDERED: METFORMIN HCL500 MG PO (13:33)
[2019-06-16] MEDS ORDERED: PROBIOTIC & AC1 EACH PO (13:33)
[2019-06-16] MEDS ORDERED: FIBER SUPPLEMENT PO (13:33)
[2019-06-16] MEDS ORDERED: ATORVASTATIN CA10 MG PO (13:33)
[2019-06-16] MEDS ORDERED: DICYCLOMINE HCL20 MG PO (13:34)
[2019-06-16] MEDS ORDERED: PANTOPRAZOLE SO40 MG PO (13:34)
== END 2019-06-10 16:51 | disposition home or self-care (01) ==
LOC: ER 14:32
DX: R10.32 Left lower quadrant pain (principal); R11.0 Nausea; E11.9 Type 2 diabetes mellitus without complications; Z87.19 Personal history of other diseases of the digestive system
CPT/HCPCS: 36415; 74177; 80053; 81001; 83690; 85025; 99284; J2270; J2405; J7030; Q9967

== ENCOUNTER 2019-06-12 12:48 | Emergency (ER) | payer BC ==
[~2019-06-12] VITALS: Ht 157.5 cm; Wt 72.6 kg
[2019-06-12] MEDS ORDERED: ONDANSETRON HCL INJ 2MG/ML 2ML 2 MG/ML VIAL IV STA (13:05)
[2019-06-12] MEDS ORDERED: PANTOPRAZOLE 40 MG 10ML VIAL IV STA (13:05)
[2019-06-12] MEDS ORDERED: DICYCLOMINE HCL 20 MG/2 ML VIAL IM ONE (13:15)
--- NOTE | 2019-06-12 13:47 | Diagnostic Imaging Report ---
Exam: KUB - 2 views Indication: Constipation Comparison: CT abdomen and pelvis of 06/10/2019 Findings: Nonobstructive bowel gas pattern. No free air. Residual contrast material in the colon opacifies several prominent diverticuli. Status post cholecystectomy. No acute osseous injury. Impression: Normal stool burden throughout the colon. Nonobstructive bowel gas pattern. Diverticulosis. Signed by: Kylah Lawton MD on 06/12/2019 1:43 PM
[2019-06-12 14:30] LABS: BASOPHILS % 0.3 % (0.0-1.0); EOSINOPHILS # (AUTO) 0.1 (0.0-0.4); EOSINOPHILS % 1.4 % (0.0-6.0); HEMATOCRIT 34.3 % (34.2-44.1); HEMOGLOBIN 11.2 g/dL (12.0-16.0); LYMPHOCYTES # (AUTO) 1.1 (1.0-3.2); LYMPHOCYTES % 31.3 % (18.0-39.1); MEAN CORPUSCULAR HEMOGLOBIN 26.9 pg (28-32); MEAN CORPUSCULAR HGB CONC 32.7 g/dL (31-35); MEAN CORPUSCULAR VOLUME 82.3 fL (81-99); MONOCYTES # (AUTO) 0.4 (0.2-0.8); MONOCYTES % 10.7 % (4.4-11.3); NEUTROPHILS # (AUTO) 1.9 (2.1-6.9); PLATELET COUNT 262 x10e3/uL (140-360); RED BLOOD COUNT 4.17 x10e6/uL (3.6-5.1); RED CELL DISTRIBUTION WIDTH 12.9 % (11.7-14.4)
[2019-06-12 14:37] LABS: BILIRUBIN,URINE NEGATIVE (NEGATIVE); CLARITY,URINE CLEAR (CLEAR); COLOR,URINE YELLOW (YELLOW); KETONES,URINE NEGATIVE (NEGATIVE); LEUKOCYTE ESTERASE ,URINE NEGATIVE (NEGATIVE); NITRITE,URINE NEGATIVE (NEGATIVE); PROTEIN,URINE DIPSTICK NEGATIVE (NEGATIVE); URINE UROBILINOGEN 0.2 mg/dL (0.2 - 1)
[2019-06-12 14:46] LABS: ALANINE AMINOTRANSFERASE 23 IU/L (0-55); ALBUMIN 4.4 g/dL (3.5-5.0); ALBUMIN/GLOBULIN RATIO 1.5 (0.8-2.0); ALKALINE PHOSPHATASE 75 IU/L (40-150); AMYLASE 61 U/L (25-125); ANION GAP 10.3 mmol/L (8-16); BLOOD UREA NITROGEN 10 mg/dL (7-26); BUN/CREATININE RATIO 12 (6-25); CALCIUM 9.7 mg/dL (8.4-10.2); CARBON DIOXIDE 28 mmol/L (22-29); CHLORIDE 103 mmol/L (98-107); CREATININE, SERUM 0.84 mg/dL (0.57-1.11); EST GLOMERULAR FILTRATION RATE > 60 ML/MIN (60-); GLUCOSE 141 mg/dL (74-118); LIPASE 24 U/L (8-78); POTASSIUM 4.3 mmol/L (3.5-5.1); SODIUM 137 mmol/L (136-145)
[2019-06-12 14:52] LABS: EPITHELIAL CELLS,URINE RARE /LPF; TRANSITIONAL EPI CELLS,URINE RARE; WBC,URINE (MAN) 0-5 /HPF (0-5)
[2019-06-12] MEDS ORDERED: KETOROLAC TROMETHAMINE 30 MG/ML VIAL IV STA (15:53)
[2019-06-16] MEDS ORDERED: ZOFRAN4 MG PO (13:29)
[2019-06-16] MEDS ORDERED: SERTRALINE HCL100 MG PO (13:29)
[2019-06-16] MEDS ORDERED: GABAPENTIN300 MG PO (13:29)
[2019-06-16] MEDS ORDERED: MECLIZINE HCL12.5 MG PO (13:30)
[2019-06-16] MEDS ORDERED: NAPROXEN250 MG PO (13:30)
[2019-06-16] MEDS ORDERED: DOXYCYCLINE HY100 MG PO (13:30)
[2019-06-16] MEDS ORDERED: TYLENOL PO (13:31)
[2019-06-16] MEDS ORDERED: STOOL SOFTENER100 MG PO (13:31)
[2019-06-16] MEDS ORDERED: METOCLOPRAMIDE10 MG PO (13:31)
[2019-06-16] MEDS ORDERED: CETIRIZINE HCL10 MG PO (13:32)
[2019-06-16] MEDS ORDERED: ALBUTEROL0.63 MG/3 INH (13:32)
[2019-06-16] MEDS ORDERED: FLUTICASONE (13:32)
[2019-06-16] MEDS ORDERED: METFORMIN HCL500 MG PO (13:33)
[2019-06-16] MEDS ORDERED: FIBER SUPPLEMENT PO (13:33)
[2019-06-16] MEDS ORDERED: PROBIOTIC & AC1 EACH PO (13:33)
[2019-06-16] MEDS ORDERED: ATORVASTATIN CA10 MG PO (13:33)
[2019-06-16] MEDS ORDERED: PANTOPRAZOLE SO40 MG PO (13:34)
[2019-06-16] MEDS ORDERED: DICYCLOMINE HCL20 MG PO (13:34)
== END 2019-06-12 16:39 | disposition home or self-care (01) ==
LOC: ER 12:48
DX: R10.30 Lower abdominal pain, unspecified (principal); K59.00 Constipation, unspecified; R73.9 Hyperglycemia, unspecified; K57.90 Diverticulosis of intestine, part unspecified, without perforation or abscess without bleeding; E78.5 Hyperlipidemia, unspecified; K76.0 Fatty (change of) liver, not elsewhere classified; K44.9 Diaphragmatic hernia without obstruction or gangrene
CPT/HCPCS: 36415; 74019; 80053; 81001; 82150; 83690; 84484; 85025; 87086; 99282; C9113; J0500; J1885; J2405

== ENCOUNTER → 2019-06-18 | Day surgery (SDC) | payer BC ==
[~2019-06-18] MED LIST: ALBUTEROL0.63 MG/3 INH; ATORVASTATIN CA10 MG PO; CETIRIZINE HCL10 MG PO; DICYCLOMINE HCL20 MG PO; DOXYCYCLINE HY100 MG PO; FENTANYL CITRATE/PF 100MCG/2 ML INJ ONE; FIBER SUPPLEMENT PO; FLUTICASONE; GABAPENTIN300 MG PO; GLUCAGON FOR INJ 1 MG VIAL ONE; MECLIZINE HCL12.5 MG PO; METFORMIN HCL500 MG PO; METOCLOPRAMIDE10 MG PO; MIDAZOLAM HCL 2 MG/2 ML VIAL ONE; NAPROXEN250 MG PO; PANTOPRAZOLE SO40 MG PO; PROBIOTIC & AC1 EACH PO; PROPOFOL IV EMULSION 10 MG/ML 20 ML VIAL ONE; SERTRALINE HCL100 MG PO; STOOL SOFTENER100 MG PO; TYLENOL PO; ZOFRAN4 MG PO
[2019-06-18 10:26] VITALS: BP 116/76
== END | disposition home or self-care (01) ==
LOC: OR 07:13
PROVIDERS: ATTEND Internal Medicine Gastroenterology
DX: R13.10 Dysphagia, unspecified (principal); D12.4 Benign neoplasm of descending colon; D12.5 Benign neoplasm of sigmoid colon; K29.60 Other gastritis without bleeding; K44.9 Diaphragmatic hernia without obstruction or gangrene; K22.8 Other specified diseases of esophagus; K28.9 Gastrojejunal ulcer, unspecified as acute or chronic, without hemorrhage or perforation; K21.9 Gastro-esophageal reflux disease without esophagitis; K59.00 Constipation, unspecified; K57.30 Diverticulosis of large intestine without perforation or abscess without bleeding; Z88.0 Allergy status to penicillin; Z91.040 Latex allergy status; R53.1 Weakness; R42 Dizziness and giddiness; F41.9 Anxiety disorder, unspecified; F32.9 Major depressive disorder, single episode, unspecified; J45.909 Unspecified asthma, uncomplicated; E11.9 Type 2 diabetes mellitus without complications; R07.9 Chest pain, unspecified; I51.7 Cardiomegaly; Z79.84 Long term (current) use of oral hypoglycemic drugs; Z79.82 Long term (current) use of aspirin; Z79.899 Other long term (current) drug therapy
CPT/HCPCS: 36415; 43239; 45384; 45385; 82948; 93005; J1610; J2250; J2704; J3010

== ENCOUNTER 2019-06-24 13:46 | Emergency (ER) | payer BC ==
[~2019-06-24] VITALS: Ht 157.5 cm; Wt 72.6 kg
[~2019-06-24 13:46] MED LIST changes: -FENTANYL CITRATE/PF 100MCG/2 ML INJ ONE; -GLUCAGON FOR INJ 1 MG VIAL ONE; -MIDAZOLAM HCL 2 MG/2 ML VIAL ONE; -PROPOFOL IV EMULSION 10 MG/ML 20 ML VIAL ONE
[2019-06-24] MEDS ORDERED: ONDANSETRON HCL INJ 2MG/ML 2ML 2 MG/ML VIAL IV STA (14:13)
[2019-06-24] MEDS ORDERED: MORPHINE SULFATE INJ 4 MG/ML INJ 1ML IV STA (14:13)
[2019-06-24] MEDS ORDERED: SODIUM CHLORIDE 0.9% 1000ML 1,000 ML IV STA (14:13)
[2019-06-24 14:24] LABS: BASOPHILS % 0.2 % (0.0-1.0); EOSINOPHILS # (AUTO) 0.1 (0.0-0.4); EOSINOPHILS % 1.5 % (0.0-6.0); HEMATOCRIT 35.6 % (34.2-44.1); HEMOGLOBIN 11.8 g/dL (12.0-16.0); LYMPHOCYTES # (AUTO) 1.4 (1.0-3.2); LYMPHOCYTES % 34.6 % (18.0-39.1); MEAN CORPUSCULAR HEMOGLOBIN 27.1 pg (28-32); MEAN CORPUSCULAR HGB CONC 33.1 g/dL (31-35); MEAN CORPUSCULAR VOLUME 81.8 fL (81-99); MONOCYTES # (AUTO) 0.3 (0.2-0.8); MONOCYTES % 8.2 % (4.4-11.3); NEUTROPHILS # (AUTO) 2.2 (2.1-6.9); NEUTROPHILS % 55.3 % (38.7-80.0); PLATELET COUNT 284 x10e3/uL (140-360); RED BLOOD COUNT 4.35 x10e6/uL (3.6-5.1)
[2019-06-24 14:36] LABS: BILIRUBIN,URINE NEGATIVE (NEGATIVE); CLARITY,URINE CLEAR (CLEAR); COLOR,URINE YELLOW (YELLOW); KETONES,URINE NEGATIVE (NEGATIVE); LEUKOCYTE ESTERASE ,URINE TRACE (NEGATIVE); NITRITE,URINE NEGATIVE (NEGATIVE); PROTEIN,URINE DIPSTICK NEGATIVE (NEGATIVE); URINE UROBILINOGEN 0.2 mg/dL (0.2 - 1)
[2019-06-24 14:45] LABS: ALANINE AMINOTRANSFERASE 11 IU/L (0-55); ALBUMIN 4.3 g/dL (3.5-5.0); ALBUMIN/GLOBULIN RATIO 1.4 (0.8-2.0); ALKALINE PHOSPHATASE 75 IU/L (40-150); BLOOD UREA NITROGEN 19 mg/dL (7-26); BUN/CREATININE RATIO 22 (6-25); CALCIUM 9.8 mg/dL (8.4-10.2); CARBON DIOXIDE 28 mmol/L (22-29); CHLORIDE 102 mmol/L (98-107); CREATINE KINASE 36 IU/L (29-168); CREATININE, SERUM 0.87 mg/dL (0.57-1.11); EST GLOMERULAR FILTRATION RATE > 60 ML/MIN (60-); GLUCOSE 101 mg/dL (74-118); SODIUM 135 mmol/L (136-145)
[2019-06-24] MEDS ORDERED: DIATRIZOATE MEGL/DIATRIZOA SOD 30 ML BTL PO ONE (14:45)
[2019-06-24 15:01] LABS: EPITHELIAL CELLS,URINE RARE /LPF; TRANSITIONAL EPI CELLS,URINE RARE; WBC,URINE (MAN) 0-5 /HPF (0-5)
--- NOTE | 2019-06-24 16:29 | Diagnostic Imaging Report ---
EXAM: CT Abdomen and Pelvis WITH intravenous contrast INDICATION: Abdominal pain COMPARISON: CT abdomen/pelvis of 06/10/2019 TECHNIQUE: Abdomen and pelvis were scanned utilizing a multidetector helical scanner from the lung base to the pubic symphysis after administration of IV contrast. Coronal and sagittal reformations were obtained. Routine protocol was performed. Scan was performed during portal venous phase. IV CONTRAST: 100mL of Isovue 370 ORAL CONTRAST: Gastrografin RADIATION DOSE: Total DLP: 609 mGy*cm Dose modulation, iterative reconstruction, and/or weight based adjustment of the mA/kV was utilized to reduce the radiation dose to as low as reasonably achievable. FINDINGS: LOWER THORAX: Minimal bibasilar dependent subsegmental atelectasis. Sliding hiatal hernia. HEPATOBILIARY: Diffuse hepatic steatosis. No focal liver lesion. No biliary ductal dilation. Status post cholecystectomy. SPLEEN: No splenomegaly. PANCREAS: No focal masses or ductal dilatation. ADRENALS: No adrenal nodules. KIDNEYS/URETERS: No hydronephrosis, stones, or solid mass lesions. PELVIC ORGANS/BLADDER: Hysterectomy. PERITONEUM / RETROPERITONEUM: No free air free fluid. LYMPH NODES: No lymphadenopathy. VESSELS: Unremarkable. GI TRACT: Diverticulosis without CT evidence of diverticulitis. No abnormal bowel thickening. No bowel obstruction. Normal appendix. BONES AND SOFT TISSUES: No acute osseous injury. No suspicious lytic or blastic lesions. IMPRESSION: No acute findings in the abdomen or pelvis. Diffuse hepatic steatosis. Signed by: Kylah Lawton MD on 06/24/2019 4:25 PM
[2019-06-24] MEDS ORDERED: SODIUM CHLORIDE 0.9% 50ML 50 ML ONE (18:14)
[2019-06-24] MEDS ORDERED: IOPAMIDOL 370 MG/ML 200 ML INFUS..BTL INJ ONE (18:14)
== END 2019-06-24 17:51 | disposition home or self-care (01) ==
LOC: ER 13:46
DX: R10.11 Right upper quadrant pain (principal); R10.31 Right lower quadrant pain; R10.32 Left lower quadrant pain; R11.2 Nausea with vomiting, unspecified; E11.9 Type 2 diabetes mellitus without complications; F32.9 Major depressive disorder, single episode, unspecified
CPT/HCPCS: 36415; 74177; 80053; 81001; 82550; 82553; 83690; 84484; 85025; 93005; 99284; J2270; J2405; J7030; Q9967

== ENCOUNTER 2019-08-22 21:24 | Emergency (ER) | payer BC ==
[~2019-08-22] VITALS: Ht 157.5 cm; Wt 72.6 kg
--- NOTE | 2019-08-22 22:26 | Emergency Department Note ---
History of Present Illnes History of Present Illness Chief Complaint: Abdominal Complaints History of Present Illness This is a 54 year old female arrives to the ED with suprapubic abdominal pain. Patient states she's been to 3 hospitals this week for same complaints and received 2 CT scans that showed diverticulitis. Patient states she is on Cipro and Flagyl. Patient denies any nausea or vomiting, is tolerating oral intake without difficulties. Patient requesting her GI doctor be paged to the ED. Severity: mild Onset quality: gradual Duration (how long): week(s) Timing of current episode: intermittent Progression: waxing and waning Chronicity: chronic Past Medical/Family History Physician Review I have reviewed the patient's past medical and family history. Any updates have been documented here. Past Medical History Past Medical History: Diabetes, UTI's, Migraines, Depression, Hyperlipedemia, Chronic Back Pain Other Medical History: diverticulitis chronic back pain Past Surgical History: Cholecysctectomy, Hysterectomy Other Last Tetanus: utd Review of Systems Review of Systems Constitutional: Reports no symptoms EENTM: Reports no symptoms Cardiovascular: Reports no symptoms Respiratory: Reports no symptoms Gastrointestinal: Reports as per HPI, Reports abdominal pain Genitourinary: Reports no symptoms Musculoskeletal: Reports no symptoms Integumentary: Reports no symptoms Neurological: Reports no symptoms Psychological: Reports no symptoms Endocrine: Reports no symptoms Hematological/Lymphatic: Reports no symptoms Physical Exam Related Data Allergies: Coded Allergies: papaya (Verified Allergy, Severe, 06/24/19) RASH, HIVES, ANAPHYLACTIC pineapple (Verified Allergy, Severe, 06/24/19) ANAPHYLACTIC Penicillins (Verified Allergy, Unknown, 06/24/19) latex (Verified Allergy, Unknown, 06/24/19) Uncoded Allergies: DAIRY (Allergy, Intermediate, 06/16/19) UPSET STOMACH DUST (Allergy, Intermediate, 06/16/19) SOB Vital signs reviewed: Yes Physical Exam CONSTITUTIONAL Constitutional: Present well-developed, Present well-nourished HENT HENT: Present normocephalic, Present atraumatic, Present oropharynx clear/moist, Present nose normal HENT L/R: Present left ext ear normal, Present right ext ear normal EYES Eyes: Reports PERRL, Reports conjunctivae normal NECK Neck: Present ROM normal PULMONARY Pulmonary: Present effort normal, Present breath sounds normal CARDIOVASCULAR Cardiovascular: Present regular rhythm, Present heart sounds normal, Present capillary refill normal, Present normal rate GASTROINTESTINAL Abdominal: Present soft, Present bowel sounds normal, Present tender GENITOURINARY Genitourinary: Present exam deferred SKIN Skin: Present warm, Present dry MUSCULOSKELETAL Musculoskeletal: Present ROM normal NEUROLOGICAL Neurological: Present alert, Present oriented x 3, Present no gross motor or sensory deficits PSYCHOLOGICAL Psychological: Present mood/affect normal, Present judgement normal Results Laboratory Lab results reviewed: Yes Laboratory comments Laboratory Tests Test 08/22/19 22:07 White Blood Count 4.10 x10e3/uL (4.8-10.8) Red Blood Count 3.88 x10e6/uL (3.6-5.1) Hemoglobin 10.0 g/dL (12.0-16.0) Hematocrit 31.4 % (34.2-44.1) Mean Corpuscular Volume 80.9 fL (81-99) Mean Corpuscular Hemoglobin 25.8 pg (28-32) Mean Corpuscular Hemoglobin Concent 31.8 g/dL (31-35) Red Cell Distribution Width 13.9 % (11.7-14.4) Platelet Count 271 x10e3/uL (140-360) Neutrophils (%) (Auto) 59.3 % (38.7-80.0) Lymphocytes (%) (Auto) 29.8 % (18.0-39.1) Monocytes (%) (Auto) 8.5 % (4.4-11.3) Eosinophils (%) (Auto) 1.7 % (0.0-6.0) Basophils (%) (Auto) 0.2 % (0.0-1.0) Neutrophils # (Auto) 2.4 (2.1-6.9) Lymphocytes # (Auto) 1.2 (1.0-3.2) Monocytes # (Auto) 0.4 (0.2-0.8) Eosinophils # (Auto) 0.1 (0.0-0.4) Basophils # (Auto) 0.0 (0.0-0.1) Absolute Immature Granulocyte (auto 0.02 x10e3/uL (0-0.1) Urine Color Yellow (YELLOW) Urine Clarity Clear (CLEAR) Urine pH 7 (5 - 7) Urine Specific [place] 1.020 (1.010-1.025) Urine Protein Negative (NEGATIVE) Urine Glucose (UA) Negative (NEGATIVE) Urine Ketones Negative (NEGATIVE) Urine Blood Negative (NEGATIVE) Urine Nitrite Negative (NEGATIVE) Urine Bilirubin Negative (NEGATIVE) Urine Urobilinogen 0.2 mg/dL (0.2 - 1) Urine Leukocyte Esterase Negative (NEGATIVE) Urine RBC None /HPF (0-5) Urine WBC 0-5 /HPF (0-5) Urine Epithelial Cells Moderate /LPF (NONE) Urine Bacteria Few /HPF (NONE) Sodium Level 139 mmol/L (136-145) Potassium Level 3.9 mmol/L (3.5-5.1) Chloride Level 104 mmol/L (98-107) Carbon Dioxide Level 28 mmol/L (22-29) Anion Gap 10.9 mmol/L (8-16) Blood Urea Nitrogen 7 mg/dL (7-26) Creatinine 0.84 mg/dL (0.57-1.11) Estimat Glomerular Filtration Rate > 60 ML/MIN (60-) BUN/Creatinine Ratio 8 (6-25) Glucose Level 137 mg/dL (74-118) Calcium Level 9.3 mg/dL (8.4-10.2) Total Bilirubin 0.3 mg/dL (0.2-1.2) Aspartate Amino Transf (AST/SGOT) 27 IU/L (5-34) Alanine Aminotransferase (ALT/SGPT) 41 IU/L (0-55) Alkaline Phosphatase 71 IU/L (40-150) Creatine Kinase 59 IU/L (29-168) Creatine Kinase MB 0.60 ng/mL (0-5.0) Troponin I 0.007 ng/mL (0-0.300) Total Protein 6.8 g/dL (6.5-8.1) Albumin 4.0 g/dL (3.5-5.0) Globulin 2.8 g/dL (2.3-3.5) Albumin/Globulin Ratio 1.4 (0.8-2.0) Lipase 27 U/L (8-78) Urine Opiates Screen Negative (NEGATIVE) Urine Methadone Screen Negative (NEGATIVE) Urine Barbiturates Screen Negative (NEGATIVE) Urine Phencyclidine Screen Negative (NEGATIVE) Urine Amphetamines Screen Positive (NEGATIVE) Urine Methamphetamines Screen Negative (NEGATIVE) Urine Benzodiazepines Screen Negative (NEGATIVE) Urine Cocaine Screen Negative (NEGATIVE) Urine Cannabinoids Screen Negative (NEGATIVE) Imaging Imaging results reviewed: Yes Assessment & Plan Medical Decision Making MDM 54-year-old well-appearing applied to the ED with complaints of abdominal pain. Patient with a benign abdominal exam. Patient's labwork normal. Patient had 2 CT scans done recently and results reviewed. No concerns of acute abdominal surgical process in the emergency department. Spoke to patient at length that she will not get a repeat CT scan given her 2 recent CTs done to avoid contrast- induced nephropathy. This patient presents with abdominal pain of unclear etiology. Their evaluation has not identified a emergent etiology for the abdominal pain. Specifically, given the very benign exam, normal laboratory studies, and lack of significant r isk factors, I have a very low suspicion for appendicitis, ischemic bowel, bowel perforation, or any other life threatening disease. I have discussed with the patient the level of uncertainty with undifferentiated abdominal pain and clearly explained the need to follow-up as noted on the discharge instructions, or return to the Emergency Department immediately if the pain worsens, develops fever, persistent and uncontrollable vomiting, or for any new symptoms or concerns. I discussed with the patient that this presentation today for abdominal pain could represent a significant risk for an acute abdominal process. Although the tests in the ED were essentially normal, there is still a possibility of a process such as diverticulitis, cholecystitis, ulcer, early bowel obstruction, mesenteric ischemia, kidney stone, or even kidney infection which could subsequently cause disability or . Given the patient had [address] scan to proceeding is unlikely. 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 The patient understands that they must return within 24 hours for a recheck or see their physician within 24 hours for re-exam due to the possibility of significant surgical or medical process. Assessment & Plan Final Impression: (1) Abdominal pain Depart Disposition: HOME, SELF-custodial Meds Reported Medications Dicyclomine Hcl (DICYCLOMINE HCL) 20 Mg Tablet, 20 MG PO TID, TAB 06/16/19 Pantoprazole Sodium* (PROTONIX) 40 Mg Tablet.dr, 40 MG PO DAILY, TAB 06/16/19 [Fiber Supplement] No Conflict Check, PO DAILY 06/16/19 Lactobac Cmb #3/Fos/Pantethine (PROBIOTIC & ACIDOPHILUS CAP) 1 Each Capsule, PO DAILY 06/16/19 Atorvastatin Calcium (ATORVASTATIN CALCIUM) 10 Mg Tablet, 10 MG PO 2100, #30 TAB 06/16/19 Metformin Hcl (METFORMIN HCL) 500 Mg Tablet, 1000 MG PO BID, #60 TAB 06/16/19 Albuterol Sulfate (ALBUTEROL SULFATE) 0.63 Mg/3 Ml Vial.neb, INH PRN 06/16/19 [Fluticasone] No Conflict Check, NA DAILY 06/16/19 Cetirizine Hcl (CETIRIZINE HCL) 10 Mg Tablet, 10 MG PO DAILY 06/16/19 Metoclopramide Hcl (METOCLOPRAMIDE HCL) 10 Mg Tablet, 10 MG PO ACHS, TAB 06/16/19 [Tylenol ] No Conflict Check, 500 MG PO PRN 06/16/19 Docusate Sodium (STOOL SOFTENER) 100 Mg Capsule, PO DAILY 06/16/19 Meclizine Hcl (MECLIZINE HCL) 12.5 Mg Tablet, 10 MG PO PRN, TAB 06/16/19 Naproxen (NAPROXEN) 250 Mg Tablet, 500 MG PO PRN, TAB 06/16/19 Doxycycline Hyclate (DOXYCYCLINE HYCLATE) 100 Mg Capsule, 100 MG PO BID, CAP 06/16/19 Ondansetron Hcl* (ZOFRAN*) 4 Mg Tablet, 4 MG PO PRN 06/16/19 Sertraline Hcl (SERTRALINE HCL) 100 Mg Tablet, 100 MG PO DAILY, TAB 06/16/19 Gabapentin (GABAPENTIN) 300 Mg Capsule, 300 MG PO DAILY, #60 CAP 06/16/19 KENTON BUTLER, DO Aug 22, 2019 22:26
[2019-08-22 22:27] LABS: BASOPHILS % 0.2 % (0.0-1.0); EOSINOPHILS # (AUTO) 0.1 (0.0-0.4); EOSINOPHILS % 1.7 % (0.0-6.0); HEMATOCRIT 31.4 % (34.2-44.1); LYMPHOCYTES # (AUTO) 1.2 (1.0-3.2); LYMPHOCYTES % 29.8 % (18.0-39.1); MEAN CORPUSCULAR HEMOGLOBIN 25.8 pg (28-32); MEAN CORPUSCULAR HGB CONC 31.8 g/dL (31-35); MEAN CORPUSCULAR VOLUME 80.9 fL (81-99); MONOCYTES # (AUTO) 0.4 (0.2-0.8); MONOCYTES % 8.5 % (4.4-11.3); NEUTROPHILS # (AUTO) 2.4 (2.1-6.9); NEUTROPHILS % 59.3 % (38.7-80.0); PLATELET COUNT 271 x10e3/uL (140-360); RED BLOOD COUNT 3.88 x10e6/uL (3.6-5.1); RED CELL DISTRIBUTION WIDTH 13.9 % (11.7-14.4)
[2019-08-22 22:43] LABS: ALANINE AMINOTRANSFERASE 41 IU/L (0-55); ALBUMIN/GLOBULIN RATIO 1.4 (0.8-2.0); ALKALINE PHOSPHATASE 71 IU/L (40-150); ANION GAP 10.9 mmol/L (8-16); BLOOD UREA NITROGEN 7 mg/dL (7-26); BUN/CREATININE RATIO 8 (6-25); CALCIUM 9.3 mg/dL (8.4-10.2); CARBON DIOXIDE 28 mmol/L (22-29); CHLORIDE 104 mmol/L (98-107); CREATINE KINASE 59 IU/L (29-168); CREATININE, SERUM 0.84 mg/dL (0.57-1.11); EST GLOMERULAR FILTRATION RATE > 60 ML/MIN (60-); GLUCOSE 137 mg/dL (74-118); POTASSIUM 3.9 mmol/L (3.5-5.1); SODIUM 139 mmol/L (136-145)
[2019-08-22 22:59] LABS: BACTERIA,URINE FEW /HPF; BILIRUBIN,URINE NEGATIVE (NEGATIVE); CLARITY,URINE CLEAR (CLEAR); COLOR,URINE YELLOW (YELLOW); EPITHELIAL CELLS,URINE MODERATE /LPF; KETONES,URINE NEGATIVE (NEGATIVE); LEUKOCYTE ESTERASE ,URINE NEGATIVE (NEGATIVE); NITRITE,URINE NEGATIVE (NEGATIVE); PROTEIN,URINE DIPSTICK NEGATIVE (NEGATIVE); URINE UROBILINOGEN 0.2 mg/dL (0.2 - 1); WBC,URINE (MAN) 0-5 /HPF (0-5)
[2019-08-22 23:00] LABS: PHENCYCLIDINE SCREEN,URINE NEGATIVE (NEGATIVE)
[2019-08-22 23:01] LABS: AMPHETAMINES SCREEN,URINE POSITIVE (NEGATIVE); BENZODIAZEPINES SCREEN,URINE NEGATIVE (NEGATIVE)
--- NOTE | 2019-08-23 00:43 | Diagnostic Imaging Report ---
Examination: Single AP view of the chest. COMPARISON: None. INDICATION: Epigastric abdominal pain radiating to right suprapubic region for 2 days IMPRESSION: 1. Lines and Tubes: None 2. Lungs are grossly clear. No consolidation or effusion. 3. Cardiomediastinal silhouette is normal. Pulmonary vasculature is normal. 4. No acute bony abnormalities. Signed by: Dr. Talat Cummings M.D. on 08/23/2019 12:40 AM
[2019-08-23] MEDS ORDERED: OMEPRAZOLE40 MG PO (00:59)
--- NOTE | 2019-08-23 01:08 | NUR ---
ER MD ATTEMPTED TO REVIEW PLAN OF CARE AND DISCHARGE INSTRUCTIONS WITH PATIENT AND PATIENT BECAME AGGITATED, RAISED VOICE AND STATED, "SO WHAT, I CAME ALL THE WAY FROM [place] FOR NOTHING? I'VE ALREADY BEEN AT ALL THE HOSPITALS IN [place], SO I CAME HERE. YOU SHOULD JUST GIVE ME PAIN MEDICINE." PATIENT STATES TYLENOL #3 AND TORADOL PRESCRIBED 3 DAYS PRIOR WERE "AT HOME." ER MD EXPLAINED TO PATIENT THAT LAB WORK AND RAD RESULTS WERE NORMAL THE SAME RESULTS WERE GIVEN TO PATIENT IN THE PAST 2 DAYS AT [address] ABD/PELVIS X2; PT WALKED OUT OF TRIAGE WHEN ER MD WAS ATTEMPTING TO INSTRUCT PATIENT ON DC INSTRUCTIONS.
[2019-08-23] MEDS ORDERED: SODIUM CHLORIDE 0.9% 1000ML 1,000 ML IV STA (02:37)
== END 2019-08-23 01:00 | disposition home or self-care (01) ==
LOC: ER 21:24
DX: R10.30 Lower abdominal pain, unspecified (principal); E11.65 Type 2 diabetes mellitus with hyperglycemia; E78.5 Hyperlipidemia, unspecified; F32.9 Major depressive disorder, single episode, unspecified; Z87.19 Personal history of other diseases of the digestive system
CPT/HCPCS: 36415; 71045; 80053; 80307; 81001; 82550; 82553; 83690; 84484; 85025; 99284